=== PATIENT | female | born 1950 | race Caucasian/White ===

== ENCOUNTER → 2017-12-18 18:00 | Outpatient (CLI) | payer MEDICARE, OTHER, SELFPAY ==
[2017-12-18 18:02] LABS: Mucous, Urine 0 SEEN /hpf (<or=2+)
[2017-12-18 19:48] LABS: Color, Urine Yellow (Yellow); Glucose, Dipstick Normal (Normal); Ketone-Dipstick Negative (Negative); Leukocyte Esterase-Dipstick 500 /ul (Negative); Nitrite-Dipstick Positive (Negative); Occult Blood-Urine 250 /ul (Negative); Protein-Dipstick 30 mg/dl (Negative); Specific Gravity, Urine 1.015 (1.002-1.030); Urine Bilirubin Dipstick Negative (Negative); Urine Clarity Sl. Cloudy (Clear); Urine Urobilinogen 1 mg/dl (Normal); Urine pH 6.5 (5.0 - 8.0)
[2017-12-18 20:15] LABS: Red Blood Cells-Urine 50-100 SEEN /hpf (0-5); White Blood Cells >100 SEEN /hpf (0-5)
[2017-12-18 20:16] LABS: Bacteria 3+ /hpf (None Seen); Squamous Epithelial Cells - UA 10-25 SEEN /hpf (5-10)
[2017-12-18 22:05] LABS: Chlamydia Trachomatis by PCR Negative (Negative); Neisserai gonorrhoeae by PCR Negative (Negative); Probe Check PASS; Sample Adequacy Control PASS; Specimen Processing Control PASS
== END ==
PROVIDERS: Referring Provider Physician Assistant Surgical; Visit Provider Physician Assistant Surgical
DX: N39.0 Urinary tract infection, site not specified (principal); R30.0 Dysuria
CPT/HCPCS: 81001; 87086; 87088; 87186; 87491; 87591

== ENCOUNTER → 2017-12-18 18:34 | Outpatient (CLI) | payer MEDICARE, OTHER, SELFPAY | PROVIDERS: Visit Provider Physician Assistant Surgical | DX: R30.0 Dysuria (principal) ==

== ENCOUNTER 2021-09-29 12:27 | Day surgery (SDC) | payer MEDICARE, OTHER, SELFPAY ==
--- NOTE | 2021-09-26 14:11 | PCM.HP.BLA ---
History and Physical Date of Admission: 09/29/21 HPI: The patient is a 71 year old female presenting for pre-operative visit. She is scheduled for Hysteroscopy D&C, for PMB and thickened endoemtrium on 09/29/21. Procedure discussed along with risks, benefits and complications. Other alternatives discussed for management. Consent form signed? Yes. ? ? PAST MEDICAL HISTORY PAST MEDICAL HISTORY Diagnosis Date ? Abdominal pain ? ? Status post multiple episodes of diverticulitis ? Aneurysm of splenic artery (HCC) ? ? Crohn's disease of small and large intestines (HCC) ? ? Degenerative lumbar spinal stenosis ? ? Diverticulitis of colon ? ? Status post perforation treated with laparoscopic washout ? External hemorrhoids ? ? Gastroesophageal reflux disease ? ? suspect ? Hyperlipidemia ? ? Internal hemorrhoids ? ? Known medical problems ? ? History of pain of multiple joints ? Nausea and vomiting ? ? Pneumothorax ? ? Rectal hemorrhage ? ? Solitary pulmonary nodule present on computed tomography of lung ? ? Surgical follow-up care ? ? ? PAST SURGICAL HISTORY PAST SURGICAL HISTORY Procedure Laterality Date ? SECTION HX ? ? ? COLONOSCOPY ? ? ? EXPLORATION OF ABDOMEN;STAGING,WASHINGS ? ? ? perf bowel 03/04/2012 ? EXT HYSTERECTOMY,W/PARTIAL VAGINECTO ? ? ? LEFT OVARY REMOVAL 1996 ? LAMINECTOMY W/O FFD 02/20 VERT SEG LUMBAR ? ? ? 2007 ? ? ? CURRENT MEDICATIONS Current Outpatient Medications Medication Sig Dispense Refill ? progesterone micronized (PROMETRIUM) 100 mg capsule One po q HS 30 capsule 0 ? fluticasone (FLONASE) 50 mcg/actuation nasal spray Use 1-2 Sprays in each nostril once daily. 1 Bottle 1 ? estrogen - VERIFY PATCH every 8 hours. ? ? ? venlafaxine (EFFEXOR) 50 mg tablet Take 1 tablet by mouth once daily. 30 tablet 1 ? miSOPROStol (CYTOTEC) 200 mcg tablet Insert 2 tablets vaginally night prior to procedure and 2 tablets morning of procedure. Each dose should be in vagina for 6-8 hours. (Patient not taking: No sig reported) 4 tablet 0 ? ALPRAZolam (XANAX) 0.25 mg tablet 1 tablet(s) by mouth at bedtime (Patient not taking: No sig reported) ? ? ? IBUPROFEN (MOTRIN ORAL) 600 mg Every 8 hours Oral PRN (Patient not taking: Reported on 09/26/2021) ? ? ? omeprazole (PRILOSEC) 20 mg capsule 1 tab po daily (Patient not taking: Reported on 09/26/2021) ? ? ? OXYCODONE HCL (OXYCODONE ORAL) Take by mouth. 5 mg Once per day Oral (Patient not taking: Reported on 09/26/2021) ? ? ? No current facility-administered medications for this visit. ? ? ALLERGIES: Ciprofloxacin and Narcotics [Opioids - Morphine Analogues] ? PERSONAL HISTORY: SOCIAL HISTORY Social History ? Tobacco Use ? Smoking status: Never ? Smokeless tobacco: Never Substance Use Topics ? Alcohol use: Yes ? ? Comment: hard liquor ? Drug use: No ? FAMILY HISTORY: FAMILY HISTORY FAMILY HISTORY Problem Relation Age of Onset ? other (Diabetes mellitus) Other ? ? Hyperlipidemia Other ? ? Hypertension Father ? ? other (Respiratory disorder; Stroke) Father ? ? other (Lung cancer) Other ? ? uncle ? COPD Mother ? ? ? REVIEW OF SYMPTOMS: negative except as noted above PHYSICAL EXAMINATION: ? VITALS: There were no vitals taken for this visit. ? GENERAL: The patient is well nourished, well hydrated in no acute distress. , The patient is oriented to time, place, and person. NECK: Supple. No lynphadenopathy, normal thyroid, no thyromegaly. LUNGS: Clear to auscultation bilaterally. no wheezes, rhonchi or rales HEART: Regular rate and rhythm, Normal heart sounds, and No murmurs or gallops ? IMPRESSION: PMB, thickened endometrium, suspect polyp ? PLAN: The risks/benefits/alternatives and personal involved for the planned hysteroscopy D&C were reviewed with the patient. Her questions were answered to her satisfaction and she desires to proceed. Consent was signed. I reviewed with her postop instructions and expectations. ? ? I have reviewed and updated past medical and surgical history, medications and allergies Assessment & Plan Assessment/Plan (1) PMB (postmenopausal bleeding): (2) Endometrial thickening on ultrasound:
[2021-09-29] VITALS (8 sets, daily range): BP systolic 118–151; BP diastolic 56–73; PULSE 71–89; RESP 16; TEMP 36.2–36.6; O2SAT 97–100; BMI 23.8
--- NOTE | 2021-09-29 12:42 | EKG12_ITS ---
Test Reason : PRE OP Blood Pressure : / mmHG Vent. Rate : 084 BPM Atrial Rate : 084 BPM P-R Int : 140 ms QRS Dur : 082 ms QT Int : 360 ms P-R-T Axes : 059 022 037 degrees QTc Int : 425 ms Normal sinus rhythm with sinus arrhythmia Normal ECG Confirmed by BARI HUFF, LISA ([id number]), editor trade journal NATE IZQUIERDO ([id number]) on 10/03/2021 2:10:33 PM Referred By: Vinita Tony Confirmed By:LISA CANDELARIA MD
[2021-09-29] MEDS: Lactated Ringers 1,000 ML 15 ML IV ×2 (13:28→15:45)
[2021-09-29] MEDS: Ketorolac 15 MG/ML Vial IV (13:30)
[2021-09-29 13:32] LABS: Hematocrit 41.2 % (37-47); Hemoglobin 13.6 g/dL (12.0-15.0); Mean Corpuscular Hgb 31.3 pg (27.0-32.0); Mean Corpuscular Volume 94.9 fL (81-99); Mean Platelet Vol. 9.1 fl (6.2-12.0); Platelet Count 209 K/mm3 (150-450); RBC Distribution Width CV 14.1 % (11.6-14.6); RBC Distribution Width SD 49.4 fl (35.1-43.9); Red Blood Count 4.34 M/mm3 (4.2-5.4); White Blood Count 4.6 K/mm3 (4.4-11.0)
[2021-09-29 13:58] LABS: Anion Gap 3 (5-15); BUN 18 mg/dL (7-18); BUN/Creat Ratio 16.4 RATIO (10-20); Calcium,Total 9.5 mg/dL (8.5-10.1); Chloride 109 mmol/L (98-107); EST Glomerular Filtration Rate 52 mL/min (>60); Est Glom Filt Rate - Afr Amer 63 mL/min (>60); Estimated Creatinine Clearance 34.18 ml/min; Glucose 100 mg/dL (74-106); Potassium 4.1 mmol/L (3.5-5.1); Sodium Level 142 mmol/L (136-145)
[2021-09-29] MEDS: Vasopressin 20 UNITS/ML Vial (14:26)
--- NOTE | 2021-09-29 15:08 | OP.PCM_ITS ---
Problems Associated Problem List Diagnoses (1) Endometrial thickening on ultrasound: (2) PMB (postmenopausal bleeding): Report of Operation Date of Procedure: 09/29/21 Pre-Operative Diagnosis: PMB,. thickened endometrium Post-Operative Diagnosis: same Surgery/Procedure Performed:: hysteroscopy D&C with polyp resection Description of Surgical Findings:: normal cervix adn vagina, normal endometrial cavity shape w/ some smooth endometrium and small polypoid appearing lesion at the anterior fundus Surgeon: Vinita Tony licensed mental health counselor: Kandy JEROME Type of Anesthesia: MAC/Supplemental/Local Anesthesiologist: Noel Stark Special Medications: vasopressin solution 3.5 units vasopressin injected Specimen's removed: endometrial curettings and polyp Drains: none Estimated Blood Loss (mL): 10 Fluids Replaced: 1100 mL Description of Procedure: The patient was taken to the OR where she was prepped and draped in dorsal lith otomy position. The weighted speculum was placed in the vagina and the anterior lip of the cervix was grasped with a single-tooth tenaculum. A paracervical block was administered with 20 units of vasopressin and 40 cc of injectable saline solution-7 cc of the solution was used. The cervix was dilated serially with Hegar dilators. The Symhpion hysteroscope was placed into the uterine cavity and the above findings were noted. Bilateral tubal ostia [were] identified. The Symphion resection device was readied and inserted. The polyp was in removed with the simply on device and a visual D&C was done of the endometrial cavity. The instruments were removed from the vagina. The specimen was handed off and sent to pathology. All sponge and needle counts were correct. Vaginal sweep was performed by me. The patient was awakened and taken to the recovery room in stable condition. Calculated fluid deficit was 550 mL of normal saline Grafts/Implants Used: none Procedure Start Time: 14:52 Procedure Stop Time: 15:03 Complications none Admit VTE Documentation VTE Present on Admission: No VTE Mechan Device Prophylaxis: SCD's VTE Pharm Prophylaxis ordered?: No Reason prophylaxis not ordered:: Procedure Not Indicated
--- NOTE | 2021-09-29 15:12 | DCINST_ITS ---
Discharge Instructions Diet Discharge Diet: No restrictions Activity May resume sexual activity in: 1 week Lifting Restrictions: none Dressing / Incision Call your doctor if your incision/area has: Sudden Increased Bleeding and Foul Smelling Discharge Call your doctor if you observe: Fever of 101 or Higher and Using more than 1 pad per hour (for 2 hrs in a row) Follow Up Care Please Follow Up With: Vinita Tony MD When: 2-4 weeks or as needed. Call [phone] to make an appointment or with any concerns. Test Results: Test results from this visit will be discussed in further detail at your follow- up appointment, if applicable. Discharge Plan Admission Primary Reason for Your Visit: D&C Attending Provider: Vinita Tony Primary Care Provider: Care PhysicianDarby Primary Discharge Orders/Prescriptions Prescriptions: Continued estradiol 0.0375 mg/24 hr patch weekly 0.5 patch Transdermal QWEEK 28 Days Qty: 4 Label Comments: Place 1 patch onto the skin once a week. remove previous patch venlafaxine 50 mg tablet 50 mg PO QHS 30 Days Qty: 30 Label Comments: TAKE ONE TABLET BY MOUTH EVERY DAY progesterone micronized 100 mg capsule 100 mg PO QHS Label Comments: TAKE 1 CAPSULE BY MOUTH EVERYDAY AT BEDTIME Referrals / Follow Up: Care Physician,Darby Primary [Primary Care Provider] - Disposition Disposition (needs filled in before D/C Order can be placed): Home, Self Care
--- NOTE | 2021-09-29 15:30 | EMB_PTH ---
PATIENT: CHAMP BUCK LOC: [facility] – [place] U#:[id number] AGE/SX: 71/F ROOM: RE09/29/[address]: Dr. Vinita Tony MD : [id number] BED: DIS: 09/29/2021 SPEC #: [id number] RECD: 09/29/21 15:37 STATUS: EL REBairon #: [id number] LUPILLO: 09/29/21 15:[address]: Vinita Tony DEPT: SURGICAL PATHOLOGY RECD BY: Za Olea ENTERED: 09/30/21 08:17 SP TYPE: ENDOM BX/C MAO DR: No Primary Care Phys Tissues: Endometrium, NOS Procedures: Surgery Specimen Level IV HEADER OPERATION: Hysteroscopy, D & C Symphion, polyp resection PRE-OP DIAGNOSIS: Postmenopausal bleeding, endometrial thickening on ultrasound TISSUE SUBMITTED: Endometrial curetting and polyp MICROSCOPIC DIAGNOSIS Endometrial curetting and polyp: Fragments of inactive endometrium with focal cystic changes. Numerous fragments of myometrium. SJ 10/03/2021 COMMENT Correlation with clinical findings and appropriate follow up are necessary. MICROSCOPIC DESCRIPTION Slides are reviewed. GROSS DESCRIPTION Received in fixative is one container labeled with the patient's name and designated endometrial curetting and polyp. The specimen consists of multiple irregular fragments of cleaning soft tissue that in aggregate measure 2 x 1.5 x 0.2 cm. The specimen is totally submitted in one cassette. / SJ:rg 09/30/2021 TC:5 CPT: 20188
[2021-09-29] MEDS: Acetaminophen 500 MG Tablet 1000 MG PO (16:15)
== END 2021-09-29 16:32 | disposition home or self-care (01) ==
LOC: SDC 12:35 → AC 12:38
PROVIDERS: Referring Provider Obstetrics & Gynecology; Visit Provider Obstetrics & Gynecology
PROC: 0UB98ZZ Excision of Uterus, Via Natural or Artificial Opening Endoscopic (ICD-10-PCS; CPT 58558; principal; 2021-09-29 15:15)
DX: N95.0 Postmenopausal bleeding (principal); N84.0 Polyp of corpus uteri; R93.89 Abnormal findings on diagnostic imaging of other specified body structures; F41.9 Anxiety disorder, unspecified; Z79.899 Other long term (current) drug therapy
CPT/HCPCS: 58558; 00952; 80048; 85027; 88305; 93005; J7120; J2405

== ENCOUNTER → 2022-01-31 | Outpatient (CLI) | payer MEDICARE, OTHER, SELFPAY ==
--- NOTE | 2022-01-31 18:20 | US_ITS ---
INDICATION: ENLARGEMENT-RT EXAMINATION: Ultrasound US Thyroid (eg thyroid, parathyroid, parotid) TECHNIQUE: Garsia scale and color doppler imaging was performed of the thyroid gland. COMPARISON: None. FINDINGS: RIGHT THYROID LOBE: 4.7 x 1.3 x 1.5 cm. Homogeneous echotexture with normal vascularity. [ 1. . 3 x 2 x 3 mm hypoechoic solid nodule, wider than tall with smooth margins with possible central macrocalcification, TI-RAD 4. LEFT THYROID LOBE: 3.5 x 0.9 x 1.1 cm. Homogeneous echotexture with normal vascularity. [No thyroid nodules are present. ISTHMUS: 0.2cm isthmus. No thyroid nodules are present. Right neck lymph nodes, largest 1.3 x 0.3 x 0.6cm lymph node with preserved fatty hilum and symmetric thin cortex. US/Thyroid IMPRESSION: Right thyroid 3 mm thyroid TI-RAD 4 nodule which is likely benign given its small size. No specific imaging follow-up required by 2017 ACR TI-RAD criteria. Small right neck lymph nodes are nonspecific, without overt suspicious features. Clinical follow-up recommended with follow-up ultrasound as indicated Electronically Signed: Varghese Casarez MD at 8:15 EST ,
== END | disposition home or self-care (01) ==
PROVIDERS: PCP Nurse Practitioner Family; Referring Provider Nurse Practitioner Family; Visit Provider Nurse Practitioner Family
DX: E04.1 Nontoxic single thyroid nodule (principal)
CPT/HCPCS: 76536

== ENCOUNTER → 2023-11-16 | Outpatient (CLI) | payer MEDICARE, OTHER, SELFPAY ==
--- NOTE | 2023-11-16 12:08 | BI_ITS ---
MAMMOGRAPHY - BILATERAL SCREENING REASON FOR EXAM: Female, 73 years old. Routine annual screening examination. PERTINENT HISTORY: Non-contributory. TECHNIQUE: Digital bilateral breast tyrone (3D mammographic acquisition) in the CC and MLO projections. 2-D mediolateral oblique (MLO) and craniocaudad (CC) views of both breasts were obtained. CAD: Full Field Digital Mammography with Computer Added Detection was performed. COMPARISON: Comparison is made with prior outside examination dated November 30, 2021. FINDINGS: Breast Composition: There are scattered areas of fibroglandular density. There are no dominant masses or suspicious calcifications. No other significant abnormalities are identified. There has been no significant change since the prior study. BI/SCRN MAMM (CAD)W/TYRONE BILAT IMPRESSION: Stable bilateral screening mammogram. Yearly follow-up mammogram recommended. (A) ASSESSMENT CATEGORY: BIRADS Category 1: Negative. A letter regarding these results will be sent to the patient by the facility within 30 days. Approximately 10% of breast cancers are not detected by mammography. A normal mammogram should not delay biopsy of a clinically suspicious abnormality. [id number] Electronically Signed: Kaiden Baxter MD at 9:41 EDT ,
== END | disposition home or self-care (01) ==
LOC: OPBD 12:06
PROVIDERS: PCP Nurse Practitioner Family; Referring Provider Nurse Practitioner Family; Visit Provider Nurse Practitioner Family
DX: Z12.31 Encounter for screening mammogram for malignant neoplasm of breast (principal)
CPT/HCPCS: 77063; 77067

== ENCOUNTER → 2023-12-24 | Outpatient (CLI) | payer MEDICARE, OTHER, SELFPAY ==
--- NOTE | 2023-12-24 15:00 | RAD_ITS ---
STUDY: X-RAY CHEST REASON FOR EXAM: Female, 73 years old. 3 week history of cough and chest pain. TECHNIQUE: PA and lateral views of the chest. COMPARISON: Comparison is made with prior study February 07, 2023. FINDINGS: There is hyperinflation of the lungs consistent with chronic obstructive lung disease (COPD). There is no demonstrated pleural abnormality. Normal size heart. Normal mediastinum and ivan. Normal visualized pulmonary arteries. There is atherosclerotic calcification of the aortic arch with tortuosity. There are diffuse degenerative changes of the visualized thoracic spine. There are multiple healed right rib fractures. There is no demonstrated abnormality of the visualized soft tissue structures of the upper abdomen. RAD/Chest PA and Lateral IMPRESSION: Hyperinflation. Multiple healed right rib fractures. No acute abnormality is seen. Electronically Signed: Kaiden Baxter MD at 9:57 EST ,
== END | disposition home or self-care (01) ==
LOC: RAD 14:54
PROVIDERS: PCP Nurse Practitioner Family; Referring Provider Nurse Practitioner Family; Visit Provider Nurse Practitioner Family
DX: R05.9 Cough, unspecified (principal)
CPT/HCPCS: 71046

== ENCOUNTER → 2024-04-11 | Outpatient (CLI) | payer MEDICARE, OTHER, SELFPAY ==
--- NOTE | 2024-04-11 12:41 | RAD_ITS ---
PROCEDURE: CHEST PA AND LATERAL REASON FOR EXAM: Lower respiratory tract infection. TECHNIQUE: Frontal and lateral views of the chest. COMPARISON: Comparison is made with prior study dated December 24, 2023. FINDINGS: Hyperinflation. Findings suggestive of COPD. The heart size is normal. The mediastinal contour is unremarkable. Calcification of the aortic arch. Degenerative changes are identified within the thoracic spine. Multiple healed right-sided rib fractures. RAD/Chest PA and Lateral IMPRESSION: Hyperinflation. No acute abnormality is seen. Reading Location: [place] [id number]
[2024-04-11 15:43] LABS: Absolute Lymphocyte Count 0.81 X10^3/uL (0.83-4.51); Absolute Neutrophil Count 5.4 X10^3/uL (2.0-7.7); Basophil# 0.03 X10^3/uL; Basophil% 0.4 % (0-1); Eosinophil# 0.28 X10^3/uL; Eosinophils% 3.9 % (0-5); Hematocrit 44.4 % (37-47); Hemoglobin 14.1 g/dL (12.0-15.0); Lymphocyte # 0.81 X10^3/ul (0.83-4.51); Lymphocyte % 11.1 % (19-41); Mean Corp Hgb Conc 31.8 g/dL (32-36); Mean Corpuscular Hgb 30.1 pg (27.0-32.0); Mean Corpuscular Volume 94.9 fL (81-99); Mean Platelet Vol. 9.2 fl (6.2-12.0); Monocyte# 0.78 X10^3/uL; Monocyte% 10.7 % (0-10); NRBC Flagged by Analyzer 0 % (0-5); Neutrophil # 5.35 X10^3/uL (2.7-7.7); Neutrophil % 73.6 % (47-70); Platelet Count 240 K/mm3 (150-450); RBC Distribution Width SD 45.3 fl (35.1-43.9); Red Blood Count 4.68 M/mm3 (4.2-5.4); White Blood Count 7.3 K/mm3 (4.4-11.0)
[2024-04-11 15:57] LABS: ALB/GLOB Ratio 0.9 RATIO (0.9-2.4); AST(SGOT) 23 U/L (15-37); Alanine Aminotransfer ALT/SGPT 33 U/L (13-56); Albumin, Serum 3.8 g/dL (3.2-5.0); Alkaline Phosphatase 119 U/L (45-117); Anion Gap 7 (5-15); BUN 8 mg/dL (7-18); BUN/Creat Ratio 7.6 RATIO (10-20); Calcium,Total 9.5 mg/dL (8.5-10.1); Chloride 106 mmol/L (98-107); Creatinine, Serum 1.05 mg/dL (0.55-1.02); EST Glomerular Filtration Rate 55 mL/min (>60); Est Glom Filt Rate - Afr Amer 66 mL/min (>60); Globulin 4.2 g/dL (2.2-4.2); Glucose 88 mg/dL (74-106); Potassium 3.8 mmol/L (3.5-5.1); Sodium Level 139 mmol/L (136-145)
[2024-04-11 15:59] LABS: Erythrocyte Sedimentation Rate 6 mm/hr (0-30)
== END | disposition home or self-care (01) ==
PROVIDERS: PCP Nurse Practitioner Family; Referring Provider Nurse Practitioner Family; Visit Provider Nurse Practitioner Family
DX: J22 Unspecified acute lower respiratory infection (principal)
CPT/HCPCS: 71046; 80053; 85025; 85652; 86140

== ENCOUNTER → 2024-08-11 | Outpatient (CLI) | payer MEDICARE, SELFPAY ==
--- NOTE | 2024-08-11 13:02 | US_ITS ---
PROCEDURE: THYROID 08/11/2024 REASON FOR EXAM: THYROID ULTRASOUND ([id number]) : REASSESS NODULE/MICROCALCIFICATION U TECHNIQUE: THYROID COMPARISON: None FINDINGS: Right thyroid lobe size: 4.5 x 1.8 x 1.3 cm Left thyroid lobe size: 3.6 x 0.9 x 1.0 cm Isthmus: 0.2 cm Background parenchymal echotexture is homogeneous. Nodules: 1. Lobe: Right, Location: Mid, Size: 0.6 x 0.5 x 0.5 cm, Stability: N/A Composition: Solid or almost completely solid (+2) Echogenicity: Hyper to Isoechoic (+1) Margin: Ill-defined (+0) Shape: Wider than tall (+0) Echogenic Foci: Macrocalcification (+1) TI-RADS: 4 US/Thyroid IMPRESSION: Solitary nodule in the right thyroid lobe measuring up to 6 mm in size, which d oes not require follow-up or FNA per ACR TI-RADS guidelines. Reading Location: [facility]
--- OUTSIDE RECORDS SUMMARY | 2024-08-11 22:36 | XMS RPT_ITS | CCD ---
Author Organization [facility] Care Team Providers Care Millwork Estimator Name Role Phone Dustin HUFF, Rashaad Bajwa Unavailable Suarez, Yulia Attending Unavailable Suarez, Yulia Referring Unavailable Suarez, Yulia Primary Care Unavailable Suarez, Yulia Attending Unavailable Suarez, Yulia Referring Unavailable Suarez, Yulia Primary Care Unavailable Suarez, Yulia Attending Unavailable Suarez, Yulia Referring Unavailable Suarez, Yulia Primary Care Unavailable Petr Broussard Attending Unavailable Suarez, Yulia Referring Unavailable Suarez, Yulia Primary Care Unavailable Kelsi Novoa Attending Unavailable Suarez, Yulia Referring Unavailable Suarez, Yulia Primary Care Unavailable Waldo Waldron Attending Unavailable Suarez, Yulia Referring Unavailable Suarez, Yulia Primary Care Unavailable Tyree, Iris R Primary Care Provider Sadiq Clementsine R Primary Care Provider Kelsi Goldman Primary Care Provider Tyree KEY Iris R Primary Care Provider Gisell Espinoza MD Primary Care Provider Unavailable Primary Care Provider Unavailabl e Sadiq Clementsine Latia Primary Care Provider Almaz Turner DO Primary Care Provider Almaz Turner DO Primary Care Provider Sadiq Clementsine Latia Primary Care Provider Unavailable Primary Care Provider Unavailabl e Unavailable Primary Care Provider Unavailabl e MEHNAZ LLOYD, SHANIQUE Attending Unavailabl e NO FAMILY PHYSICIAN, 837 Primary Care Unavail able Winifred HUFF, Gustabo Sinclair Primary Care Provider Thomas PRESCRIPTION BENEFIT SPECIALIST, Daniel Unavailable Thomas PRESCRIPTION BENEFIT SPECIALIST, Daniel Unavailable Slarao TREASURY ANALYSTNancy Unavailable Unavailable Unavailable Unavailable Diana Lundberg MD Unavailable Sandy STOREHOUSE CLERK, Goldya Unavailable Unavailable Unavailable Unavailable Sukhwinder TREASURY ANALYSTNadia Unavailable Unavailable Unavailable Unavailable Diana Lundberg MD Unavailable Thomas PRESCRIPTION BENEFIT SPECIALIST, Daniel Attending Unavailable Thomas PRESCRIPTION BENEFIT SPECIALIST, Daniel Referring Unavailable Thomas PRESCRIPTION BENEFIT SPECIALIST, Daniel Consulting Unavailable Con Lynn Unavailable Fast DO, Shanique Mack Primary Care Provider FAST, SHANIQUE MACK Referring Unavailable FAST, SHANIQUE MACK Primary Care Unavailable CON LYNN Attending Unavailable Iris Clements Primary Care Provider Gustabo Deng MD Primary Care Provider Gustabo Deng MD Primary Care Provider PROVIDER, UNKNOWN Admitting Unavailable DIANA LUNDBERG Attending Unavailable PROVIDER, UNKNOWN Admitting Unavailable DIANA LUNDBERG Attending Unavailable THOMAS, DANIEL Primary Care Unavailable LUISANA RAMIREZ Attending Unavailable BRICE SALMERON Attending Unavailable THOMAS, DANIEL Primary Care Unavailable ThomasChloéyn Attending Unavailable Thomas, Daniel Primary Care Unavailable Thomas, Daniel Referring Unavailable ThomasChloéyn Attending Unavailable Thomas, Daniel Primary Care Unavailable Thomas, Daniel Referring Unavailable Thomas, Daniel Attending Unavailable Thomas, Daniel Primary Care Unavailable Thomas, Daniel Referring Unavailable Thomas FILM EDITOR-C, Daniel Primary Care Provider Thomas FILM EDITOR-C, Daniel Attending Provider Thomas FILM EDITOR-C, Daniel Referring Provider Thomas SAMI, Daniel Primary Care Provider GUSTABO DENG Primary Care Unavailable Thomas MOLD SETTER-Daniel GALLARDO E Primary Care Provider THOMAS, DANIEL E Referring Unavailable DANIEL GUZMAN Primary Care Unavailable Allergies Allergy Classification Reported Allergen(s) Allergy Type Date of Onset Reaction(s) Facility Quinolones (antibiotic) (1 source) Ciprofloxacin Drug Allergy 03-21-19 13 Rash [facility] (1 source) ciprofloxacin drug allergy 01-21-20 16 [facility] Work Phone: (20 sources) Ciprofloxacin; Translations: [Cipro *FLUOROQUINOLONES *] Drug Allergy 03-21-19 13 Rash, Other: See Comments, Other (See Comments), Swelling [place], [place] (5 sources) Morphine And Related Propensity to adverse reactions to drug 07-02-19 Other (See Comments) [place] (20 sources) Morphinan opioid; Translations: [OPIOIDS - MORPHINE ANALOGUES] Propensity to adverse reactions to drug 07-02-19 16 Other: See Comments, Other (See Comments) [facility] (2 sources) Morphine; Translations: [MORPHINE] Drug Allergy 07-02-19 16 Other (See Comments) [facility] (1 source) Ciprofloxacin Drug Allergy 09-30-19 [facility] Repository (1 source) ALLERGIES NOT ON FILE; Translations: [ALLERGIES NOT ON FILE] Propensity to adverse reactions (disorder) [facility] 2 Repository Medications Current Medications Medication Drug Class(es) Dates Sig (Normalized) Sig (Original) acyclovir 400 mg oral tablet (3 sources) Herpesvirus Nucleoside Analog DNA Polymerase Inhibitor, Herpes Simplex Virus Nucleoside Analog DNA Polymerase Inhibitor, Herpes Zoster Virus Nucleoside Analog DNA Polymerase Inhibitor Start: 07-25-2023 take 1 tablet by mouth three times daily as needed acyclovir (ZOVIRAX) 400 mg tablet TAKE 1 TABLET BY MOUTH 3 TIMES PER DAY NEEDED 07/25/2023 Active 120 actuat albuterol 0.1 mg/actuat / ipratropium bromide 0.02 mg/actuat inhalation spray (1 source) Anticholinergic, beta2-Adrenergic Agonist Start: 01-06-2024 take 20-100 ug by inhalation every six hours as needed ipratropium 20 mcg-albuterol 100 mcg (COMBIVENT RESPIMAT) 20-100 mcg/actuation inhaler Inhale 1 Puff as instructed every 6 hours as needed for wheezing/shortnes s of breath for up to 10 days. With spacer 4 g 01/06/2024 Active amoxicillin 875 mg / clavulanate 125 mg oral tablet (20 sources) Penicillin-class Antibacterial Start: 08-04-2023 End: 08-09-2023 take 1 tablet by mouth twice daily amoxicillin-clavu lanate potassium (AUGMENTIN) 875-125 mg per tablet Indications: Bacterial sinusitis Take 1 tablet by mouth two times a day for 5 days. 10 tablet 0 08/04/2023 08/09/2023 Active Start: 04-11-2022 End: 04-21-2022 take 1 tablet by mouth twice daily amoxicillin-pot clavulanate 875-125 mg oral tablet 1 (one) tablet two times daily for 10 days Quantity: 20 {Tablet} Refills: 0 Ordered: 11-Apr-2022 Nancy Quintanilla LPN Start : 11-Apr-2022 End : 21-Apr-2022 Inactive Start: 01-11-2022 End: 01-21-2022 take 1 tablet by mouth twice daily Amoxicillin-Pot Clavulanate 875-125 MG Oral Tablet 1 (one) Tablet two times daily for 10 days Quantity: 20 {Tablet} Refills: 0 Ordered: 11-Jan-2022 Nadia Pretty LPN Start : 11-Jan-2022 End : 21-Jan-2022 Inactive aspirin 325 mg oral tablet (2 sources) Nonsteroidal Anti-inflammatory Drug Start: 07-05-2017 aspirin 325 MG tablet Take 1 (one) tablet (325 mg total) by mouth . 0 07/05/2017 Active Start: 07-05-2017 ASPIRIN 325 MG TABS take 1 to 2 tablets every 6 hours as needed ASPIRIN [id number] [facility] bimatoprost 0.3 mg/ml topical solution (4 sources) Prostaglandin Analog Start: 06-07-2022 bimatoprost (LATISSE) 0.03 % ophthalmic solution Apply to both eyelids along upper eyelid lash line at nightime. Do not use on lower eyelid 3 mL 5 06/07/2022 Active Comment on above: Apply to both eyelid s along upper eyelid lash line at nightime. Do not use on lower eyelid 24 hr buPROPion hydrochloride 150 mg extended release oral tablet (1 source) Aminoketone Start: 07-10-2019 take 1 tablet by mouth once daily in the morning buPROPion (WELLBUTRIN XL) 150 MG extended release tablet Indications: Moderate recurrent major depression (HCC) Take 1 tablet by mouth every morning 30 tablet 3 07/10/2019 Active fluconazole 150 mg oral tablet (1 source) Azole Antifungal Start: 06-27-2019 take 1 tablet by mouth once daily as needed fluconazole (DIFLUCAN) 150 MG tablet Take 1 tablet by mouth daily as needed (yeast symptoms) 2 tablet 1 06/27/2019 Active Iopamidol (1 source) Radiographic Contrast Agent Start: 12-23-2018 iopamidol (ISOVUE-M 300) 61 % injection 100 mL ketoconazole 20 mg/ml medicated shampoo (4 sources) Azole Antifungal Start: 06-07-2022 ketoconazole (NIZORAL) 2 % shampoo SHAMPOO TWICE A WEEK DIRECTED allow product to remain in place for 5 minutes prior to rinsing 120 mL 5 06/07/2022 Active Comment on above: SHAMPOO TWICE A WEEK DIRECTED allow product to remain in place for 5 minutes prior to rinsing 24 hr loratadine 10 mg / pseudoephedrine sulfate 240 mg extended release oral tablet (2 sources) alpha-Adrenergic Agonist Start: 01-15-2018 take 10-240 mg by mouth once loratadine-pseudo ephedrine (CLARITIN-D 24 HOUR) 10-240 MG per extended release tablet Take 1 tablet by mouth daily 10 tablet 0 01/15/2018 Active LORazepam 0.5 mg oral tablet (20 sources) Benzodiazepine Start: 10-12-2021 End: 04-10-2022 take 1 tablet by mouth once daily as needed for anxiety LORazepam (ATIVAN) 0.5 mg Indications: Anxiety Take 1 tablet by mouth once daily as needed (anxiety) for up to 180 days. 30 tablet 10/12/2021 Active Start: 12-18-2019 End: 01-17-2020 take 1 tablet by mouth once daily as needed for anxiety LORazepam (ATIVAN) 0.5 MG tablet Indications: Generalized anxiety disorder Take 1 tablet by mouth daily as needed for Anxiety for up to 30 days. 30 tablet 0 12/18/2019 01/17/2020 Active Start: 07-10-2019 End: 08-09-2019 take 1 tablet by mouth once daily as needed for anxiety LORazepam (ATIVAN) 0.5 MG tablet Indications: Generalized anxiety disorder Take 1 tablet by mouth nightly as needed for Anxiety for up to 30 days. 30 tablet 0 07/10/2019 08/09/2019 Active Start: 01-31-2019 End: 03-02-2019 take 1 tablet by mouth once daily as needed for anxiety LORazepam (ATIVAN) 0.5 MG tablet Indications: Generalized anxiety disorder Take 1 tablet by mouth nightly as needed for Anxiety for up to 30 days. 30 tablet 0 01/31/2019 03/02/2019 Active Start: 08-30-2018 take 1 tablet by richard th once daily as needed for anxiety LORazepam (ATIVAN) 0.5 MG tablet Indications: Generalized anxiety disorder Take 1 tablet by mouth nightly as needed for Anxiety for up to 30 days. 30 tablet 0 08/30/2018 Active Comment on above: Take 1 tablet by richard th once daily as needed (anxiety) for up to 180 days. Medication taken as needed. omeprazole 40 mg delayed release oral capsule (7 sources) Proton Pump Inhibitor Start: 05-19-19 End: 05-18-19 24 take 1 capsule by mouth once daily omeprazole (PRILOSEC) 40 MG capsule Indications: Laryngopharyngeal reflux (LPR) Take 1 (one) capsule (40 mg total) by mouth daily . 30 capsule 3 05/18/2022 05/18/2023 Active End: 09-26-2021 take 1 tablet by mouth once daily omeprazole (PRILOSEC) 20 mg capsule 1 tab po daily 0 09/26/2021 Discontinued (Other) Comment on above: 1 tab po daily pantoprazole 40 mg delayed release oral tablet (5 sources) Proton Pump Inhibitor Start: 1 take 1 tablet by mouth once daily pantoprazole (PROTONIX) 40 MG tablet TAKE 1 TABLET BY MOUTH EVERY DAY 30 tablet 2 04/16/2020 Active Start: 12-18-2019 take 1 tablet by richard th once daily pantoprazole (PROTONIX) 40 MG tablet TAKE 1 TABLET BY MOUTH EVERY DAY 30 tablet 2 12/18/2019 Active Start: 03-24-2019 take 1 tablet by richard th once daily pantoprazole (PROTONIX) 40 MG tablet TAKE 1 TABLET BY MOUTH DAILY 30 tablet 2 03/24/2019 Active Start: 02-06-2018 take 1 tablet by richard th once daily pantoprazole (PROTONIX) 40 MG tablet Take 1 tablet by mouth daily 90 tablet 1 02/06/2018 Active progesterone 100 mg oral capsule (20 sources) Progesterone Start: 09-23-2021 take 1 capsule by mouth once at bedtime progesterone micronized (PROMETRIUM) 100 mg capsule Indications: PMB (postmenopausal bleeding) One po q HS 30 capsule 11 10/05/2021 Active Start: 12-18-2019 End: 09-14-2021 take 1 capsule by mouth once at bedtime progesterone micronized (PROMETRIUM) 100 mg capsule One po q HS 0 12/18/2019 09/14/2021 Discontinued Start: 03-20-2019 take 1 capsule by mo uth once at bedtime progesterone (PROMETRIUM) 100 MG capsule One po q HS 90 capsule 3 03/20/2019 Active Start: 01-06-2019 take 1 capsule by mo uth once at bedtime progesterone (PROMETRIUM) 100 MG capsule One po q HS 90 capsule 0 01/06/2019 Active Start: 11-20-2017 take 1 capsule by mo uth once at bedtime progesterone (PROMETRIUM) 100 MG capsule One po q HS 90 capsule 4 11/20/2017 Active Comment on above: One po q HS sodium chloride flush 0.9 % injection 3 mL (1 source) Start: 9 sodium chloride flush 0.9 % injection 3 mL tiZANidine 4 mg oral tablet (1 source) Central alpha-2 Adrenergic Agonist Start: 9 take 1 tablet by mouth every eight hours as needed for muscle spasms tiZANidine (ZANAFLEX) 4 MG tablet Indications: Acute left-sided thoracic back pain Take 1 tablet by mouth every 8 hours as needed (spasms) 30 tablet 0 01/31/2019 Active tretinoin 0.25 mg/ml topical cream (8 sources) Retinoid Start: 7 tretinoin (RETIN-A) 0.025 % cream Apply topically at bedtime. Apply 2-3 nights per week and advance as tolerated to nightly regimen. 45 g 5 12/11/2016 Active valACYclovir 500 mg oral tablet (19 sources) Herpesvirus Nucleoside Analog DNA Polymerase Inhibitor, Herpes Simplex Virus Nucleoside Analog DNA Polymerase Inhibitor, Herpes Zoster Virus Nucleoside Analog DNA Polymerase Inhibitor Start: 1 take 1 tablet by mouth once daily valACYclovir (VALTREX) 500 mg tablet Take 1 tablet by mouth once daily. 10/11/2021 Active Start: 03-20-2019 take 1 tablet by richard th once daily valACYclovir (VALTREX) 500 MG tablet Take 1 tablet by mouth daily 90 tablet 1 03/20/2019 Active Start: 03-26-2018 take 1 tablet by richard th once daily valACYclovir (VALTREX) 500 MG tablet Take 1 tablet by mouth daily 90 tablet 1 03/26/2018 Active Comment on above: Take 1 tablet by richard th once daily. Completed/Discontinued Medications Medication Drug Class(es) Dates Sig (Normalized) Sig (Original) ALPRAZolam 0.25 mg oral tablet (6 sources) Benzodiazepine End: 09-26-2021 take 1 tablet by mouth at bedtime ALPRAZolam (XANAX) 0.25 mg tablet 1 tablet(s) by mouth at bedtime 0 09/26/2021 Discontinued (Other) Comment on above: 1 tablet(s) by mouth at bedtime atorvastatin 10 mg oral tablet (1 source) HMG-CoA Reductase Inhibitor Start: 07-05-2017 ATORVASTATIN CALCIUM 10 MG TABS take 1/2 a tablet every other day ATORVASTATIN CALCIUM [id number] [facility] cariprazine 1.5 mg oral capsule (12 sources) Atypical Antipsychotic Start: 04-17-2022 End: 07-18-2022 take 1 capsule by mouth once daily Vraylar 1.5 mg oral capsule 1 Capsule daily for 0 days Quantity: 30 {Capsule} Refills: 3 Ordered: 18-Jul-2022 Nancy Quintanilla LPN Start : 17-Apr-2022 End : 18-Jul-2022 Discontinued doxycycline hyclate 100 mg oral capsule (11 sources) Tetracycline-class Drug Start: 04-24-2022 End: 05-01-2022 take 1 capsule by mouth twice daily doxycycline hyclate 100 mg oral capsule 1 Capsule 2 times per day for 7 days Quantity: 14 {Capsule} Refills: 0 Ordered: 24-Apr-2022 Nancy Quintanilla LPN Start : 24-Apr-2022 End : 01-May-2022 Inactive 168 hr estradiol 0.93726 mg/hr transdermal system (20 sources) Estrogen Start: 12-12-2022 apply 1 dose transdermal route every week estradioL 0.0375 mg/24 hr weekly transdermal patch 1 (one) patch, transdermal weekly weekly for 0 days Quantity: 30 {Each} Refills: 0 Ordered: 12-Dec-2022 Daniel Guzman CNP Start : 12-Dec-2022 Active Start: 03-31-2022 estradioL (CLI MARY) 0.0375 mg/24 hr 1 (one) patch once a week . 0 03/31/2022 Active Start: 10-07-2021 estradiol (CLI MARY) 0.0375 mg/24 hr Apply 1 Patch as directed one time a week. 10/07/2021 Active Start: 03-30-2020 End: 08-19-2020 estradiol (CLIMARA) 0.0375 M G/24HR Place 1 patch onto the skin once a week 4 patch 2 03/30/2020 08/19/2020 Discontinued (REORDER) Start: 03-20-2019 estradiol (EST RACE VAGINAL) 0.1 MG/GM vaginal cream One applicatorful which is 1 gram q HS x 2 weeks then twice weekly 30 g 6 03/20/2019 Active Start: 12-18-2017 apply 1 dose transde rmal route every week Estradiol Active 0.5 PATCH TD EVERY WEEK 4 December 17, 2017 11:00pm Start: 11-20-2017 estradiol (CLI MARY) 0.0375 MG/24HR Place 1 patch onto the skin once a week 4 patch 3 03/20/2019 Active Start: 07-10-2016 estradiol (EST RACE VAGINAL) 0.1 MG/GM vaginal cream Place 0.5 g vaginally twice a week 1 Tube 1 07/10/2016 Active Comment on above: Apply 1 Patch as dir ected one time a week. estrogen - VERIFY PATCH (16 sources) End: apply 1 dose transdermal route every eight hours estrogen - VERIFY PATCH every 8 hours. 0 10/12/2021 Discontinued apply 1 dose transde rmal route every eight hours estrogen - VERIFY PATCH every 8 hours. 0 Active Comment on above: every 8 hours. fluticasone propionate 0.05 mg/actuat metered dose nasal spray (20 sources) Corticosteroid Start: 01-27-2022 fluticasone propionate 50 mcg/actuation intranasal spray, suspension 1 (one) spray daily for 0 days Quantity: 1 {Each} Refills: 0 Ordered: 17-Apr-2022 Nancy Quintanilla LPN Start : 27-Jan-2022 Active Start: 01-27-2022 fluticasone pr opionate (FLONASE) 50 mcg/actuation nasal spray daily . 0 01/27/2022 Active Start: 01-30-2020 End: 10-12-2021 take 1-2 spray(s) nasal route once daily fluticasone (FLONASE) 50 mcg/actuation nasal spray Indications: Chronic cough , Chronic rhinitis Use 1-2 Sprays in each nostril once daily. 1 Bottle 1 01/30/2020 10/12/2021 Discontinued Comment on above: Use 1-2 Sprays in ea ch nostril once daily. ibuprofen 600 mg oral tablet (6 sources) Nonsteroidal Anti-inflammatory Drug End: take 600 mg by mouth every eight hours as needed IBUPROFEN (MOTRIN ORAL) 600 mg Every 8 hours Oral PRN 0 09/26/2021 Discontinued (Other) Comment on above: 600 mg Every 8 hours Oral PRN 1 ml ketorolac tromethamine 30 mg/ml cartridge (1 source) Nonsteroidal Anti-inflammatory Drug, Cyclooxygenase Inhibitor Start: End: ketorolac (TORADOL) injection 30 mg miSOPROStol 0.2 mg oral tablet (5 sources) Prostaglandin E1 Analog Start: End: miSOPROStol (CYTOTEC) 200 mcg tablet Indications: PMB (postmenopausal bleeding) Insert 2 tablets vaginally night prior to procedure and 2 tablets morning of procedure. Each dose should be in vagina for 6-8 hours. 4 tablet 0 09/14/2021 09/26/2021 Discontinued (Other) Comment on above: Insert 2 tablets vag inally night prior to procedure and 2 tablets morning of procedure. Each dose should be in vagina for 6-8 hours. nitrofurantoin, macrocrystals 25 mg / nitrofurantoin, monohydrate 75 mg oral capsule (3 sources) Nitrofuran Antibacterial Start: End: take 1 capsule by mouth every twelve hours at mealtime Nitrofurantoin Monohyd/M-Cryst 100 mg capsule Discontinued 1 NMA PO Q12H 14 7 December 17, 2017 11:00pm December 24, 2017 12:00am December 25, 2017 12:08am administer with a meal/food; swallow whole; do not open, crush, dissolve , or chew 2 ml ondansetron 2 mg/ml injection (3 sources) Serotonin-3 Receptor Antagonist Start: End: ondansetron (ZOFRAN) injection 4 mg Start: 12-23-2018 take 1 tablet by richard th every eight hours as needed for nausea ondansetron (ZOFRAN ODT) 4 MG disintegrating tablet Take 1 tablet by mouth every 8 hours as needed for Nausea 20 tablet 0 12/23/2018 Active oxyCODONE hydrochloride 5 mg oral tablet (6 sources) Opioid Agonist End: 09-26-2021 take 5 mg by mouth once daily OXYCODONE HCL (OXYCODONE ORAL) Take by mouth. 5 mg Once per day Oral 0 09/26/2021 Discontinued (Other) Comment on above: Take by mouth. 5 mg Once per day Oral phenazopyridine hydrochloride 100 mg oral tablet (3 sources) Start: 12-18-2017 End: 12-19-2017 take 1 tablet by mouth three times daily at mealtime for pain Phenazopyridine (Pyridium) 100 mg tablet Discontinued 100 mg PO THREE TIMES A DAY as needed for pain 7 0 December 17, 2017 11:00pm December 17, 2017 11:00pm December 18, 2017 11:09pm administer with a full glass of water after each meal predniSONE 10 mg oral tablet (20 sources) Start: 05-11-2022 End: 05-16-2022 take 4 tablets by mouth once daily predniSONE 10 mg oral tablet 4 tablet daily for 5 days Quantity: 20 {Tablet} Refills: 0 Ordered: 11-May-2022 Daniel Guzman CNP Start : 11-May-2022 End : 16-May-2022 Inactive Start: 12-28-2021 End: 01-02-2022 take 2 tablets by mouth once daily predniSONE 20 MG Oral Tablet 2 (two) Tablet daily for 5 days Quantity: 10 {Tablet} Refills: 0 Ordered: 28-Dec-2021 Daniel Guzman CNP Start : 28-Dec-2021 End : 02-Jan-2022 Inactive rosuvastatin calcium 5 mg oral tablet (18 sources) HMG-CoA Reductase Inhibitor Start: 02-21-2022 End: 04-17-2022 rosuvastatin 5 mg oral tablet 1 (one) tablet every other night for 0 days Quantity: 15 {Tablet} Refills: 3 Ordered: 17-Apr-2022 Nancy Quintanilla LPN Start : 21-Feb-2022 End : 17-Apr-2022 Discontinued Start: 01-27-2022 rosuvastatin 5 mg oral tablet 1 (one) tablet every other night for 0 days Quantity: 15 {Tablet} Refills: 3 Ordered: 27-Jan-2022 Daniel Guzman CNP Start : 27-Jan-2022 Active 50 ml sodium chloride 9 mg/ml injection (1 source) Start: 12-23-2018 End: 12-23-2018 0.9 % sodium chloride bolus venlafaxine 75 mg oral tablet (20 sources) Serotonin and Norepinephrine Reuptake Inhibitor Start: 08-08-2022 take 1 tablet by mouth once daily venlafaxine 75 mg oral tablet 1 (one) tablet daily for 30 days Quantity: 30 {Tablet} Refills: 6 Ordered: 08-Aug-2022 Daniel Guzman CNP Start : 08-Aug-2022 Active Start: 07-18-2022 End: 05-11-2022 take 1 tablet by mouth once daily venlafaxine 50 mg oral tablet 1 (one) tablet daily for 0 days Quantity: 30 {Tablet} Refills: 3 Ordered: 18-Jul-2022 Daniel Guzman CNP Start : 18-Jul-2022 End : 11-May-2022 Active Start: 02-24-2022 take 1 tablet by richard th once daily venlafaxine 75 mg oral tablet 1 (one) tablet daily for 0 days Quantity: 30 {Tablet} Refills: 3 Ordered: 24-Feb-2022 Daniel Guzman CNP Start : 24-Feb-2022 Active Start: 01-27-2022 take 1 tablet by richard th once daily venlafaxine 75 mg oral tablet 1 (one) tablet daily for 0 days Quantity: 30 {Tablet} Refills: 3 Ordered: 27-Jan-2022 Daniel Guzman CNP Start : 27-Jan-2022 Active Start: 01-21-2016 EFFEXOR XR XR2 4H-CAP take 1 capsule daily VENLAFAXINE HCL [id number] [facility] Start: 06-03-2015 End: 05-11-2022 take 1 tablet by mouth once daily venlafaxine (EFFEXOR) 50 mg tablet Take 1 tablet by mouth once daily. 30 tablet 1 06/03/2015 Active Venlafaxine HCl (EFFEXOR ORAL) Take by mouth daily. Active Venlafaxine HCl (EFFEXOR ORAL) Take by mouth daily. 0 Active Comment on above: Take 1 tablet by richard once daily. Problems Active Problems Problem Classification Problem Date Documented Da te Episodic/Chronic Abdominal pain (2 sources) Right upper quadrant pain; Translations: [Generalized abdominal pain] Onset: 4 Episodic Acquired foot deformities (7 sources) Hallux valgus; Translations: [Hallux rigidus, left foot] Onset: 2 07-05-2017 Chronic Anxiety disorders (20 sources) Panic disorder without agoraphobia; Translations: [Panic disorder [episodic paroxysmal anxiety]] Onset: 0 11-06-2013 Chronic Comment on above: on lower dose of tita lafaxine, we will increase to 75mg and have her come back in a few weeks to reassess.feels is worse lately go back up on effexo r to 75mg per day. her BP is up. monitor that. we will try adding vraylar 1.5mg daily, gave her samples and sent RX to pharmacy. Aortic; peripheral; and visceral artery aneurysms (5 sources) Aneurysm of splenic artery; Translations: [Aneurysm of other specified arteries] Onset: 6 11-06-2013 Chronic Cardiac dysrhythmias (1 source) Palpitations; Translations: [Palpitations] Episodic Chronic obstructive pulmonary disease and bronchiectasis (2 sources) Mucopurulent chronic bronchitis; Translations: [Mucopurulent chronic bronchitis] Onset: 9 03-26-2018 Chronic Chronic obstructive pulmonary disease and bronchiectasis (20 sources) Bronchitis; Translations: [Bronchitis] Resolved: 3 12-28-2021 Episodic Comment on above: gets croup easily, s teroids typically resolve that. She feels beginning stages so will tx gets croup easily, s teroids typically resolve that. we discussed meds Diseases of mouth; excluding dental (3 sources) Xerostomia; Translations: [Disturbances of salivary secretion] Onset: 3 05-18-2022 Episodic Disorders of lipid metabolism (20 sources) Hyperlipidemia; Translations: [Hyperlipidemia, unspecified] Onset: 7 11-06-2013 Chronic Comment on above: labs per [facility] 11/04/21 --- chol 235, trig 135, HDL 62, LDL 146, NonHDL-c 173 (borderline high) would treat with mod erate intensity statin based upon her 10 year risk for first ASCVD event score of 10.3% (optimal 6.3%), do atorvastatin 10mg or rosuvastatin 5-10mg daily or simvastatin 20-40mg dailylabs per [facility] 11/04/21 --- chol 235, trig 135, HDL 62, LDL 146, NonHDL-c 173 (borderline high) Diverticulosis and diverticulitis (20 sources) Diverticulosis of colon; Translations: [Diverticulosis of large intestine without perforation or abscess without bleeding] Onset: 7 11-06-2013 Chronic Comment on above: stable, no flares Diverticulosis and diverticulitis (3 sources) Diverticulosis of colon; Translations: [Diverticulosis of colon] Onset: 7 11-06-2013 Esophageal disorders (3 sources) Laryngopharyngeal reflux; Translations: [Gastro-esophageal reflux disease without esophagitis] Onset: 3 05-18-2022 Chronic Headache; including migraine (2 sources) Headache; Translations: [Headache] Onset: 8 Episodic Immunizations and screening for infectious disease (4 sources) At risk of sexually transmitted infection ; Translations: [Contact with and (suspected) exposure to infections with a predominantly sexual mode of transmission] Episodic Impulse control disorders NEC (5 sources) Compulsive gambling; Translations: [Pathological gambling] Onset: 0 11-06-2013 Chronic Lymphadenitis (20 sources) Localized enlarged lymph nodes; Translations: [Localized enlarged lymph nodes] Episodic Comment on above: checking for mono, w ill get some other labs too Malaise and fatigue (1 source) Fatigue; Translations: [Other fatigue] Episodic Menopausal disorders (20 sources) Menopausal flushing; Translations: [Menopausal and female climacteric states] Onset: 1 Resolved: 2 11-06-2013 Chronic Comment on above: saw Dr. Vinita echeverria resolvedsaw Dr. Tami Tony Mood disorders (5 sources) Recurrent major depressive episodes, moderate ; Translations: [Major depressive disorder, recurrent, moderate] Onset: 0 11-06-2013 Chronic Nausea and vomiting (1 source) Nausea with vomiting, unspecified; Translations: [Nausea vomiting and diarrhea] Onset: 4 Episodic Nonmalignant breast conditions (6 sources) Breast lump; Translations: [Unspecified lump in unspecified breast] Onset: 7 Resolved: 9 11-06-2013 Episodic Osteoarthritis (3 sources) Osteoarthrosis of the carpometacarpal joint of the thumb; Translations: [Bilateral primary osteoarthritis of first carpometacarpal joints] Chronic Other circulatory disease (14 sources) Tightness in throat; Translations: [Throat tightness] 05-11-2022 Episodic Other congenital anomalies (3 sources) Spondylolisthesis L5/S1 level; Translations: [Spondylolisthesis, lumbosacral region] Onset: 6 01-21-2016 Chronic Other connective tissue disease (1 source) Peroneal tendinitis, right leg; Translations: [Peroneal tendinitis, right leg] Onset: 8 07-05-2017 Episodic Other connective tissue disease (2 sources) Pain of bilateral hands; Translations: [Pain in right hand] Episodic Other connective tissue disease (1 source) Trigger finger; Translations: [Trigger finger, unspecified finger] Episodic Other connective tissue disease (2 sources) Triggering of digit; Translations: [Trigger finger, unspecified finger] 07-19-2022 Episodic Other diseases of kidney and ureters (2 sources) Other specified disorders of kidney and ureter; Translations: [Other specified disorders of kidney and ureter] Onset: 8 Chronic Other female genital disorders (1 source) Polyp of corpus uteri; Translations: [Polyp of corpus uteri] Episodic Other female genital disorders (1 source) Vaginal discharge; Translations: [Other specified noninflammatory disorders of vagina] Episodic Other female genital disorders (1 source) Burning sensation of vagina; Translations: [Unspecified condition associated with female genital organs and menstrual cycle] Episodic Other female genital disorders (1 source) Unspecified condition associated with female genital organs and menstrual cycle; Translations: [Adnexal cyst] Onset: 4 Episodic Other gastrointestinal disorders (13 sources) Irritable bowel syndrome; Translations: [Mixed irritable bowel syndrome] Onset: 2 Chronic Other gastrointestinal disorders (1 source) Diarrhea, unspecified; Translations: [Nausea vomiting and diarrhea] Onset: 4 Episodic Other infections; including parasitic (1 source) Personal history of other infectious and parasitic diseases; Translations: [History of COVID-19] Episodic Other lower respiratory disease (4 sources) Multiple nodules of lung; Translations: [Other nonspecific abnormal finding of lung field] Episodic Other lower respiratory disease (1 source) Dyspnea on exertion; Translations: [Other forms of dyspnea] Episodic Other lower respiratory disease (1 source) Unspecified acute lower respiratory infection; Translations: [Unspecified acute lower respiratory infection] Onset: 5 Episodic Other nervous system disorders (5 sources) Carpal tunnel syndrome; Translations: [Carpal tunnel syndrome, unspecified upper limb] Onset: 8 11-06-2013 Chronic Other non-epithelial cancer of skin (2 sources) Personal history of other malignant neoplasm of skin; Translations: [Personal history of other malignant neoplasm of skin] Onset: 8 Episodic Other nutritional; endocrine; and metabolic disorders (20 sources) Overweight in adulthood with body mass index of 25 or more but less than 30; Translations: [BMI 25.0-25.9,adult] 01-27-2022 Episodic Other screening for suspected conditions (not mental disorders or infectious disease) (20 sources) Endometrium thickened; Translations: [Abnormal findings on diagnostic imaging of other specified body structures] Onset: 2 Chronic Other skin disorders (1 source) Localized swelling, mass and lump, left upper limb; Translations: [Localized superficial swelling, mass, or lump] Episodic Other skin disorders (1 source) Mass of chest wall; Translations: [Localized swelling, mass and lump, trunk] Episodic Other skin disorders (20 sources) Mass of thoracic structure; Translations: [Lump in chest] 02-02-2022 Episodic Comment on above: I suspect this is sc ar tissue or healed fracture from an accident patient had years ago. Benign, reassurance given.[facility] had done ultrasound, negative. Other skin disorders (16 sources) Disorder of uvula of palate; Translations: [Swollen uvula] 05-11-2022 Episodic Other skin disorders (2 sources) Localized swelling, mass and lump, neck; Translations: [Localized swelling, mass and lump, neck] Onset: 3 Episodic Other upper respiratory infections (1 source) Bacterial sinusitis; Translations: [Chronic sinusitis, unspecified] 08-04-2023 Chronic Other upper respiratory infections (20 sources) Acute maxillary sinusitis, unspecified; Translations: [Streptococcal pharyngitis] Onset: 8 12-28-2021 Episodic Comment on above: we are out of strep rapid but pt is on amox clav already, so continue that course. Take nyquil for sleep check monospotno air way compromise. Ovarian cyst (6 sources) Cyst of ovary; Translations: [Unspecified ovarian cyst, unspecified side] Onset: 4 Resolved: 9 11-06-2013 Episodic Pneumonia (except that caused by tuberculosis or sexually transmitted disease) (1 source) Pneumonia, unspecified organism; Translations: [Community acquired pneumonia of right lower lobe of lung] Onset: 4 Episodic Regional enteritis and ulcerative colitis (7 sources) Crohn's disease, unspecified, without complications; Translations: [Crohn's disease] Onset: 4 11-06-2013 Chronic Rehabilitation care; fitting of prostheses; and adjustment of devices (8 sources) Patient encounter status; Translations: [Visit for PT (physical therapy)] Onset: 7 Resolved: 8 11-06-2013 Episodic Residual codes; unclassified (6 sources) Postmenopausal state; Translations: [Hormone replacement therapy] Onset: 1 Resolved: 2 11-06-2013 Episodic Residual codes; unclassified (1 source) Menopause present; Translations: [Asymptomatic menopausal state] Episodic Residual codes; unclassified (1 source) FH: Thyroid disorder; Translations: [Family history of other endocrine, nutritional and metabolic diseases] Episodic Residual codes; unclassified (20 sources) Body mass index 20-24 - normal; Translations: [BMI 24.0-24.9, adult] Resolved: 2 12-28-2021 Episodic Residual codes; unclassified (20 sources) Non-smoker; Translations: [Nonsmoker] 12-28-2021 Episodic Spondylosis; intervertebral disc disorders; other back problems (15 sources) Prolapsed lumbar intervertebral disc; Translations: [Other cervical disc degeneration, unspecified cervical region] Onset: 5 02-08-2016 Chronic Syncope (1 source) Near syncope; Translations: [Syncope and collapse] Episodic Thyroid disorders (20 sources) Goiter; Translations: [Thyroid enlarged] 01-27-2022 Chronic Unclassified (20 sources) Unclassified (1 source) Cough, unspecified; Translations: [Cough, unspecified] Onset: 4 Urinary tract infections (3 sources) Urinary tract infectious disease; Translations: [Urinary tract infection, site not specified] 12-18-2017 Episodic Viral infection (18 sources) Genital herpes simplex; Translations: [Herpesviral infection of urogenital system, unspecified] Onset: 9 11-06-2013 Chronic Viral infection (2 sources) Anogenital (venereal) warts; Translations: [Anogenital (venereal) warts] Onset: 8 Episodic Past or Other Problems Problem Classification Problem Date Documented Date Episodic/Chronic Acquired foot deformities (6 sources) Acquired claw toes; Translations: [Bunion] Onset: 2 Resolved: 2 07-05-2017 Episodic Benign neoplasm of uterus (5 sources) Uterine leiomyoma; Translations: [Leiomyoma of uterus, unspecified] Onset: 5 Resolved: 9 11-06-2013 Episodic Biliary tract disease (5 sources) Disorder of biliary tract; Translations: [Disease of biliary tract, unspecified] Onset: 8 Resolved: 9 11-06-2013 Chronic Biliary tract disease (2 sources) Calculus of gallbladder without cholecystitis without obstruction; Translations: [Calculus of gallbladder w/o cholecystitis w/o obstruction] Onset: 8 Episodic Calculus of urinary tract (2 sources) Calculus of kidney; Translations: [Calculus of kidney] Onset: 8 Episodic Cardiac dysrhythmias (5 sources) Nonsustained ventricular tachycardia ; Translations: [Supraventricular tachycardia] Onset: 7 Resolved: 9 11-06-2013 Chronic Disorders of teeth and jaw (5 sources) Temporomandibular joint disorder; Translations: [Unspecified temporomandibular joint disorder, unspecified side] Onset: 0 Resolved: 2 11-06-2013 Episodic Genitourinary symptoms and ill-defined conditions (1 source) Leukocytes in urine Episodic Headache; including migraine (19 sources) Headache; including migraine Menstrual disorders (5 sources) Irregular periods; Translations: [Irregular menstruation, unspecified] Onset: 5 Resolved: 7 11-06-2013 Chronic Nonspecific chest pain (5 sources) Chest discomfort; Translations: [Other chest pain] Onset: 7 Resolved: 9 11-06-2013 Episodic Other acquired deformities (1 source) Spondylolisthesis L5/S1 level; Translations: [Spondylolisthesis, lumbosacral region] Onset: 6 05-22-2019 Episodic Other and unspecified benign neoplasm (2 sources) Benign lipomatous neoplasm of skin and subcutaneous tissue of left leg; Translations: [Benign lipomatous neoplasm of skin, subcu of left leg] Onset: 8 Episodic Other and unspecified benign neoplasm (5 sources) Benign neoplasm of soft tissue; Translations: [Benign neoplasm of connective and other soft tissue, unspecified] Onset: 4 Resolved: 7 11-06-2013 Episodic Other connective tissue disease (2 sources) Pain in left finger(s); Translations: [Pain in left finger(s)] Onset: 8 Episodic Other female genital disorders (5 sources) History of dysplasia of cervix; Translations: [Personal history of cervical dysplasia] Onset: 1 Resolved: 2 11-06-2013 Episodic Other gastrointestinal disorders (5 sources) Personal history of other diseases of the digestive system; Translations: [History of diverticulitis] Onset: 3 11-06-2013 Episodic Other liver diseases (5 sources) Alkaline phosphatase raised; Translations: [Abnormal levels of other serum enzymes] Onset: 8 Resolved: 9 11-06-2013 Episodic Other non-traumatic joint disorders (2 sources) Metatarsophalangeal joint stiff; Translations: [Hallux limitus] Onset: 2 Resolved: 2 11-06-2013 Episodic Other screening for suspected conditions (not mental disorders or infectious disease) (1 source) Encounter for screening mammogram for malignant neoplasm of breast; Translations: [Encounter for screening mammogram for malignant neoplasm of breast] Onset: 4 Episodic Other skin disorders (2 sources) Localized swelling, mass and lump, left lower limb; Translations: [Localized swelling, mass and lump, left lower limb] Onset: 8 Episodic Residual codes; unclassified (5 sources) Flushing; Translations: [Flushing] Onset: 6 Resolved: 1 11-06-2013 Episodic Residual codes; unclassified (5 sources) Family history of malignant neoplasm of ovary; Translations: [Family history of malignant neoplasm of ovary] Onset: 4 Resolved: 9 11-06-2013 Episodic Spondylosis; intervertebral disc disorders; other back problems (9 sources) Spinal stenosis of lumbar region; Translations: [Backache] Onset: 7 Resolved: 9 02-08-2016 Episodic Unclassified (1 source) Problem Unclassified (7 sources) Patient encounter status; Translations: [Screening for STDs (sexually transmitted diseases)] Onset: 7 Resolved: 8 11-06-2013 Unclassified (19 sources) Abortions/Miscarriages; Translations: [Abortions/Miscarriages] 12-28-2021 Comment on above: 0. Unclassified (19 sources) Deliveries (Parity); Translations: [Deliveries (Parity)] 12-28-2021 Comment on above: 2. Term. Unclassified (19 sources) Pregnancies (); Translations: [Pregnancies ()] 12-28-2021 Comment on above: 2. Unclassified (20 sources) Unspecified Diagnosis 04-11-2022 Results Test Name Value Interpretation Reference Range Facility CT CARDIAC SCORING WO IV CON TRASTon 07-24-2024 CT CARDIAC SCORING WO IV CONTRAST Interpreted By: Sara Yates, STUDY: CT CARDIAC SCORING WO IV CONTRAST; 07/24/2024 8:49 am INDICATION: Signs/Symptoms:HLD AUTOIMMUNE (CROHN'S) GERD HYPERLIPIDEMIA. ,E78.5 Hyperlipidemia, unspecified COMPARISON: None. ACCESSION NUMBER(S): [id number] ORDERING CLINICIAN: DANIEL GUZMAN TECHNIQUE: Using prospective ECG gating, CT scan of the coronary arteries was performed without intravenous contrast. Coronary calcium scoring was performed according to the method of Agatston. FINDINGS: The score and distribution of calcium in the coronary arteries is as follows: LM 0 LAD 0 LCx 0 RCA 0 Total 0 The visualized mid/lower ascending thoracic aorta measures 3.2 cm in diameter. The heart is normal in size. No pericardial effusion is present. Small hiatal hernia with distal esophageal wall thickening is noted. No gross evidence of mediastinal or hilar lymphadenopathy or masses is identified. Scattered granulomas are seen. No significant abnormality of the visualized subdiaphragmatic structures. IMPRESSION: 1. Coronary artery calcium score of 0*. 2. Small hiatal hernia with distal esophageal wall thickening is noted, please correlate for gastroesophageal reflux. *Coronary artery calcium scoring may be helpful in predicting the risk for future coronary heart disease events. According to the [employer] Clinical Expert Consensus Task Force, such testing provides important prognostic information in patients with more than one coronary heart disease risk factor. The coronary artery calcium score correlates with the annual risk of a non-fatal myocardial infarction or coronary heart disease . Coronary artery score Annual Risk 0-99 0.4% 100-399 1.3% >400 2.4% These three breakpoints correspond to lower, intermediate and high risk states for future coronary events. Such information should be used, along with appropriate clinical judgment, to make decisions regarding the intensity of risk factor management strategies to treat blood lipids and to modify other non-lipid coronary risk factors. Reference: Arelis P et al. Circulation. 2007; 115:402-426 MACRO: None Signed by: Sara Yates 07/25/2024 7:42 AM Dictation workstation: [id number] [facility] Letter Text Normal [facility] Absolute neutrophil countOrd ered By: Daniel Guzman on 04-11-2024 Neutrophils (Bld) [#/Vol] 5.4 10*3/uL 2.0-7.7 [facility] Albumin to globulin ratioOrd ered By: Daniel Guzman on 04-11-2024 Albumin/Globulin [Mass ratio] 0.9 {ratio} 0.9-2.4 [facility] Basophil percentageOrdered B y: Daniel Guzman on 04-11-2024 Basophils/100 WBC (Bld) 0.4 % 0-1 [facility] Bilirubin, totalOrdered By: Daniel Guzman on 04-11-2024 Bilirubin [Mass/Vol] 0.60 mg/dL 0.20-1.00 [facility] Comment on above: For patients on eltr ombopag therapy, use of Dimension [place] TBIL is not recommended. Blood urea nitrogen (BUN)/cr eatinine ratioOrdered By: Daniel Jaimesam on 04-11-2024 Urea nitrogen/Creatinine [Mass ratio] 7.6 mg/mg Low 10-20 [facility] C-reactive protein measureme nt by high sensitivity methodOrdered By: Daniel Guzman on 04-11-2024 C-Reactive Protein Extended Range 24.20 mg/L High 0.0-3.0 [facility] Comment on above: C-Reactive Protein ( CRP) provides useful information for thediagnosis, therapy and monitoring of inflammatory processesand associated diseases. For the evaluation of Relative Riskfor Cardiovascular Disease, a High Sensitivity CRP (HSCRP)should be ordered. CBC W/Diff, Automatedon 03-23 Absolute Lymph 0.81 X10 3/uL Low 0.83-4.51 [facility] Comment on above: Performed By: #### L 100.0100, L101.9900, L500.4050, L501.6710 #### [facility] [address] [place], [address] Absolute Neut 5.4 X10 3/uL Normal 2.0-7.7 [facility] Comment on above: Performed By: #### L 100.0100, L101.9900, L500.4050, L501.6710 #### [facility] [address] [place], [address] Basophils/100 WBC (Bld) 0.4 % Normal 0-1 [facility] Comment on above: Performed By: #### L 100.0100, L101.9900, L500.4050, L501.6710 #### [facility] [address] [place], [address] Eosinophils/100 WBC (Bld) 3.9 % Normal 0-5 [facility] Comment on above: Performed By: #### L 100.0100, L101.9900, L500.4050, L501.6710 #### [facility] [address] [place], [address] Erythrocyte distribution width (RBC) [Ratio] 13.0 % Normal 11.6-14.6 [facility] Comment on above: Performed By: #### L 100.0100, L101.9900, L500.4050, L501.6710 #### [facility] [address] [place], [address] Hematocrit (Bld) [Volume fraction] 44.4 % Normal 37-47 [facility] Comment on above: Performed By: #### L 100.0100, L101.9900, L500.4050, L501.6710 #### [facility] [address] [place], [address] Hemoglobin (Bld) [Mass/Vol] 14.1 g/dL Normal 12.0-15.0 [facility] Comment on above: Performed By: #### L 100.0100, L101.9900, L500.4050, L501.6710 #### [facility] [address] [place], [address] IG% 0.300 Normal 0.0-0.9 [facility] Comment on above: Result Comment: IG% - Immature Granulocytes (promyelocytes, myelocytes and metamyelocytes) > 1% indicates that a LEFT SHIFT is Present. Performed By: #### L 100.0100, L101.9900, L500.4050, L501.6710 #### [facility] [address] [place], [address] Lymphocytes/100 WBC (Bld) 11.1 % Low 19-41 [facility] Comment on above: Performed By: #### L 100.0100, L101.9900, L500.4050, L501.6710 #### [facility] [address] [place], [address] MCH (RBC) [Entitic mass] 30.1 pg Normal 27.0-32.0 [facility] Comment on above: Performed By: #### L 100.0100, L101.9900, L500.4050, L501.6710 #### [facility] [address] [place], [address] MCHC (RBC) [Mass/Vol] 31.8 g/dL Low 32-36 [facility] Comment on above: Performed By: #### L 100.0100, L101.9900, L500.4050, L501.6710 #### [facility] [address] [place], [address] MCV (RBC) [Entitic vol] 94.9 fL Normal 81-99 [facility] Comment on above: Performed By: #### L 100.0100, L101.9900, L500.4050, L501.6710 #### [facility] [address] [place], [address] Monocytes/100 WBC (Bld) 10.7 % High 0-10 [facility] Comment on above: Performed By: #### L 100.0100, L101.9900, L500.4050, L501.6710 #### [facility] [address] [place], [address] Neutrophils/100 WBC (Bld) 73.6 % High 47-70 [facility] Comment on above: Performed By: #### L 100.0100, L101.9900, L500.4050, L501.6710 #### [facility] [address] [place], [address] Nucleated RBC (Bld) [#/Vol] 0 10*3/uL Normal 0-5 [facility] Comment on above: Performed By: #### L 100.0100, L101.9900, L500.4050, L501.6710 #### [facility] [address] [place], [address] Platelet mean volume (Bld) [Entitic vol] 9.2 fL Normal 6.2-12.0 [facility] Comment on above: Performed By: #### L 100.0100, L101.9900, L500.4050, L501.6710 #### [facility] [address] [place], [address] Platelets (Bld) [#/Vol] 240 10*3/uL Normal 150-450 [facility] Comment on above: Performed By: #### L 100.0100, L101.9900, L500.4050, L501.6710 #### [facility] [address] [place], [address] RBC (Bld) [#/Vol] 4.68 10*6/uL Normal 4.2-5.4 [facility] Comment on above: Performed By: #### L 100.0100, L101.9900, L500.4050, L501.6710 #### [facility] [address] [place], [address] RDW SD 45.3 fl High 35.1-43.9 [facility] Comment on above: Performed By: #### L 100.0100, L101.9900, L500.4050, L501.6710 #### [facility] [address] [place], [address] WBC (Bld) [#/Vol] 7.3 10*3/uL Normal 4.4-11.0 [facility] Comment on above: Performed By: #### L 100.0100, L101.9900, L500.4050, L501.6710 #### [facility] [address] [place], [address] CRPon 04-11-2024 C-REACTIVE PROT 24.20 mg/L High 0.0-3.0 [facility] Comment on above: Result Comment: C-Re active Protein (CRP) provides useful information for the diagnosis, therapy and monitoring of inflammatory processes and associated diseases. For the evaluation of Relative Risk for Cardiovascular Disease, a High Sensitivity CRP (HSCRP) should be ordered. Performed By: #### L 100.0100, L101.9900, L500.4050, L501.6710 #### [facility] [address] [facility] [place], [address] Carbon dioxide measurementOr dered By: Daniel Guzman on 04-11-2024 CO2 [Moles/Vol] 26.0 mmol/L 21.0-32.0 [facility] Chest PA and Lateralon 04-11 Chest PA and Lateral [facility] [address] [place] [address] Chest PA and Lateral MR#: [id number] Acct: [id number] Name: CELI BUCK Rep #: [id number] : 1950 F 74 From: Kaiden bonilla MD PCP: ZAK Miller Status: REG CLI Study: Chest PA and Lateral Date of Exam: 04/11/24 Exam# [id number] Ordering Dr: Daniel Guzman FILM EDITOR-C PROCEDURE: CHEST PA AND LATERAL REASON FOR EXAM: Lower respiratory tract infection. TECHNIQUE: Frontal and lateral views of the chest. COMPARISON: Comparison is made with prior study dated December 24, 2023. FINDINGS: Hyperinflation. Findings suggestive of COPD. The heart size is normal. The mediastinal contour is unremarkable. Calcification of the aortic arch. Degenerative changes are identified within the thoracic spine. Multiple healed right-sided rib fractures. RAD/Chest PA and Lateral IMPRESSION: Hyperinflation. No acute abnormality is seen. Reading Location: [facility] CC: ZAK Guzman Chef German: Signed Normal [facility] Chloride measurementOrdered By: Daniel Guzman on 04-11-2024 Chloride [Moles/Vol] 106 mmol/L 98-107 [facility] Comprehensive Metabolic Prof ilon 04-11-2024 Albumin [Mass/Vol] 3.8 g/dL Normal 3.2-5.0 [facility] Comment on above: Performed By: #### L 100.0100, L101.9900, L500.4050, L501.6710 #### [facility] [address] [place], [address] Albumin/Globulin [Mass ratio] 0.9 {ratio} Normal 0.9-2.4 [facility] Comment on above: Performed By: #### L 100.0100, L101.9900, L500.4050, L501.6710 #### [facility] [address] [place], [address] ALK P 119 U/L High 45-117 [facility] Comment on above: Performed By: #### L 100.0100, L101.9900, L500.4050, L501.6710 #### [facility] [address] [place], [address] ALT [Catalytic activity/Vol] 33 U/L Normal 13-56 [facility] Comment on above: Performed By: #### L 100.0100, L101.9900, L500.4050, L501.6710 #### [facility] [address] [place], [address] AST [Catalytic activity/Vol] 23 U/L Normal 15-37 [facility] Comment on above: Performed By: #### L 100.0100, L101.9900, L500.4050, L501.6710 #### [facility] [address] [place], [address] Bilirubin [Mass/Vol] 0.60 mg/dL Normal 0.20-1.00 [facility] Comment on above: Result Comment: For patients on eltrombopag therapy, use of Dimension [place] TBIL is not recommended. Performed By: #### L 100.0100, L101.9900, L500.4050, L501.6710 #### [facility] [address] [place], [address] BUN/CRE 7.6 RATIO Low 10-20 [facility] Comment on above: Performed By: #### L 100.0100, L101.9900, L500.4050, L501.6710 #### [facility] [address] [place], [address] CA,Total 9.5 mg/dL Normal 8.5-10.1 [facility] Comment on above: Performed By: #### L 100.0100, L101.9900, L500.4050, L501.6710 #### [facility] [address] [place], [address] Chloride [Moles/Vol] 106 mmol/L Normal 98-107 [facility] Comment on above: Performed By: #### L 100.0100, L101.9900, L500.4050, L501.6710 #### [facility] [address] [place], [address] CO2 [Moles/Vol] 26.0 mmol/L Normal 21.0-32.0 [facility] Comment on above: Performed By: #### L 100.0100, L101.9900, L500.4050, L501.6710 #### [facility] [address] [place], [address] Creatinine [Mass/Vol] 1.05 mg/dL High 0.55-1.02 [facility] Comment on above: Result Comment: The validity of the calculated GFR GFRAA in patients over 70 years has not been determined. Clinical correlation is essential. Performed By: #### L 100.0100, L101.9900, L500.4050, L501.6710 #### [facility] [address] [place], [address] EST GFR - AA 66 mL/min Normal >60 [facility] Comment on above: Result Comment: Afri can Mozambican GFR Calc Performed By: #### L 100.0100, L101.9900, L500.4050, L501.6710 #### [facility] [address] [place], [address] GAP 7 Normal 5-15 [facility] Comment on above: Performed By: #### L 100.0100, L101.9900, L500.4050, L501.6710 #### [facility] [address] [place], [address] GFR/1.73 sq M.predicted among non-blacks MDRD (S/P/Bld) [Vol rate/Area] 55 mL/min/{1.73_m2} Low >60 [facility] Comment on above: Result Comment: Non- GFR Calc Performed By: #### L 100.0100, L101.9900, L500.4050, L501.6710 #### [facility] [address] [place], [address] Globulin (S) [Mass/Vol] 4.2 g/dL Normal 2.2-4.2 [facility] Comment on above: Performed By: #### L 100.0100, L101.9900, L500.4050, L501.6710 #### [facility] [address] [place], [address] Glucose [Mass/Vol] 88 mg/dL Normal 74-106 [facility] Comment on above: Performed By: #### L 100.0100, L101.9900, L500.4050, L501.6710 #### [facility] [address] [place], [address] Potassium [Moles/Vol] 3.8 mmol/L Normal 3.5-5.1 [facility] Comment on above: Performed By: #### L 100.0100, L101.9900, L500.4050, L501.6710 #### [facility] [address] [place], [address] Sodium [Moles/Vol] 139 mmol/L Normal 136-145 [facility] Comment on above: Performed By: #### L 100.0100, L101.9900, L500.4050, L501.6710 #### [facility] [address] [place], [address] T PROT 8.0 g/dL Normal 6.4-8.2 [facility] Comment on above: Performed By: #### L 100.0100, L101.9900, L500.4050, L501.6710 #### [facility] [address] [place], [address] Urea nitrogen [Mass/Vol] 8 mg/dL Normal 7-18 [facility] Comment on above: Performed By: #### L 100.0100, L101.9900, L500.4050, L501.6710 #### [facility] [address] [place], [address] Eosinophil percentageOrdered By: Daniel Guzman on 04-11-2024 Eosinophils/100 WBC (Bld) 3.9 % 0-5 [facility] Erythrocyte Sed Rateon 04-11 SED RATE 6 mm/hr Normal 0-30 [facility] Comment on above: Performed By: #### L 100.0100, L101.9900, L500.4050, L501.6710 #### [facility] [address] [place], [address] Erythrocyte distribution wid th ratioOrdered By: Daniel Guzman on 04-11-2024 Erythrocyte distribution width (RBC) [Ratio] 13.0 % 11.6-14.6 [facility] Erythrocyte distribution wid th standard deviationOrdered By: Daniel Guzman on 04-11-2024 Erythrocyte distribution width (RBC) [Entitic vol] 45.3 fL High 35.1-43.9 [facility] Erythrocyte sedimentation ra teOrdered By: Daniel Guzman on 04-11-2024 ESR (Bld) [Velocity] 6 mm/h 0-30 [facility] Estimated glomerular filtrat ion rate (GFR) AmericanOrdered By: Daniel Guzman on 04-11-2024 Estimated GFR (MDRD) Amer 66 mL/min >60 [facility] Comment on above: GFR Calc Glomerular filtration rate ( GFR) estimationOrdered By: Daniel Guzman on 04-11-2024 Estimated GFR (MDRD) Non-Af Amer 55 mL/min Low >60 [facility] Comment on above: Non- GFR Calc Glucose measurementOrdered B y: Daniel Guzman on 04-11-2024 Glucose [Mass/Vol] 88 mg/dL 74-106 [facility] Hematocrit Auto (Bld) [Volum e fraction]Ordered By: Daniel Guzman on 04-11-2024 Hematocrit (Bld) [Volume fraction] 44.4 % 37-47 [facility] Hemoglobin measurementOrdere d By: Daniel Guzman on 04-11-2024 Hemoglobin (Bld) [Mass/Vol] 14.1 g/dL 12.0-15.0 [facility] Immature granulocytes/100 WB C Auto (Bld)Ordered By: Daniel Guzman on 04-11-2024 Immature granulocytes/100 WBC (Bld) 0.300 % 0.0-0.9 [facility] Comment on above: IG% - Immature Granu locytes (promyelocytes, myelocytes and metamyelocytes) > 1% indicates that a LEFT SHIFT is Present. Laboratory - Chemistry and C hemistry - challengeOrdered By: Daniel Guzman on 04-11-2024 AST [Catalytic activity/Vol] 23 U/L 15-37 [facility] Lymphocytes Auto (Unsp spec) [#/Vol]Ordered By: Daniel Guzman on 04-11-2024 Lymphocytes (Bld) [#/Vol] 0.81 10*3/uL Low 0.83-4.51 [facility] Lymphocytes/100 WBC Auto (Un sp spec)Ordered By: Daniel Guzman on 04-11-2024 Lymphocytes/100 WBC (Bld) 11.1 % Low 19-41 [facility] MCV (mean corpuscular volume ) determinationOrdered By: Daniel Guzman on 04-11-2024 MCV (RBC) [Entitic vol] 94.9 fL 81-99 [facility] Mean corpuscular hemoglobin (MCH) determinationOrdered By: Daniel Guzman on 04-11-2024 MCH (RBC) [Entitic mass] 30.1 pg 27.0-32.0 [facility] Mean corpuscular hemoglobin concentration (MCHC) determinationOrdered By: Daniel Guzman on 04-11-2024 MCHC (RBC) [Mass/Vol] 31.8 g/dL Low 32-36 [facility] Mean platelet volume determi nationOrdered By: Daniel Guzman on 04-11-2024 Platelet mean volume (Bld) [Entitic vol] 9.2 fL 6.2-12.0 [facility] Monocyte percentageOrdered B y: Daniel Guzman on 04-11-2024 Monocytes/100 WBC (Bld) 10.7 % High 0-10 [facility] Neutrophil percentageOrdered By: Daniel Guzman on 04-11-2024 Neutrophils/100 WBC (Bld) 73.6 % High 47-70 [facility] Nucleated red blood cell per centageOrdered By: Daniel Guzman on 04-11-2024 Nucleated RBC/100 WBC (Bld) [Ratio] 0 % 0-5 [facility] Platelet countOrdered By: Sallie Guzman on 04-11-2024 Platelets (Bld) [#/Vol] 240 10*3/uL 150-450 [facility] Potassium measurementOrdered By: Daniel Guzman on 04-11-2024 Potassium [Moles/Vol] 3.8 mmol/L 3.5-5.1 [facility] RBC Auto (Bld) [#/Vol]Ordere d By: Daniel Guzman on 04-11-2024 RBC (Bld) [#/Vol] 4.68 10*6/uL 4.2-5.4 [facility] Serum anion gap measurementO rdered By: Daniel Guzman on 04-11-2024 Anion gap [Moles/Vol] 7 mmol/L 5-15 [facility] Serum globulin measurementOr dered By: Daniel Guzman on 04-11-2024 Globulin (S) [Mass/Vol] 4.2 g/dL 2.2-4.2 [facility] Serum or plasma alanine deluna otransferase (ALT) measurementOrdered By: Daniel Guzman on 04-11-2024 ALT [Catalytic activity/Vol] 33 U/L 13-56 [facility] Serum or plasma albumin liana urement (mass/volume)Ordered By: Daniel Guzman on 04-11-2024 Albumin [Mass/Vol] 3.8 g/dL 3.2-5.0 [facility] Serum or plasma alkaline gerhard sphatase measurementOrdered By: Daniel Guzman on 04-11-2024 ALP [Catalytic activity/Vol] 119 U/L High 45-117 [facility] Serum or plasma calcium liana urement (mass/volume)Ordered By: Daniel Guzman on 04-11-2024 Calcium [Mass/Vol] 9.5 mg/dL 8.5-10.1 [facility] Serum or plasma creatinine m easurement (mass/volume)Ordered By: Daniel Guzman on 04-11-2024 Creatinine [Mass/Vol] 1.05 mg/dL High 0.55-1.02 [facility] Comment on above: The validity of the calculated GFR & GFRAA in patients over 70 years has not been determined. Clinical correlation is essential. Serum or plasma urea nitroge n measurement (mass/volume)Ordered By: Daniel Thomas on 04-11-2024 Urea nitrogen [Mass/Vol] 8 mg/dL 7-18 [facility] Sodium levelOrdered By: Jess duncan Thomas on 04-11-2024 Sodium [Moles/Vol] 139 mmol/L 136-145 [facility] Total proteinOrdered By: Luis Guzman on 04-11-2024 Protein [Mass/Vol] 8.0 g/dL 6.4-8.2 [facility] White blood cell (WBC) count Ordered By: Daniel Thomas on 04-11-2024 WBC (Bld) [#/Vol] 7.3 10*3/uL 4.4-11.0 [facility] ALLIED HEALTHon 01-30-2024 ALLIED HEALTH HNO ID: [id number] Author: LONA LOZADA RT(R) Service: Radiology Author Type: [employer] Sweeper Operator Type: Allied Health Filed: 01/30/2024 12:39 Note Text: Radiology Service Progress Note DATE OF SERVICE: January 30, 2024 TIME: 12:39 PM PATIENT IDENTITY VERIFICATION COMPLETED USING TWO (2) STANDARD IDENTIFIERS: Name and Date of confirmed by patient verbally. FALL SCREENING: Has the patient had 2 falls in the last year or 1 fall with injury or currently using an Ambulatory Assistive Device (Walker, Cane, Wheelchair, Crutches, etc.)? Emergency Room Patient: Screened in ED PATIENT GENDER DATA: Female. status: : No status: NO. PATIENT RELEVANT IMPLANT DATA REVIEWED: Yes PATIENT PRESENTS WITH AN IMPLANTABLE OR ATTACHED COST ACCOUNTING CLERK: No ALLERGIES: Reviewed and unchanged CONTRAST ALLERGY: NO. EXAM: CT -CONTRAST INDUCED NEPHROPATHY RISK FACTORS: Patient age > 60 years CREATININE: Creatinine Date Value Ref Range Status 01/30/2024 0.77 0.58 - 0.96 mg/dL Final 11/04/2021 0.99 (H) 0.58 - 0.96 mg/dL Final 08/17/2014 0.97 (H) 0.51 - 0.95 mg/dL Final Estimated Glomerular Filtration Rate Date Value Ref Range Status 01/30/2024 82 >=60 mL/min/1.73m? Final Comment: Estimated Glomerular Filtration Rate (eGFR) is calculated using the 2020 CKD-EPI creatinine equation. This equation utilizes serum creatinine, sex, and age as parameters. The creatinine assay has traceable calibration to isotope dilution-mass spectrometry. Refer to KDIGO guidelines for clinical interpretation. In patients with unstable renal function, e.g. those with acute kidney injury, the eGFR may not accurately reflect actual GFR. P.O.C.T. RESULTS: POC done: Yes, See Lab Tab January 30, 2024 TREATMENT: N/A PERIPHERAL IV DATA: Inpatient - refer to LDA documentation RADIOLOGY DEPARTMENT: CT; Exam(s) Completed: Abdomen/Pelvis SIGNATURE: Lona Lozada RT(R) PATIENT NAME: Celi Buck DATE: January 30, 2024 TIME: 12:39 PM Normal [facility] CBC W Auto Differential pane l (Bld)on 01-30-2024 Basophils (Bld) [#/Vol] 10*3/uL Normal <0.11 A [facility] Comment on above: Order Comment: Speci men Type: BLOOD SPECIMEN Ordering Facility: [facility] Address: [address] [place] [address] Performed By: #### 5 7021-8 #### [facility] CLIA [id number] [address] [place] [address] [place] Basophils/100 WBC (Bld) 0.2 % Normal A [facility] Comment on above: Order Comment: Crystal men Type: BLOOD SPECIMEN Ordering Facility: [facility] Address: [address] [place] [address] Performed By: #### 5 7021-8 #### [facility] CLIA [id number] [address] STATES OF [facility] Differential cell count method Nom (Bld) Auto Normal [facility] Comment on above: Order Comment: Crystal men Type: BLOOD SPECIMEN Ordering Facility: [facility] Address: [address] [place] [address] Performed By: #### 5 7021-8 #### [facility] CLIA [id number] [address] [place] [address] [place] Eosinophils (Bld) [#/Vol] 0.10 10*3/uL Normal <0.46 [facility] Comment on above: Order Comment: Speci men Type: BLOOD SPECIMEN Ordering Facility: [facility] Address: [address] [place] [address] Performed By: #### 5 7021-8 #### [facility] CLIA [id number] [address] [place] [address] [place] Eosinophils/100 WBC (Bld) 1.6 % Normal [facility] Comment on above: Order Comment: Speci men Type: BLOOD SPECIMEN Ordering Facility: [facility] Address: [address] [place] [address] Performed By: #### 5 7021-8 #### [facility] CLIA [id number] [address] [place] [address] [place] Erythrocyte distribution width (RBC) [Ratio] 13.8 % Normal 11.5-15.0 [facility] Comment on above: Order Comment: Speci men Type: BLOOD SPECIMEN Ordering Facility: [facility] Address: [address] [place] [address] Performed By: #### 5 7021-8 #### [facility] CLIA [id number] [address] [place] [address] [place] Hematocrit (Bld) [Volume fraction] 40.1 % Normal 36.0-46.0 [facility] Comment on above: Order Comment: Speci men Type: BLOOD SPECIMEN Ordering Facility: [facility] Address: [address] [place] [address] Performed By: #### 5 7021-8 #### [facility] CLIA [id number] [address] [place] [id number] [place] Hemoglobin (Bld) [Mass/Vol] 12.8 g/dL Normal 11.5-15.5 [facility] Comment on above: Order Comment: Speci men Type: BLOOD SPECIMEN Ordering Facility: [facility] Address: [address] [place] [address] Performed By: #### 5 7021-8 #### [facility] CLIA [id number] [address] [place] [address] [place] Immature granulocytes (Bld) [#/Vol] 10*3/uL Normal <0.10 [facility] Comment on above: Order Comment: Speci men Type: BLOOD SPECIMEN Ordering Facility: [facility] Address: [address] [place] [address] Performed By: #### 5 7021-8 #### [facility] CLIA [id number] [address] [place] [address] [facility] [place] Immature granulocytes/100 WBC (Bld) 0.2 % Normal [facility] Comment on above: Order Comment: Speci men Type: BLOOD SPECIMEN Ordering Facility: [facility] Address: [address] [place] [address] Performed By: #### 5 7021-8 #### [facility] CLIA [id number] [address] [place] [address] [place] Lymphocytes (Bld) [#/Vol] 0.23 10*3/uL Low 1.00-4.00 [facility] Comment on above: Order Comment: Speci men Type: BLOOD SPECIMEN Ordering Facility: [facility] Address: [address] [place] [address] Performed By: #### 5 7021-8 #### [facility] CLIA [id number] [address] [place] [address] [place] Lymphocytes/100 WBC (Bld) 3.6 % Normal [facility] Comment on above: Order Comment: Speci men Type: BLOOD SPECIMEN Ordering Facility: [facility] Address: [address] [place] [address] Performed By: #### 5 7021-8 #### [facility] CLIA [id number] [address] [place] [address] [place] MCH (RBC) [Entitic mass] 29.8 pg Normal 26.0-34.0 [facility] Comment on above: Order Comment: Speci men Type: BLOOD SPECIMEN Ordering Facility: [facility] Address: [address] [place] [address] Performed By: #### 5 7021-8 #### [facility] CLIA [id number] [address] [place] [address] [facility] [place] MCHC (RBC) [Mass/Vol] 31.9 g/dL Normal 30.5-36.0 [facility] Comment on above: Order Comment: Speci men Type: BLOOD SPECIMEN Ordering Facility: [facility] Address: [address] [place] [address] Performed By: #### 5 7021-8 #### [facility] CLIA [id number] [address] [place] [address] OF [facility] MCV (RBC) [Entitic vol] 93.3 fL Normal 80.0-100.0 [facility] Comment on above: Order Comment: Speci men Type: BLOOD SPECIMEN Ordering Facility: [facility] Address: [address] [place] [address] Performed By: #### 5 7021-8 #### [facility] CLIA [id number] [address] [place] [address] Monocytes (Bld) [#/Vol] 0.25 10*3/uL Normal <0.87 [facility] Comment on above: Order Comment: Speci men Type: BLOOD SPECIMEN Ordering Facility: [facility] Address: [address] [place] [address] Performed By: #### 5 7021-8 #### [facility] CLIA [id number] [address] Monocytes/100 WBC (Bld) 3.9 % Normal A [facility] Comment on above: Order Comment: Speci men Type: BLOOD SPECIMEN Ordering Facility: [facility] Address: [address] [place] [address] Performed By: #### 5 7021-8 #### [facility] CLIA [id number] [address] [place] [address] [place] Neutrophils (Bld) [#/Vol] 5.84 10*3/uL Normal 1.45-7.50 [facility] Comment on above: Order Comment: Speci men Type: BLOOD SPECIMEN Ordering Facility: [facility] Address: [address] [place] [address] Performed By: #### 5 7021-8 #### [facility] CLIA [id number] [address] [place] [address] [place] Neutrophils/100 WBC (Bld) 90.5 % Normal [facility] Comment on above: Order Comment: Speci men Type: BLOOD SPECIMEN Ordering Facility: [facility] Address: [address] [place] [address] Performed By: #### 5 7021-8 #### [facility] CLIA [id number] [address] [place] [address] [place] Nucleated RBC (Bld) [#/Vol] Normal [facility] Comment on above: Order Comment: Speci men Type: BLOOD SPECIMEN Ordering Facility: [facility] Address: [address] [place] [address] Performed By: #### 5 7021-8 #### [facility] CLIA [id number] [address] [place] [address] [place] Nucleated RBC/100 WBC (Bld) [Ratio] Normal [facility] Comment on above: Order Comment: Speci men Type: BLOOD SPECIMEN Ordering Facility: [facility] Address: [address] [place] [address] Performed By: #### 5 7021-8 #### [facility] CLIA [id number] [address] [place] [id number] [place] Platelet mean volume (Bld) [Entitic vol] 9.1 fL Normal 9.0-12.7 [facility] Comment on above: Order Comment: Speci men Type: BLOOD SPECIMEN Ordering Facility: [facility] Address: [address] [place] [address] Performed By: #### 5 7021-8 #### [facility] CLIA [id number] [address] [place] [address] [facility] [place] Platelets (Bld) [#/Vol] 148 10*3/uL Low 150-400 [facility] Comment on above: Order Comment: Speci men Type: BLOOD SPECIMEN Ordering Facility: [facility] Address: [address] [place] [address] Performed By: #### 5 7021-8 #### [facility] CLIA [id number] [address] [place] [address] [facility] RBC (Bld) [#/Vol] 4.30 10*6/uL Normal 3.90-5.20 [facility] Comment on above: Order Comment: Speci men Type: BLOOD SPECIMEN Ordering Facility: [facility] Address: [address] [place] [address] Performed By: #### 5 7021-8 #### [facility] CLIA [id number] [address] WBC (Bld) [#/Vol] 6.44 10*3/uL Normal 3.70-11.00 [facility] Comment on above: Order Comment: Speci men Type: BLOOD SPECIMEN Ordering Facility: [facility] Address: [address] [place] [address] Performed By: #### 5 7021-8 #### [facility] CLIA [id number] [address] [place] [address] [facility] CT ABD/PEL W IVCONon 024 CT ABD/PEL W IVCON * * *Final Report* * * DATE OF EXAM: Jan 30 2024 12:40PM [facility] 0530 - CT ABD/PEL W IVCON / PROCEDURE REASON: LLQ abdominal pain * * * * Physician Interpretation * * * * EXAMINATION: CT ABDOMEN AND PELVIS WITH IV CONTRAST CLINICAL HISTORY: 73-year-old female presenting with nausea and vomiting. TECHNIQUE: CT of the abdomen and pelvis is performed using standard technique, scanning from just above the dome of the diaphragm to the symphysis pubis. MQ: CTAP_3 Contrast: IV: 100 ml of Omnipaque 350 : ml of CT Radiation dose: Integrated Dose-length product (DLP) for this visit = 414.53 mGy*cm. CT Dose Reduction Employed: Automated exposure control(AEC) and iterative recon COMPARISON: Prior CT abdomen and pelvis studies, the most recent 08/18/2014, including 03/26/2012 and 03/05/[address] chest 10/14/2021. RESULT: Liver: Diffuse mild fatty infiltration. Biliary: No bile duct dilation. Borderline distended gallbladder. Spleen: No mass. No splenomegaly. Pancreas: Unchanged borderline prominent pancreatic duct. Adrenals: No mass. Kidneys: Bilateral calyceal hyperdensity, presumed related to excreted contrast material. Symmetric enhancement. No hydronephrosis. GI tract: Small hiatal hernia. Borderline fluid distended small bowel loop left lateral hemiabdomen. No associated bowel wall thickening or mesenteric inflammatory changes. Equivocal appendix stump. No pericecal inflammatory changes. Mobile cecum seen anterior lower abdomen. Liquid stool ascending and transverse colon. Diffuse colonic diverticulosis with extensive sigmoid diverticulosis. No associated pericolic inflammatory changes. Lymph nodes: No abdominal or pelvic lymphadenopathy. Mesentery/Peritoneum : No ascites or mass. Retroperitoneum: No mass. Vasculature: - Abdominal aorta and iliac arteries: Atherosclerotic calcifications without aneurysm. - Celiac, SMA: Atherosclerotic calcifications at the origins. Stable 1.2 cm peripheral calcified splenic artery aneurysm. - Portal venous system (SMV, splenic vein, portal vein and branches): Patent. - Hepatic veins: Patent. Pelvis: 4.4 x 3.7 cm fluid density structure right hemipelvis with imperceptible wall. No associated calcification or adjacent inflammatory changes. Bones/Soft Tissues: Degenerative changes of the thoracolumbar spine. Schmorl's nodes at the L2-3 level. Posttraumatic remodeling of the right pubic rami. Lower thorax: Right middle lobe 4 mm subpleural nodule, image 4 series 2, and 7 mm left posterior lower lobe subpleural nodule. Pulmonary nodules appear stable to comparison CT chest 09/2021. Bibasilar mild subpleural reticulation. Localizer images: No additional findings. IMPRESSION: Hepatic steatosis. Diffuse colonic diverticulosis without CT evidence of acute diverticulitis. Slowly enlarging 4.4 x 3.7 cm fluid density structure within the right hemipelvis considered likely benign. Follow-up nonemergent ultrasound pelvis is recommended as indicated. Right middle and lower lobe pulmonary nodules as described above. Greater than two-year stability favors benign nodules. Additional nonacute findings. ACTIONABLE RESULT: FOLLOW-UP Acuity: Actionable Findings: Female reproductive tract (pelvis, adnexa) Routing code: WH_1 Recommendation: US FEMALE PELVIS NON-OB NON TORSION ([id number]) Time Frame: At the discretion of the clinical team. COMMUNICATION: Results will be communicated with the ordering provider via [facility] staff message or phone message by [employer] [facility] within 2 business days of report finalization. --END OF FINDING-- Chef German: PSCB Transcribe Date/Time: Jan 30 2024 12:46P Dictated by : CARMEN TIERNEY MD This examination was interpreted and the report reviewed and electronically signed by: CARMEN TIERNEY MD on Jan 30 2024 1:12PM EST [id number] CN ACTIONABLE Invalid Interpretation Code [facility] Comprehensive metabolic 2000 panelon 01-30-2024 Albumin [Mass/Vol] 3.8 g/dL Low 3.9-4.9 [facility] Comment on above: Order Comment: Specmonique ellis Type: BLOOD SPECIMEN Ordering Facility: [facility] Address: [address] [place] [address] Performed By: #### 3 040-3, 32566-9 #### [facility] CLIA [id number] [address] [place] [address] [place] [facility] ALP [Catalytic activity/Vol] 94 U/L Normal 34-123 [facility] Comment on above: Order Comment: Crystal men Type: BLOOD SPECIMEN Ordering Facility: [facility] Address: [address] [place] [address] Performed By: #### 3 040-3, 84092-3 #### [facility] CLIA [id number] [address] [place] [address] [place] ALT With P-5'-P [Catalytic activity/Vol] 29 U/L Normal 7-38 [facility] Comment on above: Order Comment: Speci men Type: BLOOD SPECIMEN Ordering Facility: [facility] Address: [address] [place] [address] Performed By: #### 3 040-3, 08223-5 #### [facility] CLIA [id number] [address] [place] [address] [place] Anion gap [Moles/Vol] 12 mmol/L Normal 8-15 [facility] Comment on above: Order Comment: Speci men Type: BLOOD SPECIMEN Ordering Facility: [facility] Address: [address] [place] [address] Performed By: #### 3 -3, 27797-4 #### [facility] CLIA [id number] [address] [place] [address] [place] AST With P-5'-P [Catalytic activity/Vol] 24 U/L Normal 13-35 [facility] Comment on above: Order Comment: Speci men Type: BLOOD SPECIMEN Ordering Facility: [facility] Address: [address] [place] [address] Performed By: #### 3 -3, 46253-4 #### [facility] CLIA [id number] [address] [place] [address] [place] Bilirubin [Mass/Vol] 0.8 mg/dL Normal 0.2-1.3 [facility] Comment on above: Order Comment: Speci men Type: BLOOD SPECIMEN Ordering Facility: [facility] Address: [address] [place] [address] Performed By: #### 3 -3, 51424-4 #### [facility] CLIA [id number] [address] [place] [address] [place] Calcium [Mass/Vol] 8.7 mg/dL Normal 8.5-10.2 [facility] Comment on above: Order Comment: Speci men Type: BLOOD SPECIMEN Ordering Facility: [facility] Address: [address] [place] [address] Performed By: #### 3 040-3, 05684-6 #### [facility] CLIA [id number] [address] [place] [address] [place] Chloride [Moles/Vol] 106 mmol/L Normal 98-107 [facility] Comment on above: Order Comment: Speci men Type: BLOOD SPECIMEN Ordering Facility: [facility] Address: [address] [place] [address] Performed By: #### 3 040-3, 92567-4 #### [facility] CLIA [id number] [address] [place] [address] [place] CO2 [Moles/Vol] 22 mmol/L Normal 22-30 [facility] Comment on above: Order Comment: Speci men Type: BLOOD SPECIMEN Ordering Facility: [facility] Address: [address] [place] [address] Performed By: #### 3 040-3, 92774-7 #### [facility] CLIA [id number] [address] [place] [address] [place] Creatinine [Mass/Vol] 0.77 mg/dL Normal 0.58-0.96 [facility] Comment on above: Order Comment: Speci men Type: BLOOD SPECIMEN Ordering Facility: [facility] Address: [address] [place] [address] Performed By: #### 3 040-3, 59924-4 #### [facility] CLIA [id number] [address] [place] [address] [facility] Creatinine and Glomerular filtration rate.predicted panel (S/P/Bld) 82 mL/min/1.73m??? Normal >=60 [facility] Comment on above: Order Comment: Speci men Type: BLOOD SPECIMEN Ordering Facility: [facility] Address: [address] [place] [address] Result Comment: Crystal mated Glomerular Filtration Rate (eGFR) is calculated using the 2020 CKD-EPI creatinine equation. This equation utilizes serum creatinine, sex, and age as parameters. The creatinine assay has traceable calibration to isotope dilution-mass spectrometry. Refer to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 distress, well-hydrated, well nourished. Ears: Positive findings: cerumen bilaterally, amount Small Nose/Sinuses: Nares normal, septum midline, mucosa normal, no drainage or sinus tenderness Oropharynx: Positive findings: moderate oropharyngeal erythema Neck: Supple, no adenopathy; thyroid symmetric, normal size, no bruits Lungs: Lungs clear to auscultation. No wheezing, rhonchi, rales. Heart: RRR without murmur, gallop, or rubs. No ectopy Assessment and Plan ASSESSMENT/PLAN: 1. Sore throat - ICD9: 462, ICD10: J02.9 (primary diagnosis) - suspect viral - Rapid Strep negative in the office today - Discussed supportive care treatment with fluids, rest and analgesia. - The patient may also use nasal saline gtts and suction prn. - STREP A MOLECULAR (POC) 2. Bacterial sinusitis - ICD9: 473.9, 041.9, ICD10: J32.9, B96.89 - Will begin treatment with Augmentin 875 mg PO BID for 5 days - The patient should also be given OTC cough and cold meds as needed for the first 5-7 days of treatment. - Supportive care with plenty of fluids, rest, and analgesia prn. - Follow up in 3-5 days if symptoms persist or worsen. Danilo Santa APRN.PRESCRIPTION BENEFIT SPECIALIST Allergies As of Date: 08/04/2023 Noted Allergy Reaction CIPROFLOXACIN 07/02/2015 14 - Other: See Comments Comments: Rapid heart rate NARCOTICS (OPIOIDS - MORPHINE CALIN*07/02/2015 14 - Other: See Comments Comments: SENSITIVITY TO NARCOTICS Date Reviewed: 08/04/2023 Reviewed by: Brittany Keen MA - Fully Assessed Reason for Visit: Sore Throat [200] Cmt: X2 days Primary Visit Diagnosis:Sore throat [J02.9] Other Visit Diagnosis:Bacterial sinusitis [J32.9, B96.89] Order(s):STREP A MOLECULAR (POC) [[id number]] Order #: [id number]. #:[id number] amoxicillin-clavulan ate potassium (AUGMENTIN) 875-125 mg per tabletTake 1 tablet by mouth two times a day for 5 days.Disp: 10 tabletRfl: 0 Prescriptions as of 08/05/2023 - acyclovir (ZOVIRAX) 400 mg tablet TAKE 1 TABLET BY MOUTH 3 TIMES PER DAY NEEDED - amoxicillin-clavulan ate potassium (AUGMENTIN) 875-125 mg per tablet Take 1 tablet by mouth two times a day for 5 days. - bimatoprost (LATISSE) 0.03 % ophthalmic solution Apply to both eyelids along upper eyelid lash line at nightime. Do not use on lower eyelid - ketoconazole (NIZORAL) 2 % shampoo SHAMPOO TWICE A WEEK DIRECTED allow product to remain in place for 5 minutes prior to rinsing - estradiol (CLIMARA) 0.0375 mg/24 hr Apply 1 Patch as directed one time a week. - valACYclovir (VALTREX) 500 mg tablet Take 1 tablet by mouth once daily. - LORazepam (ATIVAN) 0.5 mg Take 1 tablet by mouth once daily as needed (anxiety) for up to 180 days. - progesterone micronized (PROMETRIUM) 100 mg capsule One po q HS - venlafaxine (EFFEXOR) 50 mg tablet Take 1 tablet by mouth once daily. 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 Disposition: Return if symptoms worsen or fail to improve. Follow-up and Disposition History for Encounter Date Provider Department Center 08/04/2023 [id number] SANTA [facility] DANDRE Encounter Status:Closed by DANILO SANTA on 08/04/23 Normal [facility] STREP A MOLECULAR (POC)on Procedural Control Valid [facility] Strep A (POCT) Negative Negative [facility] Progress Noteson 06-07-2023 [employer] Authentication Interface Message Text 73-year-old female here for follow-up she is little over 1 year status post bilateral thumb CMC injection as well as left thumb trigger finger injection. All this has slowly recurred over time. Not currently using any braces are splints. Physical exam Comfortable no acute distress. Gross examination hand demonstrates a small amount of edema and subluxation around the CMC joints with tenderness volarly and dorsally. No gross instability, FPL EPL intact. She also has clicking of the left thumb consistent with trigger finger. Remainder of hand and upper extremity examination otherwise unremarkable. Assessment plan 73-year-old female with recurrent symptoms as above. Again we discussed treatment options, this included expected outcomes after repeat corticosteroid injection. She understands that for the thumb after this if recurs we will require surgical release under local in the minor procedure room. We can continue to inject the thumbs indefinitely. Follow-up as needed, see below procedure note. Procedure note Bilateral thumbs prepped in sterile fashion. 0.5 cc of 1% lidocaine mixed one-to-one with Kenalog easily injected within both CMC joints using dorsal approach. 1 cc 1% lidocaine with epinephrine injected around A1 dianna left thumb. Patient tolerated all injections well and there were no complications. Sterile dressing applied. Normal [facility] Rapid Strep Test, Office ([id number] [phone])Ordered By: Nancy Quintanilla on 04-24-2022 S. pyogenes Ag EIA Ql (Throat) Negative [facility] Work Phone: COVID 19 (ONLY) RAPID ([id number] )Ordered By: Nancy Quintanilla on 04-17-2022 SARS-CoV-2 (COVID-19) RNA MAGO+probe Ql (Unsp spec) Negative Normal [facility]; [facility] Work Phone: Inhouse FLU A+B DIRECT AG, ( RAPID) ([id number])Ordered By: Nancy Quintanilla on 04-17-2022 FLUAV+FLUBV Ag Ql (Unsp spec) Negative Normal [facility]; [facility] Work Phone: THROAT CULTURE ([id number])Ordere d By: Quill Winder on 04-17-2022 Bacteria identified Respiratory culture Nom (Unsp spec) Final report Normal [facility]; [facility] Work Phone: Comment on above: PERFORMED BY: [facility] [id number] Information: SRC:TH Bacteria identified Respiratory culture Nom (Unsp spec) RRF Normal [facility]; [facility] Work Phone: Comment on above: Routine respiratory rafia PERFORMED BY: [facility] [id number] Information: SRC:TH Rapid Flu (43253 x 2)on FLUAV Ag IA Ql (Throat) Negative Normal [facility]; [facility] Work Phone: Rapid Strep Test, Office ([phone])on 12-28-2021 S. pyogenes Ag EIA Ql (Throat) Negative Normal [facility]; [facility] Work Phone: THROAT CULTURE ([phone])Ordere d By: Quill Winder on 12-28-2021 Bacteria identified Respiratory culture Nom (Unsp spec) Final report Normal [facility]; [facility] Work Phone: Comment on above: PATIENT NOT FASTINGP ERFORMED BY: MOON Venegas6370 [facility] [id number] Information: SRC:TH Bacteria identified Respiratory culture Nom (Unsp spec) RRF Normal [facility]; [facility] Work Phone: Comment on above: Routine respiratory rafia PATIENT NOT FASTINGP ERFORMED BY: MOON [employer] Njooeg8150 [facility] [id number] Information: SRC:TH XR Chest PA and Lateralon IMPRESSION: No acute radiographic abnormality. Chef German: ROBERT Transcribe Date/Time: Dec 26 2021 8:29A Dictated by : DMITRY CAIN MD This examination was interpreted and the report reviewed and electronically signed by: DMITRY CAIN MD on Dec 26 2021 8:30AM [facility] DIVISION OF RADIOLOGY * * *Final Report* * * DATE OF EXAM: Dec 23 2021 3:04PM WOX 5291 - XR CHEST 2V FRONTAL/LAT / PROCEDURE REASON: Dyspnea on exertion * * * * Physician Interpretation * * * * EXAMINATION: CHEST RADIOGRAPH (2 VIEW FRONTAL & LATERAL) CLINICAL HISTORY: Dyspnea on exertion MQ: XC2_6 EXAM DATE/TIME: 12/23/2021 3:04 PM COMPARISON: Chest x-ray dated March 26, 2012. Correlation also made to CT chest dated October 14, 2021. RESULT: Lines, tubes, and devices: None. Lungs and pleura: No consolidation. The small pulmonary nodules noted on prior CT chest is not well evaluated radiographically. No pleural effusion. No pneumothorax. Cardiomediastinal silhouette: Normal cardiomediastinal silhouette. Bones and soft tissues: Stable remote multiple posterior right upper to mid rib fractures. Degenerative changes in the spine. Rounded calcification again identified in the left upper quadrant. DIVISION OF RADIOLOGY Provider, [facility] [place] - 12/26/2021 * * *Final Report* * * DATE OF EXAM: Dec 23 2021 3:04PM WOX 5291 - XR CHEST 2V FRONTAL/LAT / PROCEDURE REASON: Dyspnea on exertion * * * * Physician Interpretation * * * * EXAMINATION: CHEST RADIOGRAPH (2 VIEW FRONTAL & LATERAL) CLINICAL HISTORY: Dyspnea on exertion MQ: XC2_6 EXAM DATE/TIME: 12/23/2021 3:04 PM COMPARISON: Chest x-ray dated March 26, 2012. Correlation also made to CT chest dated October 14, 2021. RESULT: Lines, tubes, and devices: None. Lungs and pleura: No consolidation. The small pulmonary nodules noted on prior CT chest is not well evaluated radiographically. No pleural effusion. No pneumothorax. Cardiomediastinal silhouette: Normal cardiomediastinal silhouette. Bones and soft tissues: Stable remote multiple posterior right upper to mid rib fractures. Degenerative changes in the spine. Rounded calcification again identified in the left upper quadrant. IMPRESSION IMPRESSION: No acute radiographic abnormality. Chef German: ROBERT Transcribe Date/Time: Dec 26 2021 8:29A Dictated by : DMITRY CAIN MD This examination was interpreted and the report reviewed and electronically signed by: DMITRY CAIN MD on Dec 26 2021 8:30AM EST [facility] XR Chest PA and LateralOrder ed By: [facility] Provider on 12-26-2021 [facility] XR Clavicle - right 2 Viewso n 12-26-2021 IMPRESSION: Right clavicle intact. Chef German: [facility] Transcribe Date/Time: Dec 26 2021 7:38A Dictated by : BAYLEE CAMARA MD This examination was interpreted and the report reviewed and electronically signed by: BAYLEE CAMARA MD on Dec 26 2021 7:40AM [facility] DIVISION OF RADIOLOGY * * *Final Report* * * DATE OF EXAM: Dec 23 2021 3:07PM WOX 5317 - XR CLAVICLE 2V RT / PROCEDURE REASON: Mass of chest wall, right * * * * Physician Interpretation * * * * HISTORY: mass just inferior to right clavicle. Mass of chest wall, right . TECHNIQUE: XR CLAVICLE 2V RT Laterality: RIGHT Number of different views (projections): 2 COMPARISON: None RESULT: Right clavicle is unremarkable. Is no fracture or focal lytic lesion. Normal alignment. Remote upper ribs fractures. DIVISION OF RADIOLOGY Provider, [facility] [place] - 12/26/2021 * * *Final Report* * * DATE OF EXAM: Dec 23 2021 3:07PM WOX 5317 - XR CLAVICLE 2V RT / PROCEDURE REASON: Mass of chest wall, right * * * * Physician Interpretation * * * * HISTORY: mass just inferior to right clavicle. Mass of chest wall, right . TECHNIQUE: XR CLAVICLE 2V RT Laterality: RIGHT Number of different views (projections): 2 COMPARISON: None RESULT: Right clavicle is unremarkable. Is no fracture or focal lytic lesion. Normal alignment. Remote upper ribs fractures. IMPRESSION IMPRESSION: Right clavicle intact. Chef German: P[facility] Transcribe Date/Time: Dec 26 2021 7:38A Dictated by : BAYLEE CAMARA MD This examination was interpreted and the report reviewed and electronically signed by: BAYLEE CAMARA MD on Dec 26 2021 7:40AM EST [facility] XR Clavicle - right 2 ViewsO rdered By: [facility] Provider on 12-26-2021 [facility] No Panel Informationon 12-23 Radiology Study observation (narrative) [facility] CT CHEST WO IVCONon 10-15-19 [facility] ECG COMPLETEon 10-13-2021 Atrial Rate 78 BPM [facility] Calculated P [place] 52 degrees [facility] Calculated R [place] 10 degrees [facility] Calculated T [place] 44 degrees [facility] P-R Interval 158 ms [facility] QRS Duration 84 ms [facility] QT Interval 386 ms [facility] QTC Calculation (Bazett) 440 ms [facility] Ventricular Rate 78 BPM [facility] Phone Msgon 10-06-2021 Phone Msg - From: Concha Griffith MA Sent: 10/06/2021 09:08:44 EDT Subject: problems after D&c Caller Name: CELI BUCK; Caller Number: H patient calling states since her D/C last week she is bloated/cramping and having diarrhea. Advised pt she need to contact her DUB ROOM ENGINEER since she is so recent after a procedure Patient calling back and states that she did speak with her DUB ROOM ENGINEER and they told her it was not related to her D/C and to contact her GI doctor. Tried to schedule and appt and pt insistent that she needs an appt sooner than November. She was last seen 2019. HI Amanda, can do labs and stool ordered and put on cancellation list. would try a probiotic, align or [facility] [employer]. silvano Sent to for review: SHANIQUE DARBY PA-C Called pt. Pt on CX list. Pt will do blood/stool test. Per pt request lab orders emailed to Normal [facility] Basophil percentageon 2021 Chloride [Moles/Vol] 109 mmol/L 98-107 [facility] Work Phone: Glucose [Mass/Vol] 100 mg/dL 74-106 [facility] Work Phone: Comment on above: Fasting Glucose resu lt from 100 to 125 mg/dL suggests IMPAIRED HOMEOSTASIS per A.D.A. criteria. Potassium [Moles/Vol] 4.1 mmol/L 3.5-5.1 [facility] Work Phone: Sodium [Moles/Vol] 142 mmol/L 136-145 [facility] Work Phone: WBC (Bld) [#/Vol] 4.6 10*3/uL 4.4-11.0 [facility] Work Phone: Blood erythrocytes count (nu mber/volume)on 09-29-2021 RBC (Bld) [#/Vol] 4.34 10*6/uL 4.2-5.4 [facility] Work Phone: Blood hemoglobin measurement (mass/volume)on 09-29-2021 Hemoglobin (Bld) [Mass/Vol] 13.6 g/dL 12.0-15.0 [facility] Work Phone: Blood platelet mean volumeon 09-29-2021 Platelet mean volume (Bld) [Entitic vol] 9.1 fL 6.2-12.0 [facility] Work Phone: Determination of erythrocyte mean corpuscular volume (MCV)on 09-29-2021 MCV (RBC) [Entitic vol] 94.9 fL 81-99 [facility] Work Phone: Hematocrit Auto (Bld) [Volum e fraction]on 09-29-2021 Hematocrit (Bld) [Volume fraction] 41.2 % 37-47 [facility] Work Phone: Laboratory - Chemistry and C hemistry - challengeon 09-29-2021 CO2 [Moles/Vol] 30.0 mmol/L 21.0-32.0 [facility] Work Phone: Urea nitrogen/Creatinine [Mass ratio] 16.4 mg/mg 10-20 [facility] Work Phone: Laboratory - Hematology and Cell countson 09-29-2021 Erythrocyte distribution width (RBC) [Entitic vol] 49.4 fL 35.1-43.9 [facility] Work Phone: Erythrocyte distribution width (RBC) [Ratio] 14.1 % 11.6-14.6 [facility] Work Phone: MCH (RBC) [Entitic mass] 31.3 pg 27.0-32.0 [facility] Work Phone: MCHC Auto (RBC) [Mass/Vol]on 09-29-2021 MCHC (RBC) [Mass/Vol] 33.0 g/dL 32-36 [facility] Work Phone: No Panel Informationon 09-29 Estimated Creatinine Clearance Calc 34.18 ml/min [facility] Work Phone: Estimated GFR (MDRD) Amer 63 mL/min >60 [facility] Work Phone: Comment on above: GFR Calc Estimated GFR (MDRD) Non-Af Amer 52 mL/min >60 [facility] Work Phone: Comment on above: Non- GFR Calc Platelets bldon 09-29-2021 Platelets (Bld) [#/Vol] 209 10*3/uL 150-450 [facility] Work Phone: Serum or plasma calcium liana urement (mass/volume)on 09-29-2021 Calcium [Mass/Vol] 9.5 mg/dL 8.5-10.1 [facility] Work Phone: Serum or plasma creatinine m easurement (mass/volume)on 09-29-2021 Creatinine [Mass/Vol] 1.10 mg/dL 0.55-1.02 [facility] Work Phone: Comment on above: The validity of the calculated GFR & GFRAA in patients over 70 years has not been determined. Clinical correlation is essential. Serum or plasma urea nitroge n measurement (mass/volume)on 09-29-2021 Urea nitrogen [Mass/Vol] 18 mg/dL 7-18 [facility] Work Phone: Thin prep Papanicolaou smear with manual screeningon 09-29-2021 Thin prep Papanicolaou smear with manual screening 3 5-15 [facility] Work Phone: CT CHEST WO IVCONon 09-24-[address] CHEST WO IVCON * * *Final Report* * * DATE OF EXAM: Sep 23 2020 1:18PM [facility] 0541 - CT CHEST WO IVCON / PROCEDURE REASON: R91.8-Lung nodules * * * * Physician Interpretation * * * * EXAMINATION: CHEST CT WITHOUT CONTRAST CLINICAL HISTORY: Lung nodules follow up bilateral nodules. Outside CT scan of chest of 12/29/19 scanned in follow up bilateral nodules. Outside CT scan of chest of 12/29/19 scanned in Technique: Spiral CT acquisition of the chest from the thoracic inlet to the upper abdomen without contrast. MQ: [id number] CT Radiation dose: Integrated Dose-length product (DLP) for this visit = 142 mGy*cm CT Dose Reduction Employed: mAs-kVp adjusted based on patient size-age Comparison: February 27, 2020 RESULT: Limitations: None. Lines, tubes, and devices: None. Lung parenchyma and airways: Stable appearing areas of nodularity scattered throughout the lungs. No infiltrate or pneumothorax. Central airways are patent. Pleural space: No pleural effusion. No pleural thickening. Lower neck, lymph nodes, and mediastinum: The imaged thyroid gland is normal. No lymphadenopathy in the supraclavicular, axillary, mediastinal, or hilar regions. Heart, pericardium, and thoracic vessels: Atherosclerotic calcifications involving the thoracic aorta. Great vessels are normal in position and size. Cardiac chambers are unremarkable in appearance. No pericardial effusion or pericardial thickening. Bones and soft tissues: Intervertebral disc space narrowing and endplate osteophyte formation at multiple levels in the thoracic spine. Remote bilateral rib fractures. 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 Small calcified gallstone in the dependent gallbladder. Diverticulosis of the imaged colon. Remainder of the imaged upper abdominal organs are unremarkable in appearance. [employer]ufacturing Technician (topogram) images: No additional findings. IMPRESSION: Stable pulmonary nodularity. Vascular disease. Additional findings noted above. Chef German[facility] Transcribe Date/Time: Sep 24 2020 8:43A Dictated by : DANIELA MERCHANT MD This examination was interpreted and the report reviewed and electronically signed by: DANIELA MERCHANT MD on Sep 24 2020 8:50AM EST [id number] CN [facility] DIGITAL DIAGNOSTIC BILATERALOrdered By: Iris Clements on 08-19-2020 Patient Name: CELI BUCK Mammography ACCESSION EXAM DATE/TIME PROCEDURE ORDERING PROVIDER [id number] 08/19/2020 13:20 EDT MG Breast Tomosynthesis DO CLEMENTS CHRISTINE BI CPT code 02000 82009 Reason For Exam (MG Breast Tomosynthesis BI) Lump in armpit, left R22.32 Report TIME SINCE LAST MAMMOGRAM: Last mammogram was performed 3 years and 5 months ago. REASON FOR EXAM: clinical finding. INDICATED PROBLEM: Indicated problem(s): right breast palpable abnormality Left breast lump or thickening for 6 months Left breast other indicated problem, itching for 6 months. Fullness/thickening in left axilla and itching of left breast for 6 months. PROCEDURE: MG BREAST TOMOSYNTHESIS BL: AUGUST 19, 2020 - 2D/3D Procedure 3D Bilateral CC and MLO view(s) were taken. 2D Bilateral CC and MLO view(s) were taken. Prior study comparison: March 21, 2017, bilateral MG breast tomosynthesis bl scr performed at [facility]. May 26, 2015, bilateral MG breast tomosynthesis bl scr performed at [facility]. TISSUE DENSITY: BIRADS B - There are scattered fibroglandular densities. . FINDINGS: Diagnostic imaging was performed to evaluate left axillary fullness and left breast imaging. Mammogram: No new suspicious masses, architectural distortions, or suspiciously clustered macro calcifications are seen in the right or left breast. There has been no significant interval change from prior studies. The patient proceeded to ultrasound for further imaging workup. Left axillary ultrasound: Targeted scanning in the region of palpable concern demonstrates normal fatty tissues. There is no lymphadenopathy or other abnormally. IMPRESSION: No mammographic or targeted sonographic evidence of malignancy. Markings on images: BB's = Nipples; skin lesions Open [place] = Palpable Mammography Report Line = Scar 2D digital mammography and tomosynthesis imaging were performed and reviewed with CAD. ASSESSMENT: Category 1 Negative RECOMMENDATION: Routine screening mammogram of both breasts in 1 year. . Report Dictated on --- Final --- Signed Date and Time: 08/19/2020 2:49 pm Signed by: MD BAKER KERISTEN L [facility] Work Phone: Julio César, Carmella Incoming Radiology Results From [facility] - 08/19/2020 3:54 PM EDT Patient Name: CELI BUCK Mammography ACCESSION EXAM DATE/TIME PROCEDURE ORDERING PROVIDER [id number] 08/19/2020 13:20 EDT MG Breast Tomosynthesis DO CLEMENTS CHRISTINE BI CPT code 60312 20165 Reason For Exam (MG Breast Tomosynthesis BI) Lump in armpit, left R22.32 Report TIME SINCE LAST MAMMOGRAM: Last mammogram was performed 3 years and 5 months ago. REASON FOR EXAM: clinical finding. INDICATED PROBLEM: Indicated problem(s): right breast palpable abnormality Left breast lump or thickening for 6 months Left breast other indicated problem, itching for 6 months. Fullness/thickening in left axilla and itching of left breast for 6 months. PROCEDURE: MG BREAST TOMOSYNTHESIS BL: AUGUST 19, 2020 - 2D/3D Procedure 3D Bilateral CC and MLO view(s) were taken. 2D Bilateral CC and MLO view(s) were taken. Prior study comparison: March 21, 2017, bilateral MG breast tomosynthesis bl scr performed at [facility]. May 26, 2015, bilateral MG breast tomosynthesis bl scr performed at [facility]. TISSUE DENSITY: BIRADS B - There are scattered fibroglandular densities. . FINDINGS: Diagnostic imaging was performed to evaluate left axillary fullness and left breast imaging. Mammogram: No new suspicious masses, architectural distortions, or suspiciously clustered macro calcifications are seen in the right or left breast. There has been no significant interval change from prior studies. The patient proceeded to ultrasound for further imaging workup. Left axillary ultrasound: Targeted scanning in the region of palpable concern demonstrates normal fatty tissues. There is no lymphadenopathy or other abnormally. IMPRESSION: No mammographic or targeted sonographic evidence of malignancy. Markings on images: BB's = Nipples; skin lesions Open [place] = Palpable Mammography Report Line = Scar 2D digital mammography and tomosynthesis imaging were performed and reviewed with CAD. ASSESSMENT: Category 1 Negative RECOMMENDATION: Routine screening mammogram of both breasts in 1 year. . Report Dictated on --- Final --- Signed Date and Time: 08/19/2020 2:49 pm Signed by: MD BAKER KERISTEN L [facility] Work Phone: [facility] Work Phone: MG Breast Tomosynthesis Diag terrell BIon 08-19-2020 MG Breast Tomosynthesis Diagnostic BI Patient Name: CELI BUCK Mammography ACCESSION EXAM DATE/TIME PROCEDURE ORDERING PROVIDER [id number] 08/19/2020 13:20 EDT MG Breast Tomosynthesis DO CLEMENTS CHRISTINE BI CPT code 39255 28648 Reason For Exam (MG Breast Tomosynthesis BI) Lump in armpit, left R22.32 Report TIME SINCE LAST MAMMOGRAM: Last mammogram was performed 3 years and 5 months ago. REASON FOR EXAM: clinical finding. INDICATED PROBLEM: Indicated problem(s): right breast palpable abnormality Left breast lump or thickening for 6 months Left breast other indicated problem, itching for 6 months. Fullness/thickening in left axilla and itching of left breast for 6 months. PROCEDURE: MG BREAST TOMOSYNTHESIS BL: AUGUST 19, 2020 - 2D/3D Procedure 3D Bilateral CC and MLO view(s) were taken. 2D Bilateral CC and MLO view(s) were taken. Prior study comparison: March 21, 2017, bilateral MG breast tomosynthesis bl scr performed at [facility]. May 26, 2015, bilateral MG breast tomosynthesis bl scr performed at [facility]. TISSUE DENSITY: BIRADS B - There are scattered fibroglandular densities. . FINDINGS: Diagnostic imaging was performed to evaluate left axillary fullness and left breast imaging. Mammogram: No new suspicious masses, architectural distortions, or suspiciously clustered macro calcifications are seen in the right or left breast. There has been no significant interval change from prior studies. The patient proceeded to ultrasound for further imaging workup. Left axillary ultrasound: Targeted scanning in the region of palpable concern demonstrates normal fatty tissues. There is no lymphadenopathy or other abnormally. IMPRESSION: No mammographic or targeted sonographic evidence of malignancy. Markings on images: BB's = Nipples; skin lesions Open [place] = Palpable Mammography Report Line = Scar 2D digital mammography and tomosynthesis imaging were performed and reviewed with CAD. ASSESSMENT: Category 1 Negative RECOMMENDATION: Routine screening mammogram of both breasts in 1 year. . Report Dictated on Final Signed Date and Time: 08/19/2020 2:49 pm Signed by: MD BAKER KERISTEN L [facility] Cancer Risk Surveyon 0 MG Cancer Risk Survey Patient Name: CELI BUCK Mammography ACCESSION EXAM DATE/TIME PROCEDURE ORDERING PROVIDER [id number] 08/19/2020 13:20 EDT MG Cancer Risk Survey DO CLEMENTS CHRISTINE Reason For Exam (MG Cancer Risk Survey) Lump in [facility] R22.32 Report Cancer Risk Assessment: This risk assessment is based on patient provided information collected in a risk survey taken by the patient. PATIENT CANCER HISTORY: Self Skin Cancer (Non-Melanoma) age 57 FAMILY CANCER HISTORY: Brother Kidney or Bladder Cancer age 61 Lifetime breast cancer risk: Low Risk - If greater than or equal to 20%, consider annual mammogram and annual screening Breast MRI or follow up in high risk clinic. A score of Low Risk indicates a score of less than 20%. Is the patient at elevated risk based on the HBOC criteria? No (Hereditary Breast and Ovarian Cancer) - If yes, consider genetic counseling and testing with high risk follow up. Is the patient at elevated risk based on the Piña Syndrome criteria? No - If yes, consider genetic counseling and testing with high risk follow up. Report Dictated on Final Dictated: 08/19/2020 2:54 pm Dictating Physician: DO LANDAVERDE RACHEL Signed Date and Time: 08/19/2020 2:54 pm Signed by: DO LANDAVERDE RACHEL [facility] MG Cancer Risk SurveyOrdered By: Iris Clements on 08-19-2020 Patient Name: CELI BUCK Mammography ACCESSION EXAM DATE/TIME PROCEDURE ORDERING PROVIDER [id number] 08/19/2020 13:20 EDT MG Cancer Risk Survey DO CLEMENTS CHRISTINE Reason For Exam (MG Cancer Risk Survey) Lump in armt R22.32 Report Cancer Risk Assessment: This risk assessment is based on patient provided information collected in a risk survey taken by the patient. PATIENT CANCER HISTORY: Self Skin Cancer (Non-Melanoma) age 57 FAMILY CANCER HISTORY: Brother Kidney or Bladder Cancer age 61 Lifetime breast cancer risk: Low Risk - If greater than or equal to 20%, consider annual mammogram and annual screening Breast MRI or follow up in high risk clinic. A score of Low Risk indicates a score of less than 20%. Is the patient at elevated risk based on the HBOC criteria? No (Hereditary Breast and Ovarian Cancer) - If yes, consider genetic counseling and testing with high risk follow up. Is the patient at elevated risk based on the Piña Syndrome criteria? No - If yes, consider genetic counseling and testing with high risk follow up. Report Dictated on --- Final --- Dictated: 08/19/2020 2:54 pm Dictating Physician: DO LANDAVERDE RACHEL Signed Date and Time: 08/19/2020 2:54 pm Signed by: DO LANDAVERDE RACHEL [facility] Work Phone: Carmella Angela Incoming Radiology Results From [facility] - 08/19/2020 2:55 PM EDT [facility]: [id number] ACCESSION EXAM DATE/TIME PROCEDURE ORDERING PROVIDER [id number] 08/19/2020 13:20 EDT MG Cancer Risk Survey DO CLEMENTS CHRISTINE Reason For Exam (MG Cancer Risk Survey) Lump in armpit R22.32 Report Cancer Risk Assessment: This risk assessment is based on patient provided information collected in a risk survey taken by the patient. PATIENT CANCER HISTORY: Self Skin Cancer (Non-Melanoma) age 57 FAMILY CANCER HISTORY: Brother Kidney or Bladder Cancer age 61 Lifetime breast cancer risk: Low Risk - If greater than or equal to 20%, consider annual mammogram and annual screening Breast MRI or follow up in high risk clinic. A score of Low Risk indicates a score of less than 20%. Is the patient at elevated risk based on the HBOC criteria? No (Hereditary Breast and Ovarian Cancer) - If yes, consider genetic counseling and testing with high risk follow up. Is the patient at elevated risk based on the Piña Syndrome criteria? No - If yes, consider genetic counseling and testing with high risk follow up. Report Dictated on --- Final --- Dictated: 08/19/2020 2:54 pm Dictating Physician: DO LANDAVERDE RACHEL Signed Date and Time: 08/19/2020 2:54 pm Signed by: DO LANDAVERDE RACHEL [facility] Work Phone: [facility] Work Phone: US Breast Limited Lefton US Breast Limited Left [facility]: [id number] Ultrasound ACCESSION EXAM DATE/TIME PROCEDURE ORDERING PROVIDER [id number] 08/19/2020 14:07 EDT US Breast Limited Left DO CLEMENTS CHRISTINE CPT code 41370 Reason For Exam (US Breast Limited Left) Palp Lt axillary lump Report This report was read in conjunction with Breast Nate Bl Final Signed Date and Time: 08/23/2020 1:52 pm Signed by: BUILD MASTER, SYSTEM Transcribed Date and Time: 08/23/2020 1:52 Transcribed By:[facility] CT CHEST WO IVCONon 02-26-19 21 Radiology Result ACTIONABLE Abnormal [facility] CT Low Dose Lung Diagnostico n 12-30-2019 CT Low Dose Lung Diagnostic Patient Name: CELI BUCK CT Exam Date/Time 12/29/2019 13:20:[address] Low Dose Thorax w/o Cont Ordering Physician DARRION ISLAS Accession Number [id number] CPT4 Codes 85419 (CT Low Dose Thorax w/o Cont) Reason For Exam nodules Report Clinical indication: History of pulmonary nodules. Comparison: 04/02/2007. Patient had a study at another institution December 2012. Images are not available. Report is available. Contrast: None Imaging was performed from thoracic apex through posterior sulci with axial, coronal and sagittal images reconstructed. There are no pathologically enlarged mediastinal or hilar lymph nodes. Aorta is normal in size. There is minimal atherosclerotic calcification. Heart is normal in size. There is no pericardial effusion. Multiple pulmonary nodules are noted. The largest solid nodule is pleural-based inferiorly in the right upper lobe along the anterior aspect of the minor fissure and has an average diameter on axial imaging of 0.8 cm. This nodule is not identified on the study from 2008 and there is no mention of this nodule on the outside CT report from 2013. There is a solid subpleural nodule medially in the right upper lobe which is 0.4 cm diameter and not definitely present in 2008. Solid subpleural nodules in the left lower lobe laterally measure 0.6 cm average and anterolaterally along the oblique fissure 0.4 cm diameter. There is a 0.2 cm solid subpleural nodule in the extreme inferior aspect of the lingula. 0.4 cm solid subpleural nodule laterally in the right middle lobe is unchanged compared to 2008. In the posterior aspect of the left lower lobe there is a groundglass nodule which measures 0.8 cm diameter and in the superior segment of the right lower lobe there is a patchy groundglass nodular infiltrate in the area about 2.5 cm diameter. No pleural effusions are noted. A small hiatal hernia is present. There is approximately 1.2 cm diameter calcified splenic artery aneurysm. Punctate dependent stones noted in the gallbladder. Adrenal glands are not enlarged. There are multiple old healed right rib fractures. Degenerative disc and endplate changes are present diffusely in the thoracic spine. IMPRESSION: Multiple pulmonary nodules with the largest solid nodule in the right upper lobe measuring 0.8 cm diameter. Largest groundglass nodule is also 0.8 cm diameter. As the right upper lobe solid nodule is apparently new based on report from 2013 exam is also not present on the 2008 exam, consider PET/CT evaluation. Small hiatal hernia Cholelithiasis Report Dictated on Final Dictated: 12/30/2019 3:40 pm Dictating Physician: MD FUENTES DIANE Signed Date and Time: 12/30/2019 4:04 pm Signed by: MD FUENTES DIANE Transcribed Date and Time: 12/30/2019 3:40 Normal [facility] XR CHEST 1V FRONTALon 2019 XR CHEST 1V FRONTAL Final Report DATE OF EXAM: Nov 28 2019 6:26PM LDX 5290 - XR CHEST 1V FRONTAL / PROCEDURE REASON: Acute respiratory illness Physician Interpretation EXAMINATION: XR CHEST 1V FRONTAL Clinical History: Acute respiratory illness Comparison: 12/20/2015. RESULT: Cardiac and mediastinal contours are borderline in size. Findings suggestive of underlying COPD. No evidence of focal consolidation, significant pneumothorax, or significant pleural effusion. No evidence of acute displaced fractures. IMPRESSION: No radiographic evidence of acute cardiopulmonary process. Findings suggestive of COPD. Chef German: ROBERT Transcribe Date/Time: Nov 28 2019 7:10P Dictated by : WILLIAM DANIELSON MD This examination was interpreted and the report reviewed and electronically signed by: WILLIAM DANIELSON MD on Nov 28 2019 7:12PM EST Normal [facility] CULTURE URINEon 07-17-2019 CULTURE URINE CULTURE URINE --> Status: F No growth (<1,000 CFU/ml). Normal [facility] Comment on above: Performed By: #### H EPC, HBSAG, RPR, C/UR #### [address] [place], [place] Hep B Surface Agon 0 Hep B Surface Ag NOT DETECTED Normal Not-Detecte d [facility] Comment on above: Performed By: #### H EPC, HBSAG, RPR, C/UR #### [address] Hep C Antibodyon 07-16-2019 Hep C Antibody NOT DETECTED Normal Not-Detecte d [facility] Comment on above: Result Comment: Arielle ents with DETECTED Hepatitis C Ab results should have a new specimen submitted for supplemental testing with a Hepatitis C Quantitative RNA assay (viral load), if clinically indicated. Performed By: #### H EPC, HBSAG, RPR, C/UR #### [address] [place], [place] RPR, Qualon 07-16-2019 RPR, Qual NONREACTIVE Normal Non-Reactiv e [facility] Comment on above: Performed By: #### H EPC, HBSAG, RPR, C/UR #### [address] [place], [place] US RETROPERITONEAL LIMITEDOr dered By: Gisell Espinoza on 01-31-2019 Patient Name: CELI BUCK ---Ultrasound--- Exam Date/Time 01/31/2019 14:11:41 EST Exam US Retroperitoneal Limited Ordering Physician ESPINOZAGISELL VENTURA Sameer Accession Number [id number] CPT4 Codes 40609 () Reason For Exam Renal Report RENAL ULTRASOUND CLINICAL: Leukocytes in urine. COMPARISON: May 22, 2017 renal ultrasound Ultrasound exam of the kidneys was performed, with static images provided. FINDINGS: The right kidney measures 9.3 x 3.4 x 3.5 cm. There is no hydronephrosis. No shadowing renal calculus. No discrete mass is identified. The left kidney measures 9.9 x 3.8 x 3.7 cm. There is no hydronephrosis. No discrete renal mass is seen. There is a nonobstructing midpole collecting system calculus measuring 0.4 cm. Screening assessment of the urinary bladder appears grossly unremarkable. IMPRESSION: No hydronephrosis. Left renal mid pole nonobstructing 0.4 cm calculus. Report Dictated on Workstation: [facility] --- Final --- Dictated: 01/31/2019 2:20 pm Dictating Physician: MD BA BRIAN Signed Date and Time: 01/31/2019 2:22 pm Signed by: MD BA BRIAN Transcribed Date and Time: 01/31/2019 2:20 [facility] Work Phone: Julio César, [place] Incoming Radiology Results From [facility] - 01/31/2019 2:32 PM EST Patient Name: CELI BUCK ---Ultrasound--- Exam Date/Time 01/31/2019 14:11:41 EST Exam US Retroperitoneal Limited Ordering Physician GISELL ESPINOZA Accession Number [id number] CPT4 Codes 87022 () Reason For Exam Renal Report RENAL ULTRASOUND CLINICAL: Leukocytes in urine. COMPARISON: May 22, 2017 renal ultrasound Ultrasound exam of the kidneys was performed, with static images provided. FINDINGS: The right kidney measures 9.3 x 3.4 x 3.5 cm. There is no hydronephrosis. No shadowing renal calculus. No discrete mass is identified. The left kidney measures 9.9 x 3.8 x 3.7 cm. There is no hydronephrosis. No discrete renal mass is seen. There is a nonobstructing midpole collecting system calculus measuring 0.4 cm. Screening assessment of the urinary bladder appears grossly unremarkable. IMPRESSION: No hydronephrosis. Left renal mid pole nonobstructing 0.4 cm calculus. Report Dictated on Workstation: [facility] --- Final --- Dictated: 01/31/2019 2:20 pm Dictating Physician: MD BA BRIAN Signed Date and Time: 01/31/2019 2:22 pm Signed by: MD BA BRIAN Transcribed Date and Time: 01/31/2019 2:20 [facility] Work Phone: CT Abdomen Pelvis W Contrast on 12-23-2018 Patient Name: CELI BUCK ---CT--- Exam Date/Time 12/23/2018 21:25:[address] Abdomen/Pelvis w/ IV Contrast (IV Onl Ordering Physician MD DALTON SCOTT E. Accession Number [id number] CPT4 Codes 89397 (CT Abdomen/Pelvis w/ IV Contrast (IV Onl) Reason For Exam RUQ Abd pain Report Clinical indications: Right upper quadrant abdominal pain TECHNIQUE: A multislice, volume acquisition was obtained, scanning from the hemidiaphragms through the pubic symphysis, with images reconstructed at 3 mm slice thickness. 75 mL of nonionic contrast was administered for the study. Oral contrast was not utilized. FINDINGS: Comparison is made with a prior study from 03/21/2017. To the limited extent seen, the heart and lung bases appear unremarkable. The liver, spleen, adrenals and pancreas are within normal limits. One or 2 small calculi are present in the gallbladder lumen. The kidneys are symmetrically perfused and show no indication of mass or hydronephrosis. There is a 3 mm nonobstructing calculus in the midpole left kidney on series 3, image 56. There is no evidence of right-sided calculus. The retroperitoneal and mesenteric fat are intact. There is no adenopathy. There is scattered aortoiliac atherosclerosis. No aneurysm or dissection is identified. Large and small bowel are unopacified by enteric contrast and therefore difficult to evaluate. Within this limitation, no definite acute finding is observed. The appendix and terminal ileum are difficult to visualize as discrete structures. There is diverticulosis of the descending and sigmoid colon. No evidence of diverticulitis is identified. In the pelvis, the uterus and bladder appear unremarkable. The rectum is intact. In the expected location of the right adnexa there is a 2.8 x 2.4 cm low-attenuation structure, likely to represent an ovarian cyst. IMPRESSION: Cholelithiasis. Nonobstructing left renal calculus as described above. Atherosclerosis. Colonic diverticulosis without evidence of diverticulitis. Probable right ovarian cyst as described above. Report Dictated on --- Final --- Dictated: 12/23/2018 9:35 pm Dictating Physician: MD PIERCE RUSSELL Signed Date and Time: 12/23/2018 9:48 pm Signed by: MD PIERCE RUSSELL Transcribed Date and Time: 12/23/2018 9:35 [place], [place] Julio César, Summ Incoming Radiology Results From [facility] - 12/23/2018 9:49 PM EST Patient Name: CELI BUCK ---CT--- Exam Date/Time 12/23/2018 21:25:[address] Abdomen/Pelvis w/ IV Contrast (IV Onl Ordering Physician MD KRYSTLE, JUSTIN Rashid Accession Number [id number] CPT4 Codes 54333 (CT Abdomen/Pelvis w/ IV Contrast (IV Onl) Reason For Exam RUQ Abd pain Report Clinical indications: Right upper quadrant abdominal pain TECHNIQUE: A multislice, volume acquisition was obtained, scanning from the hemidiaphragms through the pubic symphysis, with images reconstructed at 3 mm slice thickness. 75 mL of nonionic contrast was administered for the study. Oral contrast was not utilized. FINDINGS: Comparison is made with a prior study from 03/21/2017. To the limited extent seen, the heart and lung bases appear unremarkable. The liver, spleen, adrenals and pancreas are within normal limits. One or 2 small calculi are present in the gallbladder lumen. The kidneys are symmetrically perfused and show no indication of mass or hydronephrosis. There is a 3 mm nonobstructing calculus in the midpole left kidney on series 3, image 56. There is no evidence of right-sided calculus. The retroperitoneal and mesenteric fat are intact. There is no adenopathy. There is scattered aortoiliac atherosclerosis. No aneurysm or dissection is identified. Large and small bowel are unopacified by enteric contrast and therefore difficult to evaluate. Within this limitation, no definite acute finding is observed. The appendix and terminal ileum are difficult to visualize as discrete structures. There is diverticulosis of the descending and sigmoid colon. No evidence of diverticulitis is identified. In the pelvis, the uterus and bladder appear unremarkable. The rectum is intact. In the expected location of the right adnexa there is a 2.8 x 2.4 cm low-attenuation structure, likely to represent an ovarian cyst. IMPRESSION: Cholelithiasis. Nonobstructing left renal calculus as described above. Atherosclerosis. Colonic diverticulosis without evidence of diverticulitis. Probable right ovarian cyst as described above. Report Dictated on --- Final --- Dictated: 12/23/2018 9:35 pm Dictating Physician: MD PIERCE RUSSELL Signed Date and Time: 12/23/2018 9:48 pm Signed by: MD PIERCE RUSSELL Transcribed Date and Time: 12/23/2018 9:35 [place] Comprehensive Metabolic Pane bud 12-23-2018 Albumin [Mass/Vol] 4.9 g/dL 3.5 - 5 g/dL [place] ALP [Catalytic activity/Vol] 98 U/L 38 - 126 U/L [place] ALT [Catalytic activity/Vol] 28 U/L 13 - 69 U/L [place] Anion gap [Moles/Vol] 12 mmol/L [place] AST [Catalytic activity/Vol] 32 U/L 15 - 46 U/L [place] Bilirubin Ql (U) 0.6 mg/dL 0.2 - 1.3 mg/dL [place] Calcium [Mass/Vol] 9.6 mg/dL 8.4 - 10. 4 mg/dL [place] Chloride [Moles/Vol] 107 mmol/L 98 - 10 7 mmol/L [place] CO2 [Moles/Vol] 24 mmol/L 22 - 30 mmol/L [place] Creatinine [Mass/Vol] 1 mg/dL 0.52 - 1.25 mg/dL [place] EGFR IF NonAfrican [place] 55.2 mL/min >60 [place] Comment on above: Source- MDRD equatio n with creatinine calibration to IDMS(NKDEP) eGFR not recommended for drug dose adjustment GFR/1.73 sq M predicted among blacks MDRD (S/P/Bld) [Vol rate/Area] mL/min/{1.73_m2} >60 mL/min [place] Glucose [Mass/Vol] 95 mg/dL 70 - 100 mg/dL [place] Interpretation and review of laboratory results Abnormal [place] Potassium [Moles/Vol] 3.6 mmol/L 3.5 - 5.1 mmol/L [place] Protein [Mass/Vol] 8.3 g/dL High 6.3 - 8.2 g/dL [place] Sodium [Moles/Vol] 143 mmol/L 135 - 145 mmol/L [place] Urea nitrogen [Mass/Vol] 21 mg/dL High 7 - 20 mg/dL [place] Hemogram (CBC)on 12-23-2018 Erythrocyte distribution width (RBC) [Ratio] 12.8 % 11.5 - 14.5 % [place] Hematocrit (Bld) [Volume fraction] 41.8 % 35 - 47 % [place] Hemoglobin (Bld) [Mass/Vol] 14.4 g/dL 11.7 - 16 g/dL [place] Interpretation and review of laboratory results Abnormal [place] MCH (RBC) [Entitic mass] 31.3 pg 26 - 34 pg [place] MCHC (RBC) [Mass/Vol] 34.5 % 32 - 36 % [place] MCV (RBC) [Entitic vol] 90.9 fL 79 - 98 fL [place] Platelet mean volume (Bld) [Entitic vol] 7.2 fL Low 7.4 - 10.4 fL [place] Platelets (Bld) [#/Vol] 244 10*3/uL 140 - 440 10*3/uL [place] RBC (Bld) [#/Vol] 4.61 10*6/uL 3.8 - 5.2 10*6/uL [place] WBC (Bld) [#/Vol] 5.2 10*3/uL 3.6 - 10.7 10*3/uL [place] Test Performed by [facility], [address] [place] [address] Lipaseon 12-23-2018 Lipase [Catalytic activity/Vol] 111 U/L 23 - 300 U/L [place] Otheron 12-23-2018 Test Performed by [facility], [address] [place] [address] Troponin x1on 12-23-2018 Troponin I.cardiac [Mass/Vol] ng/mL 0 - 0.034 ng/mL [place] Comment on above: . Test Performed by [facility], [address] [place] [address] Urinalysison 12-23-2018 Appearance (U) Cloudy Clear NA [place], [place] Bacteria, UA Many (51-100) Negative /[HPF] [place] Bilirubin Urine Negative Negative mg/dL [place] Color (U) YELLOW Lt. Yellow NA [place] Glucose, Ur Normal Normal (<70) mg/dL [place] Ketones Ql (U) Negative Negative mg/dL [place] LEUKOCYTES, UA 250 Negative Es/uL [place] Nitrite, Urine Negative Negative NA [place] Non-Squamous Epithelial 0-2 Nega tive /[HPF] [place] Occult Blood,Urine Negative Negative mg/dL [place] pH (U) 5.0 [pH] [place] Protein (U) [Mass/Vol] Negative Negat everardo mg/dL [place] RBC (U) [#/Vol] 0-2 0 - 2 /[HPF] [place] Specific [place], Urine 1.025 [place] Squam Epithel, UA 26-50 3 - 5 /[HPF] [place] Urobilinogen, Urine Normal Normal (0-1) mg/dL [place] WBC, UA 11-25 0 - 5 /[HPF] [place] Test Performed by [facility], [address] [place] [address] CR Hip w/ Pelvis Bilateral 5 + Viewson 08-30-2018 CR Hip w/ Pelvis Bilateral 5+ Views Patient Name: CELI BUCK Diagnostic Radiology Exam Date/Time 08/30/2018 12:45:00 EDT Exam CR Hip w/ Pelvis Bilateral 5+ View Ordering Physician KELSI GOLDMAN D.O. Accession Number [id number] CPT4 Codes 86671 () Reason For Exam Bilateral hip pain Report Indication: Bilateral hip pain. AP view of the pelvis and AP and lateral views of the right and left hips. Right hip: Mild joint space narrowing. Small marginal osteophytes. No acute fracture or dislocation. Deformities of the right superior and inferior pubic rami appears chronic. Left hip: Mild joint space narrowing. Small marginal osteophytes. Suspect ligamentous calcifications lateral to the greater trochanter. Sacroiliac joints are unremarkable. IMPRESSION: Mild osteoarthritic degenerative changes. Report Dictated on Final Dictating Physician: MD MORTON LAURA Signed Date and Time: 08/30/2018 5:50 pm Signed by: MD MORTON LAURA Transcribed Date and Time: 08/30/2018 5:52 Normal [facility] CR Shoulder 2+ Views Righton 08-30-2018 CR Shoulder 2+ Views Right Patient Name: CELI BUCK Diagnostic Radiology Exam Date/Time 08/30/2018 12:45:00 EDT Exam CR Shoulder 2+ Views Right Ordering Physician KELSI GOLDMAN D.O. Accession Number [id number] CPT4 Codes 10774 () Reason For Exam Pain in right shoulder Report Indication: Right shoulder pain. Grashey, Y and axial views of the right shoulder. No acute fracture or dislocation. Glenohumeral joint space is maintained. Acromioclavicular alignment is maintained. Mild hypertrophic bone formation noted at the acromioclavicular joint. Remote fractures noted of the lateral aspects of the right third, fourth, fifth, sixth and seventh ribs IMPRESSION: Mild arthritic changes at the acromioclavicular joint. Multiple old right- sided rib fractures. Report Dictated on Final Dictating Physician: MD MORTON LAURA Signed Date and Time: 08/30/2018 5:53 pm Signed by: MD MORTON LAURA Transcribed Date and Time: 08/30/2018 5:54 Normal [facility] CR Wrist Complete 3 Views Le hipolitozoila 08-30-2018 CR Wrist Complete 3 Views Left Patient Name: CELI BUCK Diagnostic Radiology Exam Date/Time 08/30/2018 12:45:00 EDT Exam CR Wrist Complete 3 Views Left Ordering Physician KELSI GOLDMAN D.O. Accession Number [id number] CPT4 Codes 86879 () Reason For Exam BILATERAL WRIST PAIN Report Indication: Left wrist pain. PA, oblique and lateral views of the left wrist. Joint space narrowing and subchondral sclerosis is present at the first carpal metacarpal joint. There is subchondral cyst formation. No acute fracture or dislocation. Radiocarpal alignment is maintained. IMPRESSION: Osteoarthritic degenerative changes. Report Dictated on Final Dictating Physician: MD MORTON LAURA Signed Date and Time: 08/30/2018 5:51 pm Signed by: MD MORTON LAURA Transcribed Date and Time: 08/30/2018 5:52 Normal [facility] CR Wrist Complete 3 Views Abi griffith 08-30-2018 CR Wrist Complete 3 Views Right Patient Name: CELI BUCK Diagnostic Radiology Exam Date/Time 08/30/2018 12:45:00 EDT Exam CR Wrist Complete 3 Views Right Ordering Physician KELSI GOLDMAN D.O. Accession Number [id number] CPT4 Codes 54910 () Reason For Exam Pain in right wrist Report Indication: Right wrist pain. PA, oblique and lateral views of the right wrist. No acute fracture or dislocation. No bony destruction. Mild subchondral sclerosis involving the lateral carpal bones. No bony destruction or osseous erosions IMPRESSION: Mild arthritic degenerative changes of the lateral carpal bones. Report Dictated on Final Dictating Physician: MD MORTON LAURA Signed Date and Time: 08/30/2018 5:52 pm Signed by: MD MORTON LAURA Transcribed Date and Time: 08/30/2018 5:53 Normal [facility] Clinical Summary: HMSPatient IDon 07-05-2017 OOP Invalid Interpretation Code [facility] Work Phone: Office Visit: New/Est - 1st visit with physician, Rm: 10on 07-05-2017 NEGATED: Highlighted rowDocumentation of current medications (procedure) Done Invalid Interpretation Code [facility] Work Phone: Vital Signs Date Time Vital Sign Value Performing Clinician Facility 08-04-2023 13:30-0400 Body mass index (BMI) [Ratio] 24.48 kg/m2 Danilo Santa APRN.CNP Work Phone: [facility] 08-04-2023 13:30-0400 Body temperature 97.2 [degF] Danilo Santa APRN.PRESCRIPTION BENEFIT SPECIALIST Work Phone: [facility] 08-04-2023 13:30-0400 Body weight 56.1 kg Danilo Santa APRN.CNP Work Phone: [facility] 08-04-2023 13:30-0400 Diastolic blood pressure 72 mm[Hg] Danilo Santa APRN.CNP Work Phone: [facility] 08-04-2023 13:30-0400 Heart rate 81 /min Danilo Santa APRN.CNP Work Phone: [facility] 08-04-2023 13:30-0400 Respiratory rate 18 /min Danilo Santa MOLD SETTER.PRESCRIPTION BENEFIT SPECIALIST Work Phone: [facility] 08-04-2023 13:30-0400 SaO2% (BldA) [Mass fraction] 98 % Danilo Santa APRN.PRESCRIPTION BENEFIT SPECIALIST Work Phone: [facility] 08-04-2023 13:30-0400 Systolic blood pressure 153 mm[Hg] Danilo Santa MOLD SETTER.PRESCRIPTION BENEFIT SPECIALIST Work Phone: [facility] 05-18-2022 15:41-0400 Body temperature 98.71 [degF] Con Lynn MD Work Phone: [facility] 05-18-2022 15:41-0400 Body weight 57.2 kg Con Lynn MD Work Phone: [facility] 05-18-2022 15:41-0400 Diastolic blood pressure 73 mm[Hg] Con Lynn MD Work Phone: [facility] 05-18-2022 15:41-0400 Heart rate 78 /min Con Lynn MD Work Phone: [facility] 05-18-2022 15:41-0400 Respiratory rate 18 /min Con Lynn MD Work Phone: [facility] 05-18-2022 15:41-0400 SaO2% (BldA) [Mass fraction] 97 % Con Lynn MD Work Phone: [facility] 05-18-2022 15:41-0400 Systolic blood pressure 109 mm[Hg] Con Lynn MD Work Phone: [facility] 04-24-2022 11:46-0500 Body height 152.4 cm Nancy Quintanilla LPN [facility] Work Phone: 04-24-2022 11:46-0500 Body mass index (BMI) [Ratio] 25.19 kg/m2 Nancy Quintanilla LPN [facility] Work Phone: 04-24-2022 11:46-0500 Body surface area Derived from formula 1.55 m2 Nancy Slarb TREASURY ANALYST [facility]; [facility] Work Phone: 04-24-2022 11:46-0500 Body temperature 97.7 [degF] Nancy Slarb TREASURY ANALYST [facility]; [facility] Work Phone: Comment on above: Method: Temporal 04-24-2022 11:46-0500 Body weight 58.51 kg Nancy Slarb TREASURY ANALYST [facility]; [facility] Work Phone: 04-24-2022 11:46-0500 Diastolic blood pressure 80 mm[Hg] Nancy Slarb TREASURY ANALYST [facility]; [facility] Work Phone: Comment on above: Patient Position: Si tting; Cuff Location: Left Arm; Cuff Size: Standard 04-24-2022 11:46-0500 Heart rate 82 /min Nancy Slarb TREASURY ANALYST [facility]; [facility] Work Phone: Comment on above: Pattern: Regular 04-24-2022 11:46-0500 Respiratory rate 17 /min Nancy Slarb TREASURY ANALYST [facility]; [facility] Work Phone: Comment on above: Pattern: Unlabored 04-24-2022 11:46-0500 SaO2% (BldA) [Mass fraction] 97 % Nancy Slarb TREASURY ANALYST [facility]; [facility] Work Phone: Comment on above: Room air 04-24-2022 11:46-0500 Systolic blood pressure 124 mm[Hg] Nancy Slarb TREASURY ANALYST [facility]; [facility] Work Phone: Comment on above: Patient Position: Si tting; Cuff Location: Left Arm; Cuff Size: Standard 04-17-2022 14:50-0500 Body height 152.4 cm Nancy Slarb TREASURY ANALYST [facility]; [facility] Work Phone: 04-17-2022 14:50-0500 Body mass index (BMI) [Ratio] 25.19 kg/m2 Nancy Slarb TREASURY ANALYST [facility]; [facility] Work Phone: 04-17-2022 14:50-0500 Body surface area Derived from formula 1.55 m2 Nancy Slarb TREASURY ANALYST [facility]; [facility] Work Phone: 04-17-2022 14:50-0500 Body temperature 97.3 [degF] Nancy Slarb TREASURY ANALYST [facility]; [facility] Work Phone: Comment on above: Method: Temporal 04-17-2022 14:50-0500 Body weight 58.51 kg Nancy Martinezrb TREASURY ANALYST [facility]; [facility] Work Phone: 04-17-2022 14:50-0500 Diastolic blood pressure 82 mm[Hg] Nancy Slarb TREASURY ANALYST [facility]; [facility] Work Phone: Comment on above: Patient Position: Si tting; Cuff Location: Left Arm; Cuff Size: Standard 04-17-2022 14:50-0500 Heart rate 72 /min Nancy Martinezrb TREASURY ANALYST [facility]; [facility] Work Phone: Comment on above: Pattern: Regular 04-17-2022 14:50-0500 Respiratory rate 16 /min Nancy Slarb TREASURY ANALYST [facility]; [facility] Work Phone: Comment on above: Pattern: Unlabored 04-17-2022 14:50-0500 SaO2% (BldA) [Mass fraction] 98 % Nancy Slarb TREASURY ANALYST [facility]; [facility] Work Phone: Comment on above: Room air 04-17-2022 14:50-0500 Systolic blood pressure 140 mm[Hg] Nancy Slarb TREASURY ANALYST [facility]; [facility] Work Phone: Comment on above: Patient Position: Si tting; Cuff Location: Left Arm; Cuff Size: Standard 01-27-2022 11:20-0500 Body height 152.4 cm Miguel Delgado [facility] Work Phone: 01-27-2022 11:20-0500 Body mass index (BMI) [Ratio] 25.19 kg/m2 [facility] Work Phone: 01-27-2022 11:20-0500 Body surface area Derived from formula 1.55 m2 [facility]; [facility] Work Phone: 01-27-2022 11:20-0500 Body temperature 97.4 [degF] [facility]; [facility] Work Phone: 01-27-2022 11:20-0500 Body [facility] Work Phone: 01-27-2022 11:20-0500 Diastolic blood pressure 78 mm[Hg] [facility]; [facility] Work Phone: Comment on above: Patient Position: Si tting; Cuff Location: Left Arm; Cuff Size: Standard 01-27-2022 11:20-0500 Heart rate 71 /min [facility]; [facility] Work Phone: Comment on above: Pattern: Regular 01-27-2022 11:20-0500 Respiratory rate 16 /min [facility]; [facility] Work Phone: Comment on above: Pattern: Unlabored 01-27-2022 11:20-0500 SaO2% (BldA) [Mass fraction] 98 % [facility]; [facility] Work Phone: Comment on above: Room air 01-27-2022 11:20-0500 Systolic blood pressure 120 mm[Hg] [facility]; [facility] Work Phone: Comment on above: Patient Position: Si tting; Cuff Location: Left Arm; Cuff Size: Standard 12-28-2021 14:31-0500 Body height 152.4 cm Nancy Quintanilla LPN [facility]; [facility] Work Phone: 12-28-2021 14:31-0500 Body mass index (BMI) [Ratio] 24.41 kg/m2 Nancy Slarb TREASURY ANALYST [facility]; [facility] Work Phone: 12-28-2021 14:31-0500 Body surface area Derived from formula 1.53 m2 Nancy Slarb TREASURY ANALYST [facility]; [facility] Work Phone: 12-28-2021 14:31-0500 Body temperature 98.6 [degF] Nancy Slarb TREASURY ANALYST [facility]; [facility] Work Phone: 12-28-2021 14:31-0500 Body weight 56.7 kg Nancy Slarb TREASURY ANALYST [facility]; [facility] Work Phone: 12-28-2021 14:31-0500 Diastolic blood pressure 76 mm[Hg] Nancy Slarb TREASURY ANALYST [facility]; [facility] Work Phone: Comment on above: Patient Position: Si tting; Cuff Location: Left Arm; Cuff Size: Standard 12-28-2021 14:31-0500 Heart rate 86 /min Nancy Slarb TREASURY ANALYST [facility]; [facility] Work Phone: Comment on above: Pattern: Regular 12-28-2021 14:31-0500 Respiratory rate 17 /min Nancy Slarb TREASURY ANALYST [facility]; [facility] Work Phone: Comment on above: Pattern: Unlabored 12-28-2021 14:31-0500 SaO2% (BldA) [Mass fraction] 98 % Nancy Slarb TREASURY ANALYST [facility]; [facility] Work Phone: Comment on above: Room air 12-28-2021 14:31-0500 Systolic blood pressure 132 mm[Hg] Nancy Slarb TREASURY ANALYST [facility]; [facility] Work Phone: Comment on above: Patient Position: Si tting; Cuff Location: Left Arm; Cuff Size: Standard 12-22-2021 11:58-0400 Body weight 57.15 kg Afsaneh Mac [facility] Work Phone: [facility] 12-22-2021 11:58-0400 Diastolic blood pressure 62 mm[Hg] Afsaneh Mac MOLD SETTER.INSURANCE CLAIMS EXAMINER Work Phone: [facility] 12-22-2021 11:58-0400 Heart rate 88 /min Afsaneh Mac MOLD SETTER.INSURANCE CLAIMS EXAMINER Work Phone: [facility] 12-22-2021 11:58-0400 Respiratory rate 16 /min Afsaneh Mac MOLD SETTER.INSURANCE CLAIMS EXAMINER Work Phone: [facility] 12-22-2021 11:58-0400 SaO2% (BldA) [Mass fraction] 99 % Afsaneh Mac MOLD SETTER.INSURANCE CLAIMS EXAMINER Work Phone: [facility] 12-22-2021 11:58-0400 Systolic blood pressure 104 mm[Hg] Afsaneh Mac MOLD SETTER.INSURANCE CLAIMS EXAMINER Work Phone: [facility] 11-10-2021 11:32-0400 Body weight 56.25 kg Argelia Douglas MD Work Phone: [facility] 11-10-2021 11:32-0400 Diastolic blood pressure 68 mm[Hg] Argelia Douglas MD Work Phone: [facility] 11-10-2021 11:32-0400 Systolic blood pressure 110 mm[Hg] Argelia Douglas MD Work Phone: [facility] 11-04-2021 09:23-0400 Body weight 56.06 kg Brandi Pagan MOLD SETTER.CNM Work Phone: [facility] 11-04-2021 09:23-0400 Diastolic blood pressure 78 mm[Hg] Brandi Plotts MOLD SETTER.CNM Work Phone: [facility] 11-04-2021 09:23-0400 Systolic blood pressure 110 mm[Hg] Brandi Pagan MOLD SETTER.CNM Work Phone: [facility] 10-12-2021 16:10-0400 Body height 151.4 cm Samy Avila MD Work Phone: [facility] 10-12-2021 16:10-0400 Body temperature 97.9 [degF] Samy Avila MD Work Phone: [facility] 10-12-2021 16:10-0400 Body weight 55.34 kg Samy Avila MD Work Phone: [facility] 10-12-2021 16:10-0400 Diastolic blood pressure 76 mm[Hg] Samy Avila MD Work Phone: [facility] 10-12-2021 16:10-0400 Heart rate 88 /min Samy Avila MD Work Phone: [facility] 10-12-2021 16:10-0400 Respiratory rate 16 /min Samy Avila MD Work Phone: [facility] 10-12-2021 16:10-0400 Systolic blood pressure 130 mm[Hg] Samy Avila MD Work Phone: [facility] 09-29-2021 16:22-0400 Body temperature 97.5 [degF] [facility] Work Phone: 09-29-2021 16:22-0400 Diastolic blood pressure 64 mm[Hg] [facility] Work Phone: 09-29-2021 16:22-0400 Heart rate 71 /min [facility] Work Phone: 09-29-2021 16:22-0400 Respiratory rate 16 /min [facility] Work Phone: 09-29-2021 16:22-0400 SaO2% (BldA) [Mass fraction] 100 % [facility] Work Phone: 09-29-2021 16:22-0400 Systolic blood pressure 125 mm[Hg] [facility] Work Phone: 09-29-2021 13:24-0400 Body height 152.4 cm [facility] Work Phone: 09-29-2021 13:24-0400 Body mass index (BMI) [Ratio] 23.8 kg/m2 [facility] Work Phone: 09-29-2021 13:240400 Body weight 55.33 kg [facility] Work Phone: 09-26-2021 13:10-0400 Body height 152.4 cm Vinita Tony MD Work Phone: [facility] 09-26-2021 13:10-0400 Body weight 56.25 kg Vinita Tony MD Work Phone: [facility] 09-26-2021 13:10-0400 Diastolic blood pressure 76 mm[Hg] Vinita Tony MD Work Phone: [facility] 09-26-2021 13:10-0400 Heart rate 80 /min Vinita Tony MD Work Phone: [facility] 09-26-2021 13:10-0400 Respiratory rate 16 /min Vinita Tony MD Work Phone: [facility] 09-26-2021 13:10-0400 Systolic blood pressure 104 mm[Hg] Vinita Tony MD Work Phone: [facility] 09-16-2021 10:49-0400 Body weight 56.25 kg Ynes Cesar APRN.PRESCRIPTION BENEFIT SPECIALIST Work Phone: [facility] 09-16-2021 10:49-0400 Diastolic blood pressure 80 mm[Hg] Ynes Cesar APRN.PRESCRIPTION BENEFIT SPECIALIST Work Phone: [facility] 09-16-2021 10:49-0400 Systolic blood pressure 142 mm[Hg] Ynes Cesar APRN.PRESCRIPTION BENEFIT SPECIALIST Work Phone: [facility] 09-14-2021 11:38-0400 Body weight 56.25 kg Ynes Cesar APRN.PRESCRIPTION BENEFIT SPECIALIST Work Phone: [facility] 09-14-2021 11:38-0400 Diastolic blood pressure 82 mm[Hg] Ynes Cesar APRN.PRESCRIPTION BENEFIT SPECIALIST Work Phone: [facility] 09-14-2021 11:38-0400 Systolic blood pressure 124 mm[Hg] Ynes Cesar APRN.PRESCRIPTION BENEFIT SPECIALIST Work Phone: [facility] 12-23-2018 21:46-0500 BP Diastolic 72 mm[Hg] Justin [facility] , [place] 12-23-2018 21:46-0500 BP Systolic 142 mm[Hg] Justin [facility] , [place] 12-23-2018 21:46-0500 Pulse (Heart Rate) 72 /min Justin [facility], [place] 12-23-2018 21:46-0500 Pulse Oximetry 98 % [place], [place] 12-23-2018 21:46-0500 Respiratory Rate 20 /min [facility] [facility], [place] 12-23-2018 19:54-0500 BMI (Body Mass Index) 24.22 kg/m2 [place], [place] 12-23-2018 19:54-0500 Body Temperature 98.29 [degF] [facility] [place] 12-23-2018 19:54-0500 Body weight 56.25 kg [place], [place] 12-23-2018 19:54-0500 Height 152.4 cm [place], [place] NEGATED: Highlighted [id number] 14:25-0400 BMI (Body Mass Index) 23.91 kg/m2 [facility] Work Phone: NEGATED: Highlighted [id number] 14:25-0400 BP Diastolic 70 mm[Hg] [facility] Work Phone: NEGATED: Highlighted [id number] 14:25-0400 BP Systolic 113 mm[Hg] [facility] Work Phone: NEGATED: Highlighted [id number] 14:25-0400 Height [address] [facility] Work Phone: NEGATED: Highlighted [id number] 14:25-040 Height 152.4 cm Sun Mcdermott TREASURY ANALYST [facility] Work Phone: NEGATED: Highlighted [id number] 14:040 Pulse (Heart Rate) 69 /min Sun Mcdermott LPN [facility] Work Phone: NEGATED: Highlighted [id number] 14: Weight 55 kg Sun Mcdermott TREASURY ANALYST [facility] Work Phone: NEGATED: Highlighted [id number] 14: Weight 55.34 kg Sun Mcdermott TREASURY ANALYST [facility] Work Phone: Encounters Encounter Date Encounter Type Care Provider Facility Start: 07-24-2024 End: 07-24-2024 Subsequent hospital visit by physician Perry [address] Comment on above: Hyperlipidemia, unsp ecified Start: 07-24-2024 End: 07-24-2024 ambulatory DANIEL Lucas [facility] Start: 06-25-2024 End: 06-25-2024 Orders Only Meg Ospina APRN.PRESCRIPTION BENEFIT SPECIALIST Work Phone: [facility] Comment on above: Abnormal finding of diagnostic imaging (Primary Dx) Start: 04-11-2024 End: 04-11-2024 ambulatory Daniel Guzman FILM EDITOR-C Work Phone: [facility] Work Phone: Start: 04-11-2024 End: 04-11-2024 Patient encounter procedure Daniel Guzman FILM EDITOR-C -Radiology, [place] Work Phone: Start: 04-11-2024 End: 04-11-2024 ambulatory Daniel Guzman Facility:[facility] Start: 01-30-2024 End: 01-30-2024 Emergency department patient visit DANIEL GUZMAN Facility:[facility] Start: 01-06-2024 End: 01-06-2024 Emergency department patient visit BRICE SALMERON Facility:[facility] Start: 12-24-2023 End: 12-24-2023 ambulatory Danielrob Guzman Facility:[facility] Start: 12-19-2023 End: 12-20-2023 Office outpatient visit 15 minutes Diana Lundberg MD Work Phone: [facility] Comment on above: Osteoarthritis of ca rpometacarpal (CMC) joints of both thumbs, unspecified osteoarthritis type (Primary Dx) Start: 12-19-2023 End: 12-24-2023 ambulatory UNKNOWN PROVIDER Facility:[facility] Start: 11-16-2023 End: 11-16-2023 ambulatory Daniel Thomas Facility:[facility] Start: 08-04-2023 End: 08-04-2023 ambulatory GUSTABO DENG Facility:[facility] Start: 08-04-2023 End: 08-04-2023 Patient encounter procedure Danilo Santa APRN.PRESCRIPTION BENEFIT SPECIALIST Work Phone: [facility] Comment on above: Sore throat (Primary Dx); Bacterial sinusitis Start: 06-06-2023 End: 06-07-2023 Office outpatient visit 25 minutes Diana Lundberg MD Work Phone: [facility] Comment on above: Osteoarthritis of ca rpometacarpal (CMC) joints of both thumbs, unspecified osteoarthritis type (Primary Dx); Trigger finger, unspecified finger, unspecified laterality Start: 06-06-2023 End: 06-07-2023 ambulatory UNKNOWN PROVIDER Facility:[facility] Start: 01-03-2023 ambulatory Gustabo vick MD Work Phone: [facility] Start: 12-12-2022 End: 12-12-2022 Lab Order Daniel Guzman PRESCRIPTION BENEFIT SPECIALIST Work Phone: [facility] Start: 07-19-2022 End: 07-19-2022 Office outpatient visit 25 minutes Diana Lundberg MD Work Phone: [facility]astic Surgery Comment on above: Pain in both hands ( Primary Dx); Trigger finger, unspecified finger, unspecified laterality Start: 05-18-2022 End: 05-18-2022 ambulatory SHANIQUE CARMEN [facility] Start: 05-18-2022 End: 05-18-2022 Office outpatient new 45 minutes Con Lynn MD Work Phone: [facility] Comment on above: Laryngopharyngeal re flux (LPR) (Primary Dx); Xerostomia; Swollen uvula Start: 05-11-2022 Transcribe Orders Constance Velasquez MA [facility] [place] Comment on above: Swollen uvula (Prima ry Dx) Start: 05-11-2022 End: 05-11-2022 Annotation/Addendum Daniel Guzman CNP Work Phone: [facility] Start: 05-11-2022 End: 05-11-2022 Patient encounter procedure Daniel Guzman CNP Work Phone: [facility] Start: 05-11-2022 Review Daniel Guzman CNP Work Phone: [facility] Start: 04-25-2022 End: 04-25-2022 Lab Order Daniel Guzman CNP Work Phone: [facility] Start: 04-24-2022 ambulatory Daniel Guzman CNP [facility] Start: 04-24-2022 End: 04-24-2022 Office outpatient visit 15 minutes Daniel Guzman CNP Work Phone: [facility] Start: 04-24-2022 End: 04-24-2022 Patient encounter procedure Daniel Guzman CNP Work Phone: [facility] Start: 04-20-2022 Letter encounter Diana Sinclair Work Phone: [facility] Start: 04-17-2022 End: 04-17-2022 Office outpatient visit 15 minutes Daniel Guzman CNP Work Phone: [facility] Start: 04-11-2022 End: 04-11-2022 Prescription Refill Daniel Guzman CNP Work Phone: [facility] Start: 01-31-2022 End: 01-31-2022 ambulatory [facility] Work Phone: Start: 01-31-2022 End: 01-31-2022 Patient encounter procedure [facility] [place], [facility] Start: 01-27-2022 End: 02-02-2022 Office outpatient visit 25 minutes Daniel Thomas CNP Work Phone: [facility] Start: 01-27-2022 Review Daniel Jaimesracquel GALLARDO Work Phone: [facility] Start: 01-11-2022 End: 01-11-2022 Prescription Refill Daniel Guzman SAMI Work Phone: [facility] Start: 01-10-2022 Letter encounter Diana Sinclair Work Phone: [facility] Start: 12-28-2021 End: 12-28-2021 Office outpatient new 30 minutes Daniel Guzman SAMI Work Phone: [facility] Start: 12-23-2021 End: 12-23-2021 Subsequent hospital visit by physician Xr [facility] Work Phone: Radiology Comment on above: Mass of chest wall, right [R22.2] Dyspnea on exertion [R06.09] Start: 12-22-2021 End: 12-22-2021 Patient encounter procedure Afsaneh Mac INSURANCE CLAIMS EXAMINER Work Phone: Internal Medicine [place] Comment on above: Other fatigue (Prima ry Dx); Encounter for immunization; Need for shingles vaccine; Screening for colon cancer; Screening for osteoporosis; Asymptomatic menopause; History of COVID-19; Mass of chest wall, right; Family history of thyroid disease Start: 12-18-2021 End: 12-18-2021 ambulatory SHANIQUE DARBY PA-C [facility] Start: 11-11-2021 Telephone encounter Argelia Douglas MD Work Phone: OB/Gynecology Comment on above: Results Start: 11-10-2021 End: 11-10-2021 Patient encounter procedure Argelia Douglas MD Work Phone: OB/Gynecology Comment on above: Vaginal discharge (P rimary Dx); Vaginal burning; Screen for STD (sexually transmitted disease) Start: 11-04-2021 End: 11-04-2021 Patient encounter procedure Brandi Pagan APRN.CNM Work Phone: OB/Gynecology Comment on above: Mass of upper inner quadrant of right breast (Primary Dx) Start: 10-14-2021 End: 10-14-2021 Subsequent hospital visit by physician [facility] (I-Stat) Work Phone: Cat Scan Comment on above: Lung nodules [R91.8] Start: 10-12-2021 End: 10-12-2021 Patient encounter procedure Samy Avila MD Work Phone: [facility] [place] Comment on above: Near syncope (Primar y Dx); Herpes simplex infection of genitourinary system; Anxiety; Thickened endometrium; Irritable bowel syndrome with both constipation and diarrhea; Dyspnea on exertion; Palpitations; Encounter for screening mammogram for malignant neoplasm of breast; Hypercholesterolemia Start: 10-06-2021 Telephone encounter No Pcp [facility] [place] Comment on above: Patient Question Start: 09-29-2021 ambulatory Vinita echeverria MD Work Phone: OB/Gynecology Comment on above: PMB (postmenopausal bleeding) (Primary Dx); Thickened endometrium; Endometrial polyp Start: 09-29-2021 Patient encounter procedure Fely Tony MD Work Phone: [facility] Start: 09-29-2021 End: 09-29-2021 Admission to same day surgery center [facility] Start: 09-26-2021 End: 09-26-2021 Patient encounter procedure Vinita Tony MD Work Phone: OB/Gynecology Comment on above: PMB (postmenopausal bleeding) (Primary Dx); Symptomatic menopausal or female climacteric states Start: 09-21-2021 Orders Only Ynes Cesar APRN.PRESCRIPTION BENEFIT SPECIALIST Work Phone: OB/Gynecology Comment on above: Ovarian cyst, right (Primary Dx); Postmenopausal Start: 09-19-2021 Telephone encounter Vinita Tony MD Work Phone: OB/Gynecology Comment on above: Appointment Start: 09-16-2021 End: 09-16-2021 Patient encounter procedure Ynes Cesar APRN.PRESCRIPTION BENEFIT SPECIALIST Work Phone: OB/Gynecology Comment on above: Postmenopausal bleed ing (Primary Dx) PMB (postmenopausal bleeding) (Primary Dx) Start: 09-14-2021 End: 09-14-2021 Patient encounter procedure Ynes Cesar APRN.PRESCRIPTION BENEFIT SPECIALIST Work Phone: OB/Gynecology Comment on above: PMB (postmenopausal bleeding) (Primary Dx) Start: 08-24-2021 End: 08-24-2021 Office outpatient new 45 minutes Diana Lundberg MD Work Phone: [facility]astic Surgery Comment on above: Pain in both hands ( Primary Dx); Osteoarthritis of carpometacarpal (CMC) joints of both thumbs, unspecified osteoarthritis type; Trigger finger, unspecified finger, unspecified laterality Start: 08-24-2021 Letter encounter [facility] Start: 09-24-2020 Orders Only Michael Merrill MD Work Phone: Pulmonary Medicine Comment on above: Lung nodules Start: 08-30-2020 E-mail encounter juan manuel leonard caregiver [facility] Provider [facility] Start: 08-30-2020 Patient encounter procedure [facility] Prov ider MRI J Comment on above: Schedule Imaging Sharla ointment Start: 08-19-2020 End: 08-19-2020 Subsequent hospital visit by physician Iris Clements DO Work Phone: [facility] Comment on above: Lump in armpit, left ; Localized enlarged lymph nodes ; Localized enlarged lymph nodes Start: 08-05-2020 E-mail encounter juan manuel m caregiver [facility] Provider [facility] Start: 08-05-2020 Patient encounter procedure [facility] Prov ider Radiology Comment on above: Schedule imaging sharla ointment Start: 07-23-2020 E-mail encounter fro m caregiver [facility] Provider [facility] Start: 07-23-2020 Patient encounter procedure [facility] Prov ider Radiology Comment on above: Schedule Imaging Sharla ointment Start: 03-01-2020 ambulatory Michael Merrill MD Work Phone: Pulmonary Medicine Comment on above: CT scan RE: Test Result Isabela gonzalez Start: 03-01-2020 E-mail encounter fro m caregiver Michael Merrill MD Work Phone: [facility] Start: 02-27-2020 End: 02-27-2020 Subsequent hospital visit by physician [facility] [place] (I-Stat) Work Phone: CT Scan Comment on above: Multiple lung nodule s on CT [R91.8] Start: 12-29-2019 End: 12-29-2019 Subsequent hospital visit by physician Darrion Islas Work Phone: [employer] [facility] Comment on above: Lung nodules Start: 07-15-2019 End: 07-15-2019 Subsequent hospital visit by physician Margarita Kessler Work Phone: [facility] Comment on above: Screening for STDs ( sexually transmitted diseases); Encounter for screening for other viral diseases ; Periodic health assessment, general screening, adult Start: 01-31-2019 End: 01-31-2019 Subsequent hospital visit by physician Gisell Espinoza MD Work Phone: [facility] Comment on above: Leukocytes in urine Start: 12-23-2018 End: 12-23-2018 Emergency department patient visit Justin Dalton Work Phone: [facility] Comment on above: Right upper quadrant abdominal pain (Primary Dx) Start: 02-13-2018 Emergency department patient visit Waldo Waldron [facility] Start: 01-18-2018 Patient encounter procedure Sherri Novoa [facility] Start: 01-15-2018 Emergency department patient visit Petr Broussard [facility] Start: 08-07-2017 Patient encounter procedure Yulia Hor [facility] Start: 07-13-2017 Patient encounter procedure Yulia Hor [facility] Start: 07-05-2017 End: 07-05-2017 Patient encounter procedure Rashaad Chan MD Work Phone: [facility] Work Phone: Start: 05-22-2017 Patient encounter procedure Yulia Hor ne [facility] Procedures Date Procedure Procedure Detail Performing Clinician Start: 04-11-2024 X-ray of chest, PA a nd lateral views Daniel Guzman FILM EDITOR-C Work Phone: Start: 12-19-2023 Arthrocentesis aspir &/inj small jt/bursa w/o us Diana Lundberg MD Work Phone: Start: 08-04-2023 STREP A MOLECULAR (POC) Danilo Santa APRN.PRESCRIPTION BENEFIT SPECIALIST Work Phone: Start: 06-07-2023 Injection 1 tendon sheath/ligament aponeurosis Diana Lundberg MD Work Phone: Start: 06-07-2023 Arthrocentesis aspir &/inj small jt/bursa w/o us Diana Lundberg MD Work Phone: Start: 07-19-2022 Injection 1 tendon sheath/ligament aponeurosis Diana Lundberg MD Work Phone: Start: 07-19-2022 Arthrocentesis aspir &/inj small jt/bursa w/o us Diana Lundberg MD Work Phone: Start: 01-31-2022 End: 02-01-2022 Thyroid Procedure Note: See Note; NOTES: [facility] Imaging Services [address] [place] [id number] Thyroid MR#: [id number] Acct: [id number] Name: CELI BUCK Rep #: [id number] : [id number] F 71 From: Varghese Casarez MD PCP: MELISA MillerC Status: REG CLI Study: Thyroid Date of Exam: 01/31/22 Exam# [id number] Ordering Dr: Daniel Guzman FILM EDITORJose EnriqueC INDICATION: ENLARGEMENT-RT EXAMINATION: Ultrasound US Thyroid (eg thyroid, parathyroid, parotid) TECHNIQUE: Garsia scale and color doppler imaging was performed of the thyroid gland. COMPARISON: None. FINDINGS: RIGHT THYROID LOBE: 4.7 x 1.3 x 1.5 cm. Homogeneous echotexture with normal vascularity. [ 1. . 3 x 2 x 3 mm hypoechoic solid nodule, wider than tall with smooth margins with possible central macrocalcification, TI-RAD 4. LEFT THYROID LOBE: 3.5 x 0.9 x 1.1 cm. Homogeneous echotexture with normal vascularity. [No thyroid nodules are present. ISTHMUS: 0.2cm isthmus. No thyroid nodules are present. Right neck lymph nodes, largest 1.3 x 0.3 x 0.6cm lymph node with preserved fatty hilum and symmetric thin cortex. US/Thyroid IMPRESSION: Right thyroid 3 mm thyroid TI-RAD 4 nodule which is likely benign given its small size. No specific imaging follow-up required by 2017 ACR TI-RAD criteria. Small right neck lymph nodes are nonspecific, without overt suspicious features. Clinical follow-up recommended with follow-up ultrasound as indicated Electronically Signed: Varghese Casarez MD at 8:15 EST Reading Location ID and State: [facility] / [place] Tel , Service support , CC: ZAK Guzman Chef German: Signed Daniel Guzman [facility] Work Phone: Start: 01-31-2022 US scan of thyroid Start: 12-23-2021 Radex clavicle complete Afsaneh Mac MOLD SETTER.INSURANCE CLAIMS EXAMINER Work Phone: Start: 12-23-2021 Radiologic exam ches t 2 views Samy Avila MD Work Phone: Start: 11-30-2021 Mammography Afsaneh salazar MOLD SETTER.INSURANCE CLAIMS EXAMINER Work Phone: Start: 11-04-2021 Lipid 1996 panel - S brenda or Plasma Ct (I-Stat) Work Phone: Start: 10-14-2021 Ct thorax w/o contra st material Michael Merrill MD Work Phone: Start: 09-29-2021 Hysteroscopy,D&C Sym phion (Not Applicable) Start: 08-24-2021 Arthrocentesis aspir &/inj small jt/bursa w/o us Diana Lundberg MD Work Phone: Start: 08-24-2021 Injection 1 tendon sheath/ligament aponeurosis Diana Lundberg MD Work Phone: Start: 08-19-2020 MG CANCER RISK SURVEY C hristine Sameer Clements DO Work Phone: Start: 08-19-2020 Diagnostic mammograp hy computer-aided detcj bi Iris Sameer Clements DO Work Phone: Start: 02-27-2020 Ct thorax w/o contra st material Michael Merrill MD Work Phone: Start: 01-31-2019 Us retroperitoneal r eal time w/image limited Gisell Espinoza MD Work Phone: Start: 12-23-2018 CT ABDOMEN PELVIS W CONTRAST Justin Dalton Work Phone: Start: 12-23-2018 Assay of lipase Justin Dalton Work Phone: Start: 12-23-2018 Assay of troponin quantitative Justin Dalton Work Phone: Start: 12-23-2018 Blood count complete automated Justin Dalton Work Phone: Start: 12-23-2018 Comprehensive metabo lic panel Justin Dalton Work Phone: Start: 12-23-2018 Urnls dip stick/tabl et rgnt auto w/o microscopy Justin Dalton Work Phone: Start: 12-23-2018 Ecg routine ecg w/le ast 12 lds w/i&r Ujstin Lance Dalton Work Phone: Start: 07-05-2017 End: 07-05-2017 Blood pressure within normal parameters - no follow-up required Rashaad Chan MD Work Phone: Start: 07-05-2017 End: 07-05-2017 BMI documented within normal parameters - no follow-up plan is required Rashaad Chan MD Work Phone: Start: 07-05-2017 End: 07-05-2017 Current medications documented Rashaad Chan MD Work Phone: Start: 07-05-2017 End: 07-05-2017 Pain assessment documented as positive - follow-up documented Rashaad Chan MD Work Phone: Start: 07-05-2017 End: 07-05-2017 Tobacco non-user Rashaad Chan MD Work Phone: section Daniel lugo PRESCRIPTION BENEFIT SPECIALIST Work Phone: section Kayela Radf ord STOREHOUSE CLERK section Nancy Slar b TREASURY ANALYST Dilation and curetta ge of uterus Nancy Slarb TREASURY ANALYST Comment on above: 2021 Dilation and curetta ge of uterus Nancy Slarb TREASURY ANALYST Comment on above: 2021 Ligation of fallopia n tube Nancy Slarb TREASURY ANALYST Ligation of fallopia n tube Nancy Slarb TREASURY ANALYST Mammography Nancy Slarb LP N Comment on above: 11/2021 Mammography Nancy Slarb LP N Comment on above: 11/2021 Plan of Treatment Date Care Activity Detail Author Start: 01-29-2027 Diabetes Screening Diabetes Screening [facility] Start: 11-04-2026 Cholesterol [Mass/volume] in Serum or Plasma Cholesterol [facility] Start: 11-04-2026 Lipid 1996 panel - Serum or Plasma Lipid Screening [facility] Start: 11-04-2026 Lipid panel [facility] Start: 11-04-2026 LIPID SCREEN LIPID SCREEN [facility] Start: 2026 RSV High Risk: (Elderly (60+) or Population) (1 - 1-dose 75+ series) RSV High Risk: (Elderly (60+) or Population) (1 - 1-dose 75+ series) [facility] Start: 2026 RSV Vaccine (1 - 1-dose 75+ series) RSV Vaccine (1 - 1-dose 75+ series) [facility] Start: 2026 RSV vaccine (adult) (1 - 1-dose 75+ series) RSV vaccine (adult) (1 - 1-dose 75+ series) [facility] Start: 06-24-2025 Lipid panel Lipid screen [facility] Work Phone: Start: 11-04-2024 DIABETES SCREEN DIABETES SCREEN [facility] Start: 11-04-2024 Diabetes Screening Diabetes Screening [facility] Start: 10-20-2024 Influenza vaccination Influenza Vaccine (Season Ended) [facility] Start: 02-20-2024 Advance Directive Discussion Advance Directive Discussion [facility] Start: 10-21-2023 COVID-19 Vaccine () COVID-19 Vaccine () [facility] Start: 10-21-2023 Covid-19 Vaccine () Covid-19 Vaccine () [facility] Start: 10-21-2023 Influenza vaccination [facility] Start: 07-22-2023 Colon cancer screen colonoscopy Colon cancer screen colonoscopy [place], [place] Start: 07-22-2023 Screening for malignant neoplasm of colon Colon cancer screen colonoscopy [place], [place] Start: 06-25-2023 DIABETES SCREEN DIABETES SCREEN [facility] Start: 03-26-2023 Lipid panel Lipid screen [facility] [place] Start: 03-26-2023 Lipid screen Lipid screen [facility] [place] Start: 02-19-2023 Advance Directive Discussion Advance Directive Discussion [facility] Start: 02-19-2023 Behavioral Health Screening Behavioral Health Screening [facility] Start: 11-30-2022 Mammography [facility] Start: 11-30-2022 Screening for malignant neoplasm of breast [facility] Start: 10-20-2022 Covid-19 Vaccine ( season) Covid-19 Vaccine () [facility] Start: 10-20-2022 Influenza vaccination Influenza Vaccine (#1) [facility] Start: 08-19-2022 Screening for malignant neoplasm of breast Breast cancer screen [facility] Work Phone: Start: 08-08-2022 End: 08-08-2022 Patient encounter procedure 08/08/2022 2:30 PM EDT Office Visit [address] [id number] Con Lynn MD [address] [place] [address] [facility] Start: 05-18-2022 End: 05-18-2022 Patient encounter procedure 05/18/2022 Office Visit Otolaryngology Con Lynn MD [address] [place] [address] [facility] Start: 04-25-2022 Assay of thyroid stimulating hormone tsh TSH (THYROID STIMULATING HORMONE) ([id number]) [facility]; [facility] Work Phone: Start: 04-25-2022 Assay of triiodothyronine t3 free FREE TRIIDOTHYRONINE (T3) (88688) [facility] Work Phone: Start: 04-25-2022 Lipid panel LIPID PANEL (93528) [facility] Work Phone: Start: 04-24-2022 Assay of free thyroxine T4, FREE (THYROXINE) (43582) [facility] Work Phone: Start: 04-24-2022 Assay of thyroid stimulating hormone tsh TSH (THYROID STIMULATING HORMONE) (50288) [facility] Work Phone: Start: 04-24-2022 Blood count complete auto&auto difrntl wbc CBC, PLATELETS & AUT DIFF (82490) [facility]; [facility] Work Phone: Start: 04-24-2022 C-reactive protein C-REACTIVE PROTEIN (72081) [facility]; [facility] Work Phone: Start: 04-24-2022 Comprehensive metabolic panel METABOLIC PANEL, COMPREHENSIVE (58859) [facility] Work Phone: Start: 04-24-2022 Heterophile antibodies screen MONOSPOT TEST (71903) [facility]; [facility] Work Phone: Start: 04-24-2022 Procedure Education Eprescribed prescriptions (G8553) [facility]; [facility] Work Phone: Start: 04-24-2022 Sedimentation rate rbc automated Sedimentation Rate-ESR (69019) [facility]; [facility] Work Phone: Start: 04-17-2022 Procedure Education Eprescribed prescriptions (G8553) [facility]; [facility] Work Phone: Start: 04-17-2022 Provider Instructions for Treatment Follow up in 4 weeks [facility]; [facility] Work Phone: Start: 04-17-2022 Throat culture THROAT CULTURE (83974) [facility]; [facility] Work Phone: Start: 02-19-2022 Advance Directive Discussion Advance Directive Discussion [facility] Start: 02-19-2022 Depression Assessment Depression Assessment [facility] Start: 01-27-2022 Lipid panel LIPID PANEL (48036) [facility]; [facility] Work Phone: Comment on above: in 3 months Start: 01-27-2022 Procedure Education Eprescribed prescriptions (G8553) [facility]; [facility] Work Phone: Start: 01-27-2022 Provider Instructions for Treatment Follow up in 4 months [facility]; [facility] Work Phone: Start: 12-28-2021 Throat culture THROAT CULTURE (17652) [facility]; [facility] Work Phone: Start: 12-28-2021 Procedure Education Eprescribed prescriptions (G8553) [facility]; [facility] Work Phone: Start: 12-28-2021 Provider Instructions for Treatment Follow up [facility]; [facility] Work Phone: Start: 12-22-2021 End: 02-21-2022 Thyrotropin [Units/volume] in Serum or Plasma TSH BLD Lab Routine Family history of thyroid disease Expected: 12/22/2021, Expires: 02/21/2022 [facility] Work Phone: Comment on above: Expected: 12/22/2021, Expires: 3 Start: 11-04-2021 End: 12-04-2022 Us breast uni real time with image limited US BREAST LTD RT Radiology Routine Mass of upper inner quadrant of right breast Expected: 11/04/2021, Expires: 12/04/2022 [facility] Work Phone: Comment on above: Expected: 11/04/2021, Expires: 3 Start: 10-20-2021 Influenza vaccination INFLUENZA (#1) [facility] Start: 10-13-2021 End: 12-13-2021 CBC panel - Blood by Automated count CBC Lab Routine Near syncope Expected: 10/13/2021, Expires: 12/13/2021 [facility] Work Phone: Comment on above: Expected: 10/13/2021, Expires: 2 Start: 10-13-2021 End: 12-13-2021 Comprehensive metabolic 2000 panel - Serum or Plasma COMP METABOLIC PANEL Lab Routine Hypercholesterolemia Expected: 10/13/2021, Expires: 12/13/2021 [facility] Work Phone: Comment on above: Expected: 10/13/2021, Expires: 2 Start: 10-13-2021 End: 12-13-2021 Fibrin D-dimer FEU [Mass/volume] in Platelet poor plasma D-DIMER Lab Routine Dyspnea on exertion Expected: 10/13/2021, Expires: 12/13/2021 [facility] Work Phone: Comment on above: Expected: 10/13/2021, Expires: 2 Start: 10-13-2021 End: 12-13-2021 Lipid 1996 panel - Serum or Plasma LIPID PANEL BASIC Lab Routine Hypercholesterolemia Expected: 10/13/2021, Expires: 12/13/2021 [facility] Work Phone: Comment on above: Expected: 10/13/2021, Expires: 2 Start: 09-29-2021 Ambulation without limitation [facility] Work Phone: Start: 09-29-2021 Medical regimen orders management [facility] Work Phone: Start: 09-29-2021 Medication education [facility] Work Phone: Start: 09-29-2021 Patient discharge [facility] Work Phone: Start: 09-29-2021 Taking patient vital signs [facility] Work Phone: Start: 09-29-2021 Vital signs measurements [facility] Work Phone: Start: 09-29-2021 [facility] Work Phone: Start: 09-19-2021 Influenza vaccination Influenza Vaccine (#1) [facility] Start: 09-08-2021 End: 09-08-2021 Telemedicine consultation with patient 09/08/2021 Telemedicine Plastic Surgery Diana Lundberg MD [address] [place] [address] [facility] Plastic Surgery Start: 08-24-2021 End: 08-24-2022 XR Hand - left 3 Views [facility] Work Phone: Comment on above: Expected: 08/24/2021, Expires: 3 Start: 08-24-2021 End: 08-24-2022 XR Hand - right 3 Views [facility] Comment on above: Expected: 08/24/2021, Expires: 3 Start: 04-24-2021 COVID-19 Vaccine (3 - Booster for Pfizer series) COVID-19 Vaccine (3 - Booster for Pfizer series) [facility] Start: 02-19-2021 ADVANCE DIRECTIVE DISCUSSION ADVANCE DIRECTIVE DISCUSSION [facility] Start: 01-19-2021 COVID-19 Vaccine (2 - Pfizer series) COVID-19 Vaccine (2 - Pfizer series) [facility] Start: 01-19-2021 COVID-19 VACCINE (3 - Booster for Pfizer series) COVID-19 VACCINE (3 - Booster for Pfizer series) [facility] Start: 12-18-2020 Annual Wellness Visit (AWV) Annual Wellness Visit (AWV) [place] Start: 12-17-2020 History and physical examination, annual for health maintenance Wellness Visit [facility] Start: 11-19-2020 Annual Wellness Visit (G0439) Annual Wellness Visit (G0439) [facility] Start: 10-20-2020 Influenza vaccination Flu vaccine (#1) [facility] Work Phone: Start: 10-17-2020 Pneumococcal 65+ years Vaccine (2 of 2 - PPSV23) Pneumococcal 65+ years Vaccine (2 of 2 - PPSV23) [facility] Start: 04-20-2020 COVID-19 Vaccine (2 - Pfizer 2-dose series) COVID-19 Vaccine (2 - Pfizer 2-dose series) [facility] Work Phone: Start: 04-20-2020 COVID-19 Vaccine (2 - Pfizer series) COVID-19 Vaccine (2 - Pfizer series) [facility] Start: 01-05-2020 End: 01-05-2020 Appointment 01/05/2020 Appointment Radiology [facility] Start: 12-01-2019 End: 12-01-2019 Office Visit 12/01/2019 Office Visit Family Medicine Iris Clements, DO [address] [place] [address] [phone] [facility] Start: 11-25-2019 End: 11-25-2019 Office Visit 11/25/2019 Office Visit Obstetrics and Gynecology Jodi Epps, PAL[place] - [place]NEY [address] [place] [address] [phone] [facility] Start: 10-21-2019 Influenza vaccination [place] Start: 08-01-2019 End: 08-01-2019 Office Visit 08/01/2019 Office Visit Family Medicine Gisell Espinoza MD [address] [address] [phone] [facility] Start: 07-28-2019 End: 07-28-2019 Virtual Visit 07/28/2019 Virtual Visit Obstetrics and Gynecology Karmen Bolden MD [address] [place] [address] [phone] [facility] [employer] Start: 07-24-2019 End: 07-24-2019 Procedure visit 07/24/2019 Procedure visit Obstetrics and Gynecology [facility] [place] Start: 03-21-2019 Breast cancer screen Breast cancer screen [place], [place] Start: 03-21-2019 Screening for malignant neoplasm of breast Breast cancer screen [place] Start: 02-06-2019 End: 02-06-2019 Patient encounter procedure 02/06/2019 Office Visit Obstetrics and Gynecology Jodi Epps, MOLD SETTER - CN [address] [place] [address] [phone] [facility] Start: 11-18-2018 LIPID SCREEN LIPID SCREEN [facility] Start: 10-20-2018 Influenza vaccination Flu vaccine (#1) [place] Start: 08-08-2018 Annual Wellness Visit (AWV) Annual Wellness Visit (AWV) [place] Start: 07-05-2017 End: 07-05-2017 Appointment Appointment [facility] Work Phone: Start: 07-05-2017 End: 07-05-2017 X-ray exam of foot [facility] [place] [facility] Work Phone: Start: 2016 BONE DENSITY BONE DENSITY [facility] Start: 2016 Bone Density Screening Bone Density Screening [facility] Start: 2016 Fall risk assessment Falls Risk Assessment [facility] Start: 2016 Pneumococcal 65+ years Vaccine (1 of 1 - PPSV23) Pneumococcal 65+ years Vaccine (1 of 1 - PPSV23) [place] Start: 2016 Pneumococcal vaccination [facility] Start: 2016 PNEUMOCOCCAL: 65+ (1 - PCV) PNEUMOCOCCAL: 65+ (1 - PCV) [facility] Start: 2016 Screening for osteoporosis [facility] Start: 08-18-2015 COLORECTAL CANCER SCREENING COLORECTAL CANCER SCREENING [facility] Start: 08-18-2015 FECAL OCCULT BLOOD FECAL OCCULT BLOOD [facility] Start: 08-18-2015 Screening for malignant neoplasm of colon [facility] Start: 07-21-2015 Annual wellness visit Annual Wellness Visit (G0438) [facility] Start: 2011 Hepatitis B (HBV) Vaccine (optional start 60+ years) Hepatitis B (HBV) Vaccine (optional start 60+ years) [facility] Start: 2011 RSV Vaccine (1 - 1-dose 60+ series) RSV Vaccine (1 - 1-dose 60+ series) [facility] Start: 2011 RSV Vaccine (1 - Risk 60-74 years 1-dose series) RSV Vaccine (1 - Risk 60-74 years 1-dose series) [facility] Start: 2011 RSV vaccine (optional 60+ years) RSV vaccine (optional 60+ years) [facility] Start: 2001 Administration of herpes zoster vaccine Zoster Vaccines (1 of 2) [facility] Start: 2001 Measurement of occult blood in single stool specimen FIT [facility] Start: 2001 Screening for malignant neoplasm of breast Mammography [facility] Start: 2001 Screening for malignant neoplasm of colon [facility] Start: 2001 Shingles (RZV) Vaccine (1 of 2) Shingles (RZV) Vaccine (1 of 2) [facility] Start: 2001 Shingles Vaccine (1 of 2) Shingles Vaccine (1 of 2) [place] Start: 2001 SHINGRIX VACCINE (1 of 2) SHINGRIX VACCINE (1 of 2) [facility] Start: 2001 Zoster Vaccines (1 of 2) Zoster Vaccines (1 of 2) [facility] Start: 04-28-2000 Pneumococcal vaccination Pneumococcal Vaccine(s) (65+ yrs) (2 - PCV) [facility] Start: 04-30-1999 DTaP/Tdap/Td vaccine (1 - Tdap) DTaP/Tdap/Td vaccine (1 - Tdap) [place] Start: 04-30-1999 DTaP/Tdap/Td Vaccines (1 - Tdap) DTaP/Tdap/Td Vaccines (1 - Tdap) [facility] Start: 04-30-1999 Urine microalbumin profile [facility] Start: 1996 Cholesterol [Mass/volume] in Serum or Plasma Cholesterol [facility] Start: 1996 COLOGUARD (FIT-DNA) COLOGUARD (FIT-DNA) [facility] Start: 1996 Colonoscopy COLONOSCOPY [facility] Start: [address] COLONOGRAPHY [facility] Start: 1996 Screening for malignant neoplasm of colon [facility] Start: 1996 SIGMOIDOSCOPY SIGMOIDOSCOPY [facility] Start: 1991 Mammography MAMMOGRAM [facility] Start: 1991 Screening for malignant neoplasm of breast [facility] Start: 1970 DTaP/Tdap/Td vaccine (1 - Tdap) DTaP/Tdap/Td vaccine (1 - Tdap) [place] Start: 1970 Hepatitis A (HAV) Vaccine (optional start 19+ years) Hepatitis A (HAV) Vaccine (optional start 19+ years) [facility] Start: 1970 Urine microalbumin profile DTAP,TDAP,TD (1 - Tdap) [facility] Start: 1969 Depression Screening Depression Screening [facility] Start: 1969 Hepatitis C screening [facility] Start: 1969 HEPATITIS C SCREENING HEPATITIS C SCREENING [facility] Start: 1969 Tetanus + diphtheria + acellular pertussis vaccine (product) Tdap Booster [facility] Start: 1963 Adult depression screening assessment [facility] Start: 1962 DTaP/Tdap/Td vaccine (1 - Tdap) DTaP/Tdap/Td vaccine (1 - Tdap) [facility] Work Phone: Start: 1951 Annual wellness visit Welcome to Medicare Visit [facility] Start: 1951 Hepatitis C screen Hepatitis C screen [place], [place] Start: 1951 Hepatitis C screening Hepatitis C screen [place] Start: 1951 Lipid panel Lipid Panel [facility] Start: 1951 Screening for malignant neoplasm of colon [facility] Start: 1951 Screening for osteoporosis Dexa Scan [facility] Start: 1951 Tetanus vaccination Tetanus: Every 10yrs [facility] BACTERIAL VAGINOSIS AMPLIFICATION BACTERIAL VAGINOSIS AMPLIFICATION Lab Routine Vaginal discharge Vaginal burning Ordered: 11/10/2021 [facility] Work Phone: Comment on above: Ordered: 11/10/2021 VERONICA / TRICHOMONA S AMPLIFICATION VERONICA / TRICHOMONAS AMPLIFICATION Microbiology Routine Vaginal discharge Vaginal burning Ordered: 11/10/2021 [facility] Work Phone: Comment on above: Ordered: 11/10/2021 Chlamydia trachomatis+Neisseria gonorrhoeae DNA [Presence] in Unspecified specimen by MAGO with probe detection GC/CHLAMYDIA DNA DET Lab Routine Vaginal discharge Vaginal burning Screen for STD (sexually transmitted disease) Ordered: 11/10/2021 [facility] Work Phone: Comment on above: Ordered: 11/10/2021 COLOGUARD COLOGUARD Lab Ro utine Screening for colon cancer Ordered: 12/22/2021 [facility] Work Phone: Comment on above: Ordered: 12/22/2021 End: 12-29-[address] CHEST LOW DOSE Imaging Routine Once for 1 Occurrences starting 12/29/2019 until 12/29[facility]2019 [facility] above: Once for 1 Occurrences starting 12/29/19 20 until 12/29/[address]ST LOW DOSE CT CHEST LOW D OSE Imaging Routine 12/29/2019 1:08 PM EST [facility] End: 07-24-2024 CT for calcium scoring WO contrast and CTA W contrast IV Heart and coronary arteries [facility] Service Area Work Phone: Comment on above: Once for 1 Occurrences starting 07/25/19 until 07/24/2024 End: 07-15-2019 Culture, Urine Culture, Urine Microbiology Routine Once for 1 Occurrences starting 07/15/2019 until 07/15/2019 [facility] Comment on above: Once for 1 Occurrences starting 07/15/19 20 until 07/15/2019 Culture, Urine Culture, Urine M icrobiology Routine 07/15/2019 1:43 PM EDT [facility] End: 01-17-2025 DBT Breast - bilateral screening LOVE SCREENING W NATE Radiology Routine Encounter for screening mammogram for breast cancer 1 Occurrences starting 12/19/2023 until 01/17/2025 [facility] Work Phone: Comment on above: 1 Occurrences starting 12/19/2023 until 01/17/2025 End: 12-04-2022 Diagnostic mammography computer-aided detcj bi LOVE DIAGNOSTIC BILAT Radiology Routine Mass of upper inner quadrant of right breast 1 Occurrences starting 11/04/2021 until 12/04/2022 [facility] Work Phone: Comment on above: 1 Occurrences starting 11/04/2021 until 12/04/2022 EKG 12 Lead - Chest Pain EKG 12 Lead - Chest Pain ECG STAT 12/23/2018 8:10 PM EST [facility] [place] Endometrial bx w/wo endocervix bx w/o dilat spx ENDOMETRIAL BIOPSY Procedures Routine PMB (postmenopausal bleeding) Ordered: 09/14/2021 [facility] Work Phone: Comment on above: Ordered: 09/14/2021 Endometrial bx w/wo endocervix bx w/o dilat spx ENDOMETRIAL BIOPSY Procedures Routine Postmenopausal bleeding Ordered: 09/16/2021 [facility] Work Phone: Comment on above: Ordered: 09/16/2021 End: 07-15-2019 Hepatitis B Surface Antigen Hepatitis B Surface Antigen Lab Routine Encounter for screening for other viral diseases Screening for STDs (sexually transmitted diseases) 1 Occurrences starting 07/15/2019 until 07/15/2019 [facility] [place] Comment on above: 1 Occurrences starting 07/15/2019 until 07/15/2019 Hepatitis B Surface Antigen Hepatitis B Surface Antigen Lab Routine Encounter for screening for other viral diseases Screening for STDs (sexually transmitted diseases) 07/15/2019 2:30 PM T [facility] [place] End: 07-15-2019 Hepatitis C Antibody Hepatitis C Antibody Lab Routine Screening for STDs (sexually transmitted diseases) 1 Occurrences starting 07/15/2019 until 07/15/2019 [facility] [place] Comment on above: 1 Occurrences starting 07/15/2019 until 07/15/2019 Hepatitis C Antibody Hepatitis C Antibody Lab Routine Screening for STDs (sexually transmitted diseases) 07/15/2019 2:30 PM EDT [facility] End: 08-19-2020 LOVE DIGITAL DIAGNOSTIC W OR WO CAD BILATERAL LOVE DIGITAL DIAGNOSTIC W OR WO CAD BILATERAL Imaging Routine Lump in armpit, left Localized enlarged lymph nodes 1 Occurrences starting 08/19/2020 until 08/19/2020 [facility] Work Phone: Comment on above: 1 Occurrences starting 08/19/2020 until 08/19/2020 End: 02-02-2024 LOVE SCREENING W NATE LOVE SCREENING W NATE Radiology Routine Encounter for screening mammogram for breast cancer 1 Occurrences starting 01/03/2023 until 02/02/2024 [facility] Work Phone: Comment on above: 1 Occurrences starting 01/03/2023 until 02/02/2024 Patient referral [facility] Work Phone: PELVIC US WHI PELVIC US WHI An c Imaging Routine PMB (postmenopausal bleeding) Ordered: 09/14/2021 [facility] Work Phone: Comment on above: Ordered: 09/14/2021 PELVIC US WHI PELVIC US WHI An c Imaging Routine Ovarian cyst, right Postmenopausal Ordered: 09/21/2021 [facility] Work Phone: Comment on above: Ordered: 09/21/2021 [employer] COVID-19 BIVALENT BOOSTER VACCINE, AGE 12+ YR [employer] COVID-19 BIVALENT BOOSTER VACCINE, AGE 12+ YR Immunization/Injection Routine Encounter for immunization 1 Occurrences starting 12/22/2021 [facility] Work Phone: Comment on above: 1 Occurrences starting 12/22/2021 End: 11-11-2022 Radiologic exam chest 2 views XR CHEST 2V FRONTAL/LAT Radiology Routine Dyspnea on exertion 1 Occurrences starting 10/12/2021 until 11/11/2022 [facility] Work Phone: Comment on above: 1 Occurrences starting 10/12/2021 until 11/11/2022 End: 07-15-2019 RPR with FTA Relex RPR with FTA Relex Lab Routine Screening for STDs (sexually transmitted diseases) 1 Occurrences starting 07/15/2019 until 07/15/2019 [facility] Comment on above: 1 Occurrences starting 07/15/2019 until 07/15/2019 RPR with FTA Relex RPR with FTA Relex Lab Routine Screening for STDs (sexually transmitted diseases) 07/15/2019 2:30 PM EDT [facility] [place] End: 11-11-2022 Screening mammography bi 2-view breast inc cad LOVE SCREENING Radiology Routine Encounter for screening mammogram for malignant neoplasm of breast 1 Occurrences starting 10/12/2021 until 11/11/2022 [facility] Work Phone: Comment on above: 1 Occurrences starting 10/12/2021 until 11/11/2022 End: 08-19-2020 US Breast Bilateral US Breast Bilateral Imaging Routine Lump in armpit, left Localized enlarged lymph nodes 1 Occurrences starting 08/19/2020 until 08/19/2020 [employer] Work Phone: Comment on above: 1 Occurrences starting 08/19/2020 until 08/19/2020 End: 08-19-2020 US BREAST LIMITED LEFT US BREAST LIMITED LEFT Imaging Routine Once for 1 Occurrences starting 08/19/2020 until 08/19/2020 [employer] Work Phone: Comment on above: Once for 1 Occurrences starting 08/20/19 21 until 08/19/2020 US BREAST LIMITED LEFT US BREAST LIMITED LEFT Imaging Routine 08/19/2020 1:54 PM EDT [employer] Work Phone: End: 01-21-2023 Us soft tissue head & neck real time imge docm US THYROID/PARATHYROID Radiology Routine Family history of thyroid disease 1 Occurrences starting 12/22/2021 until 01/21/2023 [facility] Work Phone: Comment on above: 1 Occurrences starting 12/22/2021 until 01/21/2023 End: 01-21-2023 XR CLAVICLE 2V RIGHT XR CLAVICLE 2V RIGHT Radiology Routine Mass of chest wall, right 1 Occurrences starting 12/22/2021 until 01/21/2023 [facility] Work Phone: Comment on above: 1 Occurrences starting 12/22/2021 until 01/21/2023 [facility] Work Phone: [facility] Work Phone: Immunizations Immunization Date Immunization Notes Care Provider Travon hopkins 12-18-2021 influenza, seasonal, injectable Daniel Guzman PRESCRIPTION BENEFIT SPECIALIST Work Phone: [facility]; [facility] Work Phone: 12-18-2021 influenza virus vaccine, unspecified formulation Danilo Santa APRN.PRESCRIPTION BENEFIT SPECIALIST Work Phone: [facility] 12-14-2021 Influenza, injectabl e, Madin Akanksha Canine Kidney, preservative free, quadrivalent Diana Lundberg MD Work Phone: [facility] 12-14-2021 influenza virus vaccine, unspecified formulation Ct (I-Stat) Work Phone: [facility] 11-24-2020 Pfizer Monovalent (1 2+ yrs) SARS-COV-2 (COVID-19) vaccine, mRNA, spike protein, LNP, pres. free, 30 mcg/0.3mL dose ([id number]) Diana Lundberg MD Work Phone: [facility] 03-30-2020 COVID-19, Pfizer, PF , 30mcg/0.3mL Iris Clements DO Work Phone: [facility] Work Phone: 01-30-2020 influenza virus vaccine, unspecified formulation Iris Clements DO Work Phone: [facility] Work Phone: 01-30-2020 influenza, injectabl e, quadrivalent, contains preservative [facility] 10-18-2019 pneumococcal conjuga te vaccine, 13 valent Darrion Islas [facility] Work Phone: 10-16-2019 pneumococcal polysaccharide vaccine, 23 valent Iris Clements DO Work Phone: [facility] Work Phone: 12-13-2015 Influenza Vaccine, unspecified formulation [facility] [place] 12-13-2015 influenza, seasonal, injectable, preservative free [facility] 11-19-2013 influenza, injectabl e, quadrivalent, contains preservative Justin [facility] Work Phone: 11-19-2013 influenza, seasonal, injectable [facility] 12-06-2012 influenza virus vaccine, unspecified formulation [facility], [place] 12-06-2012 influenza, seasonal, injectable [facility] 04-29-1999 pneumococcal polysaccharide vaccine, 23 valent [facility], [place] 04-29-1999 TD(adult) unspecifie d formulation [facility] 04-29-1999 Td, unspecified formulation [facility] [facility] [place] No information available. Sun Mcdermott LPN [facility] Work Phone: Payers Date Payer Category Payer Medicare (Managed Care) [facility] MEDICARE [id number] 2024 Medicare [id number] 2023 Self-pay [id number] 2015 Unknown xxxxxxxxx [id number] .[id number] 2014 Medicare MEDICARE MEDICAR E PART A AND B xxxxxxxxxxx 2014-Present [phone] [place] [address] xxxxxxxxxxx [id number] 2014 Medicare MEDICARE MEDICAR E A AND B [id number] 2014-Present [phone] [place] [address] Medicare [id number] .[id number] 2014 Miscellaneous or Other HOSPITAL/ MEDICAL GENERIC [id number] .[id number] 2014 Unknown 2014 Unknown HOSPITAL/MEDICAL GENERIC MEDICAL GENERIC [id number] 2014-Present [phone] [address] [place] [address] Indemnity [id number] [id number] .[id number] 2014 Medicare [id number] 1.2.840.389747.1.13.239.2 .7.3.186957.315 2014 Unknown [id number] 1.2.840.704941.1.13.239.2 .7.3.085295.315 2008 Medicare 1950 Unknown [id number] 2.16.840.1.730170.3.579.2 .668 1950 Unknown [id number] 2.16.840.1.905778.3.579.2 .668 1950 Unknown [id number] 2.16.840.1.119377.3.579.2 .668 1950 Unknown [id number] 2.16.840.1.236288.3.579.2 .668 1950 Unknown [id number] 2.16.840.1.984786.3.579.2 .668 1950 Unknown [id number] 2.16.840.1.061414.3.579.2 .668 1950 Unknown [id number] 2.16.840.1.962259.3.579.2 .159 1950 Unknown [id number] 2.16.840.1.486779.3.579.2 .716 1950 Unknown [id number] 2.16.840.1.651532.3.579.2 .903 1950 Unknown [id number] 2.16.840.1.689480.3.579.2 .732 1950 Unknown [id number] 2.16.840.1.633563.3.579.2 .732 1950 Unknown [id number] 2.16.840.1.722176.3.579.2 .1243 Medicare SELF PAY INSURANCE [id number] Unknown [id number] Unknown [id number] 2.16840.1.092230.3.579.2 .462 Unknown [id number] 2.16840.1.804082.3.579.2 .462 Unknown [id number] 2.16840.1.654973.3.579.2 .462 Social History Date Type Detail Facility Start: 09-23-2021 End: 09-23-2021 Assertion Unknown if ever smoked [facility] Work Phone: Start: 07-15-2019 End: 10-12-2021 Tobacco smoking status NHIS Never smoker [facility] Work Phone: Start: 07-15-2019 End: 01-30-2024 Alcohol intake Current drinker of alcohol (finding) [facility] Work Phone: Start: 08-20-2015 Alcohol Comment 1-2 times a week [facility] [place] Start: 1950 [email or web address] Start: 12-18-2019 End: 10-12-2021 Tobacco use and exposure [email or web address] Start: 12-18-2019 History SDOH Alcohol Frequency 4 [facility] [place] Start: 12-18-2019 History SDOH Alcohol Std Drinks 1 [facility] [facility] [place] Start: 12-18-2019 History SDOH Physical Activity DPW 2 [facility] [place] Start: 12-18-2019 End: 10-12-2021 History SDOH Physical Activity MPS 6 [facility] [facility] [place] Start: 12-18-2019 History SDOH [facility] [address] [facility] [address] [facility] [place] Start: 12-23-2018 End: 01-26-2020 Alcohol intake Yes [facility] Work Phone: Start: 01-26-2020 End: 07-16-2020 Alcohol intake [facility] Work Phone: Comment on above: Nanny 2 cups coffee daily Start: 08-20-2015 Alcohol Comment 1-2 times a week [facility] Work Phone: Start: 01-28-2020 End: 07-24-2024 Exposure to SARS-CoV-2 (event) Not sure [facility] Start: 1950 Sex Assigned At Female [facility] Start: 10-12-2021 History SDOH Physical Activity DPW 3 [facility] Alcohol Use: Alcohol Use: [facility] Work Phone: Current Work/Study Status: Current Work/Study Status: [facility] Work Phone: Exercise History: Exercise History: [facility]; [facility] Work Phone: Comment on above: walking Living Situation: Living Situation: [facility]; [facility] Work Phone: Start: 05-18-2022 Alcohol intake Ex-drinker (finding) [facility] National Score (1-100), lower number is lower risk Not on file [facility] Work Phone: Start: 04-24-2024 Sex Female (finding) [facility] NEGATED: Highlighted rowStart: NINF History of tobacco use Passive smoker [facility] Goals Date Patient Goal Desired Activity /State Mental Status Date Assessment Result Facility 09-29-2021 Cognitive function Voice/Name [facility] Work Phone: Clinical Notes 02-27-2020 to 04-11-2024 Diana Lundberg MD - 12/19/2023 3:14 PM Danilo Briones APRN.[facility] - 08/04/2023 1:31 PM Diana Chavez MD - 06/07/2023 9:02 AM Diana Chavez MD - 07/19/2022 3:47 PM EDT Note Date & Type Note Facility 04-11-2024 Radiology Diagnostic study note [facility] Imaging Services [address] [place], [place] [address] Chest PA and Lateral MR#: [id number] Acct: [id number] Name: CELI BUCK Rep #: [id number] : 1950 F 74 From: Noble Baxter MD PCP: Daniel Guzman FILM EDITOR-C Status: REG Gabo WEEKS Study:Chest PA and Lateral Date of Exam: 04/11/24 Exam# [id number] Ordering Dr: Gabo Guzman FILM EDITOR-C PROCEDURE: CHEST PA AND LATERAL REASON FOR EXAM: Lower respiratory tract infection. TECHNIQUE: Frontal and lateral views of the chest. COMPARISON: Comparison is made with prior study dated December 24, 2023. FINDINGS: Hyperinflation. Findings suggestive of COPD. The heart size is normal. The mediastinal contour is unremarkable. Calcification of the aortic arch. Degenerative changes are identified within the thoracic spine. Multiple healed right-sided rib fractures. RAD/Chest PA and Lateral IMPRESSION: Hyperinflation. No acute abnormality is seen. Reading Location: [facility] CC: ZAK Guzman ~ Chef German: Signed [facility] 01-06-2024 Note SARS-COV-2 (AGENT OF COVID-19) RNA: Not detected INFLUENZA A RNA: Not detected INFLUENZA B RNA: Not detected RESPIRATORY SYNCYTIAL VIRUS (RSV) RNA: Not detected [facility] Comment on above: Performed By: #### 9 [id number] #### [facility] CLIA [id number] [address] [place] [address] OF [facility] 12-19-2023 History of Present illness Narrative 73-year-old female here for six-month follow-up visit. Has recurrent CMC joint pain. No interval change to medical history or new complaint. Physical exam Comfortable no acute distress. Gross examination bilateral hands unremarkable, with persistent pain dorsally and volarly over CMC joint without gross instability or subluxation. No overlying skin change. No recurrent trigger thumb. Assessment plan 73-year-old female with findings as above. Repeat corticosteroid injection offered accepted, see below procedure note. Follow-up as needed. Procedure note Bilateral thumbs prepped in sterile fashion 1 cc 1% lidocaine mixed one-to-one with Kenalog easily injected within both joint spaces. Patient tolerated injections well, no complications. Sterile dressing applied. documented in this encounter [facility] 12-19-2023 Note Patient Outreach (IN [facility]) -------- CELI BUCK ([id number]) 1950 F ELIECER Date Time Provider Department 12/19/23 GUSTABO DENG During your visit today, we recorded the following information about you: Allergies As of Date: 12/19/2023 Noted Allergy Reaction CIPROFLOXACIN 07/02/2015 14 - Other: See Comments Comments: Rapid heart rate NARCOTICS (OPIOIDS - MORPHINE CALIN*07/02/2015 14 - Other: See Comments Comments: SENSITIVITY TO NARCOTICS Date Reviewed: 08/04/2023 Reviewed by: Brittany Keen MA - Fully Assessed Visit Diagnosis:Encounter for screening mammogram for breast cancer [Z12.31] Order(s):LOVE SCREENING W NATE [[id number]] Order #: [id number] FUTURE Prescriptions as of 12/24/2023 - acyclovir (ZOVIRAX) 400 mg tablet TAKE 1 TABLET BY MOUTH 3 TIMES PER DAY NEEDED - bimatoprost (LATISSE) 0.03 % ophthalmic solution Apply to both eyelids along upper eyelid lash line at nightime. Do not use on lower eyelid - ketoconazole (NIZORAL) 2 % shampoo SHAMPOO TWICE A WEEK DIRECTED allow product to remain in place for 5 minutes prior to rinsing - estradiol (CLIMARA) 0.0375 mg/24 hr Apply 1 Patch as directed one time a week. - valACYclovir (VALTREX) 500 mg tablet Take 1 tablet by mouth once daily. - LORazepam (ATIVAN) 0.5 mg Take 1 tablet by mouth once daily as needed (anxiety) for up to 180 days. - progesterone micronized (PROMETRIUM) 100 mg capsule One po q HS - venlafaxine (EFFEXOR) 50 mg tablet Take 1 tablet by mouth once daily. Problem List As Of Date 12/19/2023 Noted Resolved Thickened endometrium [R93.89] 10/12/2021 Herpes simplex infection of genitourinary syste*10/12/2021 Anxiety [F41.9] 10/12/2021 Irritable bowel syndrome with both constipation*10/12/2021 Encounter Status:Closed by JUDY EMERYUSER on 12/24/23 [facility] 08-04-2023 Note HNO ID: [id number] Author: DANILO SANTA APRN.PRESCRIPTION BENEFIT SPECIALIST Service: ? Author Type: Nurse Practitioner Type: Progress Notes Filed: 08/04/2023 13:58 Note Text: This note was created using [employer]. Subjective Celi Buck is a 73 year old female. Reports sore throat x2 days. Had a cold symptoms x10 days which have not improved and her drainage and sinus pressure has gotten worse. Objective BP 153/72 Pulse 81 Temp 36.2 ?C (97.2 ?F) Resp 18 Wt 56.1 kg (123 lb 10.9 oz) SpO2 98% BMI 24.48 kg/m? Physical Exam PHYSICAL EXAMINATION: General appearance: Well appearing, alert, in no acute distress, well-hydrated, well nourished. Ears: Positive findings: cerumen bilaterally, amount Small Nose/Sinuses: Nares normal, septum midline, mucosa normal, no drainage or sinus tenderness Oropharynx: Positive findings: moderate oropharyngeal erythema Neck: Supple, no adenopathy; thyroid symmetric, normal size, no bruits Lungs: Lungs clear to auscultation. No wheezing, rhonchi, rales. Heart: RRR without murmur, gallop, or rubs. No ectopy Assessment and Plan ASSESSMENT/PLAN: 1. Sore throat - ICD9: 462, ICD10: J02.9 (primary diagnosis) - suspect viral - Rapid Strep negative in the office today - Discussed supportive care treatment with fluids, rest and analgesia. - The patient may also use nasal saline gtts and suction prn. - STREP A MOLECULAR (POC) 2. Bacterial sinusitis - ICD9: 473.9, 041.9, ICD10: J32.9, B96.89 - Will begin treatment with Augmentin 875 mg PO BID for 5 days - The patient should also be given OTC cough and cold meds as needed for the first 5-7 days of treatment. - Supportive care with plenty of fluids, rest, and analgesia prn. - Follow up in 3-5 days if symptoms persist or worsen. Danilo Santa APRN.PRESCRIPTION BENEFIT SPECIALIST [facility] 08-04-2023 History of Present illness Narrative This note was created using [employer]. Subjective Celi Buck is a 73 year old female. Reports sore throat x2 days. Had a cold symptoms x10 days which have not improved and her drainage and sinus pressure has gotten worse. Objective BP 153/72 Pulse 81 Temp 36.2 C (97.2 F) Resp 18 Wt 56.1 kg (123 lb 10.9 oz) SpO2 98% BMI 24.48 kg/m Physical Exam PHYSICAL EXAMINATION: General appearance: Well appearing, alert, in no acute distress, well-hydrated, well nourished. Ears: Positive findings: cerumen bilaterally, amount Small Nose/Sinuses: Nares normal, septum midline, mucosa normal, no drainage or sinus tenderness Oropharynx: Positive findings: moderate oropharyngeal erythema Neck: Supple, no adenopathy; thyroid symmetric, normal size, no bruits Lungs: Lungs clear to auscultation. No wheezing, rhonchi, rales. Heart: RRR without murmur, gallop, or rubs. No ectopy Assessment and Plan ASSESSMENT/PLAN: 1. Sore throat - ICD9: 462, ICD10: J02.9 (primary diagnosis) - suspect viral - Rapid Strep negative in the office today - Discussed supportive care treatment with fluids, rest and analgesia. - The patient may also use nasal saline gtts and suction prn. - STREP A MOLECULAR (POC) 2. Bacterial sinusitis - ICD9: 473.9, 041.9, ICD10: J32.9, B96.89 - Will begin treatment with Augmentin 875 mg PO BID for 5 days - The patient should also be given OTC cough and cold meds as needed for the first 5-7 days of treatment. - Supportive care with plenty of fluids, rest, and analgesia prn. - Follow up in 3-5 days if symptoms persist or worsen. Danilo Santa APRN.PRESCRIPTION BENEFIT SPECIALIST documented in this encounter [facility] 06-07-2023 History of Present illness Narrative 73-year-old female here for follow-up she is little over 1 year status post bilateral thumb CMC injection as well as left thumb trigger finger injection. All this has slowly recurred over time. Not currently using any braces are splints. Physical exam Comfortable no acute distress. Gross examination hand demonstrates a small amount of edema and subluxation around the CMC joints with tenderness volarly and dorsally. No gross instability, FPL EPL intact. She also has clicking of the left thumb consistent with trigger finger. Remainder of hand and upper extremity examination otherwise unremarkable. Assessment plan 73-year-old female with recurrent symptoms as above. Again we discussed treatment options, this included expected outcomes after repeat corticosteroid injection. She understands that for the thumb after this if recurs we will require surgical release under local in the minor procedure room. We can continue to inject the thumbs indefinitely. Follow-up as needed, see below procedure note. Procedure note Bilateral thumbs prepped in sterile fashion. 0.5 cc of 1% lidocaine mixed one-to-one with Kenalog easily injected within both CMC joints using dorsal approach. 1 cc 1% lidocaine with epinephrine injected around A1 dianna left thumb. Patient tolerated all injections well and there were no complications. Sterile dressing applied. 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 Previous injections provided proximally 10 months pain relief and relief from trigger symptoms. No other interval change to medical history or new injury to report. Physical exam Comfortable no acute distress. Gross examination bilateral hands unremarkable, no skin change from previous corticosteroid injections riffler tender to palpation over the CMC joint, palpable clicking and locking noted left thumb IP joint. EPL intact. Bilateral digital nerves intact. Assessment plan 72-year-old female with complaints as above. Diagnosis and treatment options again reviewed with patient, she understands that if trigger finger recurs this will require surgery to correct this, this would be done in the office under local in the minor procedure room. We will continue to inject the CMC joints until they are no longer responsive to injections. See below procedure note for, follow-up as needed. Procedure note Bilateral dorsal thumbs prepped in sterile fashion 1 cc 1% lidocaine mixed one-to-one with Kenalog easily injected within the CMC joints, volar left thumb then prepped in sterile fashion and 1.5 cc of Kenalog mixed one-to-one with lidocaine easily injected around the A1 dianna. Patient tolerated procedure well without complications. Sterile dressing applied. documented in this encounter [facility] 05-18-2022 Instructions Con Lynn MD - 05/18/2022 4:17 PM EDT NASAL SALINE (SALTWATER) RINSES Your doctor has recommended the use of saline (salt water) nasal rinses. Nasal rinses have been used for centuries for the treatment of nasal and sinus infection, bothersome secretions, allergy, and nasal dryness. It is safe and effective for use in both children and adults. Daily rinsing of the nasal passages with saline promotes nasal and sinus health by washing away dried mucus, infected secretions, dust, pollen, and mold spores, by moisturizing the nasal lining, promoting normal mucus flow, and naturally decongest inflamed tissues. Rinses also help with clearing dried blood, mucus, and infection after sinus surgery and promote rapid healing of tissue in this setting. In the beginning it is normal to have some difficulty with performing nasal rinses, but with practice, most people find that it becomes part of their normal routine just as much as brushing teeth or showering, and often, most wouldn t think of leaving home without it. RINSE INGREDIENTS: No special tools are required for nasal saline rinses, and everything that you need can be picked up at your local pharmacy and grocery. Commercial saline rinses and syringe systems such as NeilMed SINUS RINSE , Elkin Saline Nasal Rinse, or Neti Pot are available, but these may contain preservatives or other irritants, and it is often less expensive and more convenient to make it at home. You will need the followin. Distilled water (tap water contains irritating minerals and bacteria, but may be used if boiled) 2. Kosher, pickling, or non-iodized table salt (regular table salt contains iodine, an irritant) 3. Baking soda (not baking powder) 4. Coleraine syrup (optional, for additional moisturizing effect) 5. White vinegar (for antiseptic effect, if recommended by your doctor) 6. An airtight container for mixing saline rinse 7. Rubber bulb syringe (like those used to clear infant noses and ears) 8. Household bleach (for cleaning container and bulb syringe) PREPARATION: To prepare the rinses, measure out 1 quart (1 liter) of distilled or boiled tap water into the mixing container. Then add 2-3 heaping teaspoons of salt and 1 teaspoon of baking soda, mix to dissolve, and place in refrigerator for 1-2 days of storage. You may add 3-4 tablespoons of corn syrup if you experience nasal dryness. If your doctor recommends it, add 1 teaspoon of white vinegar to this mixture as well. STORAGE & CLEANING: It is advised that you make up fresh rinse every day or two, and that you keep the unused rinse in the refrigerator in an airtight container to prevent bacterial growth. Set out enough rinse for your next use well in advance to let it come to room temperature before use. Wash the container and bulb syringe at least once a week in a quart of water with 2 tablespoons of bleach, rinse and dry to prevent bacterial USING SALINE RINSES: To perform nasal saline rinses, plan on using at least 1 pint (2 cups) twice daily. Lean over a sink or other basin (some people prefer to do this in the shower as it can be messy, especially when you first start) to catch the rinse as it drains from your nose and mouth. Fill the bulb syringe with the rinse solution and place it into the nostril on one side. Gently squeeze the bulb to flush the nasal passage until the rinse drains clear. Repeat on the other side. You should plan on using the rinses twice a day, which should take about 10 minutes to perform. Alternatively, commercial devices for sinus rinsing such as the Nuvage device may be used effectively, although these may be costly. OTHER MEDICATIONS: If your doctor has prescribed other nasal spray medications, such as a nasal steroid, it is best to apply these after the nasal rinse so that you do not wash the medication away. It is also safe to continue with your other antihistamine or decongestant medications that your doctor may have prescribed in addition to the saline rinses. If you have an allergy or adverse reaction to any of the ingredients do not use it in the preparation of the saline rinses. WHEN TO CALL US: Stop the rinses and notify your doctor if you experience severe pain in the nose or ears, bleeding, or any other problems with the use of the nasal saline rinses. It is normal, especially in the beginning, to experience drainage of saline and nasal secretions into the throat. This is best avoided by holding your breath and leaning forward when using the rinses. Experienced users often will have the rinse exit the opposite nostril without drainage into the throat at all, and this can be achieved by most people with practice. Please call us if you have any additional questions or concerns. NOTICE: THIS DOCUMENT IS INTENDED SOLELY FOR PATIENT EDUCATIONAL PURPOSES AND IS PROVIDED A COURTESY TO PATIENTS OF DR. CON LYNN MD. IT IS NOT INTENDED A SUBSTITUTE FOR PROFESSIONAL MEDICAL CARE OR ADVICE. THE PATIENT SHOULD SEEK ADVICE FROM THE PHYSICIAN IF THERE ARE ANY QUESTIONS ABOUT THE CONTENTS OR DIRECTIONS PROVIDED IN THIS DOCUMENT documented in this encounter [facility] 05-18-2022 History of Present illness Narrative [facility] [address] [facility] (11) [facility] [address] [facility] [address] Dept: [phone] Loc: [phone] Con Lynn MD Celi Buck 72 y.o. female Patient presents with a chief complaint of sore throat (New pt /Swollen uvula) BP 109/73 Pulse 78 Temp 98.7 F (37.1 C) Resp 18 Wt 57.2 kg (126 lb 1.6 oz) SpO2 97% History of Presenting Illness: The patient/caregiver reports a history of complaint with the following features: Onset: first started 3 years ago with a Strep throat and very swollen uvula, then again with Strep throat last year with similar swelling Timing: sporadic Duration: lasts a few days, last episode recurred about 8 days into treatment Quality: swelling of uvula Location: throat Severity: pain none Risk factors: no smoking history Alleviating factors: antibiotics, most recently treated with Doxycycline, with 2 weeks respite, but still with mild sore throat with radiation to ears Aggravating factors: nothing makes it worse Associated factors: throat clearing Review of systems covering 10 systems is reviewed and pertinent positives and negatives are noted as above. Past Medical History: Diagnosis Date Agoraphobia Crohn's disease (HCC) Depression Disc degeneration, lumbosacral Diverticulosis Genital herpes Hallux valgus Hyperlipidemia Panic disorder Spinal stenosis of lumbar region Splenic artery aneurysm (HCC) Spondylolisthesis Current Outpatient Medications: aspirin 325 MG tablet, Take 1 (one) tablet (325 mg total) by mouth ., Disp: , Rfl: estradioL (CLIMARA) 0.0375 mg/24 hr, 1 (one) patch once a week ., Disp: , Rfl: fluticasone propionate (FLONASE) 50 mcg/actuation nasal spray, daily ., Disp: , Rfl: LORazepam (ATIVAN) 0.5 MG tablet, Take 1 (one) tablet (0.5 mg total) by mouth ., Disp: ,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 HYSTERECTOMY,W/PARTIAL VAGINECTO LEFT OVARY REMOVAL 1996 LAMINECTOMY W/O FFD 02/20 VERT SEG LUMBAR 2006 FAMILY HISTORY Problem Relation Age of Onset other (Diabetes mellitus) Other Hyperlipidemia Other Hypertension Father other (Respiratory disorder; Stroke) Father other (Lung cancer) Other uncle COPD Mother Social History Tobacco Use Smoking status: Never Smoker Smokeless tobacco: Never Used Substance Use Topics Alcohol use: Yes Comment: hard liquor Drug use: No Current Outpatient Medications Medication Sig progesterone micronized (PROMETRIUM) 100 mg capsule One po q HS fluticasone (FLONASE) 50 mcg/actuation nasal spray Use 1-2 Sprays in each nostril once daily. estrogen - VERIFY PATCH every 8 hours. venlafaxine (EFFEXOR) 50 mg tablet Take 1 tablet by mouth once daily. ALPRAZolam (XANAX) 0.25 mg tablet 1 tablet(s) by mouth at bedtime IBUPROFEN (MOTRIN ORAL) 600 mg Every 8 hours Oral PRN omeprazole (PRILOSEC) 20 mg capsule 1 tab po daily OXYCODONE HCL (OXYCODONE ORAL) Take by mouth. 5 mg Once per day Oral No current facility-administered medications for this visit. Allergies As of Date: 09/14/2021 Allergen Noted Reaction CIPROFLOXACIN 07/02/2015 Other: See Comments NARCOTICS [OPIOIDS - MORPHINE CALIN*07/02/2015 Other: See Comments Fully Assessed 09/14/2021 REVIEW OF SYSTEMS Abdomen: No bloating, early satiety, indigestion, or increased flatulence. No abdominal pain, nausea, vomiting, diarrhea, or constipation. Bladder: No dysuria, gross hematuria, urinary frequency, urinary urgency, or incontinence. Allergies and current medication updated:Yes EXAM: BP 124/82 Wt 124 lb (56.2kg) GENERAL: pleasant, female in no apparent distress CHEST: Normal inspiratory effort ABDOMEN: soft, non-tender and no masses PELVIC: external genitalia normal, normal Bartholin's glands, urethra, [place]'s glands, no vulvar lesions, no cervical lesions, normal appearing perineal body and perianal region, dark red liquid blood in vaginal vault BIMANUAL: uterus normal size, shape and consistency, no adnexal masses and non-tender NEURO: alert and oriented x3,exam grossly non-focal ASSESSMENT/PLAN: 1. PMB (postmenopausal bleeding) - ICD9: 627.1, ICD10: N95.0 - advised that she needs to stop estrogen patch and given instructions how to quickly wean. Reinforced to take progesterone daily and new prescription sent. Discussed past history of complex hyperplasia - pt does not remember this - and risks with unopposed estrogen. - PELVIC US WHI - ENDOMETRIAL BIOPSY - PROGESTERONE MICRONIZED 100 MG CAPSULE - MISOPROSTOL 200 MCG TABLET Follow-up for EMB. Will notify of results. Follow- up as needed. Ynes Cesar APRN.CNP Medical Decision Making: Problems: Moderate: New problem with uncertain prognosis Data: Unique source(s) for external note(s) reviewed: 3+ Unique test result(s) reviewed: 3+ Unique test(s) ordered: 2 Risk: Moderate: Drug management Medical Decision Making Level: 4 - Moderate documented in this encounter [facility] 08-24-2021 History of Present illness Narrative Name: Celi Buck Chief Complaint Bilateral thumb pain, left thumb trigger finger History of present illness 71-year-old [id number] female here to establish care. Chief complaint as above. Symptoms present for several years, increasing frequency and severity, now interfering with use of hands for hobbies and activities of daily living. Also recently noted triggering left thumb IP joint. No previous treatment including conservative treatment options including injection splints. No previous surgery. No other associated complaints. Denies night pain, numbness tingling. No past medical history on file. No past surgical history on file. Current Outpatient Medications: tretinoin (RETIN-A) 0.025 % cream, Apply topically at bedtime. Apply 2-3 nights per week and advance as tolerated to nightly regimen., Disp: 45 g, Rfl: 5 Venlafaxine HCl (EFFEXOR ORAL), Take by mouth daily., Disp: , Rfl: Allergies Allergen Reactions Ciprofloxacin Rash Social History Socioeconomic History Marital status: Review of symptoms Negative except as above Radiographs Three views bilateral hand demonstrate left greater than right CMC/STT arthritis. Otherwise unremarkable Physical exam Comfortable no acute distress. Gross examination left hand demonstrates tenderness about the CMC joint, no gross instability or subluxation. Tender to palpation over the A1 dianna, active clicking on examination today. Evaluation of the right is similar with tenderness over the CMC joint. Neither hand has associated 1st extensor compartment tendinitis. Bilateral wrist with positive Tinel's and median nerve compression test consistent with mild carpal tunnel. Hand and upper extremity examination otherwise unremarkable. Assessment / Plan 71-year-old female with symptomatic bilateral CMC and left thumb trigger finger. She also has an underlying diagnosis of mild pre clinical carpal tunnel. Diagnosis and treatment options for all the above were reviewed with patient including risks, benefits, alternatives expected outcomes, postoperative course and restrictions for each. She would like to proceed with corticosteroid injections. Please see below procedure note. Follow-up telemedicine visit 2 weeks. Procedure note Bilateral thumbs prepped in sterile fashion 1 cc of 1% lidocaine mixed one-to-one with Kenalog easily injected around the A1 dianna left thumb as well as within the CMC joint spaces using a dorsal approach. Patient tolerated injections well and there were no complications. Sterile dressing applied. This note was transcribed using voice-recognition software. This may result in typographical or malapropism errors. Patient was identified by name and date of . 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 FALL SCREENING: Has the patient had 2 falls in the last year or 1 fall with injury or currently using an Ambulatory Assistive Device (Walker, Cane, Wheelchair, Crutches, etc.)? No PATIENT GENDER DATA: Female. status: : No status: NO. PATIENT RELEVANT IMPLANT DATA REVIEWED: Not Applicable RADIOLOGY DEPARTMENT: CT; Exam(s) Completed: Chest PERIPHERAL IV DATA: Not applicable SIGNED BY: LUCY Brown September 23, 2020 1:18 PM [facility] 02-27-2020 History of Present illness Narrative Radiology Service Progress Note PATIENT NAME: Celi Buck DATE OF SERVICE: February 27, 2020 TIME: 3:53 PM PATIENT IDENTITY VERIFICATION COMPLETED USING TWO (2) IDENTIFIERS: Name and Date of confirmed by patient verbally. FALL SCREENING: Has the patient had 2 falls in the last year or 1 fall with injury or currently using an Ambulatory Assistive Device (Walker, Cane, Wheelchair, Crutches, etc.)? No PATIENT GENDER DATA: Female. status: : No status: NO. PATIENT RELEVANT IMPLANT DATA REVIEWED: Yes RADIOLOGY DEPARTMENT: CT; Exam(s) Completed: Chest PERIPHERAL IV DATA: Not applicable SIGNED BY: Anthony Chen February 27, 2020 3:53 PM documented in this encounter [facility] Evaluation note Diagnosis Lump in armpit, left Localized enlarged lymph nodes Enlargement of lymph nodes documented in this encounter [facility] Work Phone: Evaluation note* Diagnosis Leukocytes in urine Other nonspecific finding on examination of urine [facility]* Diagnosis Pain in both hands- Primary Osteoarthritis of carpometacarpal (CMC) joints of both thumbs, unspecified osteoarthritis type Trigger finger, unspecified finger, unspecified laterality [facility] Diagnosis PMB (post[facility] bleeding)- Primary [facility] Post[facility]- Primary [facility] Diagnosis PMB (postmenopausal bleeding)- Primary Postmenopausal bleeding [facility] Diagnosis PMB (postmenopausal bleeding)- Primary Postmenopausal bleeding Symptomatic menopausal or female climacteric states [facility] Diagnosis Onset Date Resolution Status Endometrial thickening on ultrasound acute PMB (postmenopausal bleeding) [facility] Work Phone: Evaluation note* Diagnosis Ovarian cyst, right- Primary Other and unspecified ovarian cyst Postmenopausal Asymptomatic postmenopausal status (age-related) (natural) [facility] Lung nodules Other nonspecific abnormal finding of lung field [facility] Diagnosis PMB (postmenopausal bleeding)- Primary Postmenopausal bleeding Thickened endometrium Nonspecific (abnormal) findings on radiological and other examination of genitourinary organs Endometrial polyp Polyp of corpus uteri [facility] Diagnosis Near syncope- Primary Syncope and collapse Herpes simplex infection of genitourinary system Anxiety Anxiety state, unspecified Thickened endometrium Nonspecific (abnormal) findings on radiological and other examination of genitourinary organs Irritable bowel syndrome with both constipation and diarrhea Dyspnea on exertion Other dyspnea and respiratory abnormality Palpitations Encounter for screening mammogram for malignant neoplasm of breast Other screening mammogram Hypercholesterolemia Pure hypercholesterolemia [facility] Diagnosis Lung nodules Other nonspecific abnormal finding of lung field [facility] Diagnosis Mass of upper inner quadrant of right breast- Primary [facility] Diagnosis Vaginal discharge- Primary Leukorrhea, not specified as infective Vaginal burning Other specified symptom associated with female genital organs Screen for STD (sexually transmitted disease) Screening examination for venereal disease [facility] Diagnosis Other fatigue- Primary Encounter for immunization Need for other specified prophylactic vaccination against single bacterial disease Need for shingles vaccine Need for prophylactic vaccination and inoculation against other viral diseases Screening for colon cancer Special screening for malignant neoplasms, colon Screening for osteoporosis Special screening for osteoporosis Asymptomatic menopause History of COVID-19 Mass of chest wall, right Family history of thyroid disease Family history of other endocrine and metabolic diseases [facility] noteNo assessment information [facility] Work Phone: Evaluation note* Diagnosis Swollen uvula- Primary [facility] Diagnosis Laryngopharyngeal reflux (LPR)- Primary Xerostomia Disturbance of salivary secretion Swollen uvula documented in this encounter [facility] note* Diagnosis Pain in both hands- Primary Trigger finger, unspecified finger, unspecified laterality [facility] Diagnosis Multiple lung nodules on CT [facility]* Diagnosis Encounter for screening mammogram for breast cancer [facility] Diagnosis Osteoarthritis of carpometacarpal (CMC) joints of both thumbs, unspecified osteoarthritis type- Primary Trigger finger, unspecified finger, unspecified laterality [facility] Diagnosis Sore throat- Primary Acute pharyngitis Bacterial sinusitis Unspecified sinusitis (chronic) [facility] Diagnosis Osteoarthritis of carpometacarpal (CMC) joints of both thumbs, unspecified osteoarthritis type- Primary [facility]* Diagnosis Encounter for screening mammogram for breast cancer [facility] Diagnosis Abnormal finding of diagnostic imaging- Primary Other nonspecific (abnormal) findings on radiological and other examinations of body structure [facility] Diagnosis Hyperlipidemia, unspecified documented in this encounter [facility] Work Phone: Hospital Discharge instructions Additional Instructions Implant Used?: [facility] Work Phone: Instructions* Name Dates Details Patient Instructions Indication:Nonsmoker Start:28-Dec-2021 Instruction Type:Provider Instructions for Treatment How to Access Health Informa tion Online using Patient Portal and [employer] Apps Indication:Nonsmoker Start:28-Dec-2021 Instruction Type:Patient Edu cation [facility]; [facility] Work Phone: instructions* Name Dates Details Patient Instructions Indication:BMI 25.0-25.9,adult Start:27-Jan-2022 Instruction Type:Provider Instructions for Treatment How to Access Health Informa tion Online using Patient Portal and [employer] Apps Indication:BMI 25.0-25.9,adult Start:27-Jan-2022 Instruction Type:Patient Edu cation Patient Instructions Indication:Nonsmoker Start:28-Dec-2021 Instruction Type:Provider Instructions for Treatment How to Access Health Informa tion Online using Patient Portal and [employer] Apps Indication:Nonsmoker Start:28-Dec-2021 Instruction Type:Patient Edu cation [facility]; [facility] Work Phone: instructions* Name Dates Details Patient Instructions Indication:BMI 25.0-25.9,adult Start:27-Jan-2022 Instruction Type:Provider Instructions for Treatment How to Access Health Informa tion Online using Patient Portal and [employer] Apps Indication:BMI 25.0-25.9,adult Start:27-Jan-2022 Instruction Type:Patient Edu cation Patient Instructions Indication:Nonsmoker Start:28-Dec-2021 Instruction Type:Provider Instructions for Treatment How to Access Health Informa tion Online using Patient Portal and [employer] Apps Indication:Nonsmoker Start:28-Dec-2021 Instruction Type:Patient Edu cation [facility]; [facility] Work Phone: instructions* Name Dates Details Patient Instructions Indication:BMI 25.0-25.9,adult Start:27-Jan-2022 Instruction Type:Provider Instructions for Treatment How to Access Health Informa tion Online using Patient Portal and [employer] Apps Indication:BMI 25.0-25.9,adult Start:27-Jan-2022 Instruction Type:Patient Edu cation Patient Instructions Indication:Nonsmoker Start:28-Dec-2021 Instruction Type:Provider Instructions for Treatment How to Access Health Informa tion Online using Patient Portal and [employer] Apps Indication:Nonsmoker Start:28-Dec-2021 Instruction Type:Patient Edu cation [facility]; [facility] Work Phone: instructions* Name Dates Details Patient Instructions Indication:BMI 25.0-25.9,adult Start:27-Jan-2022 Instruction Type:Provider Instructions for Treatment How to Access Health Informa tion Online using Patient Portal and [employer] Apps Indication:BMI 25.0-25.9,adult Start:27-Jan-2022 Instruction Type:Patient Edu cation Patient Instructions Indication:Nonsmoker Start:28-Dec-2021 Instruction Type:Provider Instructions for Treatment How to Access Health Informa tion Online using Patient Portal and [employer] Apps Indication:Nonsmoker Start:28-Dec-2021 Instruction Type:Patient Edu cation [facility]; [facility] Work Phone: instructions* Name Dates Details Patient Instructions Indication:BMI 25.0-25.9,adult Start:27-Jan-2022 Instruction Type:Provider Instructions for Treatment How to Access Health Informa tion Online using Patient Portal and [employer] Apps Indication:BMI 25.0-25.9,adult Start:27-Jan-2022 Instruction Type:Patient Edu cation Patient Instructions Indication:Nonsmoker Start:28-Dec-2021 Instruction Type:Provider Instructions for Treatment How to Access Health Informa tion Online using Patient Portal and [employer] Apps Indication:Nonsmoker Start:28-Dec-2021 Instruction Type:Patient Edu cation [facility]; [facility] Work Phone: instructions* Name Dates Details Patient Instructions Indication:Nonsmoker Start:17-Apr-2022 Instruction Type:Provider Instructions for Treatment How to Access Health Informa tion Online using Patient Portal and [employer] Apps Indication:Nonsmoker Start:17-Apr-2022 Instruction Type:Patient Education Patient Instructions Indication:BMI 25.0-25.9,adult Start:27-Jan-2022 Instruction Type:Provider Instructions for Treatment How to Access Health Informa tion Online using Patient Portal and [employer] Apps Indication:BMI 25.0-25.9,adult Start:27-Jan-2022 Instruction Type:Patient Education Patient Instructions Indication:Nonsmoker Start:28-Dec-2021 Instruction Type:Provider Instructions for Treatment How to Access Health Informa tion Online using Patient Portal and [employer] Apps Indication:Nonsmoker Start:28-Dec-2021 Instruction Type:Patient Education [facility]; [facility] Work Phone: instructions* Name Dates Details Patient Instructions Indication:Nonsmoker Start:24-Apr-2022 Instruction Type:Provider Instructions for Treatment How to Access Health Informa tion Online using Patient Portal and [employer] Apps Indication:Nonsmoker Start:24-Apr-2022 Instruction Type:Patient Education Patient Instructions Indication:Nonsmoker Start:17-Apr-2022 Instruction Type:Provider Instructions for Treatment How to Access Health Informa tion Online using Patient Portal and [employer] Apps Indication:Nonsmoker Start:17-Apr-2022 Instruction Type:Patient Education Patient Instructions Indication:BMI 25.0-25.9,adult Start:27-Jan-2022 Instruction Type:Provider Instructions for Treatment How to Access Health Informa tion Online using Patient Portal and [employer] Apps Indication:BMI 25.0-25.9,adult Start:27-Jan-2022 Instruction Type:Patient Education Patient Instructions Indication:Nonsmoker Start:28-Dec-2021 Instruction Type:Provider Instructions for Treatment How to Access Health Informa tion Online using Patient Portal and [employer] Apps Indication:Nonsmoker Start:28-Dec-2021 Instruction Type:Patient Education [facility]; [facility] Work Phone: instructions* Name Dates Details Patient Instructions Indication:Nonsmoker Start:24-Apr-2022 Instruction Type:Provider Instructions for Treatment How to Access Health Informa tion Online using Patient Portal and [employer] Apps Indication:Nonsmoker Start:24-Apr-2022 Instruction Type:Patient Education Patient Instructions Indication:Nonsmoker Start:17-Apr-2022 Instruction Type:Provider Instructions for Treatment How to Access Health Informa tion Online using Patient Portal and [employer] Apps Indication:Nonsmoker Start:17-Apr-2022 Instruction Type:Patient Education Patient Instructions Indication:BMI 25.0-25.9,adult Start:27-Jan-2022 Instruction Type:Provider Instructions for Treatment How to Access Health Informa tion Online using Patient Portal and [employer] Apps Indication:BMI 25.0-25.9,adult Start:27-Jan-2022 Instruction Type:Patient Education Patient Instructions Indication:Nonsmoker Start:28-Dec-2021 Instruction Type:Provider Instructions for Treatment How to Access Health Informa tion Online using Patient Portal and [employer] Apps Indication:Nonsmoker Start:28-Dec-2021 Instruction Type:Patient Education [facility]; [facility] Work Phone: [employer]* Name Dates Details Patient Instructions Indication:Nonsmoker Start:24-Apr-2022 Instruction Type:Provider Instructions for Treatment How to Access Health Informa tion Online using Patient Portal and [employer] Apps Indication:Nonsmoker Start:24-Apr-2022 Instruction Type:Patient Education Patient Instructions Indication:Nonsmoker Start:17-Apr-2022 Instruction Type:Provider Instructions for Treatment How to Access Health Informa tion Online using Patient Portal and [employer] Apps Indication:Nonsmoker Start:17-Apr-2022 Instruction Type:Patient Education Patient Instructions Indication:BMI 25.0-25.9,adult Start:27-Jan-2022 Instruction Type:Provider Instructions for Treatment How to Access Health Informa tion Online using Patient Portal and [employer] Apps Indication:BMI 25.0-25.9,adult Start:27-Jan-2022 Instruction Type:Patient Education Patient Instructions Indication:Nonsmoker Start:28-Dec-2021 Instruction Type:Provider Instructions for Treatment How to Access Health Informa tion Online using Patient Portal and [employer] Apps Indication:Nonsmoker Start:28-Dec-2021 Instruction Type:Patient Education [facility]; [facility] Work Phone: instructions* Name Dates Details Patient Instructions Indication:Nonsmoker Start:24-Apr-2022 Instruction Type:Provider Instructions for Treatment How to Access Health Informa tion Online using Patient Portal and [employer] Apps Indication:Nonsmoker Start:24-Apr-2022 Instruction Type:Patient Education Patient Instructions Indication:Nonsmoker Start:17-Apr-2022 Instruction Type:Provider Instructions for Treatment How to Access Health Informa tion Online using Patient Portal and [employer] Apps Indication:Nonsmoker Start:17-Apr-2022 Instruction Type:Patient Education Patient Instructions Indication:BMI 25.0-25.9,adult Start:27-Jan-2022 Instruction Type:Provider Instructions for Treatment How to Access Health Informa tion Online using Patient Portal and [employer] Apps Indication:BMI 25.0-25.9,adult Start:27-Jan-2022 Instruction Type:Patient Education Patient Instructions Indication:Nonsmoker Start:28-Dec-2021 Instruction Type:Provider Instructions for Treatment How to Access Health Informa tion Online using Patient Portal and [employer] Apps Indication:Nonsmoker Start:28-Dec-2021 Instruction Type:Patient Education [facility]; [facility] Work Phone: instructions* Name Dates Details Patient Instructions Indication:Nonsmoker Start:24-Apr-2022 Instruction Type:Provider Instructions for Treatment How to Access Health Informa tion Online using Patient Portal and [employer] [employer] Apps Indication:Nonsmoker Start:24-Apr-2022 Instruction Type:Patient Education Patient Instructions Indication:Nonsmoker Start:17-Apr-2022 Instruction Type:Provider Instructions for Treatment How to Access Health Informa tion Online using Patient Portal and [employer] [employer] Apps Indication:Nonsmoker Start:17-Apr-2022 Instruction Type:Patient Education Patient Instructions Indication:BMI 25.0-25.9,adult Start:27-Jan-2022 Instruction Type:Provider Instructions for Treatment How to Access Health Informa tion Online using Patient Portal and [employer] Apps Indication:BMI 25.0-25.9,adult Start:27-Jan-2022 Instruction Type:Patient Education Patient Instructions Indication:Nonsmoker Start:28-Dec-2021 Instruction Type:Provider Instructions for Treatment How to Access Health Informa tion Online using Patient Portal and [employer] Apps Indication:Nonsmoker Start:28-Dec-2021 Instruction Type:Patient Education [facility]; [facility] Work Phone: instructions* Name Dates Details Patient Instructions Indication:Nonsmoker Start:24-Apr-2022 Instruction Type:Provider Instructions for Treatment How to Access Health Informa tion Online using Patient Portal and [employer] [employer] Apps Indication:Nonsmoker Start:24-Apr-2022 Instruction Type:Patient Education Patient Instructions Indication:Nonsmoker Start:17-Apr-2022 Instruction Type:Provider Instructions for Treatment How to Access Health Informa tion Online using Patient Portal and [employer] [employer] Apps Indication:Nonsmoker Start:17-Apr-2022 Instruction Type:Patient Education Patient Instructions Indication:BMI 25.0-25.9,adult Start:27-Jan-2022 Instruction Type:Provider Instructions for Treatment How to Access Health Informa tion Online using Patient Portal and 3rd Republican Apps Indication:BMI 25.0-25.9,adult Start:27-Jan-2022 Instruction Type:Patient Education Patient Instructions Indication:Nonsmoker Start:28-Dec-2021 Instruction Type:Provider Instructions for Treatment How to Access Health Informa tion Online using Patient Portal and 3rd Republican Apps Indication:Nonsmoker Start:28-Dec-2021 Instruction Type:Patient Education [facility]; [facility] Work Phone: [email or web address]* Name Dates Details Patient Instructions Indication:Nonsmoker Start:24-Apr-2022 Instruction Type:Provider Instructions for Treatment How to Access Health Informa tion Online using Patient Portal and 3rd Republican Apps Indication:Nonsmoker Start:24-Apr-2022 Instruction Type:Patient Education Patient Instructions Indication:Nonsmoker Start:17-Apr-2022 Instruction Type:Provider Instructions for Treatment How to Access Health Informa tion Online using Patient Portal and 3rd Republican Apps Indication:Nonsmoker Start:17-Apr-2022 Instruction Type:Patient Education Patient Instructions Indication:BMI 25.0-25.9,adult Start:27-Jan-2022 Instruction Type:Provider Instructions for Treatment How to Access Health Informa tion Online using Patient Portal and 3rd Republican Apps Indication:BMI 25.0-25.9,adult Start:27-Jan-2022 Instruction Type:Patient Education Patient Instructions Indication:Nonsmoker Start:28-Dec-2021 Instruction Type:Provider Instructions for Treatment How to Access Health Informa tion Online using Patient Portal and 3rd Republican Apps Indication:Nonsmoker Start:28-Dec-2021 Instruction Type:Patient Education [facility]; [facility] Work Phone: instructions* Name Dates Details Patient Instructions Indication:Nonsmoker Start:24-Apr-2022 Instruction Type:Provider Instructions for Treatment How to Access Health Informa tion Online using Patient Portal and 3rd Republican Apps Indication:Nonsmoker Start:24-Apr-2022 Instruction Type:Patient Education Patient Instructions Indication:Nonsmoker Start:17-Apr-2022 Instruction Type:Provider Instructions for Treatment How to Access Health Informa tion Online using Patient Portal and 3rd Republican Apps Indication:Nonsmoker Start:17-Apr-2022 Instruction Type:Patient Education Patient Instructions Indication:BMI 25.0-25.9,adult Start:27-Jan-2022 Instruction Type:Provider Instructions for Treatment How to Access Health Informa tion Online using Patient Portal and 3rd Republican Apps Indication:BMI 25.0-25.9,adult Start:27-Jan-2022 Instruction Type:Patient Education Patient Instructions Indication:Nonsmoker Start:28-Dec-2021 Instruction Type:Provider Instructions for Treatment How to Access Health Informa tion Online using Patient Portal and 3rd Republican Apps Indication:Nonsmoker Start:28-Dec-2021 Instruction Type:Patient Education [facility]; [facility] Work Phone: Instructions* Name Dates Details Patient Instructions Indication:Nonsmoker Start:24-Apr-2022 Instruction Type:Provider Instructions for Treatment How to Access Health Informa tion Online using Patient Portal and 3rd Republican Apps Indication:Nonsmoker Start:24-Apr-2022 Instruction Type:Patient Education Patient Instructions Indication:Nonsmoker Start:17-Apr-2022 Instruction Type:Provider Instructions for Treatment How to Access Health Informa tion Online using Patient Portal and 3rd Republican Apps Indication:Nonsmoker Start:17-Apr-2022 Instruction Type:Patient Education Patient Instructions Indication:BMI 25.0-25.9,adult Start:27-Jan-2022 Instruction Type:Provider Instructions for Treatment How to Access Health Informa tion Online using Patient Portal and 3rd Republican Apps Indication:BMI 25.0-25.9,adult Start:27-Jan-2022 Instruction Type:Patient Education Patient Instructions Indication:Nonsmoker Start:28-Dec-2021 Instruction Type:Provider Instructions for Treatment How to Access Health Informa tion Online using Patient Portal and 3rd Republican Apps Indication:Nonsmoker Start:28-Dec-2021 Instruction Type:Patient Education [facility]; [facility] Work Phone: reason for referral (narrative)* Outpatient Procedure (Routine) - Pending Review Specialty Diagnoses / Procedures Referred By Contac t Referred To Contact [facility] Diagnoses PMB (postmenopausal bleeding) Procedures ENDOMETRIAL BIOPSY ENDOMETRIAL BX W/WO ENDOCERVIX BX W/O DILAT SPX Cesar, Ynes, MOLD SETTER.PRESCRIPTION BENEFIT SPECIALIST [address] [place] [address] [address] Referral ID Status Reason Start Date Expiration Date Visits Requested Visits Authorized [id number] Pending Review Auto-Generat ed Referral 09/14/2021 09/14/2022 1 1 * Diagnostic Procedure Only (Routine) - Authorized Specialty Diagnoses / Procedures Referred By Contac t Referred To Contact [facility] Diagnoses PMB (postmenopausal bleeding) Procedures PELVIC [facility] US PELVIC NONOBSTETRIC REAL-TIME IMAGE COMPLETE Ynes Cesar APRN.PRESCRIPTION BENEFIT SPECIALIST [address] [place] [address] [address] Referral ID Status Reason Start Date Expiration Date Visits Requested Visits Authorized [id number] Authorized Auto-Generat ed Referral 09/14/2021 09/14/2022 1 1 [facility] for referral (narrative)* Outpatient Procedure (Routine) - Pending Review Specialty Diagnoses / Procedures Referred By Contac t Referred To Contact [facility] Diagnoses Postmenopausal bleeding Procedures ENDOMETRIAL BIOPSY ENDOMETRIAL BX W/WO ENDOCERVIX BX W/O DILAT SPX Ynes Cesar APRN.PRESCRIPTION BENEFIT SPECIALIST [address] [place] [address] [address] Referral ID Status Reason Start Date Expiration Date Visits Requested Visits Authorized [id number] Pending Review Auto-Generat ed Referral 09/16/2021 09/16/2022 1 1 [facility] for referral (narrative)* Diagnostic Procedure Only (Routine) - Pending Review Specialty Diagnoses / Procedures Referred By Gerriac t Referred To Contact [facility] Diagnoses Ovarian cyst, right Postmenopausal Procedures PELVIC US [facility] US PELVIC NONOBSTETRIC REAL-TIME IMAGE COMPLETE Ynes Cesar APRN.CNP [address] [place] [address] [facility] [address] [place] [address] Referral ID Status Reason Start Date Expiration Date Visits Requested Visits Authorized [id number] Pending Review Auto-Generat ed Referral 09/21/2021 09/21/2022 1 1 [facility] for referral (narrative)* Outpatient Procedure (Routine) - Closed Specialty Diagnoses / Procedures Referred By Spencer t Referred To Contact [facility] Diagnoses Palpitations Procedures ECG COMPLETE ECG ROUTINE ECG W/LEAST 12 LDS W/I&R Samy Avila MD [address] [place] [address] [facility] [address] [place] [address] Referral ID Status Reason Start Date Expiration Date V isits Requested Visits Authorized [id number] Closed Auto-Generate d Referral 10/12/2021 10/12/2022 1 1 * Diagnostic Procedure Only (Routine) - Pending Review Specialty Diagnoses / Procedures Referred By Spencer t Referred To Contact [facility] Diagnoses Encounter for screening mammogram for malignant neoplasm of breast Procedures LOVE SCREENING SCREENING MAMMOGRAPHY BI 2-VIEW BREAST INC CAD Samy Avila MD [address] [place] [address] [facility] [address] [place] [id number] Referral ID Status Reason Start Date Expiration Date Visits Requested Visits Authorized [id number] Pending Review Auto-Generat ed Referral 10/12/2021 11/11/2022 1 1 [facility] for referral (narrative)* Diagnostic Procedure Only (Routine) - Pending Review Specialty Diagnoses / Procedures Referred By Contac t Referred To Contact [facility] Diagnoses Mass of upper inner quadrant of right breast Procedures US BREAST LTD RT US BREAST UNI REAL TIME WITH IMAGE LIMITED Brandi Pagan APRN.CNM [address] [place] [address] [facility] [address] [place] [address] Referral ID Status Reason Start Date Expiration Date Visits Requested Visits Authorized [id number] Pending Review Auto-Generat ed Referral 11/04/2021 12/04/2022 1 1 * Diagnostic Procedure Only (Routine) - Authorized Specialty Diagnoses / Procedures Referred By Spencer t Referred To Contact [facility] Diagnoses Mass of upper inner quadrant of right breast Procedures LOVE DIAGNOSTIC BILAT DIAGNOSTIC MAMMOGRAPHY COMPUTER-AIDED DETCJ BI Brandi Pagan APRN.CNM [address] [place] [address] [facility] [address] [place] [address] Referral ID Status Reason Start Date Expiration Date Visits Requested Visits Authorized [id number] Authorized Auto-Generat ed Referral 11/04/2021 12/04/2022 1 1 [facility] for referral (narrative)* Diagnostic Procedure Only (Routine) - Pending Review Specialty Diagnoses / Procedures Referred By Contac t Referred To Contact [facility] Diagnoses Family history of thyroid disease Procedures US THYROID/PARATHYROID US SOFT TISSUE HEAD & NECK REAL TIME IMGE Afsaneh Esparza APRN.INSURANCE CLAIMS EXAMINER [address] [place] [address] [facility] Referral ID Status Reason Start Date Expiration Date Visits Requested Visits Authorized [id number] Pending Review Auto-Generat ed Referral 12/22/2021 01/21/2023 1 1 * Diagnostic Procedure Only (Routine) - Pending Review Specialty Diagnoses / Procedures Referred By Contac t Referred To Contact [facility] Diagnoses Mass of chest wall, right Procedures XR CLAVICLE 2V RIGHT RADEX CLAVICLE COMPLETE Afsaneh Mac APRN.CNS [address] [place] [address] [facility] Referral ID Status Reason Start Date Expiration Date Visits Requested Visits Authorized [id number] Pending Review Auto-Generat ed Referral 12/22/2021 01/21/2023 1 1 [facility] for referral (narrative)* Diagnostic Procedure Only (Routine) - Pending Review Specialty Diagnoses / Procedures Referred By Spencer t Referred To Contact [facility] Diagnoses Encounter for screening mammogram for breast cancer Procedures LOVE SCREENING W NATE SCREENING DIGITAL BREAST TOMOSYNTHESIS BI SCREENING MAMMOGRAPHY BI 2-VIEW BREAST INC Gustabo Ross MD [address] [place] [address] [facility] [address] [place] [address] Referral ID Status Reason Start Date Expiration Date Visits Requested Visits Authorized [id number] Pending Review Auto-Generat ed Referral 02/02/2024 1 1 [facility] for referral (narrative)* Diagnostic Procedure Only (Routine) - New Request Specialty Diagnoses / Procedures Referred By Contac t Referred To Contact [facility] Diagnoses Encounter for screening mammogram for breast cancer Procedures LOVE SCREENING W NATE SCREENING DIGITAL BREAST TOMOSYNTHESIS BI SCREENING MAMMOGRAPHY BI 2-VIEW BREAST INC Gustabo Ross MD [address] [place] [address] [facility] [address] [place] [address] Referral ID Status Reason Start Date Expiration Date Visits Requested Visits Authorized [id number] New Request Auto-Generat ed Referral 4 01/17/2025 1 1 [facility] for referral (narrative)No [facility] for [facility] Phone: Reason for visit Narrative* Diagnostic Procedure Only (Routine) - Closed Specialty Diagnoses / Procedures Referred By Contac t Referred To Contact [facility] Diagnoses Mass of chest wall, right Procedures XR CLAVICLE 2V RIGHT RADEX CLAVICLE COMPLETE Afsaneh Mac, MOLD SETTER.INSURANCE CLAIMS EXAMINER [address] [place] [address] [place] [address] Referral ID Status Reason Start Date Expiration Date V isits Requested Visits Authorized [id number] Closed Auto-Generate d Referral 12/22/2021 01/21/2023 1 1 [facility] for visit Narrative* Imaging (Routine) - Pending Review Specialty Diagnoses / Procedures Referred By Contac t Referred To Contact Radiology Diagnoses Hyperlipidemia, unspecified Procedures CT cardiac scoring wo IV contrast Daniel Guzman, MOLD SETTER-PRESCRIPTION BENEFIT SPECIALIST [address] [facility] [address] [place] [address] Phone: tel: fax: Referral ID Status Reason Start Date Expiration Date Visits Requested Visits Authorized [id number] Pending Review Perform Procedure 06/25/2024 06/25/2025 1 1 [facility] Work Phone: Advance Directives No Advanced Directives Records FoundDocuments on File Type Date 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 Advance 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 Living Will Power of Vp [employer] Documents on File Type Date 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 ACP-Advance Directive ACP-Power of V[employer] Documents on File Type Date 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 ACP-Advance Directive ACP-Power of V[employer] And Skin Documents on File Type Date 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 Advance 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 Living Will Power of Vp [employer] Documents on File Type Date 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 Advance Directive(s) 11/28/2019 5:38 PM Documents on File Type Date 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 Advance Directive(s) 11/28/2019 5:38 PM Advance Directive Response Recorded Date/ Time Living Will No [place] 5th, 2022 2:19pm Power of Vp [employer] No September 23 2:19pm Advance Directive Response Recorded Date/ Time Living Will No September 23, 2021 1:19pm Power of Vp [employer] Services [employer] No September 23 1:19pm Assessments Diagnosis Screening for STDs (sexually transmitted diseases) Screening examination for venereal disease Encounter for screening for other viral diseases Periodic health assessment, general screening, adult Routine general medical examination at a health care facility Diagnosis Lung nodules Other nonspecific abnormal finding of lung field Diagnosis Right upper quadrant abdominal pain- Primary Abdominal pain, right upper quadrant Review of System There may be information available, but it has not been provided by the sender. Family History No Family History Records FoundUnknown Family Member Name Dates Details Brother 1 Comments:Diabetes, Bladder C ancer Status:Active Family Members In General Status:Active First Degree Relatives Status:Active Mother Status:Active Unknown Family Member Name Dates Details Brother 1 Comments:Diabetes, Bladder C ancer Status:Active Family Members In General Status:Active First Degree Relatives Status:Active Mother Status:Active Unknown Family Member Name Dates Details Brother 1 Comments:Diabetes, Bladder C ancer Status:Active Family Members In General Status:Active First Degree Relatives Status:Active Mother Status:Active Unknown Family Member Name Dates Details Brother 1 Comments:Diabetes, Bladder C ancer Status:Active Family Members In General Status:Active First Degree Relatives Status:Active Mother Status:Active Unknown Family Member Name Dates Details Brother 1 Comments:Diabetes, Bladder C ancer Status:Active Family Members In General Status:Active First Degree Relatives Status:Active Mother Status:Active Unknown Family Member Name Dates Details Brother 1 Comments:Diabetes, Bladder C ancer Status:Active Family Members In General Status:Active First Degree Relatives Status:Active Mother Status:Active Unknown Family Member Name Dates Details Brother 1 Comments:Diabetes, Bladder C ancer Status:Active Family Members In General Status:Active First Degree Relatives Status:Active Mother Status:Active Unknown Family Member Name Dates Details Brother 1 Comments:Diabetes, Bladder C ancer Status:Active Family Members In General Status:Active First Degree Relatives Status:Active Mother Status:Active Unknown Family Member Name Dates Details Brother 1 Comments:Diabetes, Bladder C ancer Status:Active Family Members In General Status:Active First Degree Relatives Status:Active Mother Status:Active Unknown Family Member Name Dates Details Brother 1 Comments:Diabetes, Bladder C ancer Status:Active Family Members In General Status:Active First Degree Relatives Status:Active Mother Status:Active Unknown Family Member Name Dates Details Brother 1 Comments:Diabetes, Bladder C ancer Status:Active Family Members In General Status:Active First Degree Relatives Status:Active Mother Status:Active Unknown Family Member Name Dates Details Brother 1 Comments:Diabetes, Bladder C ancer Status:Active Family Members In General Status:Active First Degree Relatives Status:Active Mother Status:Active Unknown Family Member Name Dates Details Brother 1 Comments:Diabetes, Bladder C ancer Status:Active Family Members In General Status:Active First Degree Relatives Status:Active Mother Status:Active Unknown Family Member Name Dates Details Brother 1 Comments:Diabetes, Bladder C ancer Status:Active Family Members In General Status:Active First Degree Relatives Status:Active Mother Status:Active Unknown Family Member Name Dates Details Brother 1 Comments:Diabetes, Bladder C ancer Status:Active Family Members In General Status:Active First Degree Relatives Status:Active Mother Status:Active Unknown Family Member Name Dates Details Brother 1 Comments:Diabetes, Bladder C ancer Status:Active Family Members In General Status:Active First Degree Relatives Status:Active Mother Status:Active Summary Purpose Discharge Instructions * Attachments The following attachments cannot be sent through Care Everywhere. * Abdominal Pain (Sami) documented in this encounter Reason for Referral Status Reason Specialty Diagnoses / Procedures Referre d By Contact Referred To Contact Closed Radiology Diagnoses Lump in armpit, left Localized enlarged lymph nodes Procedures US Breast Bilateral Iris Clements, DO [address] [place] [address] Status Reason Specialty Diagnoses / Procedures Referre d By Contact Referred To Contact Closed Radiology Diagnoses Lump in armpit, left Localized enlarged lymph nodes Procedures LOVE DIGITAL DIAGNOSTIC W OR WO CAD BILATERAL Iris Clements, DO [address] [place] [address] Status Reason Specialty Diagnoses / Procedures Re ferred By Contact Referred To Contact [facility] Diagnoses Leukocytes in urine Procedures US Retroperitoneal Limited Gisell Espinoza MD [address] [facility] [address] [place] [address] Specialty Diagnoses / Procedures Referred By Contac t Referred To Contact Radiology Diagnoses Pain in both hands Procedures XR HAND RIGHT 3 VIEWS Diana Lundberg MD [address] [place] [address] [facility] [address] [place] [address] [place] [address] Referral ID Status Reason Start Date Expiration Date Visits Re quested Visits Authorized [id number] Closed 08/24/2021 08/24/2022 1 1 Specialty Diagnoses / Procedures Referred By Contac t Referred To Contact Radiology Diagnoses Pain in both hands Procedures XR HAND LEFT 3 VIEWS Diana Lundberg MD [address] [place] [address] [facility] [address] [place] [address] [place] [id number] Referral ID Status Reason Start Date Expiration Date Visits Re quested Visits Authorized [id number] Closed 08/24/2021 08/24/2022 1 1 Specialty Diagnoses / Procedures Referred By Contac t Referred To Contact CT IMAGING Diagnoses Lung nodules Procedures CT CHEST WO IVCON CAT SCAN OF CHEST Michael Merrill MD [address] [place] [address] Ct Imaging Referral ID Status Reason Start Date Expiration Date V isits Requested Visits Authorized [id number] Closed Auto-Generate d Referral 09/24/2021 10/24/2021 1 1 Specialty Diagnoses / Procedures Referred By Contac t Referred To Contact Otolaryngology Diagnoses Swollen uvula Shanique Carmen, [address] [facility] [address] [place] [address] Con Lynn MD [facility] [address] [address] Referral ID Status Reason Start Date Expiration Date V isits Requested Visits Authorized [id number] Authorized 05/11/2022 05/11/2023 1 1 Chief Complaint and Reason for Visit Chief Complaint hyster d&C symphion Reason for Visit Endometrial thickeni ng on ultrasound PMB (postmenopausal bleeding) Chief Complaint R SIDE ENLARGEMENT Additional Source Comments INFORMATION SOURCE (unrecogn ized section and content) DATE CREATED AUTHOR 03/25/2018 [facility] DATE CREATED AUTHOR AUTHOR'S ORGANIZ ATION 07/25/2019 [facility] DATE CREATED AUTHOR AUTHOR'S ORGANIZ ATION [facility] DATE CREATED AUTHOR AUTHOR'S ORGANIZ ATION 08/23/2020 [facility] DATE CREATED AUTHOR AUTHOR'S ORGANIZ ATION 09/24/2020 [facility] DATE CREATED AUTHOR AUTHOR'S ORGANIZ ATION 12/18/2021 [facility] DATE CREATED AUTHOR AUTHOR'S ORGANIZ ATION 04/26/2022 [facility] DATE CREATED AUTHOR AUTHOR'S ORGANIZ ATION 05/23/2022 [facility] DATE CREATED AUTHOR AUTHOR'S ORGANIZ ATION 12/21/2023 [facility] DATE CREATED AUTHOR AUTHOR'S ORGANIZ ATION 02/02/2024 [facility] DATE CREATED AUTHOR AUTHOR'S ORGANIZ ATION 04/26/2024 [facility] DATE CREATED AUTHOR AUTHOR'S ORGANIZ ATION 07/16/2024 [facility] DATE CREATED AUTHOR AUTHOR'S ORGANIZ ATION 08/01/2024 [facility] Reason for Visit (unrecogniz ed section and content) Reason Comments Abdominal Pain Shoulder Pain R Status Reason Specialty Diagnoses / Procedures Referre d By Contact Referred To Contact Closed Radiology Diagnoses Lump in armpit, left Localized enlarged lymph nodes Procedures LOVE DIGITAL DIAGNOSTIC W OR WO CAD BILATERAL Iris Clements R, DO [address] [place] [address] Reason Comments New patient, to establish relationship F shaun Reason Comments Post Menopausal Bleeding Reason Comments Endometrial Biopsy Reason Comments DUB Reason Comments Appointment Reason Comments Symptomatic Menopause Reason Comments Patient Question Reason Comments Establish Care Reason Comments Radiology CT Specialty Diagnoses / Procedures Referred By Contac t Referred To Contact CT IMAGING Diagnoses Lung nodules Procedures CT CHEST WO IVCON CAT SCAN OF CHEST Michael Merrill MD [address] [place] [address] Ct Imaging Referral ID Status Reason Start Date Expiration Date V isits Requested Visits Authorized [id number] Closed Auto-Generate d Referral 09/24/2021 10/24/2021 1 1 Reason Comments Breast Mass Up by collar bone Reason Comments Results Reason Comments sore throat New pt Swollen uvula Specialty Diagnoses / Procedures Referred By Contac t Referred To Contact Otolaryngology Diagnoses Swollen uvula Shanique Carmen DO [address] [facility] [address] [place] [address] Con Lynn MD [address] [address] Referral ID Status Reason Start Date Expiration Date Visits Re quested Visits Authorized [id number] Closed 05/11/2022 05/11/2023 1 1 Reason Comments Hand/finger symptoms Reason Comments Radiology CT Reason Comments Sore Throat X2 days Reason Comments injections Source Comments (unrecognize d section and content) In the event this informatio n is protected by the Federal Confidentiality of Alcohol and Drug Abuse Patient Records regulations: The Federal rules restrict any use of the information to criminally investigate or prosecute any alcohol or drug abuse patient.[facility] Hospital[facility] the event this information is protected by the Federal Confidentiality of Alcohol and Drug Abuse Patient Records regulations: The Federal rules restrict any use of the information to criminally investigate or prosecute any alcohol or drug abuse patient.[facility] HospitalIn the event this information is protected by the Federal Confidentiality of Alcohol and Drug Abuse Patient Records regulations: The Federal rules restrict any use of the information to criminally investigate or prosecute any alcohol or drug abuse patient.[facility] HospitalIn the event this information is protected by the Federal Confidentiality of Alcohol and Drug Abuse Patient Records regulations: The Federal rules restrict any use of the information to criminally investigate or prosecute any alcohol or drug abuse patient.[facility] HospitalIn the event this information is protected by the Federal Confidentiality of Alcohol and Drug Abuse Patient Records regulations: The Federal rules restrict any use of the information to criminally investigate or prosecute any alcohol or drug abuse patient.[facility] HospitalIn the event this information is protected by the Federal Confidentiality of Alcohol and Drug Abuse Patient Records regulations: The Federal rules restrict any use of the information to criminally investigate or prosecute any alcohol or drug abuse patient.[facility] HospitalIn the event this information is protected by the Federal Confidentiality of Alcohol and Drug Abuse Patient Records regulations: The Federal rules restrict any use of the information to criminally investigate or prosecute any alcohol or drug abuse patient.[facility] HospitalIn the event this information is protected by the Federal Confidentiality of Alcohol and Drug Abuse Patient Records regulations: The Federal rules restrict any use of the information to criminally investigate or prosecute any alcohol or drug abuse patient.[facility] HospitalIn the event this information is protected by the Federal Confidentiality of Alcohol and Drug Abuse Patient Records regulations: The Federal rules restrict any use of the information to criminally investigate or prosecute any alcohol or drug abuse patient.[facility] HospitalIn the event this information is protected by the Federal Confidentiality of Alcohol and Drug Abuse Patient Records regulations: The Federal rules restrict any use of the information to criminally investigate or prosecute any alcohol or drug abuse patient.[facility] HospitalIn the event this information is protected by the Federal Confidentiality of Alcohol and Drug Abuse Patient Records regulations: The Federal rules restrict any use of the information to criminally investigate or prosecute any alcohol or drug abuse patient.[facility] HospitalIn the event this information is protected by the Federal Confidentiality of Alcohol and Drug Abuse Patient Records regulations: The Federal rules restrict any use of the information to criminally investigate or prosecute any alcohol or drug abuse patient.[facility] HospitalIn the event this information is protected by the Federal Confidentiality of Alcohol and Drug Abuse Patient Records regulations: The Federal rules restrict any use of the information to criminally investigate or prosecute any alcohol or drug abuse patient.[facility] HospitalIn the event this information is protected by the Federal Confidentiality of Alcohol and Drug Abuse Patient Records regulations: The Federal rules restrict any use of the information to criminally investigate or prosecute any alcohol or drug abuse patient.[facility] HospitalIn the event this information is protected by the Federal Confidentiality of Alcohol and Drug Abuse Patient Records regulations: The Federal rules restrict any use of the information to criminally investigate or prosecute any alcohol or drug abuse patient.[facility] HospitalIn the event this information is protected by the Federal Confidentiality of Alcohol and Drug Abuse Patient Records regulations: The Federal rules restrict any use of the information to criminally investigate or prosecute any alcohol or drug abuse patient.[facility] HospitalIn the event this information is protected by the Federal Confidentiality of Alcohol and Drug Abuse Patient Records regulations: The Federal rules restrict any use of the information to criminally investigate or prosecute any alcohol or drug abuse patient.[facility] HospitalIn the event this information is protected by the Federal Confidentiality of Alcohol and Drug Abuse Patient Records regulations: The Federal rules restrict any use of the information to criminally investigate or prosecute any alcohol or drug abuse patient.[facility] HospitalIn the event this information is protected by the Federal Confidentiality of Alcohol and Drug Abuse Patient Records regulations: The Federal rules restrict any use of the information to criminally investigate or prosecute any alcohol or drug abuse patient.[facility] HospitalIn the event this information is protected by the Federal Confidentiality of Alcohol and Drug Abuse Patient Records regulations: The Federal rules restrict any use of the information to criminally investigate or prosecute any alcohol or drug abuse patient.[facility] HospitalIn the event this information is protected by the Federal Confidentiality of Alcohol and Drug Abuse Patient Records regulations: The Federal rules restrict any use of the information to criminally investigate or prosecute any alcohol or drug abuse patient.[facility] HospitalIn the event this information is protected by the Federal Confidentiality of Alcohol and Drug Abuse Patient Records regulations: The Federal rules restrict any use of the information to criminally investigate or prosecute any alcohol or drug abuse patient.[facility] HospitalIn the event this information is protected by the Federal Confidentiality of Alcohol and Drug Abuse Patient Records regulations: The Federal rules restrict any use of the information to criminally investigate or prosecute any alcohol or drug abuse patient.[facility] HospitalIn the event this information is protected by the Federal Confidentiality of Alcohol and Drug Abuse Patient Records regulations: The Federal rules restrict any use of the information to criminally investigate or prosecute any alcohol or drug abuse patient.[facility] HospitalIn the event this information is protected by the Federal Confidentiality of Alcohol and Drug Abuse Patient Records regulations: The Federal rules restrict any use of the information to criminally investigate or prosecute any alcohol or drug abuse patient.[facility] HospitalIn the event this information is protected by the Federal Confidentiality of Alcohol and Drug Abuse Patient Records regulations: The Federal rules restrict any use of the information to criminally investigate or prosecute any alcohol or drug abuse patient.[facility] HospitalIn the event this information is protected by the Federal Confidentiality of Alcohol and Drug Abuse Patient Records regulations: The Federal rules restrict any use of the information to criminally investigate or prosecute any alcohol or drug abuse patient.[facility] Care Teams (unrecognized sec tion and content) [employer] Est[employer]ator Relationship Specialty Start Date End Date Iris Clements PCP - General Family Practice 11/28/19 [employer] Estimator Relationship Specialty Start Date End Date Almaz Turner DO [address] [place] [address] PCP - General Family Practice 09/16/21 [employer] Estimator Relationship Specialty Start Date End Date Almaz Turner DO [address] [place] [address] PCP - General Family Practice 09/16/21 [employer]work Estimator Relationship Specialty Start Date End Date Almaz Turner DO [address] [place] [address] PCP - General Family Practice 09/16/21 Millwork Estimator Relationship Specialty Start Date End Date Almaz Turner DO [address] [facility] [place] [address] PCP - General Family Practice 09/16/21 Millwork Estimator Relationship Specialty Start Date End Date Iris Clements PCP - General Family Practice 11/28/19 09/15/21 Almaz Turner, DO [address] [place] [address] PCP - General Family Practice 09/16/21 [employer]work Estimator Relationship Specialty Start Date End Date Almaz Turner DO [address] [place] [address] PCP - General Family Practice 09/16/21 [employer]work Estimator Relationship Specialty Start Date End Date Sadiq Clementsine Latia PCP - General Family Practice 11/28/19 09/15/21 Almaz Turner, DO [address] [place] [address] PCP - General Family Practice 09/16/21 [employer]work Estimator Relationship Specialty Start Date End Date Almaz Turner DO [address] [place] [address] PCP - General Family Practice 09/16/21 [employer]work Estimator Relationship Specialty Start Date End Date Almaz Turner DO [address] [place] [address] PCP - General Family Practice 09/16/21 [employer]work Estimator Relationship Specialty Start Date End Date Almaz Turner DO [address] [place] [address] PCP - General Family Practice 09/16/21 Millwork Estimator Relationship Specialty Start Date End Date Almaz Turner DO [address] [place] [address] PCP - General Family Practice 09/16/21 [employer]work Estimator Relationship Specialty Start Date End Date Gustabo Deng MD [address] [place], [place] [address] PCP - General Internal Medicine 12/22/21 [employer]work Estimator Relationship Specialty Start Date End Date Diana Lundberg MD [address] [place] [address] [id number] Physician Plastic Surgery 09/24/21 Millwork Estimator Relationship Specialty Start Date End Date Diana Lundberg MD [address] [place] [address] [id number] Physician Plastic Surgery 09/24/21 Millwork Estimator Relationship Specialty Start Date End Date Shanique Carmen DO [address] [facility] [address] [place], [place] [id number] PCP - General Internal Medicine 05/11/22 Millwork Estimator Relationship Specialty Start Date End Date Shanique Carmen DO [address] [facility] [address] [place], [place] [id number] PCP - General Internal Medicine 05/11/22 [employer]work Estimator Relationship Specialty Start Date End Date Diana Lundberg MD [address] [place] [id number] Physician Plastic Surgery 09/24/21 [employer]work Estimator Relationship Specialty Start Date End Date Iris Clements PCP - General Family Medicine 11/28/19 09/15/21 Millwork Estimator Relationship Specialty Start Date End Date Gustabo Deng MD [address] [place] [address] PCP - General Internal Medicine 12/22/21 Millwork Estimator Relationship Specialty Start Date End Date Diana Lundberg MD [address] [place], [place] [id number] Physician Plastic Surgery 09/24/21 Millwork Estimator Relationship Specialty Start Date End Date Gustabo Deng MD [address] [place] [address] PCP - General Internal Medicine 12/22/21 [employer]work Estimator Relationship Specialty Start Date End Date Gustabo Deng MD [address] [place], [place] [address] PCP - General Internal Medicine 12/22/21 [employer]work Estimator Relationship Specialty Start Date End Date Diana Lundberg MD [address] [place] [address] Physician Plastic Surgery 09/24/21 [employer]work Estimator Relationship Specialty Start Date End Date Gustabo Deng MD [address] [place], [place] [id number] PCP - General Internal Medicine 12/22/21 Team Status: Active Member Role Status Dates ZAK Miller Primary Care Provider Active Team Status: Inactive Member Role Status Dates ZAK Miller Primary Care Provider Active Start: April 11, 2024 End: April 11, 2024 ZAK Miller Attending Provider Active Start: April 11, 2024 End: April 11, 2024 ZAK Miller Referring Provider Active Start: April 11, 2024 End: April 11, 2024 [employer] Estimator Relationship Specialty Start Date End Date Dainel Guzman CNP [address] [id number] PCP - General Family Medicine 01/06/24 [employer]work Estimator Relationship Specialty Start Date End Date Daniel Guzman Lance, MOLD SETTER-PRESCRIPTION BENEFIT SPECIALIST [address] [place] [address] PCP - General Family Medicine 07/24/24 Goals (unrecognized section and content) Goals may be documented in a n alternate sectionGoals may be documented in an alternate section FOR RECORDS PERTAINING TO PATIENTS WHO ARE OR HAVE BEEN ENROLLED IN A CHEMICAL DEPENDENCY/SUBSTANCEABUSE PROGRAM, SOME INFORMATION MAY BE OMITTED. This clinical summary was aggregated from multiple sources. Caution should be exercised in using it in the provision of clinical care. This summary normalizes information from multiple sources, and as a consequence, information in this document may materially change the coding, format and clinical context of patient data. In addition, data may be omitted in some cases. CLINICAL DECISIONS SHOULD BE BASED ON THE PRIMARY CLINICAL RECORDS. [facility] [employer] [facility]. provides no warranty or guarantee of the accuracy or completeness of information in this document.
== END | disposition home or self-care (01) ==
LOC: US 13:01
PROVIDERS: PCP Nurse Practitioner Family; Referring Provider Nurse Practitioner Family; Visit Provider Nurse Practitioner Family
DX: E04.1 Nontoxic single thyroid nodule (principal)
CPT/HCPCS: 76536

== ENCOUNTER → 2024-09-29 | Outpatient (CLI) | payer MEDICARE, SELFPAY ==
--- NOTE | 2024-09-29 16:13 | US_ITS ---
PROCEDURE: PELVIC W/ TRANSVAGINAL REASON FOR EXAM: ABN CT. DENSITY RIGHT HEMIPELVIS TECHNIQUE: PELVIC W/ TRANSVAGINAL COMPARISON: None FINDINGS: Measurements: Uterus: 8.2 cm x 4.7 cm x 3.6 cm with a volume of 73.01 mL Endometrial Thickness: 3.8 mm. This is mildly thickened for the patient's postmenopausal state. Right Ovary: 5.7 cm x 4.8 cm x 2.9 cm with a volume of 41.15 mL. Left Ovary: Status post left oophorectomy. TRANSABDOMINAL: Uterus: Fibroid uterus. There is a 2 cm x 1.7 cm 1.7 cm fundal fibroid. Endometrium: Endometrium is thickened measuring 3.8 mm for postmenopausal phase. Right ovary: There is a 4.1 cm 3.8 cm 3.9 cm right ovarian cyst. Left ovary: Surgically absent. Other: No large pelvic mass identified. Transvaginal sonography was performed to better visualize the endometrium. TRANSVAGINAL: Uterus: Anteverted. Fibroid uterus. Endometrium: Endometrium is thickened. Right ovary: 4.1 cm 3.8 cm 3.9 cm right ovarian cyst. Left ovary: Surgically absent. Other adnexal findings: None. Cul-de-sac: No free intraperitoneal fluid identified. Tenderness: No tenderness US/Pelvic w/ Transvaginal IMPRESSION: Fibroid uterus. Endometrial thickening. Right ovarian cyst. Reading Location: [place] [address]
--- NOTE | 2024-09-29 16:13 | US_ITS ---
PROCEDURE: PELVIC W/ TRANSVAGINAL REASON FOR EXAM: ABN CT. DENSITY RIGHT HEMIPELVIS TECHNIQUE: PELVIC W/ TRANSVAGINAL COMPARISON: None FINDINGS: Measurements: Uterus: 8.2 cm x 4.7 cm x 3.6 cm with a volume of 73.01 mL Endometrial Thickness: 3.8 mm. This is mildly thickened for the patient's postmenopausal state. Right Ovary: 5.7 cm x 4.8 cm x 2.9 cm with a volume of 41.15 mL. Left Ovary: Status post left oophorectomy. TRANSABDOMINAL: Uterus: Fibroid uterus. There is a 2 cm x 1.7 cm 1.7 cm fundal fibroid. Endometrium: Endometrium is thickened measuring 3.8 mm for postmenopausal phase. Right ovary: There is a 4.1 cm 3.8 cm 3.9 cm right ovarian cyst. Left ovary: Surgically absent. Other: No large pelvic mass identified. Transvaginal sonography was performed to better visualize the endometrium. TRANSVAGINAL: Uterus: Anteverted. Fibroid uterus. Endometrium: Endometrium is thickened. Right ovary: 4.1 cm 3.8 cm 3.9 cm right ovarian cyst. Left ovary: Surgically absent. Other adnexal findings: None. Cul-de-sac: No free intraperitoneal fluid identified. Tenderness: No tenderness US/Pelvic w/ Transvaginal IMPRESSION: Fibroid uterus. Endometrial thickening. Right ovarian cyst. Reading Location: [place] [address]
--- OUTSIDE RECORDS SUMMARY | 2024-09-29 21:25 | XMS RPT_ITS | CCD ---
Author Organization [facility] Care Team Providers Care [place] Guide Name Role Phone Rashaad Chan MD Unavailable Suarez, Yulia Attending Unavailable Suarez, Yulia [...] Referring Unavailable Suarez, Yulia Primary Care Unavailable Iris Clements R Primary Care Provider [phone] Iris Clements R Primary Care Provider Kelsi Goldman Primary Care Provider Tyree KEY Iris R Primary Care Provider [phone] Gisell Espinoza MD Primary Care Provider Unavailable Primary Care Provider Unavailabl e Iris Clements Primary Care Provider Almaz Turner DO Primary Care Provider Almaz Turner DO Primary Care Provider Iris Clements Primary Care Provider Unavailable Primary Care Provider Unavailabl e Unavailable Primary Care Provider Unavailabl e SHANIQUE DARBY PA-C Attending Unavailabl e NO FAMILY PHYSICIAN, 837 Primary Care Unavail able Winifred HUFF, Gustabo Sinclair Primary Care Provider Thomas HAT BAND ATTACHER, Daniel Unavailable Thomas HAT BAND ATTACHER, Daniel Unavailable Slarb FRAME POLISHER, Nancy Unavailable Unavailable Unavailable Unavailable Diana Lundberg MD Unavailable Sandy JAIMES, Miguel Unavailable Unavailable Unavailable Unavailable Sukhwinder FRAME POLISHERNadia Unavailable Unavailable Unavailable Unavailable Diana Lundberg MD Unavailable Thomas HAT BAND ATTACHER, Daniel Attending Unavailable Thomas HAT BAND ATTACHER, Daniel Referring Unavailable Thomas HAT BAND ATTACHER, Daniel Consulting Unavailable Con Lynn Unavailable Fast DO, Shanique Mack Primary Care Provider FAST, SHANIQUE MACK Referring Unavailable FAST, SHANIQUE MACK Primary Care Unavailable CON LYNN Attending Unavailable Iris Clements Primary Care Provider Gustabo Deng MD Primary Care Provider Gustabo Deng MD Primary Care Provider PROVIDER, UNKNOWN Admitting Unavailable DIANA LUNDBERG Attending Unavailable PROVIDER, UNKNOWN Admitting Unavailable DIANA LUNDBERG Attending Unavailable DANIEL GUZMAN Primary Care Unavailable LUISANA RAMIREZ Attending Unavailable BRICE SALMERON Attending Unavailable CHLOÉ GUZMANYN Primary Care Unavailable Thomas SHAFT REPAIRER-C, Daniel Primary Care Provider Thomas SHAFT REPAIRER-CDaniel Attending Provider Thomas SHAFT REPAIRER-C, Daniel Referring Provider Thomas Chloé GALLARDOyn Primary Care Provider GUSTABO DENG Primary Care Unavailable Thomas MARKETING AUTOMATION MANAGER-Daniel GALLARDO E Primary Care Provider DANIEL GUZMAN E Referring Unavailable CHLOÉ GUZMANYN E Primary Care Unavailable Thomas SHAFT REPAIRER-C, Daniel Primary Care Provider Thomas SHAFT REPAIRER-C, Daniel Attending Provider Thomas SHAFT REPAIRER-C, Daniel Referring Provider Thomas, Daniel Referring Unavailable Daniel Guzman Primary Care Unavailable Thomas, Daniel Attending Unavailable Thomas, Daniel Referring Unavailable Thomas, Daniel Primary Care Unavailable Thomas, Daniel Attending Unavailable Thomas, Daniel Referring Unavailable Thomas, Daniel Primary Care Unavailable Thomas, Daniel Attending Unavailable Thomas, Daniel Primary Care Unavailable Thomas, Daniel Attending Unavailable Thomas, Daniel Referring Unavailable Allergies Allergy Classification Reported Allergen(s) Allergy Type Date of Onset Reaction(s) Facility Quinolones (antibiotic) (1 source) Ciprofloxacin Drug Allergy 03-21-19 13 Rash [facility] (1 source) ciprofloxacin drug allergy 01-21-20 16 [facility] Work Phone: (20 sources) Ciprofloxacin; Translations: [Cipro *FLUOROQUINOLONES *] Drug Allergy 03-21-19 13 Rash, Other: See Comments, Other (See Comments), [place] (5 sources) Morphine And Related Propensity to adverse reactions to drug 07-02-19 16 Other (See Comments) [place] (20 sources) Morphinan opioid; Translations: [OPIOIDS - MORPHINE ANALOGUES] Propensity to adverse reactions to drug 07-02-19 16 Other: See Comments, Other (See Comments) [facility] (2 sources) Morphine; Translations: [MORPHINE] Drug Allergy 07-02-19 16 Other (See Comments) [facility] (1 source) ALLERGIES NOT ON FILE; Translations: [ALLERGIES NOT ON FILE] Propensity to adverse reactions (disorder) [facility] 2 Repository (1 source) Ciprofloxacin Drug Allergy 09-30-19 22 [facility] Repository Medications Current Medications Medication Drug Class(es) [...] tablets every 6 hours as needed ASPIRIN [id number] [place] bimatoprost 0.3 mg/ml topical solution [...] Start: 09-23-2021 take 1 capsule by mouth at bedtime Progesterone Micronized 100 mg capsule Active 100 mg PO AT BEDTIME September 23, 2021 12:00am Start: 12-18-2019 End: 09-14-2021 take 1 capsule [...] 01/31/2019 Active tretinoin 0.25 mg/ml topical cream (9 sources) Retinoid Start: 7 tretinoin (RETIN-A) 0.025 % cream Apply topically at bedtime. Apply 2-3 nights per week and advance as tolerated to nightly regimen. 45 g 5 12/11/2016 Active valACYclovir 500 mg oral tablet (19 sources) Herpesvirus Nucleoside Analog DNA Polymerase Inhibitor, Herpes Simplex Virus Nucleoside Analog DNA Polymerase Inhibitor, Herpes Zoster Virus Nucleoside Analog DNA Polymerase Inhibitor Start: take 1 tablet by mouth once daily [...] a tablet every other day ATORVASTATIN CALCIUM [id number] [place] cariprazine 1.5 mg oral capsule [...] End : 01-May-2022 Inactive 168 hr estradiol 0.98822 mg/hr transdermal system (20 sources) Estrogen Start: 12-12-2022 apply 1 dose transdermal route every week estradioL 0.0375 mg/24 hr weekly transdermal patch 1 (one) patch, transdermal weekly weekly for 0 days Quantity: 30 {Each} Refills: 0 Ordered: 12-Dec-2022 Thomas SAMIDaniel Start : 12-Dec-2022 Active Start: 03-31-2022 estradioL (CLI MARY) 0.0375 mg/24 hr 1 (one) patch once a week . 0 03/31/2022 Active Start: 10-07-2021 estradiol (CLI MARY) 0.0375 mg/24 hr Apply 1 Patch as directed one time a week. 10/07/2021 Active Start: 03-20-2019 estradiol (EST RACE VAGINAL) 0.1 MG/GM vaginal cream One applicatorful which is 1 gram q HS x 2 weeks then twice weekly 30 g 6 03/20/2019 Active Start: 12-18-2017 apply 1 dose transde rmal route every week Estradiol Active 0.5 PATCH TD EVERY WEEK 4 December 17, 2017 11:00pm Start: 11-20-2017 End: 08-19-2020 estradiol (CLIMARA) 0.0375 M G/24HR Place 1 patch onto the skin once a week 4 patch 2 03/30/2020 08/19/2020 Discontinued (REORDER) Start: 07-10-2016 estradiol (EST RACE VAGINAL) 0.1 [...] / nitrofurantoin, monohydrate 75 mg oral capsule (4 sources) Nitrofuran Antibacterial Start: End: take 1 capsule by mouth every twelve hours at mealtime Nitrofurantoin Monohyd/M-Cryst 100 mg capsule Discontinued 1 NMA PO Q12H 14 7 0 December 18, 2017 12:00am December 24, 2017 1:00am December 25, 2017 1:08am administer with a meal/food; swallow whole; do [...] Oral phenazopyridine hydrochloride 100 mg oral tablet (4 sources) Start: 12-18-2017 End: 12-19-2017 take 1 tablet by mouth three times daily at mealtime for pain Phenazopyridine (Pyridium) 100 mg tablet Discontinued 100 mg PO THREE TIMES A DAY as needed for pain 7 0 0 December 18, 2017 12:00am December 18, 2017 12:00am December 19, 2017 12:09am administer with a full glass of water [...] 4H-CAP take 1 capsule daily VENLAFAXINE HCL [id number] [place] Start: 06-03-2015 End: 05-11-2022 take 1 tablet by mouth at bedtime Venlafaxine 50 mg tablet Active 50 mg PO AT BEDTIME 30 30 0 December 18, 2017 12:00am anxiety Venlafaxine HCl (EFFEXOR ORAL) Take by mouth daily. Active Venlafaxine HCl (EFFEXOR ORAL) Take by mouth daily. 0 Active Comment on above: Take 1 tablet by richard th once daily. Problems Active Problems Problem Classification [...] Episodic Immunizations and screening for infectious disease (5 sources) At risk of sexually transmitted infection [...] Translations: [Other forms of dyspnea] Episodic Other nervous system disorders (5 sources) [...] disorders (20 sources) Goiter; Translations: [Thyroid enlarged] Onset: 5 01-27-2022 Chronic Unclassified (20 sources) Unclassified (1 source) Cough, unspecified; Translations: [Cough, unspecified] Onset: 4 Urinary tract infections (4 sources) Urinary tract infectious disease; Translations: [Urinary [...] Onset: 8 Resolved: 9 11-06-2013 Episodic Other lower respiratory disease (1 source) Unspecified acute lower respiratory infection; Translations: [Unspecified acute lower respiratory infection] Onset: 5 Episodic Other non-traumatic joint disorders (2 sources) [...] Test Name Value Interpretation Reference Range Facility Thyroidon 08-11-2024 Thyroid [facility] Imaging Services [address] [place], [place] [address] Thyroid MR#: [id number] Acct: [id number] Name: CELI BUCK Rep #: [id number] : 1950 F 74 From: César Shafer MD PCP: ZAK Miller Status: REG CLI Study: Thyroid Date of Exam: 08/11/24 Exam# [id number] Ordering Dr: Daniel Guzman PROCEDURE: THYROID 08/11/2024 REASON FOR EXAM: THYROID ULTRASOUND ([id number]) : REASSESS NODULE/MICROCALCIFIC ATION U TECHNIQUE: THYROID COMPARISON: None FINDINGS: Right thyroid lobe size: 4.5 x 1.8 x 1.3 cm Left thyroid lobe size: 3.6 x 0.9 x 1.0 cm Isthmus: 0.2 cm Background parenchymal echotexture is homogeneous. Nodules: 1. Lobe: Right, Location: Mid, Size: 0.6 x 0.5 x 0.5 cm, Stability: N/A Composition: Solid or almost completely solid (+2) Echogenicity: Hyper to Isoechoic (+1) Margin: Ill-defined (+0) Shape: Wider than tall (+0) Echogenic Foci: Macrocalcification (+1) TI-RADS: 4 US/Thyroid IMPRESSION: Solitary nodule in the right thyroid lobe measuring up to 6 mm in size, which does not require follow-up or FNA per ACR TI-RADS guidelines. Reading Location: [place] CC: ZAK Guzman Return To Vendor: Signed Normal [facility] CT CARDIAC SCORING WO IV CON TRASTon 07-24-2024 CT CARDIAC SCORING WO IV CONTRAST Interpreted By: Sara Yates, STUDY: CT CARDIAC SCORING WO IV CONTRAST; 07/24/2024 8:49 am INDICATION: Signs/Symptoms:HLD AUTOIMMUNE (CROHN'S) GERD HYPERLIPIDEMIA. ,E78.5 Hyperlipidemia, unspecified COMPARISON: None. ACCESSION NUMBER(S): [id number] ORDERING CLINICIAN: DANIEL GUZMAN TECHNIQUE: Using prospective [...] coronary heart disease events. According to the [place] [employer] Clinical Expert Consensus [...] modify other non-lipid coronary risk factors. Reference: [place] P et al. Circulation. 2007; 115:402-426 MACRO: None Signed by: Sara Yates 07/25/2024 7:42 AM Dictation workstation: [id number] [facility] CNCOon 07-10-2024 CNCO Letter Text Normal [facility] Absolute neutrophil countOrd ered By: Daniel Guzman on 04-11-2024 Neutrophils (Bld) [#/Vol] 5.4 10*3/uL 2.0-7.7 [facility] Albumin to globulin ratioOrd ered By: Daniel Guzman on 04-11-2024 Albumin/Globulin [Mass ratio] 0.9 {ratio} 0.9-2.4 [facility] Basophil percentageOrdered B y: Daniel Guzman on 04-11-2024 Basophils/100 WBC (Bld) 0.4 % 0-1 [facility] Bilirubin, totalOrdered By: Daniel Guzman on 04-11-2024 Bilirubin [Mass/Vol] 0.60 mg/dL 0.20-1.00 [facility] Comment on above: For patients on eltr ombopag therapy, use of Dimension Hope TBIL is not recommended. Blood urea nitrogen (BUN)/cr eatinine ratioOrdered By: Daniel Guzman on 04-11-2024 Urea nitrogen/Creatinine [Mass ratio] 7.6 mg/mg Low 10-20 [facility] C-reactive protein measureme nt by high sensitivity methodOrdered By: Daniel Guzman on 04-11-2024 C-Reactive Protein Extended Range 24.20 mg/L High 0.0-3.0 [facility] Comment on above: C-Reactive Protein ( CRP) provides useful information for thediagnosis, therapy and monitoring of inflammatory processesand associated diseases. For the evaluation of Relative Riskfor Cardiovascular Disease, a High Sensitivity CRP (HSCRP)should be ordered. CBC W/Diff, Automatedon 03-23 Absolute Lymph 0.81 X10 3/uL Low 0.83-4.51 [facility] Comment on above: Performed By: #### L 100.0100, L101.9900, L500.4050, L501.6710 #### [facility] [address] [place], [address] Absolute Neut 5.4 X10 3/uL Normal 2.0-7.7 [facility] Comment on above: Performed By: #### L 100.0100, L101.9900, L500.4050, L501.6710 #### [facility] [address] [place], [address] Basophils/100 WBC (Bld) 0.4 % Normal 0-1 [facility] Comment on above: Performed By: #### L 100.0100, L101.9900, L500.4050, L501.6710 #### [facility] [address] [place], [address] Eosinophils/100 WBC (Bld) 3.9 % Normal 0-5 [facility] Comment on above: Performed By: #### L 100.0100, L101.9900, L500.4050, L501.6710 #### [facility] [address] [place], [address] Erythrocyte distribution width (RBC) [Ratio] 13.0 % Normal 11.6-14.6 [facility] Comment on above: Performed By: #### L 100.0100, L101.9900, L500.4050, L501.6710 #### [facility] [address] [place], [address] Hematocrit (Bld) [Volume fraction] 44.4 % Normal 37-47 [facility] Comment on above: Performed By: #### L 100.0100, L101.9900, L500.4050, L501.6710 #### [facility] [address] [place], [address] Hemoglobin (Bld) [Mass/Vol] 14.1 g/dL Normal 12.0-15.0 [facility] Comment on above: Performed By: #### L 100.0100, L101.9900, L500.4050, L501.6710 #### [facility] [address] [place], [address] IG% 0.300 Normal 0.0-0.9 [facility] Comment on above: Result Comment: IG% - Immature Granulocytes (promyelocytes, myelocytes and metamyelocytes) > 1% indicates that a LEFT SHIFT is Present. Performed By: #### L 100.0100, L101.9900, L500.4050, L501.6710 #### [facility] [address] [place], [address] Lymphocytes/100 WBC (Bld) 11.1 % Low 19-41 [facility] Comment on above: Performed By: #### L 100.0100, L101.9900, L500.4050, L501.6710 #### [facility] [address] [place], [address] MCH (RBC) [Entitic mass] 30.1 pg Normal 27.0-32.0 [facility] Comment on above: Performed By: #### L 100.0100, L101.9900, L500.4050, L501.6710 #### [facility] [address] [place], [address] MCHC (RBC) [Mass/Vol] 31.8 g/dL Low 32-36 [facility] Comment on above: Performed By: #### L 100.0100, L101.9900, L500.4050, L501.6710 #### [facility] [address] [place], [address] MCV (RBC) [Entitic vol] 94.9 fL Normal 81-99 [facility] Comment on above: Performed By: #### L 100.0100, L101.9900, L500.4050, L501.6710 #### [facility] [address] [place], [address] Monocytes/100 WBC (Bld) 10.7 % High 0-10 [facility] Comment on above: Performed By: #### L 100.0100, L101.9900, L500.4050, L501.6710 #### [facility] [address] [place], [address] Neutrophils/100 WBC (Bld) 73.6 % High 47-70 [facility] Comment on above: Performed By: #### L 100.0100, L101.9900, L500.4050, L501.6710 #### [facility] [address] [place], [address] Nucleated RBC (Bld) [#/Vol] 0 10*3/uL Normal 0-5 [facility] Comment on above: Performed By: #### L 100.0100, L101.9900, L500.4050, L501.6710 #### [facility] [address] [place], [address] Platelet mean volume (Bld) [Entitic vol] 9.2 fL Normal 6.2-12.0 [facility] Comment on above: Performed By: #### L 100.0100, L101.9900, L500.4050, L501.6710 #### [facility] [address] [place], [address] Platelets (Bld) [#/Vol] 240 10*3/uL Normal 150-450 [facility] Comment on above: Performed By: #### L 100.0100, L101.9900, L500.4050, L501.6710 #### [facility] [address] [place], [address] RBC (Bld) [#/Vol] 4.68 10*6/uL Normal 4.2-5.4 [facility] Comment on above: Performed By: #### L 100.0100, L101.9900, L500.4050, L501.6710 #### [facility] [address] [place], [address] RDW SD 45.3 fl High 35.1-43.9 [facility] Comment on above: Performed By: #### L 100.0100, L101.9900, L500.4050, L501.6710 #### [facility] [address] [place], [address] WBC (Bld) [#/Vol] 7.3 10*3/uL Normal 4.4-11.0 [facility] Comment on above: Performed By: #### L 100.0100, L101.9900, L500.4050, L501.6710 #### [facility] [address] [place], [address] CRPon 04-11-2024 C-REACTIVE PROT 24.20 mg/L High 0.0-3.0 [facility] Comment on above: Result Comment: C-Re active Protein (CRP) provides useful information for the diagnosis, therapy and monitoring of inflammatory processes and associated diseases. For the evaluation of Relative Risk for Cardiovascular Disease, a High Sensitivity CRP (HSCRP) should be ordered. Performed By: #### L 100.0100, L101.9900, L500.4050, L501.6710 #### [facility] [address] [place], [address] Carbon dioxide measurementOr dered By: Daniel Guzman on 04-11-2024 CO2 [Moles/Vol] 26.0 mmol/L 21.0-32.0 [facility] Chest PA and Lateralon 04-11 Chest PA and Lateral [facility] Imaging Services [address] [place] [address] Chest PA and Lateral MR#: [id number] Acct: [id number] Name: CELI BUCK Rep #: [id number] : 1950 F 74 From: Kaiden bonilla MD PCP: ZAK Miller Status: REG CLI Study: Chest PA and Lateral Date of Exam: 04/11/24 Exam# [id number] Ordering Dr: Daniel Guzman PROCEDURE: CHEST PA AND LATERAL REASON FOR [...] No acute abnormality is seen. Reading Location: [place] [address] CC: ZAK Guzman Return To Vendor: Signed Normal [facility] Chloride measurementOrdered By: Daniel Guzman on 04-11-2024 Chloride [Moles/Vol] 106 mmol/L 98-107 [facility] Comprehensive Metabolic Prof ilon 04-11-2024 Albumin [Mass/Vol] 3.8 g/dL Normal 3.2-5.0 [facility] Comment on above: Performed By: #### L 100.0100, L101.9900, L500.4050, L501.6710 #### [facility] [address] [place], [address] Albumin/Globulin [Mass ratio] 0.9 {ratio} Normal 0.9-2.4 [facility] Comment on above: Performed By: #### L 100.0100, L101.9900, L500.4050, L501.6710 #### [facility] [address] [place], [address] ALK P 119 U/L High 45-117 [facility] Comment on above: Performed By: #### L 100.0100, L101.9900, L500.4050, L501.6710 #### [facility] [address] [place], [address] ALT [Catalytic activity/Vol] 33 U/L Normal 13-56 [facility] Comment on above: Performed By: #### L 100.0100, L101.9900, L500.4050, L501.6710 #### [facility] [address] [place], [address] AST [Catalytic activity/Vol] 23 U/L Normal 15-37 [facility] Comment on above: Performed By: #### L 100.0100, L101.9900, L500.4050, L501.6710 #### [facility] [address] [place], [address] Bilirubin [Mass/Vol] 0.60 mg/dL Normal 0.20-1.00 [facility] Comment on above: Result Comment: For patients on eltrombopag therapy, use of Dimension Hope TBIL is not recommended. Performed By: #### L 100.0100, L101.9900, L500.4050, L501.6710 #### [facility] [address] [place], [address] BUN/CRE 7.6 RATIO Low 10-20 [facility] Comment on above: Performed By: #### L 100.0100, L101.9900, L500.4050, L501.6710 #### [facility] [address] [place], [address] CA,Total 9.5 mg/dL Normal 8.5-10.1 [facility] Comment on above: Performed By: #### L 100.0100, L101.9900, L500.4050, L501.6710 #### [facility] [address] [place], [address] Chloride [Moles/Vol] 106 mmol/L Normal 98-107 [facility] Comment on above: Performed By: #### L 100.0100, L101.9900, L500.4050, L501.6710 #### [facility] [address] [place], [address] CO2 [Moles/Vol] 26.0 mmol/L Normal 21.0-32.0 [facility] Comment on above: Performed By: #### L 100.0100, L101.9900, L500.4050, L501.6710 #### [facility] [address] [place], [address] Creatinine [Mass/Vol] 1.05 mg/dL High 0.55-1.02 [facility] Comment on above: Result Comment: The validity of the calculated GFR GFRAA in patients over 70 years has not been determined. Clinical correlation is essential. Performed By: #### L 100.0100, L101.9900, L500.4050, L501.6710 #### [facility] [address] [place], [address] EST GFR - AA 66 mL/min Normal >60 [facility] Comment on above: Result Comment: Afri can [place] GFR Calc Performed By: #### L 100.0100, L101.9900, L500.4050, L501.6710 #### [facility] [address] [place], [address] GAP 7 Normal 5-15 [facility] Comment on above: Performed By: #### L 100.0100, L101.9900, L500.4050, L501.6710 #### [facility] [address] [place], [address] GFR/1.73 sq M.predicted among non-blacks MDRD (S/P/Bld) [Vol rate/Area] 55 mL/min/{1.73_m2} Low >60 [facility] Comment on above: Result Comment: Non- GFR Calc Performed By: #### L 100.0100, L101.9900, L500.4050, L501.6710 #### [facility] [address] [place], [address] Globulin (S) [Mass/Vol] 4.2 g/dL Normal 2.2-4.2 [facility] Comment on above: Performed By: #### L 100.0100, L101.9900, L500.4050, L501.6710 #### [facility] [address] [place], [address] Glucose [Mass/Vol] 88 mg/dL Normal 74-106 [facility] Comment on above: Performed By: #### L 100.0100, L101.9900, L500.4050, L501.6710 #### [facility] [address] [place], [address] Potassium [Moles/Vol] 3.8 mmol/L Normal 3.5-5.1 [facility] Comment on above: Performed By: #### L 100.0100, L101.9900, L500.4050, L501.6710 #### [facility] [address] [place], [address] Sodium [Moles/Vol] 139 mmol/L Normal 136-145 [facility] Comment on above: Performed By: #### L 100.0100, L101.9900, L500.4050, L501.6710 #### [facility] [address] [place], [address] T PROT 8.0 g/dL Normal 6.4-8.2 [facility] Comment on above: Performed By: #### L 100.0100, L101.9900, L500.4050, L501.6710 #### [facility] [address] [place], [address] Urea nitrogen [Mass/Vol] 8 mg/dL Normal 7-18 [facility] Comment on above: Performed By: #### L 100.0100, L101.9900, L500.4050, L501.6710 #### [facility] [address] [place], [address] Eosinophil percentageOrdered By: Daniel Guzman on 04-11-2024 Eosinophils/100 WBC (Bld) 3.9 % 0-5 [facility] Erythrocyte Sed Rateon 04-11 SED RATE 6 mm/hr Normal 0-30 [facility] Comment on above: Performed By: #### L 100.0100, L101.9900, L500.4050, L501.6710 #### [facility] [place], [address] Erythrocyte distribution wid th ratioOrdered By: Daniel Guzman on 04-11-2024 Erythrocyte distribution width (RBC) [Ratio] 13.0 % 11.6-14.6 [facility] Erythrocyte distribution wid th standard deviationOrdered By: Daniel Guzman on 04-11-2024 Erythrocyte distribution width (RBC) [Entitic vol] 45.3 fL High 35.1-43.9 [facility] Erythrocyte sedimentation ra teOrdered By: Daniel Guzman on 04-11-2024 ESR (Bld) [Velocity] 6 mm/h 0-30 [facility] Estimated glomerular filtrat ion rate (GFR) AmericanOrdered By: Daniel Guzman on 04-11-2024 Estimated GFR (MDRD) Amer 66 mL/min >60 [facility] Comment on above: GFR Calc Glomerular filtration rate ( GFR) estimationOrdered By: Daniel Guzman on 04-11-2024 Estimated GFR (MDRD) Non-Af Amer 55 mL/min Low >60 [facility] Comment on above: Non- GFR Calc Glucose measurementOrdered B y: Daniel Guzman on 04-11-2024 Glucose [Mass/Vol] 88 mg/dL 74-106 [facility] Hematocrit Auto (Bld) [Volum e fraction]Ordered By: Daniel Guzman on 04-11-2024 Hematocrit (Bld) [Volume fraction] 44.4 % 37-47 [facility] Hemoglobin measurementOrdere d By: Daniel Guzman on 04-11-2024 Hemoglobin (Bld) [Mass/Vol] 14.1 g/dL 12.0-15.0 [facility] Immature granulocytes/100 WB C Auto (Bld)Ordered By: Daniel Guzman on 04-11-2024 Immature granulocytes/100 WBC (Bld) 0.300 % 0.0-0.9 [facility] Comment on above: IG% - Immature Granu locytes (promyelocytes, myelocytes and metamyelocytes) > 1% indicates that a LEFT SHIFT is Present. Laboratory - Chemistry and C hemistry - challengeOrdered By: Daniel Guzman on 04-11-2024 AST [Catalytic activity/Vol] 23 U/L 15-37 [facility] Lymphocytes Auto (Unsp spec) [#/Vol]Ordered By: Daniel Guzman on 04-11-2024 Lymphocytes (Bld) [#/Vol] 0.81 10*3/uL Low 0.83-4.51 [facility] Lymphocytes/100 WBC Auto (Un sp spec)Ordered By: Daniel Guzman on 04-11-2024 Lymphocytes/100 WBC (Bld) 11.1 % Low 19-41 [facility] MCV (mean corpuscular volume ) determinationOrdered By: Daniel Guzman on 04-11-2024 MCV (RBC) [Entitic vol] 94.9 fL 81-99 [facility] Mean corpuscular hemoglobin (MCH) determinationOrdered By: Daniel Guzman on 04-11-2024 MCH (RBC) [Entitic mass] 30.1 pg 27.0-32.0 [facility] Mean corpuscular hemoglobin concentration (MCHC) determinationOrdered By: Daniel Guzman on 04-11-2024 MCHC (RBC) [Mass/Vol] 31.8 g/dL Low 32-36 [facility] Mean platelet volume determi nationOrdered By: Daniel Guzman on 04-11-2024 Platelet mean volume (Bld) [Entitic vol] 9.2 fL 6.2-12.0 [facility] Monocyte percentageOrdered B y: Daniel Guzman on 04-11-2024 Monocytes/100 WBC (Bld) 10.7 % High 0-10 [facility] Neutrophil percentageOrdered By: Daniel Guzman on 04-11-2024 Neutrophils/100 WBC (Bld) 73.6 % High 47-70 [facility] Nucleated red blood cell per centageOrdered By: Daniel Guzman on 04-11-2024 Nucleated RBC/100 WBC (Bld) [Ratio] 0 % 0-5 [facility] Platelet countOrdered By: Sallie Guzman on 04-11-2024 Platelets (Bld) [#/Vol] 240 10*3/uL 150-450 [facility] Potassium measurementOrdered By: Daniel Guzman on 04-11-2024 Potassium [Moles/Vol] 3.8 mmol/L 3.5-5.1 [facility] RBC Auto (Bld) [#/Vol]Ordere d By: Daniel Guzman on 04-11-2024 RBC (Bld) [#/Vol] 4.68 10*6/uL 4.2-5.4 [facility] Serum anion gap measurementO rdered By: Daniel Guzman on 04-11-2024 Anion gap [Moles/Vol] 7 mmol/L 5-15 [facility] Serum globulin measurementOr dered By: Daniel Guzman on 04-11-2024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 BILAT MR#: [id number] Acct: [id number] Name: CELI BUCK Rep #: [id number] : 1950 F 73 From: Kaiden bonilla MD PCP: ZAK Miller Status: REG [facility] Study: SCRN MAMM (CAD)W/NATE BILAT Date of Exam: 10/21 09/11 Exam# [id number] Ordering Dr: Daniel Guzman [id number] MAMMOGRAPHY - BILATERAL SCREENING REASON FOR EXAM: [...] delay biopsy of a clinically suspicious abnormality. [id number] Electronically Signed: Kaiden Baxter MD at 9:41 EDT , CC: ZAK Guzman Return To Vendor: Signed Normal [facility] CNOVon 08-04-2023 [facility] Office Visit (UCWSTR) CELI BUCK ([id number]) 1950 F ELIECER Date Time Provider Department 08/04/23 1:30 PM [facility]IL[facility] During your visit today, we recorded the following information about you: Temperature Pulse Respiration Blood pressure 97.2 degrees 81/minute 18/minute 153/72 Weight 56.1 kg Danilo Santa APRN.HAT BAND ATTACHER 08/04/2023 1:58 PM Signed This note was created using Claritureriter. Subjective Celi Buck is a 73 year [...] if symptoms persist or worsen. Danilo Santa APRN.HAT BAND ATTACHER Allergies As of Date: 08/04/2023 Noted Allergy [...] sinusitis [J32.9, B96.89] Order(s):STREP A MOLECULAR (POC) [7247951] Order #: [id number]. #:[id number] amoxicillin-clavulan ate potassium (AUGMENTIN) 875-125 mg per [...] for Encounter Date Provider Department Center 08/04/2023 [id number] DANILO UCWSTR [facility] DANDRE Encounter Status:Closed by DANILO SANTA on 08/04/23 Normal [facility] STREP A MOLECULAR (POC)on Procedural Control Valid [facility] Strep A (POCT) Negative Negative [facility] Progress Noteson 06-07-2023 Second Steward Authentication Interface Message Text 73-year-old female here [...] no complications. Sterile dressing applied. Normal [employer] [facility] Rapid Strep Test, Office ([phone])Ordered By: Nancy Quintanilla on 04-24-2022 S. pyogenes Ag EIA Ql (Throat) Negative Normal [facility] Work Phone: COVID 19 (ONLY) RAPID ([id number] )Ordered By: Nancy Quintanilla on 04-17-2022 SARS-CoV-2 (COVID-19) RNA MAGO+probe Ql (Unsp spec) Negative Normal [facility]; [facility] Work Phone: Inhouse FLU A+B DIRECT AG, ( RAPID) ([id number])Ordered By: Nancy Quintanilla on 04-17-2022 FLUAV+FLUBV Ag Ql (Unsp spec) Negative Normal [facility]; [facility] Work Phone: THROAT CULTURE ([id number])Ordere d By: Benefit Specialist on 04-17-2022 Bacteria identified Respiratory culture Nom (Unsp spec) Final report Normal [facility]; [facility] Work Phone: Comment on above: PERFORMED BY: [employer] [place] [id number] Information: SRC:TH Bacteria identified Respiratory culture Nom (Unsp spec) RRF Normal [facility]; [facility] Work Phone: Comment on above: Routine respiratory rafia PERFORMED BY: [employer] [place] [id number] Information: SRC:TH Rapid Flu (60779 x 2)on FLUAV Ag IA Ql (Throat) Negative Normal [facility]; [facility] Work Phone: Rapid Strep Test, Office ([phone])on 12-28-2021 S. pyogenes Ag EIA Ql (Throat) Negative Normal [facility]; [facility] Work Phone: THROAT CULTURE ([id number])Ordere d By: Benefit Specialist on 12-28-2021 Bacteria identified Respiratory culture Nom (Unsp spec) Final report Normal [facility]; [facility] Work Phone: Comment on above: PATIENT NOT FASTINGP ERFORMED BY: [employer] [facility] [id number] Information: SRC: Bacteria identified Respiratory culture Nom (Unsp spec) RRF Normal [facility]; [facility] Work Phone: Comment on above: Routine respiratory rafia PATIENT NOT FASTINGP ERFORMED BY: MOON [facility] [id number] [place] [id number] Information: SRC: XR Chest PA and Lateralon IMPRESSION: No acute radiographic abnormality. Return To Vendor: [employer] Transcribe Date/Time: Dec 26 2021 8:29A Dictated by : DMITRY CAIN MD This examination was interpreted and the report reviewed and electronically signed by: DMITRY CAIN MD on Dec 26 2021 8:30AM [facility] DIVISION OF RADIOLOGY * * *Final Report* [...] left upper quadrant. DIVISION OF RADIOLOGY Provider, [facility] [place] - 12/26/2021 * * *Final Report* * [...] quadrant. IMPRESSION IMPRESSION: No acute radiographic abnormality. Return To Vendor: [facility] Transcribe Date/Time: Dec 26 2021 8:29A Dictated by : DMITRY CAIN MD This examination was interpreted and the report reviewed and electronically signed by: DMITRY CAIN MD on Dec 26 2021 8:30AM EST [facility] XR Chest PA and LateralOrder ed By: Cc Provider on 12-26-2021 [facility] XR Clavicle - right 2 Viewso n 12-26-2021 IMPRESSION: Right clavicle intact. Return To Vendor: [facility] Transcribe Date/Time: Dec 26 2021 7:38A Dictated by : BAYLEE CAMARA MD This examination was interpreted and the report reviewed and electronically signed by: BAYLEE CAMARA MD on Dec 26 2021 7:40AM [facility] DIVISION OF RADIOLOGY * * *Final Report* [...] upper ribs fractures. DIVISION OF RADIOLOGY Provider, [facility] [place] - 12/26/2021 * * *Final Report* * [...] ribs fractures. IMPRESSION IMPRESSION: Right clavicle intact. Return To Vendor: [employer] Transcribe Date/Time: Dec 26 2021 7:38A Dictated by : BAYLEE CAMARA MD This examination was interpreted and the report reviewed and electronically signed by: BAYLEE CAMARA MD on Dec 26 2021 7:40AM EST [facility] XR Clavicle - right 2 ViewsO rdered By: Ccf Provider on 12-26-2021 [facility] No Panel Informationon 12-23 Radiology Study observation (narrative) [facility] CT CHEST WO IVCONon 10-15-19 [facility] ECG COMPLETEon 10-13-2021 Atrial Rate 78 BPM [facility] Calculated P Rillito 52 degrees [facility] Calculated R Rillito 10 degrees [facility] Calculated T Rillito 44 degrees [facility] P-R Interval 158 ms [facility] QRS Duration 84 ms [facility] QT Interval 386 ms [facility] QTC Calculation (Bazett) 440 ms [facility] Ventricular Rate 78 BPM [facility] Phone Msgon 10-06-2021 Phone Msg - From: Concha Griffith MA Sent: 10/06/2021 09:08:44 EDT Subject: problems after D&c Caller Name: CELI BUCK; Caller Number: H patient calling states since her D/C last week she is bloated/cramping and having diarrhea. Advised pt she need to contact her DIRECTOR OF INSTRUMENTAL MUSIC since she is so recent after a procedure Patient calling back and states that she did speak with her DIRECTOR OF INSTRUMENTAL MUSIC and they told her it was not related to her D/C and to contact her GI doctor. Tried to schedule and appt and pt insistent that she needs an appt sooner than November. She was last seen 2019. HI Amanda, can do labs and stool ordered and put on cancellation list. would try a probiotic, align or [employer] [facility]. silvano Sent to for review: SHANIQUE DARBY PA-C Called pt. Pt on CX list. Pt will do blood/stool test. Per pt request lab orders emailed to [email or web address] Normal [facility] Basophil percentageon 2021 Chloride [Moles/Vol] 109 mmol/L 98-107 [facility] Work Phone: Glucose [Mass/Vol] 100 mg/dL 74-106 [facility] Work Phone: Comment on above: Fasting Glucose resu lt from 100 to 125 mg/dL suggests IMPAIRED HOMEOSTASIS per A.D.A. criteria. Potassium [Moles/Vol] 4.1 mmol/L 3.5-5.1 [facility] Work Phone: Sodium [Moles/Vol] 142 mmol/L 136-145 [facility] Work Phone: WBC (Bld) [#/Vol] 4.6 10*3/uL 4.4-11.0 [facility] Work Phone: Blood erythrocytes count (nu mber/volume)on 09-29-2021 RBC (Bld) [#/Vol] 4.34 10*6/uL 4.2-5.4 [facility] Work Phone: Blood hemoglobin measurement (mass/volume)on 09-29-2021 Hemoglobin (Bld) [Mass/Vol] 13.6 g/dL 12.0-15.0 [facility] Work Phone: Blood platelet mean volumeon 09-29-2021 Platelet mean volume (Bld) [Entitic vol] 9.1 fL 6.2-12.0 [facility] Work Phone: Determination of erythrocyte mean corpuscular volume (MCV)on 09-29-2021 MCV (RBC) [Entitic vol] 94.9 fL 81-99 [facility] Work Phone: Hematocrit Auto (Bld) [Volum e fraction]on 09-29-2021 Hematocrit (Bld) [Volume fraction] 41.2 % 37-47 [facility] Work Phone: Laboratory - Chemistry and C hemistry - challengeon 09-29-2021 CO2 [Moles/Vol] 30.0 mmol/L 21.0-32.0 [facility] Work Phone: Urea nitrogen/Creatinine [Mass ratio] 16.4 mg/mg 10-20 [facility] Work Phone: Laboratory - Hematology and Cell countson 09-29-2021 Erythrocyte distribution width (RBC) [Entitic vol] 49.4 fL 35.1-43.9 [facility] Work Phone: Erythrocyte distribution width (RBC) [Ratio] 14.1 % 11.6-14.6 [facility] Work Phone: MCH (RBC) [Entitic mass] 31.3 pg 27.0-32.0 [facility] Work Phone: MCHC Auto (RBC) [Mass/Vol]on 09-29-2021 MCHC (RBC) [Mass/Vol] 33.0 g/dL 32-36 [facility] Work Phone: No Panel Informationon 09-29 Estimated Creatinine Clearance Calc 34.18 ml/min [facility] Work Phone: Estimated GFR (MDRD) Amer 63 mL/min >60 [facility] Work Phone: Comment on above: GFR Calc Estimated GFR (MDRD) Non-Af Amer 52 mL/min >60 [facility] Work Phone: Comment on above: Non- GFR Calc Platelets bldon 09-29-2021 Platelets (Bld) [#/Vol] 209 10*3/uL 150-450 [facility] Work Phone: Serum or plasma calcium liana urement (mass/volume)on 09-29-2021 Calcium [Mass/Vol] 9.5 mg/dL 8.5-10.1 [facility] Work Phone: Serum or plasma creatinine m easurement (mass/volume)on 09-29-2021 Creatinine [Mass/Vol] 1.10 mg/dL 0.55-1.02 [facility] Work Phone: Comment on above: The validity of the calculated GFR & GFRAA in patients over 70 years has not been determined. Clinical correlation is essential. Serum or plasma urea nitroge n measurement (mass/volume)on 09-29-2021 Urea nitrogen [Mass/Vol] 18 mg/dL 7-18 [facility] Work Phone: Thin prep Papanicolaou smear with manual screeningon 09-29-2021 Thin prep Papanicolaou smear with manual screening 3 5-15 [facility] Work Phone: CT CHEST WO IVCONon 09-24-[address] CHEST WO IVCON * * *Final Report* * * DATE OF EXAM: Sep 23 2020 1:18PM [facility] [place]ST WO IVCON / [...] upper abdominal organs are unremarkable in appearance. Serging Machine Operator (topogram) images: No additional findings. IMPRESSION: Stable pulmonary nodularity. Vascular disease. Additional findings noted above. Return To Vendor: [facility] Transcribe Date/Time: Sep 24 2020 8:43A Dictated by : DANIELA MERCHANT MD This examination was interpreted and the report reviewed and electronically signed by: DANIELA MERCHANT MD on Sep 24 2020 8:50AM EST [id number] CN [facility] DIGITAL DIAGNOSTIC BILATERALOrdered By: Iris Clements on 08-19-2020 Patient Name: CELI BUCK Mammography ACCESSION EXAM DATE/TIME PROCEDURE ORDERING PROVIDER [id number] 08/19/2020 13:20 EDT MG Breast Tomosynthesis DO CLEMENTS CHRISTINE BI CPT code 11085 54222 Reason For Exam (MG Breast Tomosynthesis BI) [...] MG breast tomosynthesis bl scr performed at [facility]. May 26, 2015, bilateral MG breast tomosynthesis bl scr performed at [facility]. TISSUE DENSITY: BIRADS B - There are [...] images: BB's = Nipples; skin lesions Open ekwok = Palpable Mammography Report Line = Scar 2D digital mammography and tomosynthesis imaging were performed and reviewed with CAD. ASSESSMENT: Category 1 Negative RECOMMENDATION: Routine screening mammogram of both breasts in 1 year. . Report Dictated on --- Final --- Signed Date and Time: 08/19/2020 2:49 pm Signed by: MD SAMUEL, GAY Bajwa [facility] Work Phone: [facility] [place] Incoming Radiology Results From [employer] - 08/19/2020 3:54 PM EDT [facility]: [id number] Mammography ACCESSION EXAM DATE/TIME PROCEDURE ORDERING PROVIDER [id number] 08/19/2020 13:20 EDT MG Breast Tomosynthesis DO CLEMENTS CHRISTINE BI CPT code 46511 67504 Reason For Exam (MG Breast Tomosynthesis BI) [...] MG breast tomosynthesis bl scr performed at [facility]. May 26, 2015, bilateral MG breast tomosynthesis bl scr performed at [facility]. TISSUE DENSITY: BIRADS B - There are [...] images: BB's = Nipples; skin lesions Open ekwok = Palpable Mammography Report Line = Scar 2D digital mammography and tomosynthesis imaging were performed and reviewed with CAD. ASSESSMENT: Category 1 Negative RECOMMENDATION: Routine screening mammogram of both breasts in 1 year. . Report Dictated on --- Final --- Signed Date and Time: 08/19/2020 2:49 pm Signed by: MD BAKER KERISTEN L [facility] Work Phone: [facility] Work Phone: MG Breast Tomosynthesis Diag nostic BIon 08-19-2020 MG Breast Tomosynthesis Diagnostic BI Patient Name: CELI BUCK Mammography ACCESSION EXAM DATE/TIME PROCEDURE ORDERING PROVIDER [id number] 08/19/2020 13:20 EDT MG Breast Tomosynthesis DO CLEMENTS CHRISTINE BI CPT code 75638 70309 Reason For Exam (MG Breast Tomosynthesis BI) [...] MG breast tomosynthesis bl scr performed at [facility]. May 26, 2015, bilateral MG breast tomosynthesis bl scr performed at [facility]. TISSUE DENSITY: BIRADS B - There are [...] images: BB's = Nipples; skin lesions Open ekwok = Palpable Mammography Report Line = Scar 2D digital mammography and tomosynthesis imaging were performed and reviewed with CAD. ASSESSMENT: Category 1 Negative RECOMMENDATION: Routine screening mammogram of both breasts in 1 year. . Report Dictated on Final Signed Date and Time: 08/19/2020 2:49 pm Signed by: MD BAKER KERISTEN L [facility] Cancer Risk Surveyon 07-0 MG Cancer Risk Survey Patient Name: CELI BUCK Mammography ACCESSION EXAM DATE/TIME PROCEDURE ORDERING PROVIDER [id number] 08/19/2020 13:20 EDT MG Cancer Risk Survey DO CLEMENTS CHRISTINE Reason For Exam (MG Cancer Risk Survey) Lump in [facility] R22.32 Report Cancer Risk Assessment: This [...] 2:54 pm Signed by: DO LANDAVERDE RACHEL [facility] MG Cancer Risk SurveyOrdered By: Iris Clements on 08-19-2020 Patient Name: CELI BUCK Mammography ACCESSION EXAM DATE/TIME PROCEDURE ORDERING PROVIDER [id number] 08/19/2020 13:20 EDT MG Cancer Risk Survey DO CLEMENTS CHRISTINE Reason For Exam (MG Cancer Risk Survey) Lump in [facility] R22.32 Report Cancer Risk Assessment: This [...] by: DO LANDAVERDE RACHEL [facility] Work Phone: [facility] 08/19/2020 2:55 PM EDT Patient Name: CELI BUCK Mammography ACCESSION EXAM DATE/TIME PROCEDURE ORDERING PROVIDER [id number] 08/19/2020 13:20 EDT MG Cancer Risk Survey [...] by: DO LANDAVERDE RACHEL [facility] Work Phone: [facility] Work Phone: US Breast Limited Lefton US Breast Limited Left Patient Name: CELI BUCK Ultrasound ACCESSION EXAM DATE/TIME PROCEDURE ORDERING PROVIDER [id number] 08/19/2020 14:07 EDT US Breast Limited Left DO CLEMENTS CHRISTINE CPT code 14026 Reason For Exam (US Breast Limited Left) Palp Lt axillary lump Report This report was read in conjunction with Breast Nate Bl Final Signed Date and Time: 08/23/2020 1:52 pm Signed by: UNIT ASSEMBLER, SYSTEM Transcribed Date and Time: 08/23/2020 1:52 Transcribed By:LUCRECIA [facility] CT CHEST WO IVCONon 02-26-19 21 Radiology Result ACTIONABLE [facility] CT Low Dose Lung Diagnostico n 12-30-2019 CT Low Dose Lung Diagnostic Patient Name: CELI BUCK CT Exam Date/Time 12/29/2019 13:20:[address] Low Dose Thorax w/o Cont Ordering Physician DARRION ISLAS Accession Number [id number] CPT4 Codes 11063 (CT Low Dose Thorax w/o Cont) Reason [...] is not identified on the study from 2007 and there is no mention of this nodule on the outside CT report from 2012. There is a solid subpleural nodule medially [...] Transcribed Date and Time: 12/30/2019 3:40 Normal [facility] XR CHEST 1V FRONTALon 2019 XR CHEST [...] acute cardiopulmonary process. Findings suggestive of COPD. Return To Vendor: ROBERT Transcribe Date/Time: Nov 28 2019 7:10P Dictated by : WILLIAM DANIELSON MD This examination was interpreted and the report reviewed and electronically signed by: WILLIAM DANIELSON MD on Nov 28 2019 7:12PM EST Normal [facility] CULTURE URINEon 07-17-2019 CULTURE URINE CULTURE URINE --> Status: F No growth (<1,000 CFU/ml). Normal [facility] Comment on above: Performed By: #### H EPC, HBSAG, RPR, C/UR #### [facility] [address], [place] Hep B Surface Agon 0 Hep B Surface Ag NOT DETECTED Normal Not-Detecte d [facility] Comment on above: Performed By: #### H EPC, HBSAG, RPR, C/UR #### [place] [address], [place] Hep C Antibodyon 07-16-2019 Hep C Antibody NOT DETECTED Normal Not-Detecte d [facility] Comment on above: Result Comment: Arielle ents with DETECTED Hepatitis C Ab results should have a new specimen submitted for supplemental testing with a Hepatitis C Quantitative RNA assay (viral load), if clinically indicated. Performed By: #### H EPC, HBSAG, RPR, C/UR #### [place] [address], [place] RPR, Qualon 07-16-2019 RPR, Qual NONREACTIVE Normal Non-Reactiv e [facility] Comment on above: Performed By: #### H EPC, HBSAG, RPR, C/UR #### [place] [address], [place] US RETROPERITONEAL LIMITEDOr dered By: Gisell Espinoza on 01-31-2019 Patient Name: CELI BUCK ---Ultrasound--- Exam Date/Time 01/31/2019 14:11:41 EST Exam US Retroperitoneal Limited Ordering Physician GISELL ESPINOZA Accession Number [id number] CPT4 Codes 10456 () Reason For Exam Renal Report RENAL [...] 0.4 cm calculus. Report Dictated on Workstation: [email or web address] ([employer]) --- Final --- Dictated: 01/31/2019 2:20 pm Dictating Physician: MD BA BRIAN Signed Date and Time: 01/31/2019 2:22 pm Signed by: MD BA BRIAN Transcribed Date and Time: 01/31/2019 2:20 [facility] Work Phone: Julio C[facility]ar, [facility] - 01/31/2019 2:32 PM EST Patient Name: CELI BUCK ---Ultrasound--- Exam Date/Time 01/31/2019 14:11:41 EST Exam US Retroperitoneal Limited Ordering Physician GISELL ESPINOZA Accession Number [id number] CPT4 Codes 07238 () Reason For Exam Renal Report RENAL [...] 0.4 cm calculus. Report Dictated on Workstation: [email or web address] ([employer]) --- Final --- Dictated: 01/31/2019 2:20 pm [...] Physician MD DALTON SCOTT E. Accession Number [id number] CPT4 Codes 12009 (CT Abdomen/Pelvis w/ IV Contrast (IV Onl) [...] RUSSELL Transcribed Date and Time: 12/23/2018 9:35 [facility], [place] Julio César, [facility] - 12/23/2018 9:49 PM EST Patient Name: CELI BUCK ---CT--- Exam Date/Time 12/23/2018 21:25:[address] Abdomen/Pelvis w/ IV Contrast (IV Onl Ordering Physician MD DALTON SCOTT E. Accession Number [id number] CPT4 Codes 28618 (CT Abdomen/Pelvis w/ IV Contrast (IV Onl) [...] RUSSELL Transcribed Date and Time: 12/23/2018 9:35 [place], [place] Comprehensive Metabolic Pane bud 12-23-2018 Albumin [Mass/Vol] 4.9 g/dL 3.5 - 5 g/dL [place] ALP [Catalytic activity/Vol] 98 U/L 38 - 126 U/L [place] ALT [Catalytic activity/Vol] 28 U/L 13 - 69 U/L [place] Anion gap [Moles/Vol] 12 mmol/L [place] AST [Catalytic activity/Vol] 32 U/L 15 - 46 U/L [place] Bilirubin Ql (U) 0.6 mg/dL 0.2 - 1.3 mg/dL [place] Calcium [Mass/Vol] 9.6 mg/dL 8.4 - 10. 4 mg/dL [place] Chloride [Moles/Vol] 107 mmol/L 98 - 10 7 mmol/L [place] CO2 [Moles/Vol] 24 mmol/L 22 - 30 mmol/L [place] Creatinine [Mass/Vol] 1 mg/dL 0.52 - 1.25 mg/dL [place] EGFR IF NonAfrican [place] 55.2 mL/min >60 [place] Comment on above: Source- MDRD equatio n with creatinine calibration to IDMS(NKDEP) eGFR not recommended for drug dose adjustment GFR/1.73 sq M predicted among blacks MDRD (S/P/Bld) [Vol rate/Area] mL/min/{1.73_m2} >60 mL/min [place] Glucose [Mass/Vol] 95 mg/dL 70 - 100 mg/dL [place] Interpretation and review of laboratory results Abnormal [place] Potassium [Moles/Vol] 3.6 mmol/L 3.5 - 5.1 mmol/L [place] Protein [Mass/Vol] 8.3 g/dL High 6.3 - 8.2 g/dL [place] Sodium [Moles/Vol] 143 mmol/L 135 - 145 mmol/L [place] Urea nitrogen [Mass/Vol] 21 mg/dL High 7 - 20 mg/dL [place] Hemogram (CBC)on 12-23-2018 Erythrocyte distribution width (RBC) [Ratio] 12.8 % 11.5 - 14.5 % [place] Hematocrit (Bld) [Volume fraction] 41.8 % 35 - 47 % [place] Hemoglobin (Bld) [Mass/Vol] 14.4 g/dL 11.7 - 16 g/dL [place] Interpretation and review of laboratory results Abnormal [place] MCH (RBC) [Entitic mass] 31.3 pg 26 - 34 pg [place] MCHC (RBC) [Mass/Vol] 34.5 % 32 - 36 % [place] MCV (RBC) [Entitic vol] 90.9 fL 79 - 98 fL [place] Platelet mean volume (Bld) [Entitic vol] 7.2 fL Low 7.4 - 10.4 fL [place] Platelets (Bld) [#/Vol] 244 10*3/uL 140 - 440 10*3/uL [place] RBC (Bld) [#/Vol] 4.61 10*6/uL 3.8 - 5.2 10*6/uL [place] WBC (Bld) [#/Vol] 5.2 10*3/uL 3.6 - 10.7 10*3/uL [place] Test Performed by [facility], [address] [place] [id number] [place] [address] Lipaseon 12-23-2018 Lipase [Catalytic activity/Vol] 111 U/L 23 - 300 U/L [place] Otheron 12-23-2018 Test Performed by [facility], [address] [place] [address] Troponin x1on 12-23-2018 Troponin I.cardiac [Mass/Vol] ng/mL 0 - 0.034 ng/mL [place] Comment on above: . Test Performed by [facility], [address] [place] [address] Urinalysison 12-23-2018 Appearance (U) Cloudy Clear NA [place], [place] Bacteria, UA Many (51-100) Negative /[HPF] [place] Bilirubin Urine Negative Negative mg/dL [place] Color (U) YELLOW Lt. Yellow NA [place] Glucose, Ur Normal Normal (<70) mg/dL [place] Ketones Ql (U) Negative Negative mg/dL [place] LEUKOCYTES, UA 250 Negative Es/uL [place] Nitrite, Urine Negative Negative NA [place] Non-Squamous Epithelial 0-2 Nega tive /[HPF] [place] Occult Blood,Urine Negative Negative mg/dL [place] pH (U) 5.0 [pH] [place] Protein (U) [Mass/Vol] Negative Negat everardo mg/dL [place] RBC (U) [#/Vol] 0-2 0 - 2 /[HPF] [place] Specific [place], Urine 1.025 M [place] Squam Epithel, UA 26-50 3 - 5 /[HPF] [place] Urobilinogen, Urine Normal Normal (0-1) mg/dL [place] WBC, UA 11-25 0 - 5 /[HPF] [place] Test Performed by [facility], [address] [place] [id number] [place] [address], [place] CR Hip w/ Pelvis Bilateral 5 + Viewson 08-30-2018 CR Hip w/ Pelvis Bilateral 5+ Views Patient Name: CELI BUCK Diagnostic Radiology Exam Date/Time 08/30/2018 12:45:00 EDT Exam CR Hip w/ Pelvis Bilateral 5+ View Ordering Physician KELSI GOLDMAN D.O. Accession Number [id number] CPT4 Codes 16601 () Reason For Exam Bilateral hip pain [...] Transcribed Date and Time: 08/30/2018 5:52 Normal [facility] CR Shoulder 2+ Views Righton 08-30-2018 CR Shoulder 2+ Views Right Patient Name: CELI BUKC Diagnostic Radiology Exam Date/Time 08/30/2018 12:45:00 EDT Exam CR Shoulder 2+ Views Right Ordering Physician KELSI GOLDMAN D.O. Accession Number [id number] CPT4 Codes 37390 () Reason For Exam Pain in right [...] Transcribed Date and Time: 08/30/2018 5:54 Normal [facility] CR Wrist Complete 3 Views Le ophelia 08-30-2018 CR Wrist Complete 3 Views Left Patient Name: CELI BUCK Diagnostic Radiology Exam Date/Time 08/30/2018 12:45:00 EDT Exam CR Wrist Complete 3 Views Left Ordering Physician KELSI GOLDMAN D.O. Accession Number [id number] CPT4 Codes 27886 () Reason For Exam BILATERAL WRIST PAIN [...] Transcribed Date and Time: 08/30/2018 5:52 Normal [facility] CR Wrist Complete 3 Views Dhiraj griffith 08-30-2018 CR Wrist Complete 3 Views Right Patient Name: CELI BUCK Diagnostic Radiology Exam Date/Time 08/30/2018 12:45:00 EDT Exam CR Wrist Complete 3 Views Right Ordering Physician KELSI GOLDMAN D.O. Accession Number [id number] CPT4 Codes 47607 () Reason For Exam Pain in right [...] Transcribed Date and Time: 08/30/2018 5:53 Normal [facility] Clinical Summary: HMSPatient IDon 07-05-2017 OOP Invalid Interpretation Code [facility] Work Phone: Office Visit: New/Est - 1st visit with physician, Rm: 1007-05-2017 NEGATED: Highlighted rowDocumentation of current medications (procedure) Done Invalid Interpretation Code [facility] Work Phone: Vital Signs Date Time Vital Sign Value Performing Clinician Facility 08-04-2023 13:30-0400 Body mass index (BMI) [Ratio] 24.48 kg/m2 Danilo Santa APRN.SAMI Work Phone: [facility] 08-04-2023 13:30-0400 Body temperature 97.2 [degF] Danilo Santa APRN.HAT BAND ATTACHER Work Phone: [facility] 08-04-2023 13:30-0400 Body weight 56.1 kg Danilo Santa APRN.HAT BAND ATTACHER Work Phone: [facility] 08-04-2023 13:30-0400 Diastolic blood pressure 72 mm[Hg] Danilo Santa APRN.HAT BAND ATTACHER Work Phone: [facility] 08-04-2023 13:30-0400 Heart rate 81 /min Danilo Santa APRN.HAT BAND ATTACHER Work Phone: [facility] 08-04-2023 13:30-0400 Respiratory rate 18 /min Danilo Santa APRN.HAT BAND ATTACHER Work Phone: [facility] 08-04-2023 13:30-0400 SaO2% (BldA) [Mass fraction] 98 % Danilo Santa APRN.HAT BAND ATTACHER Work Phone: [facility] 08-04-2023 13:30-0400 Systolic blood pressure 153 mm[Hg] Danilo Santa APRN.HAT BAND ATTACHER Work Phone: [facility] 05-18-2022 15:41-0400 Body temperature 98.71 [degF] Con Lynn MD Work Phone: [facility] 05-18-2022 15:41-0400 Body weight 57.2 kg Con Lynn MD Work Phone: [facility] 05-18-2022 15:41-0400 Diastolic blood pressure 73 mm[Hg] Con Lynn MD Work Phone: [facility] 05-18-2022 15:41-0400 Heart rate 78 /min Con Lynn MD Work Phone: [facility] 05-18-2022 15:41-0400 Respiratory rate 18 /min Con Lynn MD Work Phone: [facility] 05-18-2022 15:41-0400 SaO2% (BldA) [Mass fraction] 97 % Con Lynn MD Work Phone: [facility] 05-18-2022 15:41-0400 Systolic blood pressure 109 mm[Hg] Con Lynn MD Work Phone: [facility] 04-24-2022 11:46-0500 Body height 152.4 cm Nancy Quintanilla LPN [facility] Work Phone: 04-24-2022 11:46-0500 Body mass index (BMI) [Ratio] 25.19 kg/m2 Nancy Quintanilla LPN [facility] Work Phone: 04-24-2022 11:46-0500 Body surface area Derived from formula 1.55 m2 Nancy Quintanilla LPN [facility] Work Phone: 04-24-2022 11:46-0500 Body temperature 97.7 [degF] Nancy Slarb FRAME POLISHER [facility] Work Phone: Comment on above: Method: Temporal 04-24-2022 11:46-0500 Body weight 58.51 kg Nancy Slarb FRAME POLISHER [facility] Work Phone: 04-24-2022 11:46-0500 Diastolic blood pressure 80 mm[Hg] Nancy Slarb FRAME POLISHER [facility] Work Phone: Comment on above: Patient Position: Si tting; Cuff Location: Left Arm; Cuff Size: Standard 04-24-2022 11:46-0500 Heart rate 82 /min Nancy Slarb FRAME POLISHER [facility] Work Phone: Comment on above: Pattern: Regular 04-24-2022 11:46-0500 Respiratory rate 17 /min Nancy Slarb FRAME POLISHER [facility] Work Phone: Comment on above: Pattern: Unlabored 04-24-2022 11:46-0500 SaO2% (BldA) [Mass fraction] 97 % Nancy Slarb FRAME POLISHER [facility] Work Phone: Comment on above: Room air 04-24-2022 11:46-0500 Systolic blood pressure 124 mm[Hg] Nancy Slarb FRAME POLISHER [facility] Work Phone: Comment on above: Patient Position: Si tting; Cuff Location: Left Arm; Cuff Size: Standard 04-17-2022 14:50-0500 Body height 152.4 cm Nancy Slarb FRAME POLISHER [facility] Work Phone: 04-17-2022 14:50-0500 Body mass index (BMI) [Ratio] 25.19 kg/m2 Nancy Slarb FRAME POLISHER [facility] Work Phone: 04-17-2022 14:50-0500 Body surface area Derived from formula 1.55 m2 Nancy Slarb FRAME POLISHER [facility] Work Phone: 04-17-2022 14:50-0500 Body temperature 97.3 [degF] Nancy Martinezrb FRAME POLISHER [facility] Work Phone: Comment on above: Method: Temporal 04-17-2022 14:50-0500 Body weight 58.51 kg Nancy Martinezrb FRAME POLISHER [facility] Work Phone: 04-17-2022 14:50-0500 Diastolic blood pressure 82 mm[Hg] Nancy Juanrb FRAME POLISHER [facility] Work Phone: Comment on above: Patient Position: Si tting; Cuff Location: Left Arm; Cuff Size: Standard 04-17-2022 14:50-0500 Heart rate 72 /min Nancy Juanrb FRAME POLISHER [facility] Work Phone: Comment on above: Pattern: Regular 04-17-2022 14:50-0500 Respiratory rate 16 /min Nancy Juanrb FRAME POLISHER [facility] Work Phone: Comment on above: Pattern: Unlabored 04-17-2022 14:50-0500 SaO2% (BldA) [Mass fraction] 98 % Nancy Slarb FRAME POLISHER [facility] Work Phone: Comment on above: Room air 04-17-2022 14:50-0500 Systolic blood pressure 140 mm[Hg] Nancy Martinezrb FRAME POLISHER [facility] Work Phone: Comment on above: Patient Position: Si tting; Cuff Location: Left Arm; Cuff Size: Standard 01-27-2022 11:20-0500 Body height 152.4 cm [facility] Work Phone: 01-27-2022 11:20-0500 Body mass index (BMI) [Ratio] 25.19 kg/m2 [facility] Work Phone: 01-27-2022 11:20-0500 Body surface area Derived from formula 1.55 m2 [facility] Work Phone: 01-27-2022 11:20-0500 Body temperature 97.4 [degF] Miguel Delgado [facility] Work Phone: 01-27-2022 11:20-0500 Body weight 58.51 kg Miguel Delgado [facility] Work Phone: 01-27-2022 11:20-0500 Diastolic blood pressure 78 mm[Hg] Miguel Delgado [facility] Work Phone: Comment on above: Patient Position: Si tting; Cuff Location: Left Arm; Cuff Size: Standard 01-27-2022 11:20-0500 Heart rate 71 /min [facility] Work Phone: Comment on above: Pattern: Regular 01-27-2022 11:20-0500 Respiratory rate 16 /min [facility] Work Phone: Comment on above: Pattern: Unlabored 01-27-2022 11:20-0500 SaO2% (BldA) [Mass fraction] 98 % [facility] Work Phone: Comment on above: Room air 01-27-2022 11:20-0500 Systolic blood pressure 120 mm[Hg] [facility] Work Phone: Comment on above: Patient Position: Si tting; Cuff Location: Left Arm; Cuff Size: Standard 12-28-2021 14:31-0500 Body height 152.4 cm Nancy Slarb [facility] Work Phone: 12-28-2021 14:31-0500 Body mass index (BMI) [Ratio] 24.41 kg/m2 Nancy Slarb FRAME POLISHER [facility] Work Phone: 12-28-2021 14:31-0500 Body surface area Derived from formula 1.53 m2 Nancy Slarb FRAME POLISHER [facility] Work Phone: 12-28-2021 14:31-0500 Body temperature 98.6 [degF] Nancy Quintanilla FRAME POLISHER [facility] Work Phone: 12-28-2021 14:31-0500 Body weight 56.7 kg Nancy Quintanilla FRAME POLISHER [facility] Work Phone: 12-28-2021 14:31-0500 Diastolic blood pressure 76 mm[Hg] Nancy Quintanilla FRAME POLISHER [facility] Work Phone: Comment on above: Patient Position: Si tting; Cuff Location: Left Arm; Cuff Size: Standard 12-28-2021 14:31-0500 Heart rate 86 /min Nancy Quintanilla FRAME POLISHER [facility] Work Phone: Comment on above: Pattern: Regular 12-28-2021 14:31-0500 Respiratory rate 17 /min Nancy Quintanilla FRAME POLISHER [facility] Work Phone: Comment on above: Pattern: Unlabored 12-28-2021 14:31-0500 SaO2% (BldA) [Mass fraction] 98 % Nancy Quintanilla FRAME POLISHER [facility] Work Phone: Comment on above: Room air 12-28-2021 14:31-0500 Systolic blood pressure 132 mm[Hg] Nancy Quintanilla FRAME POLISHER [facility]; [facility] Work Phone: Comment on above: Patient Position: Si tting; Cuff Location: Left Arm; Cuff Size: Standard 12-22-2021 11:58-0400 Body weight 57.15 kg Afsaneh Combss MARKETING AUTOMATION MANAGER.PRESS OPERATOR [employer] Work Phone: [facility] 12-22-2021 11:58-0400 Diastolic blood pressure 62 mm[Hg] Afsaneh Mac MARKETING AUTOMATION MANAGER.PRESS OPERATOR [employer] Work Phone: [facility] 12-22-2021 11:58-0400 Heart rate 88 /min Afsaneh Mac MARKETING AUTOMATION MANAGER.PRESS OPERATOR [employer] Work Phone: [facility] 12-22-2021 11:58-0400 Respiratory rate 16 /min Afsaneh Combss MARKETING AUTOMATION MANAGER.PRESS OPERATOR [employer] Work Phone: [facility] 12-22-2021 11:58-0400 SaO2% (BldA) [Mass fraction] 99 % Afsaneh Mac MARKETING AUTOMATION MANAGER.PRESS OPERATOR [employer] Work Phone: [facility] 12-22-2021 11:58-0400 Systolic blood pressure 104 mm[Hg] Afsanehmonique Mac MARKETING AUTOMATION MANAGER.PRESS OPERATOR [employer] Work Phone: [facility] 11-10-2021 11:32-0400 Body weight 56.25 kg Argelia Douglas MD Work Phone: [facility] 11-10-2021 11:32-0400 Diastolic blood pressure 68 mm[Hg] Argelia Douglas MD Work Phone: [facility] 11-10-2021 11:32-0400 Systolic blood pressure 110 mm[Hg] Argelia Douglas MD Work Phone: [facility] 11-04-2021 09:23-0400 Body weight 56.06 kg Brandi Pagan MARKETING AUTOMATION MANAGER.CNM Work Phone: [facility] 11-04-2021 09:23-0400 Diastolic blood pressure 78 mm[Hg] Brandi Pagan MARKETING AUTOMATION MANAGER.CNM Work Phone: [facility] 11-04-2021 09:23-0400 Systolic blood pressure 110 mm[Hg] Brandi Pagan MARKETING AUTOMATION MANAGER.CNM Work Phone: [facility] 10-12-2021 16:10-0400 Body height 151.4 cm Samy Avila MD Work Phone: [facility] 10-12-2021 16:10-0400 Body temperature 97.9 [degF] Samy Avila MD Work Phone: [facility] 10-12-2021 16:10-0400 Body weight 55.34 kg Samy Avila MD Work Phone: [facility] 10-12-2021 16:10-0400 Diastolic blood pressure 76 mm[Hg] Samy Avila MD Work Phone: [facility] 10-12-2021 16:10-0400 Heart rate 88 /min Samy Avila MD Work Phone: [facility] 10-12-2021 16:10-0400 Respiratory rate 16 /min Samy Avila MD Work Phone: [facility] 10-12-2021 16:10-0400 Systolic blood pressure 130 mm[Hg] Samy Avila MD Work Phone: [facility] 09-29-2021 16:22-0400 Body temperature 97.5 [degF] [facility] Work Phone: 09-29-2021 16:22-0400 Diastolic blood pressure 64 mm[Hg] [facility] Work Phone: 09-29-2021 16:22-0400 Heart rate 71 /min [facility] Work Phone: 09-29-2021 16:22-0400 Respiratory rate 16 /min [facility] Work Phone: 09-29-2021 16:22-0400 SaO2% (BldA) [Mass fraction] 100 % [facility] Work Phone: 09-29-2021 16:22-0400 Systolic blood pressure 125 mm[Hg] [facility] Work Phone: 09-29-2021 13:24-0400 Body height 152.4 cm [facility] Work Phone: 09-29-2021 13:24-0400 Body mass index (BMI) [Ratio] 23.8 kg/m2 [facility] Work Phone: 09-29-2021 13:24-0400 Body weight 55.33 kg [facility] Work Phone: 09-26-2021 13:10-0400 Body height 152.4 cm Vinita Tony MD Work Phone: [facility] 09-26-2021 13:10-0400 Body weight 56.25 kg Vinita Tony MD Work Phone: [facility] 09-26-2021 13:10-0400 Diastolic blood pressure 76 mm[Hg] Vinita Tony MD Work Phone: [facility] 09-26-2021 13:10-0400 Heart rate 80 /min Vinita Tony MD Work Phone: [facility] 09-26-2021 13:10-0400 Respiratory rate 16 /min Vinita Tony MD Work Phone: [facility] 09-26-2021 13:10-0400 Systolic blood pressure 104 mm[Hg] Vinita Tony MD Work Phone: [facility] 09-16-2021 10:49-0400 Body weight 56.25 kg Ynes Cesar APRN.HAT BAND ATTACHER Work Phone: [facility] 09-16-2021 10:49-0400 Diastolic blood pressure 80 mm[Hg] Ynes Cesar APRN.HAT BAND ATTACHER Work Phone: [facility] 09-16-2021 10:49-0400 Systolic blood pressure 142 mm[Hg] Ynes Cesar APRN.HAT BAND ATTACHER Work Phone: [facility] 09-14-2021 11:38-0400 Body weight 56.25 kg Ynes Cesar APRN.HAT BAND ATTACHER Work Phone: [facility] 09-14-2021 11:38-0400 Diastolic blood pressure 82 mm[Hg] Ynes Cesar APRN.HAT BAND ATTACHER Work Phone: [facility] 09-14-2021 11:38-0400 Systolic blood pressure 124 mm[Hg] Ynes Cesar APRN.HAT BAND ATTACHER Work Phone: [facility] 12-23-2018 21:46-0500 BP Diastolic 72 mm[Hg] [place], [place] 12-23-2018 21:46-0500 BP Systolic 142 mm[Hg] Justin Huber [facility] [place] 12-23-2018 21:46-0500 Pulse (Heart Rate) 72 /min Justin Huber [facility] [place] 12-23-2018 21:46-0500 Pulse Oximetry 98 % Justin Huber [facility] [place] 12-23-2018 21:46-0500 Respiratory Rate 20 /min Justin Huber [facility], [place] 12-23-2018 19:54-0500 BMI (Body Mass Index) 24.22 kg/m2 Justin Huber [facility], [place] 12-23-2018 19:54-0500 Body Temperature 98.29 [degF] Justin Huber [facility], [place] 12-23-2018 19:54-0500 Body weight 56.25 kg Justin Huber [facility] , [place] 12-23-2018 19:54-0500 Height 152.4 cm Justin Huber [place], [place] NEGATED: Highlighted [id number] 14:25-0400 BMI (Body Mass Index) 23.91 kg/m2 Sun Mcdermott [facility] Work Phone: NEGATED: Highlighted [id number] 14:25-0400 BP Diastolic 70 mm[Hg] Sunjackson Mcdermott [facility] Work Phone: NEGATED: Highlighted [id number] 14:25-0400 BP Systolic 113 mm[Hg] Sun Mcdermott [facility] Work Phone: NEGATED: Highlighted [id number] 14:25-0400 Height 152 cm Sun Sharron [facility] Work Phone: NEGATED: Highlighted [id number] 14:25-0400 Height 152.4 cm Sunjackson Mcdermott [facility] Work Phone: NEGATED: Highlighted [id number] 14:25-0400 Pulse (Heart Rate) 69 /min Sunjackson Mcdermott [facility] Work Phone: NEGATED: Highlighted [id number] 14:25-0400 Weight 55 kg Sun Mcdermott LPN [facility] Work Phone: NEGATED: Highlighted [id number] 14:25-0400 Weight 55.34 kg Sun Mcdermott LPN [facility] Work Phone: Encounters Encounter Date Encounter Type Care Provider Facility Start: 08-11-2024 End: 08-11-2024 ambulatory Daniel Guzman SHAFT REPAIRER-C Work Phone: -Ultrasound [facility] Start: 08-11-2024 End: 08-11-2024 Patient encounter procedure Daniel VINCENTC -Ultrasound [facility] Work Phone: Start: 08-11-2024 End: 08-11-2024 ambulatory Daniel Guzman Facility:[facility] Start: 07-24-2024 End: 07-24-2024 Subsequent hospital visit by physician Perry Greenwood [address] [place] [address] Comment on above: Hyperlipidemia, unsp ecified Start: 07-24-2024 End: 07-24-2024 ambulatory DANIEL Lucas [facility] Start: 06-25-2024 End: 06-25-2024 Orders Only Meg Ospina APRN.HAT BAND ATTACHER Work Phone: [facility] Comment on above: Abnormal finding of diagnostic imaging (Primary Dx) Start: 04-12-2024 End: 04-12-2024 Letter encounter Diana Lundberg MD Work Phone: [facility] Start: 04-11-2024 End: 04-11-2024 ambulatory Daniel Guzman NP-C Work Phone: [facility] Work Phone: Start: 04-11-2024 End: 04-11-2024 Patient encounter procedure Daniel VINCENTC -Radiology, [place] Work Phone: Start: 04-11-2024 End: 04-11-2024 ambulatory Daniel Guzman Facility:[facility] Start: 01-30-2024 End: 01-30-2024 Emergency department patient visit DANIEL GUZMAN Facility:[facility] Start: 01-06-2024 End: 01-06-2024 Emergency department patient visit BRICE SALMERON Facility:[facility] Start: 12-24-2023 End: 12-24-2023 ambulatory Daniel Thomas Facility:[facility] Start: 12-19-2023 End: 12-20-2023 Office outpatient visit 15 minutes Diana Lundberg MD Work Phone: [facility] Comment on above: Osteoarthritis of ca rpometacarpal (CMC) joints of both thumbs, unspecified osteoarthritis type (Primary Dx) Start: 12-19-2023 End: 12-24-2023 ambulatory UNKNOWN PROVIDER Facility:[facility] Start: 11-16-2023 End: 11-16-2023 ambulatory Daniel Guzman Facility:[facility] Start: 08-04-2023 End: 08-04-2023 ambulatory GUSTABO DENG Facility:[facility] Start: 08-04-2023 End: 08-04-2023 Patient encounter procedure Danilo Santa APRN.HAT BAND ATTACHER Work Phone: [facility] Comment on above: Sore throat (Primary Dx); Bacterial sinusitis Start: 06-06-2023 End: 06-07-2023 Office outpatient visit 25 minutes Diana Lundberg MD Work Phone: [facility] Comment on above: Osteoarthritis of ca rpometacarpal (CMC) joints of both thumbs, unspecified osteoarthritis type (Primary Dx); Trigger finger, unspecified finger, unspecified laterality Start: 06-06-2023 End: 06-07-2023 ambulatory UNKNOWN PROVIDER Facility:[facility] Start: 01-03-2023 ambulatory Gustabo vick MD Work Phone: [facility] [place] Start: 12-12-2022 End: 12-12-2022 Lab Order Daniel Guzman HAT BAND ATTACHER Work Phone: [facility] Start: 07-19-2022 End: 07-19-2022 Office outpatient visit 25 minutes Diana Lundberg MD Work Phone: [facility] Comment on above: Pain in both hands ( Primary Dx); Trigger finger, unspecified finger, unspecified laterality Start: 05-18-2022 End: 05-18-2022 ambulatory SHANIQUE CARMEN [facility] Start: 05-18-2022 End: 05-18-2022 Office outpatient new 45 minutes Con Lynn MD Work Phone: [facility] Comment on above: Laryngopharyngeal re flux (LPR) (Primary Dx); Xerostomia; Swollen uvula Start: 05-11-2022 Transcribe Orders Constance Velasquez MA [facility] [place] Comment on above: Swollen uvula (Prima ry [...] 04-20-2022 Letter encounter Diana Sinclair Work Phone: [facility] Start: 04-17-2022 End: 04-17-2022 Office outpatient visit 15 minutes Daniel Guzman CNP Work Phone: [facility] Start: 04-11-2022 End: 04-11-2022 Prescription Refill Daniel Guzman SAMI Work Phone: [facility] Start: 01-31-2022 End: 01-31-2022 ambulatory [facility] Work Phone: Start: 01-31-2022 End: 01-31-2022 Patient encounter procedure [facility] Start: 01-27-2022 End: 02-02-2022 Office outpatient visit 25 minutes Daniel Guzman SAMI Work Phone: [facility] Start: 01-27-2022 Review Daniel Thomas CNP Work Phone: [facility] Start: 01-11-2022 End: 01-11-2022 Prescription Refill Daniel Guzman SAMI Work Phone: [facility] Start: 01-10-2022 Letter encounter Diana Sinclair Work Phone: [facility] Start: 12-28-2021 End: 12-28-2021 Office outpatient new 30 minutes Daniel Jaimesracquel GALLARDO Work Phone: [facility] Start: 12-23-2021 End: 12-23-2021 Subsequent hospital visit by physician Xr [facility] Dandre Work Phone: Radiology Comment on above: Mass of chest wall, right [R22.2] Dyspnea on exertion [R06.09] Start: 12-22-2021 End: 12-22-2021 Patient encounter procedure Afsaneh Mac PRESS OPERATOR [employer] Work Phone: Internal Medicine [place] Comment on above: Other fatigue (Prima ry Dx); Encounter for immunization; Need for shingles vaccine; Screening for colon cancer; Screening for osteoporosis; Asymptomatic menopause; History of COVID-19; Mass of chest wall, right; Family history of thyroid disease Start: 12-18-2021 End: 12-18-2021 ambulatory SHANIQUE DARBY PA-C Facility:[facility] Start: 11-11-2021 Telephone encounter Argelia Douglas MD Work Phone: OB/Gynecology Comment on above: Results Start: 11-10-2021 End: 11-10-2021 Patient encounter procedure Argelia Douglas MD Work Phone: OB/Gynecology Comment on above: Vaginal discharge (P rimary Dx); Vaginal burning; Screen for STD (sexually transmitted disease) Start: 11-04-2021 End: 11-04-2021 Patient encounter procedure Brandi Pagan LAMBERTM Work Phone: OB/Gynecology Comment on above: Mass of upper inner quadrant of right breast (Primary Dx) Start: 10-14-2021 End: 10-14-2021 Subsequent hospital visit by physician [facility] ([facility]) Work Phone: Cat Scan Comment on above: Lung nodules [R91.8] Start: 10-12-2021 End: 10-12-2021 Patient encounter procedure Samy Avila MD Work Phone: Internal Medicine [place] Comment on above: Near syncope (Primar y Dx); Herpes simplex infection of genitourinary system; Anxiety; Thickened endometrium; Irritable bowel syndrome with both constipation and diarrhea; Dyspnea on exertion; Palpitations; Encounter for screening mammogram for malignant neoplasm of breast; Hypercholesterolemia Start: 10-06-2021 Telephone encounter No Pcp [facility] Comment on above: Patient Question Start: 09-29-2021 ambulatory Vinita echeverria MD Work Phone: OB/Gynecology Comment on above: PMB (postmenopausal bleeding) (Primary Dx); Thickened endometrium; Endometrial polyp Start: 09-29-2021 Patient encounter procedure Fely Tony MD Work Phone: [facility] Start: 09-29-2021 End: 09-29-2021 Admission to same day surgery center [facility] Start: 09-26-2021 End: 09-26-2021 Patient encounter procedure Vinita Tony MD Work Phone: OB/Gynecology Comment on above: PMB (postmenopausal bleeding) (Primary Dx); Symptomatic menopausal or female climacteric states Start: 09-21-2021 Orders Only Ynes Cesar APRN.HAT BAND ATTACHER Work Phone: OB/Gynecology Comment on above: Ovarian cyst, right (Primary Dx); Postmenopausal Start: 09-19-2021 Telephone encounter Vinita Tony MD Work Phone: OB/Gynecology Comment on above: Appointment Start: 09-16-2021 End: 09-16-2021 Patient encounter procedure Ynes Cesar APRN.HAT BAND ATTACHER Work Phone: OB/Gynecology Comment on above: Postmenopausal bleed ing (Primary Dx) PMB (postmenopausal bleeding) (Primary Dx) Start: 09-14-2021 End: 09-14-2021 Patient encounter procedure Ynes Cesar APRN.HAT BAND ATTACHER Work Phone: OB/Gynecology Comment on above: PMB (postmenopausal bleeding) (Primary Dx) Start: 08-24-2021 End: 08-24-2021 Office outpatient new 45 minutes Diana Lundberg MD Work Phone: [facility] Comment on above: Pain in both hands ( Primary Dx); Osteoarthritis of carpometacarpal (CMC) joints of both thumbs, unspecified osteoarthritis type; Trigger finger, unspecified finger, unspecified laterality Start: 08-24-2021 Letter encounter [facility] Start: 09-24-2020 Orders Only Michael Merrill MD Work Phone: Pulmonary Medicine Comment on above: Lung nodules Start: 08-30-2020 E-mail encounter juan manuel leonard caregiver [facility] Provider [facility] Start: 08-30-2020 Patient encounter procedure [facility]cf Prov ider MRI J Comment on above: Schedule Imaging Sharla ointment Start: 08-19-2020 End: 08-19-2020 Subsequent hospital visit by physician Iris Clements DO Work Phone: [facility] Comment on above: Lump in armpit, left ; Localized enlarged lymph nodes ; Localized enlarged lymph nodes Start: 08-05-2020 E-mail encounter juan manuel leonard caregiver [facility] Provider ELSA EASTMAN Start: 08-05-2020 Patient encounter procedure [facility] Prov ider Radiology Comment on above: Schedule imaging sharla ointment Start: 07-23-2020 E-mail encounter fro m caregiver [facility] Provider ELSA EASTMAN Start: 07-23-2020 Patient encounter procedure [facility] Prov ider Radiology Comment on above: Schedule Imaging Sharla ointment Start: 03-01-2020 ambulatory Michael Merrill MD Work Phone: Pulmonary Medicine Comment on above: CT scan RE: Test Result Ques tion Start: 03-01-2020 E-mail encounter fro m caregiver Michael Merrill MD Work Phone: [facility] Start: 02-27-2020 End: 02-27-2020 Subsequent hospital visit by physician [facility] ([facility]) Work Phone: CT Scan Comment on above: Multiple lung nodule s on CT [R91.8] Start: 12-29-2019 End: 12-29-2019 Subsequent hospital visit by physician Darrion Islas Work Phone: [facility] Comment on above: Lung nodules Start: 07-15-2019 End: 07-15-2019 Subsequent hospital visit by physician Margarita Kessler Work Phone: [facility] Comment on above: Screening for STDs ( sexually transmitted diseases); Encounter for screening for other viral diseases ; Periodic health assessment, general screening, adult Start: 01-31-2019 End: 01-31-2019 Subsequent hospital visit by physician Gisell Espinoza MD Work Phone: [facility] Comment on above: Leukocytes in urine Start: 12-23-2018 End: 12-23-2018 Emergency department patient visit Justin Dalton Work Phone: [facility] Comment on above: Right upper quadrant abdominal pain (Primary Dx) Start: 02-13-2018 Emergency department patient visit Waldo Waldron [facility] Start: 01-18-2018 Patient encounter procedure Sherri Novoa [facility] Start: 01-15-2018 Emergency department patient visit Petr Broussard [facility] Start: 08-07-2017 Patient encounter procedure Yuliarip fuentes [facility] Start: 07-13-2017 Patient encounter procedure Yulia Hor ne [facility] Start: 07-05-2017 End: 07-05-2017 Patient encounter procedure Rashaad Chan MD Work Phone: [facility] Work Phone: Start: 05-22-2017 Patient encounter procedure Yulia Baires [facility] Procedures Date Procedure Procedure Detail Performing Clinician Start: 08-11-2024 US scan of thyroid Jess Guzman SHAFT REPAIRER-C Work Phone: Start: 04-11-2024 X-ray of chest, PA a nd lateral views Daniel Guzman SHAFT REPAIRER-C Work Phone: Start: 12-19-2023 Arthrocentesis aspir &/inj small jt/bursa w/o us Diana Lundberg MD Work Phone: Start: 08-04-2023 STREP A MOLECULAR (POC) Danilo Santa APRN.HAT BAND ATTACHER Work Phone: Start: 06-07-2023 Injection 1 tendon [...] 02-01-2022 Thyroid Procedure Note: See Note; NOTES: [facility] Imaging Services [address] [place] [address] Thyroid MR#: [id number] Acct: [id number] Name: CELI BUCK Rep #: [id number] : [id number] F 71 From: Varghese Casarez MD PCP: ZAK Miller Status: REG CLI Study: Thyroid Date of Exam: 01/31/22 Exam# [id number] Ordering Dr: Daniel Guzman INDICATION: ENLARGEMENT-RT EXAMINATION: Ultrasound US Thyroid (eg [...] Signed: Varghese Casarez MD at 8:15 EST , CC: ZAK Gzuman Return To Vendor: Signed Daniel Guzman [facility] Work Phone: Start: 01-31-2022 US scan of thyroid Start: 12-23-2021 Radex clavicle complete Afsaneh Mac MARKETING AUTOMATION MANAGER.PRESS OPERATOR [employer] Work Phone: Start: 12-23-2021 Radiologic exam ches t 2 views Samy Avila MD Work Phone: Start: 11-30-2021 Mammography Afsaneh Alexyo ks MARKETING AUTOMATION MANAGER.PRESS OPERATOR [employer] Work Phone: Start: 11-04-2021 Lipid 1996 panel [...] 08-19-2020 MG CANCER RISK SURVEY C hristine R Tyree DO Work Phone: Start: 08-19-2020 Diagnostic mammograp [...] routine ecg w/le ast 12 lds w/i&r Justin Dalton Work Phone: Start: 07-05-2017 End: 07-05-2017 [...] Chan MD Work Phone: section Daniel lugo [facility] Work Phone: section Kayela Radf ord WELDER 2ND SHIFT section Anncy Slar b FRAME POLISHER Dilation and curetta ge of uterus Nancy Slarb FRAME POLISHER Comment on above: 2021 Dilation and curetta ge of uterus Nancy Slarb FRAME POLISHER Comment on above: 2021 Ligation of fallopia n tube Nancy Slarb FRAME POLISHER Ligation of fallopia n tube Nancy Slarb FRAME POLISHER Mammography Nancy Slarb LP N Comment on above: 11/2021 Mammography Nancy Slarb LP N Comment on above: 11/2021 Plan of Treatment Date Care Activity Detail Author Start: 01-29-2027 Diabetes Screening Diabetes Screening [facility] Start: 11-04-2026 Cholesterol [Mass/volume] in Serum or Plasma Cholesterol [facility] Start: 11-04-2026 Lipid 1996 panel - Serum or Plasma Lipid Screening [facility] Start: 11-04-2026 Lipid panel [facility] Start: 11-04-2026 LIPID SCREEN LIPID SCREEN [facility] Start: 2026 RSV High Risk: (Elderly (60+) or Population) (1 - 1-dose 75+ series) RSV High Risk: (Elderly (60+) or Population) (1 - 1-dose 75+ series) [facility] Start: 2026 RSV Vaccine (1 - 1-dose 75+ series) RSV Vaccine (1 - 1-dose 75+ series) [facility] Start: 2026 RSV vaccine (adult) (1 - 1-dose 75+ series) RSV vaccine (adult) (1 - 1-dose 75+ series) [facility] Start: 06-24-2025 Lipid panel Lipid screen [facility] Work Phone: Start: 11-19-2024 Influenza vaccination Influenza Vaccine (#1) [facility] Start: 11-04-2024 DIABETES SCREEN DIABETES SCREEN [facility] Start: 11-04-2024 Diabetes Screening Diabetes Screening [facility] Start: 10-20-2024 Influenza vaccination Influenza Vaccine (Season Ended) [facility] Start: 10-01-2024 End: 10-01-2024 Patient encounter procedure 10/01/2024 2:45 PM EDT Office Visit [facility] [address] [place] [address] Diana Lundberg MD [address] [place], [place] [id number] [facility] Start: 02-20-2024 Advance Directive Discussion Advance Directive Discussion [facility] Start: 10-21-2023 COVID-19 Vaccine ( season) COVID-19 Vaccine ( season) [facility] Start: 10-21-2023 Covid-19 Vaccine ( season) Covid-19 Vaccine ( season) [facility] Start: 10-21-2023 COVID-19 Vaccine ( season) COVID-19 Vaccine ( season) [facility] Start: 10-21-2023 Influenza vaccination [facility] Start: 07-22-2023 Colon cancer screen colonoscopy Colon cancer screen colonoscopy [place], [place] Start: 07-22-2023 Screening for malignant neoplasm of colon Colon cancer screen colonoscopy [place], [place] Start: 06-25-2023 DIABETES SCREEN DIABETES SCREEN [facility] Start: 03-26-2023 Lipid panel Lipid screen [place], [place] Start: 03-26-2023 Lipid screen Lipid screen [place] Start: 02-19-2023 Advance Directive Discussion Advance Directive Discussion [facility] Start: 02-19-2023 Behavioral Health Screening Behavioral Health Screening [facility] Start: 11-30-2022 Mammography [facility] Start: 11-30-2022 Screening for malignant neoplasm of breast [facility] Start: 10-20-2022 Covid-19 Vaccine () Covid-19 Vaccine () [facility] Start: 10-20-2022 Influenza vaccination Influenza Vaccine (#1) [facility] Start: 08-19-2022 Screening for malignant neoplasm of breast Breast cancer screen [facility] Work Phone: Start: 08-08-2022 End: 08-08-2022 Patient encounter procedure 08/08/2022 2:30 PM EDT Office Visit [facility] [address] [place] [address] Con Lynn MD [address] [facility] [address] [place] [address] [facility] Start: 05-18-2022 End: 05-18-2022 Patient encounter procedure 05/18/2022 Office Visit Otolaryngology Con Lynn MD [address] [facility] [address] [place] [address] [facility] Start: 04-25-2022 Assay of thyroid stimulating hormone tsh TSH (THYROID STIMULATING HORMONE) (94051) [facility]; [facility] Work Phone: Start: 04-25-2022 Assay of triiodothyronine t3 free FREE TRIIDOTHYRONINE (T3) (43290) [facility]; [facility] Work Phone: Start: 04-25-2022 Lipid panel LIPID PANEL (95449) [facility]; [facility] Work Phone: Start: 04-24-2022 Assay of free thyroxine T4, FREE (THYROXINE) (93869) [facility]; [facility] Work Phone: Start: 04-24-2022 Assay of thyroid stimulating hormone tsh TSH (THYROID STIMULATING HORMONE) (44492) [facility]; [facility] Work Phone: Start: 04-24-2022 Blood count complete auto&auto difrntl wbc CBC, PLATELETS & AUT DIFF (04263) [facility]; [facility] Work Phone: Start: 04-24-2022 C-reactive protein C-REACTIVE PROTEIN (23804) [facility]; [facility] Work Phone: Start: 04-24-2022 Comprehensive metabolic panel METABOLIC PANEL, COMPREHENSIVE (12848) [facility]; [facility] Work Phone: Start: 04-24-2022 Heterophile antibodies screen MONOSPOT TEST (52489) [facility]; [facility] Work Phone: Start: 04-24-2022 Procedure Education Eprescribed prescriptions (G8553) [facility]; [facility] Work Phone: Start: 04-24-2022 Sedimentation rate rbc automated Sedimentation Rate-ESR (52734) [facility]; [facility] Work Phone: Start: 04-17-2022 Procedure Education Eprescribed prescriptions (G8553) [facility]; [facility] Work Phone: Start: 04-17-2022 Provider Instructions for Treatment Follow up in 4 weeks [facility]; [facility] Work Phone: Start: 04-17-2022 Throat culture THROAT CULTURE (71029) [facility]; [facility] Work Phone: Start: 02-19-2022 Advance Directive Discussion Advance Directive Discussion [facility] Start: 02-19-2022 Depression Assessment Depression Assessment [facility] Start: 01-27-2022 Lipid panel LIPID PANEL (46875) [facility]; [facility] Work Phone: Comment on above: in 3 months Start: 01-27-2022 Procedure Education Eprescribed prescriptions (G8553) [facility]; [facility] Work Phone: Start: 01-27-2022 Provider Instructions for Treatment Follow up in 4 months [facility]; [facility] Work Phone: Start: 12-28-2021 Throat culture THROAT CULTURE (67264) [facility]; [facility] Work Phone: Start: 12-28-2021 Procedure Education Eprescribed prescriptions (G8553) [facility]; [facility] Work Phone: Start: 12-28-2021 Provider Instructions for Treatment Follow up [facility]; [facility] Work Phone: Start: 12-22-2021 End: 02-21-2022 Thyrotropin [Units/volume] in Serum or Plasma TSH BLD Lab Routine Family history of thyroid disease Expected: 12/22/2021, Expires: 02/21/2022 [facility] Work Phone: Comment on above: Expected: 12/22/2021, Expires: 3 Start: 11-04-2021 End: 12-04-2022 Us breast uni real time with image limited US BREAST LTD RT Radiology Routine Mass of upper inner quadrant of right breast Expected: 11/04/2021, Expires: 12/04/2022 [facility] Work Phone: Comment on above: Expected: 11/04/2021, Expires: 3 Start: 10-20-2021 Influenza vaccination INFLUENZA (#1) [facility] Start: 10-13-2021 End: 12-13-2021 CBC panel - Blood by Automated count CBC Lab Routine Near syncope Expected: 10/13/2021, Expires: 12/13/2021 [facility] Work Phone: Comment on above: Expected: 10/13/2021, Expires: 2 Start: 10-13-2021 End: 12-13-2021 Comprehensive metabolic 2000 panel - Serum or Plasma COMP METABOLIC PANEL Lab Routine Hypercholesterolemia Expected: 10/13/2021, Expires: 12/13/2021 [facility] Work Phone: Comment on above: Expected: 10/13/2021, Expires: 2 Start: 10-13-2021 End: 12-13-2021 Fibrin D-dimer FEU [Mass/volume] in Platelet poor plasma D-DIMER Lab Routine Dyspnea on exertion Expected: 10/13/2021, Expires: 12/13/2021 [facility] Work Phone: Comment on above: Expected: 10/13/2021, Expires: 2 Start: 10-13-2021 End: 12-13-2021 Lipid 1996 panel - Serum or Plasma LIPID PANEL BASIC Lab Routine Hypercholesterolemia Expected: 10/13/2021, Expires: 12/13/2021 [facility] Work Phone: Comment on above: Expected: 10/13/2021, Expires: 2 Start: 09-29-2021 Ambulation without limitation [facility] Work Phone: Start: 09-29-2021 Medical regimen orders management [facility] Work Phone: Start: 09-29-2021 Medication education [facility] Work Phone: Start: 09-29-2021 Patient discharge [facility] Work Phone: Start: 09-29-2021 Taking patient vital signs [facility] Work Phone: Start: 09-29-2021 Vital signs measurements [facility] Work Phone: Start: 09-29-2021 [facility] Work Phone: Start: 09-19-2021 Influenza vaccination Influenza Vaccine (#1) [facility] Start: 09-08-2021 End: 09-08-2021 Telemedicine consultation with patient 09/08/2021 Telemedicine Plastic Surgery Diana Lundberg MD [address] [place] [id number] [facility] Plastic Surgery Start: 08-24-2021 End: 08-24-2022 XR Hand - left 3 Views [facility] Work Phone: Comment on above: Expected: 08/24/2021, Expires: 3 Start: 08-24-2021 End: 08-24-2022 XR Hand - right 3 Views [facility] Comment on above: Expected: 08/24/2021, Expires: 3 Start: 04-24-2021 COVID-19 Vaccine (3 - Booster for Pfizer series) COVID-19 Vaccine (3 - Booster for Pfizer series) [facility] Start: 02-19-2021 ADVANCE DIRECTIVE DISCUSSION ADVANCE DIRECTIVE DISCUSSION [facility] Start: 01-19-2021 COVID-19 Vaccine (2 - Pfizer series) COVID-19 Vaccine (2 - Pfizer series) [facility] Start: 01-19-2021 COVID-19 VACCINE (3 - Booster for Pfizer series) COVID-19 VACCINE (3 - Booster for Pfizer series) [facility] Start: 12-18-2020 Annual Wellness Visit (AWV) Annual Wellness Visit (AWV) [place] Start: 12-17-2020 History and physical examination, annual for health maintenance Wellness Visit [facility] Start: 11-19-2020 Annual Wellness Visit (G0439) Annual Wellness Visit (G0439) [facility] Start: 10-20-2020 Influenza vaccination Flu vaccine (#1) [facility] Work Phone: Start: 10-17-2020 Pneumococcal 65+ years Vaccine (2 of 2 - PPSV23) Pneumococcal 65+ years Vaccine (2 of 2 - PPSV23) [place] Start: 04-20-2020 COVID-19 Vaccine (2 - Pfizer 2-dose series) COVID-19 Vaccine (2 - Pfizer 2-dose series) [facility] Work Phone: Start: 04-20-2020 COVID-19 Vaccine (2 - Pfizer series) COVID-19 Vaccine (2 - Pfizer series) [facility] Start: 01-05-2020 End: 01-05-2020 Appointment 01/05/2020 Appointment Radiology [facility] Start: 12-01-2019 End: 12-01-2019 Office Visit 12/01/2019 Office Visit Family Medicine Iris Clements, DO [address] [place] [address] [phone] [facility] Start: 11-25-2019 End: 11-25-2019 Office Visit 11/25/2019 Office Visit Obstetrics and Gynecology Jodi Epps APRN - CNM [address] [place] [address] [phone] [facility] 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 Start: 10-21-2019 Influenza vaccination [place] Start: 08-01-2019 End: 08-01-2019 Office Visit 08/01/2019 Office Visit Family Medicine Gisell Espinoza MD [address] [address] [phone] [facility] Start: 07-28-2019 End: 07-28-2019 Virtual Visit 07/28/2019 Virtual Visit Obstetrics and Gynecology Karmen Bolden MD [address] [address] [phone] [facility] 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 Start: 07-24-2019 End: 07-24-2019 Procedure visit 07/24/2019 Procedure visit Obstetrics and Gynecology [facility] 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 Start: 03-21-2019 Breast cancer screen Breast cancer screen [place] Start: 03-21-2019 Screening for malignant neoplasm of breast Breast cancer screen [place] Start: 02-06-2019 End: 02-06-2019 Patient encounter procedure 02/06/2019 Office Visit Obstetrics and Gynecology Jodi Epps APRN - CNM [address] [place] [address] [phone] [facility] 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 Start: 11-18-2018 LIPID SCREEN LIPID SCREEN [facility] Start: 10-20-2018 Influenza vaccination Flu vaccine (#1) [place] Start: 08-08-2018 Annual Wellness Visit (AWV) Annual Wellness Visit (AWV) [place] Start: 07-05-2017 End: 07-05-2017 Appointment Appointment [facility] Work Phone: Start: 07-05-2017 End: 07-05-2017 X-ray exam of foot [facility] Work Phone: Start: 2016 BONE DENSITY BONE DENSITY [facility] Start: 2016 Bone Density Screening Bone Density Screening [facility] Start: 2016 Fall risk assessment Falls Risk Assessment [facility] Start: 2016 Pneumococcal 65+ years Vaccine (1 of 1 - PPSV23) Pneumococcal 65+ years Vaccine (1 of 1 - PPSV23) [place] Start: 2016 Pneumococcal vaccination [facility] Start: 2016 PNEUMOCOCCAL: 65+ (1 - PCV) PNEUMOCOCCAL: 65+ (1 - PCV) [facility] Start: 2016 Screening for osteoporosis [facility] Start: 08-18-2015 COLORECTAL CANCER SCREENING COLORECTAL CANCER SCREENING [facility] Start: 08-18-2015 FECAL OCCULT BLOOD FECAL OCCULT BLOOD [facility] Start: 08-18-2015 Screening for malignant neoplasm of colon [facility] Start: 07-21-2015 Annual wellness visit Annual Wellness Visit (G0438) [facility] Start: 2011 Hepatitis B (HBV) Vaccine (optional start 60+ years) Hepatitis B (HBV) Vaccine (optional start 60+ years) [facility] Start: 2011 RSV Vaccine (1 - 1-dose 60+ series) RSV Vaccine (1 - 1-dose 60+ series) [facility] Start: 2011 RSV Vaccine (1 - Risk 60-74 years 1-dose series) RSV Vaccine (1 - Risk 60-74 years 1-dose series) [facility] Start: 2011 RSV vaccine (optional 60+ years) RSV vaccine (optional 60+ years) [facility] Start: 2001 Administration of herpes zoster vaccine Zoster Vaccines (1 of 2) [facility] Start: 2001 Measurement of occult blood in single stool specimen FIT [facility] Start: 2001 Pneumococcal vaccination Pneumococcal Vaccine(s) (50+ yrs) (2 of 2 - PCV) [facility] Start: 2001 Screening for malignant neoplasm of breast Mammography [facility] Start: 2001 Screening for malignant neoplasm of colon [facility] Start: 2001 Shingles (RZV) Vaccine (1 of 2) Shingles (RZV) Vaccine (1 of 2) [facility] Start: 2001 Shingles Vaccine (1 of 2) Shingles Vaccine (1 of 2) [place] Start: 2001 SHINGRIX VACCINE (1 of 2) SHINGRIX VACCINE (1 of 2) [facility] Start: 2001 Zoster Vaccines (1 of 2) Zoster Vaccines (1 of 2) [facility] Start: 04-28-2000 Pneumococcal vaccination Pneumococcal Vaccine(s) (65+ yrs) (2 - PCV) [facility] Start: 04-30-1999 DTaP/Tdap/Td vaccine (1 - Tdap) DTaP/Tdap/Td vaccine (1 - Tdap) [place] Start: 04-30-1999 DTaP/Tdap/Td Vaccines (1 - Tdap) DTaP/Tdap/Td Vaccines (1 - Tdap) [facility] Start: 04-30-1999 Urine microalbumin profile [facility] Start: 1996 Cholesterol [Mass/volume] in Serum or Plasma Cholesterol [facility] Start: 1996 COLOGUARD (FIT-DNA) COLOGUARD (FIT-DNA) [facility] Start: 1996 Colonoscopy COLONOSCOPY [facility] Start: [address] COLONOGRAPHY [facility] Start: 1996 Screening for malignant neoplasm of colon [facility] Start: 1996 SIGMOIDOSCOPY SIGMOIDOSCOPY [facility] Start: 1991 Mammography MAMMOGRAM [facility] Start: 1991 Screening for malignant neoplasm of breast [facility] Start: 1970 DTaP/Tdap/Td vaccine (1 - Tdap) DTaP/Tdap/Td vaccine (1 - Tdap) [place] Start: 1970 Hepatitis A (HAV) Vaccine (optional start 19+ years) Hepatitis A (HAV) Vaccine (optional start 19+ years) [facility] Start: 1970 Urine microalbumin profile DTAP,TDAP,TD (1 - Tdap) [facility] Start: 1969 Depression Screening Depression Screening [facility] Start: 1969 Hepatitis C screening [facility] Start: 1969 HEPATITIS C SCREENING HEPATITIS C SCREENING [facility] Start: 1969 Tetanus + diphtheria + acellular pertussis vaccine (product) Tdap Booster [facility] Start: 1963 Adult depression screening assessment [facility] Start: 1962 DTaP/Tdap/Td vaccine (1 - Tdap) DTaP/Tdap/Td vaccine (1 - Tdap) [facility] Work Phone: Start: 1950 Annual wellness visit Welcome to Medicare Visit [facility] Start: 1950 Hepatitis C screen Hepatitis C screen [place] Start: 1951 Hepatitis C screening Hepatitis C screen [place] Start: 1951 Lipid panel Lipid Panel [facility] Start: 1950 Screening for malignant neoplasm of colon [facility] Start: 1951 Screening for osteoporosis Dexa Scan [facility] Start: 1950 Tetanus vaccination Tetanus: Every 10yrs [facility] BACTERIAL VAGINOSIS AMPLIFICATION BACTERIAL VAGINOSIS AMPLIFICATION Lab Routine Vaginal discharge Vaginal burning Ordered: 11/10/2021 [facility] Work Phone: Comment on above: Ordered: 11/10/2021 VERONICA / TRICHOMONA S AMPLIFICATION VERONICA / TRICHOMONAS AMPLIFICATION Microbiology Routine Vaginal discharge Vaginal burning Ordered: 11/10/2021 [facility] Work Phone: Comment on above: Ordered: 11/10/2021 Chlamydia trachomatis+Neisseria gonorrhoeae DNA [Presence] in Unspecified specimen by MAGO with probe detection GC/CHLAMYDIA DNA DET Lab Routine Vaginal discharge Vaginal burning Screen for STD (sexually transmitted disease) Ordered: 11/10/2021 [facility] Work Phone: Comment on above: Ordered: 11/10/2021 COLOGUARD COLOGUARD Lab Ro utine Screening for colon cancer Ordered: 12/22/2021 [facility] Work Phone: Comment on above: Ordered: 12/22/2021 End: 12-29-[address] CHEST LOW DOSE Imaging Routine Once for 1 Occurrences starting 12/29/2019 until 12/29/2019 [facility] Comment on above: Once for 1 Occurrences starting 12/29/19 20 until 12/29/[address]ST LOW DOSE CT CHEST LOW D OSE Imaging Routine 12/29/2019 1:08 PM EST [facility] End: 07-24-2024 CT for calcium scoring WO contrast and CTA W contrast IV Heart and coronary arteries [facility] Service Area Work Phone: Comment on above: Once for 1 Occurrences starting 07/25/19 25 until 07/24/2024 End: 07-15-2019 Culture, Urine Culture, Urine Microbiology Routine Once for 1 Occurrences starting 07/15/2019 until 07/15/2019 [facility] Comment on above: Once for 1 Occurrences starting 07/15/19 20 until 07/15/2019 Culture, Urine Culture, Urine M icrobiology Routine 07/15/2019 1:43 PM EDT [facility] End: 01-17-2025 DBT Breast - bilateral screening LOVE SCREENING W NATE Radiology Routine Encounter for screening mammogram for breast cancer 1 Occurrences starting 12/19/2023 until 01/17/2025 [facility] Work Phone: Comment on above: 1 Occurrences starting 12/19/2023 until 01/17/2025 End: 12-04-2022 Diagnostic mammography computer-aided detcj bi LOVE DIAGNOSTIC BILAT Radiology Routine Mass of upper inner quadrant of right breast 1 Occurrences starting 11/04/2021 until 12/04/2022 [facility] Work Phone: Comment on above: 1 Occurrences starting 11/04/2021 until 12/04/2022 EKG 12 Lead - Chest Pain EKG 12 Lead - Chest Pain ECG STAT 12/23/2018 8:10 PM EST [place] Endometrial bx w/wo endocervix bx w/o dilat spx ENDOMETRIAL BIOPSY Procedures Routine PMB (postmenopausal bleeding) Ordered: 09/14/2021 [facility] Work Phone: Comment on above: Ordered: 09/14/2021 Endometrial bx w/wo endocervix bx w/o dilat spx ENDOMETRIAL BIOPSY Procedures Routine Postmenopausal bleeding Ordered: 09/16/2021 [facility] Work Phone: Comment on above: Ordered: 09/16/2021 End: 07-15-2019 Hepatitis B Surface Antigen Hepatitis B Surface Antigen Lab Routine Encounter for screening for other viral diseases Screening for STDs (sexually transmitted diseases) 1 Occurrences starting 07/15/2019 until 07/15/2019 [place] Comment on above: 1 Occurrences starting 07/15/2019 until 07/15/2019 Hepatitis B Surface Antigen Hepatitis B Surface Antigen Lab Routine Encounter for screening for other viral diseases Screening for STDs (sexually transmitted diseases) 07/15/2019 2:30 PM EDT [place] End: 07-15-2019 Hepatitis C Antibody Hepatitis C Antibody Lab Routine Screening for STDs (sexually transmitted diseases) 1 Occurrences starting 07/15/2019 until 07/15/2019 [place] Comment on above: 1 Occurrences starting 07/15/2019 until 07/15/2019 Hepatitis C Antibody Hepatitis C Antibody Lab Routine Screening for STDs (sexually transmitted diseases) 07/15/2019 2:30 PM EDT [place] End: 08-19-2020 LOVE DIGITAL DIAGNOSTIC W OR [...] cancer 1 Occurrences starting 01/03/2023 until 02/02/2024 [facility] Work Phone: Comment on above: 1 Occurrences starting 01/03/2023 until 02/02/2024 Patient referral [facility] Work Phone: PELVIC US WHI PELVIC US WHI An c Imaging Routine PMB (postmenopausal bleeding) Ordered: 09/14/2021 [facility] Work Phone: Comment on above: Ordered: 09/14/2021 PELVIC US WHI PELVIC US WHI An c Imaging Routine Ovarian cyst, right Postmenopausal Ordered: 09/21/2021 [facility] Work Phone: Comment on above: Ordered: 09/21/2021 [employer] COVID-19 BIVALENT BOOSTER VACCINE, AGE 12+ YR [employer] COVID-19 BIVALENT BOOSTER VACCINE, AGE 12+ YR Immunization/Injection Routine Encounter for immunization 1 Occurrences starting 12/22/2021 [facility] Work Phone: Comment on above: 1 Occurrences starting 12/22/2021 End: 11-11-2022 Radiologic exam chest 2 views XR CHEST 2V FRONTAL/LAT Radiology Routine Dyspnea on exertion 1 Occurrences starting 10/12/2021 until 11/11/2022 [facility] Work Phone: Comment on above: 1 Occurrences starting 10/12/2021 until 11/11/2022 End: 07-15-2019 RPR with FTA Relex RPR with FTA Relex Lab Routine Screening for STDs (sexually transmitted diseases) 1 Occurrences starting 07/15/2019 until 07/15/2019 [facility] [employer] Comment on above: 1 Occurrences starting 07/15/2019 until 07/15/2019 RPR with FTA Relex RPR with FTA Relex Lab Routine Screening for STDs (sexually transmitted diseases) 07/15/2019 2:30 PM EDT [facility] [employer] End: 11-11-2022 Screening mammography bi 2-view breast inc cad LOVE SCREENING Radiology Routine Encounter for screening mammogram for malignant neoplasm of breast 1 Occurrences starting 10/12/2021 until 11/11/2022 [facility] Work Phone: Comment on above: 1 Occurrences starting 10/12/2021 until 11/11/2022 End: 08-19-2020 US Breast Bilateral US Breast Bilateral Imaging Routine Lump in armpit, left Localized enlarged lymph nodes 1 Occurrences starting 08/19/2020 until 08/19/2020 [employer] Work Phone: Comment on above: 1 Occurrences starting 08/19/2020 until 08/19/2020 End: 08-19-2020 US BREAST LIMITED LEFT US BREAST LIMITED LEFT Imaging Routine Once for 1 Occurrences starting 08/19/2020 until 08/19/2020 [facility] Work Phone: Comment on above: Once for 1 Occurrences starting 08/20/19 21 until 08/19/2020 US BREAST LIMITED LEFT US BREAST LIMITED LEFT Imaging Routine 08/19/2020 1:54 PM EDT [employer] Work Phone: End: 01-21-2023 Us soft tissue head & neck real time imge docm US THYROID/PARATHYROID Radiology Routine Family history of thyroid disease 1 Occurrences starting 12/22/2021 until 01/21/2023 [facility] Work Phone: Comment on above: 1 Occurrences starting 12/22/2021 until 01/21/2023 End: 01-21-2023 XR CLAVICLE 2V RIGHT XR CLAVICLE 2V RIGHT Radiology Routine Mass of chest wall, right 1 Occurrences starting 12/22/2021 until 01/21/2023 [facility] Work Phone: Comment on above: 1 Occurrences starting 12/22/2021 until 01/21/2023 [facility] Work Phone: [facility] Work Phone: Immunizations Immunization Date Immunization Notes Care Provider [facility] 12-18-2021 influenza, seasonal, injectable Daniel Guzman [employer] Work Phone: [facility] Work Phone: 12-18-2021 influenza virus vaccine, unspecified formulation Danilo Santa APRN.[employer] Work Phone: [facility] 12-14-2021 Influenza, injectabl e, Madin Akanksha Canine Kidney, preservative free, quadrivalent Diana Lundberg MD Work Phone: [facility] 12-14-2021 influenza virus vaccine, unspecified formulation Ct (I-Stat) Work Phone: [facility] 11-24-2020 Pfizer Monovalent (1 2+ yrs) SARS-COV-2 (COVID-19) vaccine, mRNA, spike protein, LNP, pres. free, 30 mcg/0.3mL dose (IUE=508) Diana Lundberg MD Work Phone: [facility] 03-30-2020 COVID-19, Pfizer, PF , 30mcg/0.3mL Iris Regan DO [facility] Work Phone: 01-30-2020 influenza virus vaccine, unspecified formulation Iris [place] DO Work Phone[facility] Work Phone: 01-30-2020 influenza, injectabl e, quadrivalent, contains preservative [facility] 10-18-2019 pneumococcal conjuga te vaccine, 13 valent Darrion Islas [facility] Work Phone: 10-16-2019 pneumococcal polysaccharide vaccine, 23 valent Iris Clements DO Work Phone: [facility] Work Phone: 12-13-2015 Influenza Vaccine, unspecified formulation [facility] , [place] 12-13-2015 influenza, seasonal, injectable, preservative free [facility] 11-19-2013 influenza, injectabl e, quadrivalent, contains preservative [facility] Work Phone: 11-19-2013 influenza, seasonal, injectable [facility] 12-06-2012 influenza virus vaccine, unspecified formulation [facility], [place] 12-06-2012 influenza, seasonal, injectable [facility] 04-29-1999 pneumococcal polysaccharide vaccine, 23 valent [facility], [place] 04-29-1999 TD(adult) unspecifie d formulation [facility] 04-29-1999 Td, unspecified formulation [facility] [place], [place] No information available. Sun Mcdermott LPN [facility] Work Phone: Payers Date Payer Category Payer Medicare (Managed Care) [facility] MEDICARE [id number] 2024 Medicare [id number] 2023 Self-pay [id number] 2015 Unknown xxxxxxxxx [id number] 2014 Commercial Indemnity COMMERCIAL INSURANCE - OTHER [id number] 2014 Medicare MEDICARE MEDICAR E PART A AND B xxxxxxxxxxx 2014-Present [phone] [address] [address] [place] [address] xxxxxxxxxxx [id number] 2014 Medicare MEDICARE MEDICAR E A AND B [id number] 2014-Present [phone] [place] [address] Medicare [id number] 2014 Medicare FFS MEDICARE [id number] 2014 Miscellaneous or Other HOSPITAL/ MEDICAL GENERIC [id number] 2014 Unknown 2014 Unknown HOSPITAL/MEDICAL GENERIC MEDICAL GENERIC [id number] 2014-Present [phone] [address] [place] [address] Indemnity [id number] 2014 Medicare [id number] 2014 Unknown [id number] .[id number] 2008 Medicare 1950 Unknown [id number] [id number] .668 1950 Unknown [id number] 2.16.840.1.659805.3.579.2 .668 1951 Unknown [id number] [id number] .668 1951 Unknown [id number] 2.16.840.1.726161.3.579.2 .668 1951 Unknown [id number] 2.16840.1.009235.3.579.2 .668 1951 Unknown [id number]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 [employer] Apps Indication:Nonsmoker Start:28-Dec-2021 Instruction Type:Patient Edu cation [facility]; [facility] Work Phone: instructLevels Beyond* Name Dates Details Patient Instructions Indication:BMI 25.0-25.9,adult Start:27-Jan-2022 Instruction Type:Provider Instructions for Treatment How to Access Health Informa tion Online using Patient Portal and 3rd [employer] Apps Indication:BMI 25.0-25.9,adult Start:27-Jan-2022 Instruction Type:Patient Edu cation Patient Instructions Indication:Nonsmoker Start:28-Dec-2021 Instruction Type:Provider Instructions for Treatment How to Access Health Informa tion Online using Patient Portal and 3rd [employer] Apps Indication:Nonsmoker Start:28-Dec-2021 Instruction Type:Patient Edu cation [facility]; [facility] Work Phone: instructions* Name Dates Details Patient Instructions Indication:BMI 25.0-25.9,adult Start:27-Jan-2022 Instruction Type:Provider Instructions for Treatment How to Access Health Informa tion Online using Patient Portal and 3rd [employer] Apps Indication:BMI 25.0-25.9,adult Start:27-Jan-2022 Instruction Type:Patient Edu cation Patient Instructions Indication:Nonsmoker Start:28-Dec-2021 Instruction Type:Provider Instructions for Treatment How to Access Health Informa tion Online using Patient Portal and 3rd [employer] Apps Indication:Nonsmoker Start:28-Dec-2021 Instruction Type:Patient Edu cation [facility]; [facility] Work Phone: instructions* Name Dates Details Patient Instructions Indication:Nonsmoker Start:17-Apr-2022 Instruction Type:Provider Instructions for Treatment How to Access Health Informa tion Online using Patient Portal and 3rd [employer] Apps Indication:Nonsmoker Start:17-Apr-2022 Instruction Type:Patient Education Patient Instructions Indication:BMI 25.0-25.9,adult Start:27-Jan-2022 Instruction Type:Provider Instructions for Treatment How to Access Health Informa tion Online using Patient Portal and 3rd [employer] Apps Indication:BMI 25.0-25.9,adult Start:27-Jan-2022 Instruction Type:Patient Education Patient Instructions Indication:Nonsmoker Start:28-Dec-2021 Instruction Type:Provider Instructions for Treatment How to Access Health Informa tion Online using Patient Portal and 3rd [employer] Apps Indication:Nonsmoker Start:28-Dec-2021 Instruction Type:Patient Education [facility]; [facility] Work Phone: instructions* Name Dates Details Patient Instructions Indication:Nonsmoker Start:24-Apr-2022 Instruction Type:Provider Instructions for Treatment How to Access Health Informa tion Online using Patient Portal and 3rd [employer] Apps Indication:Nonsmoker Start:24-Apr-2022 Instruction Type:Patient Education Patient Instructions Indication:Nonsmoker Start:17-Apr-2022 Instruction Type:Provider Instructions for Treatment How to Access Health Informa tion Online using Patient Portal and 3rd [employer] Apps Indication:Nonsmoker Start:17-Apr-2022 Instruction Type:Patient Education Patient Instructions Indication:BMI 25.0-25.9,adult Start:27-Jan-2022 Instruction Type:Provider Instructions for Treatment How to Access Health Informa tion Online using Patient Portal and 3rd [employer] Apps Indication:BMI 25.0-25.9,adult Start:27-Jan-2022 Instruction Type:Patient Education Patient Instructions Indication:Nonsmoker Start:28-Dec-2021 Instruction Type:Provider Instructions for Treatment How to Access Health Informa tion Online using Patient Portal and 3rd [employer] Apps Indication:Nonsmoker Start:28-Dec-2021 Instruction Type:Patient Education [facility]; [facility] Work Phone: instructions* Name Dates Details Patient Instructions Indication:Nonsmoker Start:24-Apr-2022 Instruction Type:Provider Instructions for Treatment How to Access Health Informa tion Online using Patient Portal and 3rd [employer] Apps Indication:Nonsmoker Start:24-Apr-2022 Instruction Type:Patient Education Patient Instructions Indication:Nonsmoker Start:17-Apr-2022 Instruction Type:Provider Instructions for Treatment How to Access Health Informa tion Online using Patient Portal and 3rd [employer] Apps Indication:Nonsmoker Start:17-Apr-2022 Instruction Type:Patient Education Patient Instructions Indication:BMI 25.0-25.9,adult Start:27-Jan-2022 Instruction Type:Provider Instructions for Treatment How to Access Health Informa tion Online using Patient Portal and 3rd [employer] Apps Indication:BMI 25.0-25.9,adult Start:27-Jan-2022 Instruction Type:Patient Education Patient Instructions Indication:Nonsmoker Start:28-Dec-2021 Instruction Type:Provider Instructions for Treatment How to Access Health Informa tion Online using Patient Portal and 3rd [employer] Apps Indication:Nonsmoker Start:28-Dec-2021 Instruction Type:Patient Education [facility]; [facility] Work Phone: instructions* Name Dates Details Patient Instructions Indication:Nonsmoker Start:24-Apr-2022 Instruction Type:Provider Instructions for Treatment How to Access Health Informa tion Online using Patient Portal and 3rd [employer] Apps Indication:Nonsmoker Start:24-Apr-2022 Instruction Type:Patient Education Patient Instructions Indication:Nonsmoker Start:17-Apr-2022 Instruction Type:Provider Instructions for Treatment How to Access Health Informa tion Online using Patient Portal and 3rd [employer] Apps Indication:Nonsmoker Start:17-Apr-2022 Instruction Type:Patient Education Patient Instructions Indication:BMI 25.0-25.9,adult Start:27-Jan-2022 Instruction Type:Provider Instructions for Treatment How to Access Health Informa tion Online using Patient Portal and 3rd [employer] Apps Indication:BMI 25.0-25.9,adult Start:27-Jan-2022 Instruction Type:Patient Education Patient Instructions Indication:Nonsmoker Start:28-Dec-2021 Instruction Type:Provider Instructions for Treatment How to Access Health Informa tion Online using Patient Portal and 3rd [employer] Apps Indication:Nonsmoker Start:28-Dec-2021 Instruction Type:Patient Education [facility]; [facility] Work Phone: instructions* Name Dates Details Patient Instructions Indication:Nonsmoker Start:24-Apr-2022 Instruction Type:Provider Instructions for Treatment How to Access Health Informa tion Online using Patient Portal and 3rd [employer] Apps Indication:Nonsmoker Start:24-Apr-2022 Instruction Type:Patient Education Patient Instructions Indication:Nonsmoker Start:17-Apr-2022 Instruction Type:Provider Instructions for Treatment How to Access Health Informa tion Online using Patient Portal and 3rd [employer] Apps Indication:Nonsmoker Start:17-Apr-2022 Instruction Type:Patient Education Patient Instructions Indication:BMI 25.0-25.9,adult Start:27-Jan-2022 Instruction Type:Provider Instructions for Treatment How to Access Health Informa tion Online using Patient Portal and 3rd [employer] Apps Indication:BMI 25.0-25.9,adult Start:27-Jan-2022 Instruction Type:Patient Education Patient Instructions Indication:Nonsmoker Start:28-Dec-2021 Instruction Type:Provider Instructions for Treatment How to Access Health Informa tion Online using Patient Portal and 3rd [employer] Apps Indication:Nonsmoker Start:28-Dec-2021 Instruction Type:Patient Education [facility]; [facility] Work Phone: instructions* Name Dates Details Patient Instructions Indication:Nonsmoker Start:24-Apr-2022 Instruction Type:Provider Instructions for Treatment How to Access Health Informa tion Online using Patient Portal and 3rd [employer] Apps Indication:Nonsmoker Start:24-Apr-2022 Instruction Type:Patient Education Patient Instructions Indication:Nonsmoker Start:17-Apr-2022 Instruction Type:Provider Instructions for Treatment How to Access Health Informa tion Online using Patient Portal and 3rd [employer] Apps Indication:Nonsmoker Start:17-Apr-2022 Instruction Type:Patient Education Patient Instructions Indication:BMI 25.0-25.9,adult Start:27-Jan-2022 Instruction Type:Provider Instructions for Treatment How to Access Health Informa tion Online using Patient Portal and 3rd [employer] Apps Indication:BMI 25.0-25.9,adult Start:27-Jan-2022 Instruction Type:Patient Education Patient Instructions Indication:Nonsmoker Start:28-Dec-2021 Instruction Type:Provider Instructions for Treatment How to Access Health Informa tion Online using Patient Portal and 3rd [employer] Apps Indication:Nonsmoker Start:28-Dec-2021 Instruction Type:Patient Education [facility]; [facility] Work Phone: instructions* Name Dates Details Patient Instructions Indication:Nonsmoker Start:24-Apr-2022 Instruction Type:Provider Instructions for Treatment How to Access Health Informa tion Online using Patient Portal and 3rd [employer] Apps Indication:Nonsmoker Start:24-Apr-2022 Instruction Type:Patient Education Patient Instructions Indication:Nonsmoker Start:17-Apr-2022 Instruction Type:Provider Instructions for Treatment How to Access Health Informa tion Online using Patient Portal and 3rd [employer] Apps Indication:Nonsmoker Start:17-Apr-2022 Instruction Type:Patient Education Patient Instructions Indication:BMI 25.0-25.9,adult Start:27-Jan-2022 Instruction Type:Provider Instructions for Treatment How to Access Health Informa tion Online using Patient Portal and 3rd [employer] Apps Indication:BMI 25.0-25.9,adult Start:27-Jan-2022 Instruction Type:Patient Education Patient Instructions Indication:Nonsmoker Start:28-Dec-2021 Instruction Type:Provider Instructions for Treatment How to Access Health Informa tion Online using Patient Portal and 3rd [employer] Apps Indication:Nonsmoker Start:28-Dec-2021 Instruction Type:Patient Education [facility]; [facility] Work Phone: Instructions* Name Dates Details Patient Instructions Indication:Nonsmoker Start:24-Apr-2022 Instruction Type:Provider Instructions for Treatment How to Access Health Informa tion Online using Patient Portal and 3rd [employer] Apps Indication:Nonsmoker Start:24-Apr-2022 Instruction Type:Patient Education Patient Instructions Indication:Nonsmoker Start:17-Apr-2022 Instruction Type:Provider Instructions for Treatment How to Access Health Informa tion Online using Patient Portal and 3rd [employer] Apps Indication:Nonsmoker Start:17-Apr-2022 Instruction Type:Patient Education Patient Instructions Indication:BMI 25.0-25.9,adult Start:27-Jan-2022 Instruction Type:Provider Instructions for Treatment How to Access Health Informa tion Online using Patient Portal and 3rd [employer] Apps Indication:BMI 25.0-25.9,adult Start:27-Jan-2022 Instruction Type:Patient Education Patient Instructions Indication:Nonsmoker Start:28-Dec-2021 Instruction Type:Provider Instructions for Treatment How to Access Health Informa tion Online using Patient Portal and 3rd [employer] Apps Indication:Nonsmoker Start:28-Dec-2021 Instruction Type:Patient Education [facility]; [facility] Work Phone: instructions* Name Dates Details Patient Instructions Indication:Nonsmoker Start:24-Apr-2022 Instruction Type:Provider Instructions for Treatment How to Access Health Informa tion Online using Patient Portal and 3rd [employer] Apps Indication:Nonsmoker Start:24-Apr-2022 Instruction Type:Patient Education Patient Instructions Indication:Nonsmoker Start:17-Apr-2022 Instruction Type:Provider Instructions for Treatment How to Access Health Informa tion Online using Patient Portal and 3rd [employer] Apps Indication:Nonsmoker Start:17-Apr-2022 Instruction Type:Patient Education Patient Instructions Indication:BMI 25.0-25.9,adult Start:27-Jan-2022 Instruction Type:Provider Instructions for Treatment How to Access Health Informa tion Online using Patient Portal and 3rd [employer] Apps Indication:BMI 25.0-25.9,adult Start:27-Jan-2022 Instruction Type:Patient Education Patient Instructions Indication:Nonsmoker Start:28-Dec-2021 Instruction Type:Provider Instructions for Treatment How to Access Health Informa tion Online using Patient Portal and 3rd [employer] Apps Indication:Nonsmoker Start:28-Dec-2021 Instruction Type:Patient Education [facility]; [facility] Work Phone: Instructions* Name Dates Details Patient Instructions Indication:Nonsmoker Start:24-Apr-2022 Instruction Type:Provider Instructions for Treatment How to Access Health Informa tion Online using Patient Portal and 3rd [employer] Apps Indication:Nonsmoker Start:24-Apr-2022 Instruction Type:Patient Education Patient Instructions Indication:Nonsmoker Start:17-Apr-2022 Instruction Type:Provider Instructions for Treatment How to Access Health Informa tion Online using Patient Portal and 3rd [employer] Apps Indication:Nonsmoker Start:17-Apr-2022 Instruction Type:Patient Education Patient Instructions Indication:BMI 25.0-25.9,adult Start:27-Jan-2022 Instruction Type:Provider Instructions for Treatment How to Access Health Informa tion Online using Patient Portal and 3rd [employer] Apps Indication:BMI 25.0-25.9,adult Start:27-Jan-2022 Instruction Type:Patient Education Patient Instructions Indication:Nonsmoker Start:28-Dec-2021 Instruction Type:Provider Instructions for Treatment How to Access Health Informa tion Online using Patient Portal and 3rd [employer] Apps Indication:Nonsmoker Start:28-Dec-2021 Instruction Type:Patient Education [facility]; [facility] Work Phone: reason for referral (narrative)* Outpatient Procedure (Routine) - Pending Review Specialty Diagnoses / Procedures Referred By Spencer galeas Referred To Contact [facility] Diagnoses PMB (postmenopausal bleeding) Procedures ENDOMETRIAL BIOPSY ENDOMETRIAL BX W/WO ENDOCERVIX BX W/O DILAT SPX Ynes Cesar APRN.HAT BAND ATTACHER [address] [place] [address] [address] Referral ID Status Reason Start Date Expiration Date Visits Requested Visits Authorized [id number] Pending Review Auto-Generat ed Referral 09/14/2021 09/14/2022 1 1 * Diagnostic Procedure Only (Routine) - Authorized Specialty Diagnoses / Procedures Referred By Contac t Referred To Contact [facility] Diagnoses PMB (postmenopausal bleeding) Procedures PELVIC US [facility] US PELVIC NONOBSTETRIC REAL-TIME IMAGE COMPLETE Ynes Cesar APRN.HAT BAND ATTACHER [address] [place] [address] [address] Referral ID Status Reason Start Date Expiration Date Visits Requested Visits Authorized [id number] Authorized Auto-Generat ed Referral 09/14/2021 09/14/2022 1 1 [facility] for referral (narrative)* Outpatient Procedure (Routine) - Pending Review Specialty Diagnoses / Procedures Referred By Contac t Referred To Contact [facility] Diagnoses Postmenopausal bleeding Procedures ENDOMETRIAL BIOPSY ENDOMETRIAL BX W/WO ENDOCERVIX BX W/O DILAT SPX Ynes Cesar APRN.CNP [address] [place] [address] [address] Referral ID Status Reason Start Date Expiration Date Visits Requested Visits Authorized [id number] Pending Review Auto-Generat ed Referral 09/16/2021 09/16/2022 1 1 [facility] for referral (narrative)* Diagnostic Procedure Only (Routine) - Pending Review Specialty Diagnoses / Procedures [facility] To [facility] Diagnoses Ovarian cyst, right Postmenopausal Procedures PELVIC US [facility] US PELVIC NONOBSTETRIC REAL-TIME IMAGE COMPLETE Ynes Cesar APRN.CNP [address] [place] [address] [facility] [address] [place] [address] Referral ID Status Reason Start Date Expiration Date Visits Requested Visits Authorized [id number] Pending Review Auto-Generat ed Referral 09/21/2021 09/21/2022 1 1 [facility] for referral (narrative)* Outpatient Procedure (Routine) - Closed Specialty Diagnoses / Procedures [facility] Referred To Contact [facility] [place] Diagnoses Palpitations Procedures ECG COMPLETE ECG ROUTINE ECG W/LEAST 12 LDS W/I&R Samy Avila MD [address] [place] [address] [facility] [address] [place] [address] Referral ID Status Reason Start Date Expiration Date V isits Requested Visits Authorized [id number] Closed Auto-Generate d Referral 10/12/2021 10/12/2022 1 1 * Diagnostic Procedure Only (Routine) - Pending Review Specialty Diagnoses / Procedures [facility] Referred To Contact [facility] Diagnoses Encounter for screening mammogram for malignant neoplasm of breast Procedures LOVE SCREENING SCREENING MAMMOGRAPHY BI 2-VIEW BREAST INC CAD Samy Avila MD [address] [place] [address] [facility] [address] [place] [address] Referral ID Status Reason Start Date Expiration Date Visits Requested Visits Authorized [id number] Pending Review Auto-Generat ed Referral 10/12/2021 11/11/2022 1 1 [facility] for referral (narrative)* Diagnostic Procedure Only (Routine) - Pending Review Specialty Diagnoses / Procedures Referred By Spencer t Referred To Contact [facility] Diagnoses Mass of upper inner quadrant of right breast Procedures US BREAST LTD RT US BREAST UNI REAL TIME WITH IMAGE LIMITED Brandi Pagan APRN.CNM [address] [place] [place] [address] [facility] [address] [place] [address] Referral ID Status Reason Start Date Expiration Date Visits Requested Visits Authorized [id number] Pending Review Auto-Generat ed Referral 11/04/2021 12/04/2022 1 1 * Diagnostic Procedure Only (Routine) - Authorized Specialty Diagnoses / Procedures Referred By Spencer galeas Referred To Contact [facility] Diagnoses Mass of upper inner quadrant of right breast Procedures LOVE DIAGNOSTIC BILAT DIAGNOSTIC MAMMOGRAPHY COMPUTER-AIDED DETCJ BI Brandi Pagan APRN.CNM [address] [place] [address] [facility] [address] [place] [id number] Referral ID Status Reason Start Date Expiration Date Visits Requested Visits Authorized [id number] Authorized Auto-Generat ed Referral 11/04/2021 12/04/2022 1 1 [facility] for referral (narrative)* Diagnostic Procedure Only (Routine) - Pending Review Specialty Diagnoses / Procedures Referred By Spencer t Referred To Contact [facility] Diagnoses Family history of thyroid disease Procedures US THYROID/PARATHYROID US SOFT TISSUE HEAD & NECK REAL TIME IMGE Afsaneh Esparza, PRESS OPERATOR [employer] [address] [place] [address] [facility] Referral ID Status Reason Start Date Expiration Date Visits Requested Visits Authorized [id number] Pending Review Auto-Generat ed Referral 12/22/2021 01/21/2023 1 1 * Diagnostic Procedure Only (Routine) - Pending Review Specialty Diagnoses / Procedures Referred By Contac t Referred To Contact [facility] Diagnoses Mass of chest wall, right Procedures XR CLAVICLE 2V RIGHT RADEX CLAVICLE COMPLETE Afsaneh Mac APRN.CNS [address] [place] [address] [facility] Referral ID Status Reason Start Date Expiration Date Visits Requested Visits Authorized [id number] Pending Review Auto-Generat ed Referral 12/22/2021 01/21/2023 1 1 [facility] for referral (narrative)* Diagnostic Procedure Only (Routine) - Pending Review Specialty Diagnoses / Procedures Referred By Contac t Referred To Contact [facility] Diagnoses Encounter for screening mammogram for breast cancer Procedures LOVE SCREENING W NATE SCREENING DIGITAL BREAST TOMOSYNTHESIS BI SCREENING MAMMOGRAPHY BI 2-VIEW BREAST INC Gustabo Ross MD [address] [place] [address] [facility] [address] [place] [address] Referral ID Status Reason Start Date Expiration Date Visits Requested Visits Authorized [id number] Pending Review Auto-Generat ed Referral 02/02/2024 1 1 [facility] for referral (narrative)* Diagnostic Procedure Only (Routine) - New Request Specialty Diagnoses / Procedures Referred By Contac t Referred To Contact [facility] Diagnoses Encounter for screening mammogram for breast cancer Procedures LOVE SCREENING W NATE SCREENING DIGITAL BREAST TOMOSYNTHESIS BI SCREENING MAMMOGRAPHY BI 2-VIEW BREAST INC Gustabo Ross MD [address] [place] [address] [facility] [address] [place] [address] Referral ID Status Reason Start Date Expiration Date Visits Requested Visits Authorized [id number] New Request Auto-Generat ed Referral 4 01/17/2025 1 1 [facility] for referral (narrative)No [facility] for [facility]: Reason for visit Narrative* Diagnostic Procedure Only (Routine) - Closed Specialty Diagnoses / Procedures Referred By Contac t Referred To Contact [facility] Diagnoses Mass of chest wall, right Procedures XR CLAVICLE 2V RIGHT RADEX CLAVICLE COMPLETE Afsaneh Mac, MARKETING AUTOMATION MANAGER.PRESS OPERATOR [employer] [address] [place] [address] [place] [address] Referral ID Status Reason Start Date Expiration Date V isits Requested Visits Authorized [id number] Closed Auto-Generate d Referral 12/22/2021 01/21/2023 1 1 [facility] for visit Narrative* Imaging (Routine) - Pending Review Specialty Diagnoses / Procedures Referred By Contzunilda t Referred To Contact Radiology Diagnoses Hyperlipidemia, unspecified Procedures CT cardiac scoring wo IV contrast Daniel Guzman, MARKETING AUTOMATION MANAGER-HAT BAND ATTACHER [address] [facility] [address] [place] [address] Phone: tel: fax: Referral ID Status Reason Start Date Expiration Date Visits Requested Visits Authorized [id number] Pending Review Perform Procedure 06/25/2024 06/25/2025 1 1 [facility] Work Phone: Advance Directives Documents on File Type Date Recorded Patient Tape Librarian Expl anation Advance 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 Living Will Power of Type Cutter Documents on File Type Date Recorded Patient Tape Librarian Expl anation ACP-Advance Directive ACP-Power of Type Cutter Documents on File Type Date Recorded Patient Tape Librarian Expl anation ACP-Advance Directive ACP-Power of Type Cutter Documents on File Type Date Recorded Patient Tape Librarian Expl anation Advance 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 Living Will Power of Type Cutter Documents on File Type Date Recorded Patient Tape Librarian Expl anation Advance Directive(s) 11/28/2019 5:38 PM Documents on File Type Date Recorded Patient Tape Librarian Expl anation Advance Directive(s) 11/28/2019 5:38 PM Advance Directive Response Recorded Date/ Time Living Will No September 23, 2021 2:19pm Power of Type Cutter No September 23 2:19pm Advance Directive Response Recorded Date/ Time Living Will No September 23, 2021 1:19pm Power of Type Cutter No September 23 1:19pm Assessments Diagnosis Screening [...] been provided by the sender. Family History Unknown Family Member Name Dates Details Brother [...] sent through Care Everywhere. * Abdominal Pain (Samoan) documented in this encounter Reason for Referral Status Reason Specialty Diagnoses / Procedures Referre d By Contact Referred To Contact Closed Radiology Diagnoses Lump in armpit, left Localized enlarged lymph nodes Procedures US Breast Bilateral Iris Clements, DO [address] [place] [address] [place] [address] Status Reason Specialty Diagnoses / Procedures Referre d By Contact Referred To Contact Closed Radiology Diagnoses Lump in armpit, left Localized enlarged lymph nodes Procedures LOVE DIGITAL DIAGNOSTIC W OR WO CAD BILATERAL Iris Clements, DO [address] [place] [address] Status Reason Specialty Diagnoses / Procedures Re ferred By Contact Referred To Contact Open Radiology Diagnoses Leukocytes in urine Procedures US Retroperitoneal Limited Gisell Espinoza MD [address] [facility] [address] [place] [address] Specialty Diagnoses / Procedures Referred By Contac t Referred To Contact Radiology Diagnoses Pain in both hands Procedures XR HAND RIGHT 3 VIEWS Diana Lundberg MD [address] [place] [address] [facility] DI[facility]NOSTIC RADIOLOGY [address] [place] [address] [place] [address] Referral ID Status Reason Start Date Expiration Date Visits Re quested Visits Authorized [id number] Closed 08/24/2021 08/24/2022 1 1 Specialty Diagnoses / Procedures Referred By Contac t Referred To Contact Radiology Diagnoses Pain in both hands Procedures XR HAND LEFT 3 VIEWS Diana Lundberg MD [address] [place] [address] [facility] DIAGNOSTIC RADIOLOGY [address] [place] [address] [place] [address] Referral ID Status Reason Start Date Expiration Date Visits Re quested Visits Authorized [id number] Closed 08/24/2021 08/24/2022 1 1 Specialty Diagnoses / Procedures Referred By Contac t Referred To Contact CT IMAGING Diagnoses Lung nodules Procedures CT CHEST WO IVCON CAT SCAN OF CHEST Michael Merrill MD [address] [place] [address] Ct Imaging Referral ID Status Reason Start Date Expiration Date V isits Requested Visits Authorized [id number] Closed Auto-Generate d Referral 09/24/2021 10/24/2021 1 1 Specialty Diagnoses / Procedures Referred By Contac t Referred To Contact Otolaryngology Diagnoses Swollen uvula Osei, Shanique Andrew, DO [address] [facility] [address] [place] [address] Con Lynn MD [facility] [address] [address] Referral ID Status Reason Start Date Expiration Date V isits Requested Visits Authorized [id number] Authorized 05/11/2022 05/11/2023 1 1 Chief Complaint and Reason for Visit Chief Complaint hyster d&C symphion Reason for Visit Endometrial thickeni ng on ultrasound PMB (postmenopausal bleeding) Chief Complaint R SIDE ENLARGEMENT Chief Complaint Admit Date THYROID NODULE August 11, 2024 1:00 pm Additional Source Comments INFORMATION SOURCE (unrecogn ized section and content) DATE CREATED AUTHOR 03/25/2018 [facility] DATE CREATED AUTHOR AUTHOR'S ORGANIZ ATION 07/25/2019 [facility] DATE CREATED AUTHOR AUTHOR'S ORGANIZ ATION [facility] DATE CREATED AUTHOR AUTHOR'S ORGANIZ ATION 08/23/2020 [facility] DATE CREATED AUTHOR AUTHOR'S ORGANIZ ATION 09/24/2020 [facility] DATE CREATED AUTHOR AUTHOR'S ORGANIZ ATION 12/18/2021 [facility] DATE CREATED AUTHOR AUTHOR'S ORGANIZ ATION 04/26/2022 [facility] DATE CREATED AUTHOR AUTHOR'S ORGANIZ ATION 05/23/2022 [facility] DATE CREATED AUTHOR AUTHOR'S ORGANIZ ATION 12/21/2023 [facility] DATE CREATED AUTHOR AUTHOR'S ORGANIZ ATION 02/02/2024 [facility] DATE CREATED AUTHOR AUTHOR'S ORGANIZ ATION 07/16/2024 [facility] DATE CREATED AUTHOR AUTHOR'S ORGANIZ ATION 08/01/2024 [facility] DATE CREATED AUTHOR AUTHOR'S ORGANIZ ATION 08/16/2024 [facility] Reason for Visit (unrecogniz ed section and content) Reason Comments Abdominal Pain Shoulder Pain R Status Reason Specialty Diagnoses / Procedures Referre d By Contact Referred To Contact Closed Radiology Diagnoses Lump in armpit, left Localized enlarged lymph nodes Procedures LOVE DIGITAL DIAGNOSTIC W OR WO CAD BILATERAL Iris Clements R, DO [address] [place] [address] Reason Comments New patient, to establish relationship [...] CAT SCAN OF CHEST Michael Merrill MD [address] [place] [address] Ct Imaging Referral ID Status Reason Start Date Expiration Date V isits Requested Visits Authorized [id number] Closed Auto-Generate d Referral 09/24/2021 10/24/2021 1 1 Reason Comments Breast Mass Up by collar bone Reason Comments Results Reason Comments sore throat New pt Swollen uvula Specialty Diagnoses / Procedures Referred By Contac t Referred To Contact Otolaryngology Diagnoses Swollen uvula Shanique Carmen DO [address] [facility] [address] [place] [address] Con Lynn MD [address] [address] Referral ID Status Reason Start Date Expiration Date Visits Re quested Visits Authorized [id number] Closed 05/11/2022 05/11/2023 1 1 Reason Comments [...] or prosecute any alcohol or drug abuse patient.[facility] Center[facility] the event this information is protected by the Federal Confidentiality of Alcohol and Drug Abuse Patient Records regulations: The Federal rules restrict any use of the information to criminally investigate or prosecute any alcohol or drug abuse patient.[facility] CenterIn the event this information is protected by the Federal Confidentiality of Alcohol and Drug Abuse Patient Records regulations: The Federal rules restrict any use of the information to criminally investigate or prosecute any alcohol or drug abuse patient.[facility] CenterIn the event this information is protected by the Federal Confidentiality of Alcohol and Drug Abuse Patient Records regulations: The Federal rules restrict any use of the information to criminally investigate or prosecute any alcohol or drug abuse patient.[facility] CenterIn the event this information is protected by the Federal Confidentiality of Alcohol and Drug Abuse Patient Records regulations: The Federal rules restrict any use of the information to criminally investigate or prosecute any alcohol or drug abuse patient.[facility] CenterIn the event this information is protected by the Federal Confidentiality of Alcohol and Drug Abuse Patient Records regulations: The Federal rules restrict any use of the information to criminally investigate or prosecute any alcohol or drug abuse patient.[facility] CenterIn the event this information is protected by the Federal Confidentiality of Alcohol and Drug Abuse Patient Records regulations: The Federal rules restrict any use of the information to criminally investigate or prosecute any alcohol or drug abuse patient.[facility] CenterIn the event this information is protected by the Federal Confidentiality of Alcohol and Drug Abuse Patient Records regulations: The Federal rules restrict any use of the information to criminally investigate or prosecute any alcohol or drug abuse patient.[facility] CenterIn the event this information is protected by the Federal Confidentiality of Alcohol and Drug Abuse Patient Records regulations: The Federal rules restrict any use of the information to criminally investigate or prosecute any alcohol or drug abuse patient.[facility] CenterIn the event this information is protected by the Federal Confidentiality of Alcohol and Drug Abuse Patient Records regulations: The Federal rules restrict any use of the information to criminally investigate or prosecute any alcohol or drug abuse patient.[facility] CenterIn the event this information is protected by the Federal Confidentiality of Alcohol and Drug Abuse Patient Records regulations: The Federal rules restrict any use of the information to criminally investigate or prosecute any alcohol or drug abuse patient.[facility] CenterIn the event this information is protected by the Federal Confidentiality of Alcohol and Drug Abuse Patient Records regulations: The Federal rules restrict any use of the information to criminally investigate or prosecute any alcohol or drug abuse patient.[facility] CenterIn the event this information is protected by the Federal Confidentiality of Alcohol and Drug Abuse Patient Records regulations: The Federal rules restrict any use of the information to criminally investigate or prosecute any alcohol or drug abuse patient.[facility] CenterIn the event this information is protected by the Federal Confidentiality of Alcohol and Drug Abuse Patient Records regulations: The Federal rules restrict any use of the information to criminally investigate or prosecute any alcohol or drug abuse patient.[facility] CenterIn the event this information is protected by the Federal Confidentiality of Alcohol and Drug Abuse Patient Records regulations: The Federal rules restrict any use of the information to criminally investigate or prosecute any alcohol or drug abuse patient.[facility] CenterIn the event this information is protected by the Federal Confidentiality of Alcohol and Drug Abuse Patient Records regulations: The Federal rules restrict any use of the information to criminally investigate or prosecute any alcohol or drug abuse patient.[facility] CenterIn the event this information is protected by the Federal Confidentiality of Alcohol and Drug Abuse Patient Records regulations: The Federal rules restrict any use of the information to criminally investigate or prosecute any alcohol or drug abuse patient.[facility] CenterIn the event this information is protected by the Federal Confidentiality of Alcohol and Drug Abuse Patient Records regulations: The Federal rules restrict any use of the information to criminally investigate or prosecute any alcohol or drug abuse patient.[facility] CenterIn the event this information is protected by the Federal Confidentiality of Alcohol and Drug Abuse Patient Records regulations: The Federal rules restrict any use of the information to criminally investigate or prosecute any alcohol or drug abuse patient.[facility] CenterIn the event this information is protected by the Federal Confidentiality of Alcohol and Drug Abuse Patient Records regulations: The Federal rules restrict any use of the information to criminally investigate or prosecute any alcohol or drug abuse patient.[facility] CenterIn the event this information is protected by the Federal Confidentiality of Alcohol and Drug Abuse Patient Records regulations: The Federal rules restrict any use of the information to criminally investigate or prosecute any alcohol or drug abuse patient.[facility] CenterIn the event this information is protected by the Federal Confidentiality of Alcohol and Drug Abuse Patient Records regulations: The Federal rules restrict any use of the information to criminally investigate or prosecute any alcohol or drug abuse patient.[facility] the event this information is protected by the Federal Confidentiality of Alcohol and Drug Abuse Patient Records regulations: The Federal rules restrict any use of the information to criminally investigate or prosecute any alcohol or drug abuse patient.[facility] CenterIn the event this information is protected by the Federal Confidentiality of Alcohol and Drug Abuse Patient Records regulations: The Federal rules restrict any use of the information to criminally investigate or prosecute any alcohol or drug abuse patient.[facility] CenterIn the event this information is protected by the Federal Confidentiality of Alcohol and Drug Abuse Patient Records regulations: The Federal rules restrict any use of the information to criminally investigate or prosecute any alcohol or drug abuse patient.[facility] the event this information is protected by the Federal Confidentiality of Alcohol and Drug Abuse Patient Records regulations: The Federal rules restrict any use of the information to criminally investigate or prosecute any alcohol or drug abuse patient.[facility] CenterIn the event this information is protected by the Federal Confidentiality of Alcohol and Drug Abuse Patient Records regulations: The Federal rules restrict any use of the information to criminally investigate or prosecute any alcohol or drug abuse patient.[facility] Care Teams (unrecognized sec tion and content) Mountain Guide Relationship Specialty Start Date End Date Iris Clements PCP - General Family Practice 11/28/19 Mountain Guide Relationship Specialty Start Date End Date Almaz Turner DO [address] [place] [address] PCP - General Family Practice 09/16/21 Mountain Guide Relationship Specialty Start Date End Date Almaz Turner DO [address] [place] [address] PCP - General Family Practice 09/16/21 Mountain Guide Relationship Specialty Start Date End Date Almaz Turner DO [address] [place] [address] PCP - General Family Practice 09/16/21 Mountain Guide Relationship Specialty Start Date End Date Almaz Turner, DO [address] [place] [address] PCP - General Family Practice 09/16/21 Mountain Guide Relationship Specialty Start Date End Date Iris Clements PCP - General Family Practice 11/28/19 09/15/21 Almaz Turner, DO [address] [place] [address] PCP - General Family Practice 09/16/21 Mountain Guide Relationship Specialty Start Date End Date Almaz Turner DO [address] [place] [address] PCP - General Family Practice 09/16/21 Mountain Guide Relationship Specialty Start Date End Date Iris Clements Latia PCP - General Family Practice 11/28/19 09/15/21 Almaz Turner, DO [address] [place] [address] PCP - General Family Practice 09/16/21 Mountain Guide Relationship Specialty Start Date End Date Almaz Turner DO [address] [place] [address] PCP - General Family Practice 09/16/21 Mountain Guide Relationship Specialty Start Date End Date Almaz Turner DO [address] [place] [address] PCP - General Family Practice 09/16/21 Mountain Guide Relationship Specialty Start Date End Date Almaz Turner DO [address] [place] [address] PCP - General Family Practice 09/16/21 Mountain Guide Relationship Specialty Start Date End Date Almaz Turner DO [address] [place] [address] PCP - General Family Practice 09/16/21 Mountain Guide Relationship Specialty Start Date End Date Gustabo Deng MD [address] [place] [address] PCP - General Internal Medicine 12/22/21 Mountain Guide Relationship Specialty Start Date End Date Diana Lundberg MD [address] [place] [address] Physician Plastic Surgery 09/24/21 Mountain Guide Relationship Specialty Start Date End Date Diana Lundberg MD [address] [place] [address] Physician Plastic Surgery 09/24/21 Mountain Guide Relationship Specialty Start Date End Date Shanique Carmen DO [facility] [address] PCP - General Internal Medicine 05/11/22 Mountain Guide Relationship Specialty Start Date End Date Shanique Carmen DO [facility] [address] PCP - General Internal Medicine 05/11/22 Mountain Guide Relationship Specialty Start Date End Date Diana Lundberg MD [address] [place] [address] Physician Plastic Surgery 09/24/21 Mountain Guide Relationship Specialty Start Date End Date Iris Clements PCP - General Family Medicine 11/28/19 09/15/21 Mountain Guide Relationship Specialty Start Date End Date Gustabo Deng MD [address] [place] [address] PCP - General Internal Medicine 12/22/21 Mountain Guide Relationship Specialty Start Date End Date Diana Lundberg MD [address] [place] [address] Physician Plastic Surgery 09/24/21 Mountain Guide Relationship Specialty Start Date End Date Gustabo Deng MD [address] [place] [address] PCP - General Internal Medicine 12/22/21 Mountain Guide Relationship Specialty [place] [address] [place] [address] PCP - General Internal Medicine 12/22/21 Mountain Guide Relationship Specialty Start Date End Date Diana Lundberg MD [address] [place] [address] Physician Plastic Surgery 09/24/21 Mountain Guide Relationship Specialty Start [place] [address] [place] [address] PCP - General Internal Medicine 12/22/21 Team Status: Active Member Role Status Dates ZAK Miller Primary Care Provider Active Team Status: Inactive Member Role Status Dates ZAK Miller Primary Care Provider Active Start: April 11, 2024 End: April 11, 2024 ZAK Millre Attending Provider Active Start: April 11, 2024 End: April 11, 2024 ZAK Miller Referring Provider Active Start: April 11, 2024 End: April 11, 2024 Mountain Guide Relationship Specialty Start Date End Date Daniel Guzman CNP [address] [address] PCP - General Family Medicine 01/06/24 Mountain Guide Relationship Specialty Start Date End Date Daniel Guzman APRN-CNP [address] [address] PCP - General Family Medicine 07/24/24 Team Status: Active Member Role/Relationship Status Dates ZAK Miller Primary Care Provider Active Team Status: Inactive Member Role/Relationship Status Dates ZAK Miller Primary Care Provider Active Start: August 11, 2024 End: August 11, 2024 ZAK Miller Attending Provider Active Start: August 11, 2024 End: August 11, 2024 ZAK Miller Referring Provider Active Start: August 11, 2024 End: August 11, 2024 Mountain Guide Relationship Specialty Start Date End Date Diana Lundberg MD [address] [place] [address] Physician Plastic Surgery 09/24/21 Goals (unrecognized section and content) Goals may be documented in a n alternate sectionGoals may be documented in an alternate sectionGoals may be documented in an [...] BE BASED ON THE PRIMARY CLINICAL RECORDS. [employer] provides no warranty or guarantee of the accuracy or completeness of information in this document.
--- OUTSIDE RECORDS SUMMARY | 2024-09-29 21:25 | XMS RPT_ITS | CCD ---
Author Organization [facility] Care Team Providers Care Harness Preparer Name Role Phone Rashaad Chan MD Unavailable [...] Unavailable Iris Clements R Primary Care Provider Iris Clements R Primary Care Provider Kelsi [...] HUFF, Gustabo Sinclair Primary Care Provider Thomas FIELD HORTICULTURAL SPECIALTY GROWER, Daniel Unavailable Thomas FIELD HORTICULTURAL SPECIALTY GROWER, Daniel Unavailable Slarb REGIONAL FACILITIES MANAGER, Nancy Unavailable Unavailable Unavailable Unavailable Diana Lundberg MD Unavailable Sandy JAIMES, Miguel Unavailable Unavailable Unavailable Unavailable Sukhwinder REGIONAL FACILITIES MANAGERNadia Unavailable Unavailable Unavailable Unavailable Diana Lundberg MD Unavailable Thomas FIELD HORTICULTURAL SPECIALTY GROWER, Daniel Attending Unavailable Thomas FIELD HORTICULTURAL SPECIALTY GROWER, Daniel Referring Unavailable Thomas FIELD HORTICULTURAL SPECIALTY GROWER, Daniel Consulting Unavailable Con Lynn Unavailable Fast [...] Attending Unavailable CHLOÉ GUZMANYN Primary Care Unavailable Htomas APRON CLEANER-C, Daniel Primary Care Provider Thomas APRON CLEANER-CDaniel Attending Provider Thomas APRON CLEANER-C, Daniel Referring Provider Thomas Chloé GALLARDOyn Primary Care Provider GUSTABO DENG Primary Care Unavailable Thomas EARLY CHILDHOOD ASSOCIATE-Daniel GALLARDO E Primary Care Provider DANIEL GUZMAN E Referring Unavailable CHLOÉ GUZMANYN E Primary Care Unavailable Thomas APRON CLEANER-C, Daniel Primary Care Provider Thomas APRON CLEANER-C, Daniel Attending Provider Thomas APRON CLEANER-C, Daniel Referring Provider Thomas, Daniel Referring Unavailable Daniel Guzman Primary Care Unavailable Thomas, Daniel Attending Unavailable Thomas, Daniel Referring Unavailable Thomas, Daniel Primary Care Unavailable Thomas, Daniel Attending Unavailable Thomsa, Daniel Referring Unavailable Thomas, Daniel Primary Care Unavailable Thomas, Daniel Attending Unavailable Thomas, Daniel Primary Care Unavailable Thomas, Daniel Attending Unavailable Thomas, Daniel Referring Unavailable Allergies Allergy Classification Reported Allergen(s) Allergy Type Date of Onset Reaction(s) Facility Quinolones (antibiotic) (1 source) Ciprofloxacin Drug Allergy 03-21-19 13 Rash [facility] (1 source) ciprofloxacin drug allergy 01-21-20 16 [facility] Work Phone: (20 sources) Ciprofloxacin; Translations: [Cipro *FLUOROQUINOLONES *] Drug Allergy 03-21-19 13 Rash, Other: See Comments, Other (See Comments), [place]elling [place] (5 sources) Morphine And Related Propensity to adverse reactions to drug 07-02-19 16 Other (See Comments) [place] (20 sources) Morphinan opioid; Translations: [OPIOIDS - MORPHINE ANALOGUES] Propensity to adverse reactions to drug 07-02-19 16 Other: See Comments, Other (See Comments) [facility] (2 sources) Morphine; Translations: [MORPHINE] Drug Allergy 07-02-19 16 Other (See Comments) [facility] (1 source) ALLERGIES NOT ON FILE; Translations: [ALLERGIES NOT ON FILE] Propensity to adverse reactions (disorder) [facility] 2 Repository (1 source) Ciprofloxacin Drug Allergy 09-30-19 22 [facility] Repository Medications Current Medications Medication Drug Class(es) [...] tablets every 6 hours as needed ASPIRIN [id number] [place] bimatoprost 0.3 mg/ml topical solution [...] a tablet every other day ATORVASTATIN CALCIUM [id number] [place] cariprazine 1.5 mg oral capsule [...] End : 01-May-2022 Inactive 168 hr estradiol 0.80083 mg/hr transdermal system (20 sources) Estrogen Start: [...] 4H-CAP take 1 capsule daily VENLAFAXINE HCL [id number] [place] Start: 06-03-2015 End: 05-11-2022 take [...] Interpretation Reference Range Facility Thyroidon 08-11-[address] [facility] Imaging Services [address] [place], [place] [address] Thyroid MR#: [id number] Acct: [id number] Name: CELI BUCK Rep #: [id number] : 1950 F 74 From: César Shafer MD PCP: ZAK Miller Status: REG CLI Study: Thyroid Date of Exam: 08/11/24 Exam# [id number] Ordering Dr: Daniel Guzman PROCEDURE: THYROID 08/11/2024 REASON FOR EXAM: THYROID ULTRASOUND ([id number]) : REASSESS NODULE/MICROCALCIFIC ATION U TECHNIQUE: THYROID [...] guidelines. Reading Location: [place] CC: ZAK Guzman Inside Sales Coordinator: Signed Normal [facility] CT CARDIAC SCORING WO IV CON TRASTon 07-24-2024 CT CARDIAC SCORING WO IV CONTRAST Interpreted By: Sara Yates, STUDY: CT CARDIAC SCORING WO IV CONTRAST; 07/24/2024 8:49 am INDICATION: Signs/Symptoms:HLD AUTOIMMUNE (CROHN'S) GERD HYPERLIPIDEMIA. ,E78.5 Hyperlipidemia, unspecified COMPARISON: None. ACCESSION NUMBER(S): [id number] ORDERING CLINICIAN: DANIEL GUZMAN TECHNIQUE: Using prospective [...] coronary heart disease events. According to the [employer] Clinical Expert Consensus [...] modify other non-lipid coronary risk factors. Reference: [place] P et al. Circulation. 2007; 115:402-426 MACRO: None Signed by: Sara Yates 07/25/2024 7:42 AM Dictation workstation: [id number] [facility] CNCOon 07-10-2024 CNCO Letter Text Normal [facility] Absolute neutrophil countOrd ered By: Daniel Guzman on 04-11-2024 Neutrophils (Bld) [#/Vol] 5.4 10*3/uL 2.0-7.7 [facility] Albumin to globulin ratioOrd ered By: Daniel Guzman on 04-11-2024 Albumin/Globulin [Mass ratio] 0.9 {ratio} 0.9-2.4 [facility] Basophil percentageOrdered B y: Daniel Guzman on 04-11-2024 Basophils/100 WBC (Bld) 0.4 % 0-1 [facility] Bilirubin, totalOrdered By: Daniel Guzman on 04-11-2024 Bilirubin [Mass/Vol] 0.60 mg/dL 0.20-1.00 [facility] Comment on above: For patients on eltr ombopag therapy, use of Dimension [place] TBIL is not recommended. Blood urea nitrogen (BUN)/cr eatinine ratioOrdered By: Daniel Guzman on 04-11-2024 Urea nitrogen/Creatinine [Mass ratio] 7.6 mg/mg Low 10-20 [facility] C-reactive protein measureme nt by high sensitivity methodOrdered By: Daniel Guzman on 04-11-2024 C-Reactive Protein Extended Range 24.20 mg/L High 0.0-3.0 [facility] Comment on above: C-Reactive Protein ( CRP) provides useful information for thediagnosis, therapy and monitoring of inflammatory processesand associated diseases. For the evaluation of Relative Riskfor Cardiovascular Disease, a High Sensitivity CRP (HSCRP)should be ordered. CBC W/Diff, Automatedon 03-23 Absolute Lymph 0.81 X10 3/uL Low 0.83-4.51 [facility] Comment on above: Performed By: #### L 100.0100, L101.9900, L500.4050, L501.6710 #### [facility] [address] [place], [address] Absolute Neut 5.4 X10 3/uL Normal 2.0-7.7 [facility] Comment on above: Performed By: #### L 100.0100, L101.9900, L500.4050, L501.6710 #### [facility] [address] [place], [address] Basophils/100 WBC (Bld) 0.4 % Normal 0-1 [facility] Comment on above: Performed By: #### L 100.0100, L101.9900, L500.4050, L501.6710 #### [facility] [address] [place], [address] Eosinophils/100 WBC (Bld) 3.9 % Normal 0-5 [facility] Comment on above: Performed By: #### L 100.0100, L101.9900, L500.4050, L501.6710 #### [facility] [address] [place], [address] Erythrocyte distribution width (RBC) [Ratio] 13.0 % Normal 11.6-14.6 [facility] Comment on above: Performed By: #### L 100.0100, L101.9900, L500.4050, L501.6710 #### [facility] [address] [place], [address] Hematocrit (Bld) [Volume fraction] 44.4 % Normal 37-47 [facility] Comment on above: Performed By: #### L 100.0100, L101.9900, L500.4050, L501.6710 #### [facility] [address] [place], [address] Hemoglobin (Bld) [Mass/Vol] 14.1 g/dL Normal 12.0-15.0 [facility] Comment on above: Performed By: #### L 100.0100, L101.9900, L500.4050, L501.6710 #### [facility] [address] [place], [address] IG% 0.300 Normal 0.0-0.9 [facility] Comment on above: Result Comment: IG% - Immature Granulocytes (promyelocytes, myelocytes and metamyelocytes) > 1% indicates that a LEFT SHIFT is Present. Performed By: #### L 100.0100, L101.9900, L500.4050, L501.6710 #### [facility] [address] [place], [address] Lymphocytes/100 WBC (Bld) 11.1 % Low 19-41 [facility] Comment on above: Performed By: #### L 100.0100, L101.9900, L500.4050, L501.6710 #### [facility] [address] [place], [address] MCH (RBC) [Entitic mass] 30.1 pg Normal 27.0-32.0 [facility] Comment on above: Performed By: #### L 100.0100, L101.9900, L500.4050, L501.6710 #### [facility] [address] [place], [address] MCHC (RBC) [Mass/Vol] 31.8 g/dL Low 32-36 [facility] Comment on above: Performed By: #### L 100.0100, L101.9900, L500.4050, L501.6710 #### [facility] [address] [place], [address] MCV (RBC) [Entitic vol] 94.9 fL Normal 81-99 [facility] Comment on above: Performed By: #### L 100.0100, L101.9900, L500.4050, L501.6710 #### [facility] [address] [place], [address] Monocytes/100 WBC (Bld) 10.7 % High 0-10 [facility] Comment on above: Performed By: #### L 100.0100, L101.9900, L500.4050, L501.6710 #### [facility] [address] [place], [address] Neutrophils/100 WBC (Bld) 73.6 % High 47-70 [facility] Comment on above: Performed By: #### L 100.0100, L101.9900, L500.4050, L501.6710 #### [facility] [address] [place], [address] Nucleated RBC (Bld) [#/Vol] 0 10*3/uL Normal 0-5 [facility] Comment on above: Performed By: #### L 100.0100, L101.9900, L500.4050, L501.6710 #### [facility] [address] [place], [address] Platelet mean volume (Bld) [Entitic vol] 9.2 fL Normal 6.2-12.0 [facility] Comment on above: Performed By: #### L 100.0100, L101.9900, L500.4050, L501.6710 #### [facility] [address] [place], [address] Platelets (Bld) [#/Vol] 240 10*3/uL Normal 150-450 [facility] Comment on above: Performed By: #### L 100.0100, L101.9900, L500.4050, L501.6710 #### [facility] [address] [place], [address] RBC (Bld) [#/Vol] 4.68 10*6/uL Normal 4.2-5.4 [facility] Comment on above: Performed By: #### L 100.0100, L101.9900, L500.4050, L501.6710 #### [facility] [address] [place], [address] RDW SD 45.3 fl High 35.1-43.9 [facility] Comment on above: Performed By: #### L 100.0100, L101.9900, L500.4050, L501.6710 #### [facility] [address] [place], [address] WBC (Bld) [#/Vol] 7.3 10*3/uL Normal 4.4-11.0 [facility] Comment on above: Performed By: #### L 100.0100, L101.9900, L500.4050, L501.6710 #### [facility] [address] [place], [address] CRPon 04-11-2024 C-REACTIVE PROT 24.20 mg/L High 0.0-3.0 [facility] Comment on above: Result Comment: C-Re active Protein (CRP) provides useful information for the diagnosis, therapy and monitoring of inflammatory processes and associated diseases. For the evaluation of Relative Risk for Cardiovascular Disease, a High Sensitivity CRP (HSCRP) should be ordered. Performed By: #### L 100.0100, L101.9900, L500.4050, L501.6710 #### [facility] [address] [place], [address] Carbon dioxide measurementOr dered By: Daniel Guzman on 04-11-2024 CO2 [Moles/Vol] 26.0 mmol/L 21.0-32.0 [facility] Chest PA and Lateralon 04-[address] [facility] Imaging Services [address] [place] [address] Chest PA and Lateral MR#: [id number] Acct: [id number] Name: CELI BUCK Rep #: [id number] : 1950 F 74 From: Kaiden bonilla MD PCP: ZAK Miller Status: REG CLI Study: Chest PA and Lateral Date of Exam: 04/11/24 Exam# [id number] Ordering Dr: Daniel Guzman PROCEDURE: CHEST PA [...] No acute abnormality is seen. Reading Location: [place] [address] CC: ZAK Guzman Inside Sales Coordinator: Signed Normal [facility] Chloride measurementOrdered By: Daniel Guzman on 04-11-2024 Chloride [Moles/Vol] 106 mmol/L 98-107 [facility] Comprehensive Metabolic Prof ilon 04-11-2024 Albumin [Mass/Vol] 3.8 g/dL Normal 3.2-5.0 [facility] Comment on above: Performed By: #### L 100.0100, L101.9900, L500.4050, L501.6710 #### [facility] [address] [place], [address] Albumin/Globulin [Mass ratio] 0.9 {ratio} Normal 0.9-2.4 [facility] Comment on above: Performed By: #### L 100.0100, L101.9900, L500.4050, L501.6710 #### [facility] [address] [place], [address] ALK P 119 U/L High 45-117 [facility] Comment on above: Performed By: #### L 100.0100, L101.9900, L500.4050, L501.6710 #### [facility] [address] [place], [address] ALT [Catalytic activity/Vol] 33 U/L Normal 13-56 [facility] Comment on above: Performed By: #### L 100.0100, L101.9900, L500.4050, L501.6710 #### [facility] [address] [place], [address] AST [Catalytic activity/Vol] 23 U/L Normal 15-37 [facility] Comment on above: Performed By: #### L 100.0100, L101.9900, L500.4050, L501.6710 #### [facility] [address] [place], [address] Bilirubin [Mass/Vol] 0.60 mg/dL Normal 0.20-1.00 [facility] Comment on above: Result Comment: For patients on eltrombopag therapy, use of Dimension [place] TBIL is not recommended. Performed By: #### L 100.0100, L101.9900, L500.4050, L501.6710 #### [facility] [address] [place], [address] BUN/CRE 7.6 RATIO Low 10-20 [facility] Comment on above: Performed By: #### L 100.0100, L101.9900, L500.4050, L501.6710 #### [facility] [address] [place], [address] CA,Total 9.5 mg/dL Normal 8.5-10.1 [facility] Comment on above: Performed By: #### L 100.0100, L101.9900, L500.4050, L501.6710 #### [facility] [address] [place], [address] Chloride [Moles/Vol] 106 mmol/L Normal 98-107 [facility] Comment on above: Performed By: #### L 100.0100, L101.9900, L500.4050, L501.6710 #### [facility] [address] [place], [address] CO2 [Moles/Vol] 26.0 mmol/L Normal 21.0-32.0 [facility] Comment on above: Performed By: #### L 100.0100, L101.9900, L500.4050, L501.6710 #### [facility] [address] [place], [address] Creatinine [Mass/Vol] 1.05 mg/dL High 0.55-1.02 [facility] Comment on above: Result Comment: The validity of the calculated GFR GFRAA in patients over 70 years has not been determined. Clinical correlation is essential. Performed By: #### L 100.0100, L101.9900, L500.4050, L501.6710 #### [facility] [address] [place], [address] EST GFR - AA 66 mL/min Normal >60 [facility] Comment on above: Result Comment: Afri can [place] GFR Calc Performed By: #### L 100.0100, L101.9900, L500.4050, L501.6710 #### [facility] [address] [place], [address] GAP 7 Normal 5-15 [facility] Comment on above: Performed By: #### L 100.0100, L101.9900, L500.4050, L501.6710 #### [facility] [address] [place], [address] GFR/1.73 sq M.predicted among non-blacks MDRD (S/P/Bld) [Vol rate/Area] 55 mL/min/{1.73_m2} Low >60 [facility] Comment on above: Result Comment: Non- GFR Calc Performed By: #### L 100.0100, L101.9900, L500.4050, L501.6710 #### [facility] [address] [place], [address] Globulin (S) [Mass/Vol] 4.2 g/dL Normal 2.2-4.2 [facility] Comment on above: Performed By: #### L 100.0100, L101.9900, L500.4050, L501.6710 #### [facility] [address] [place], [address] Glucose [Mass/Vol] 88 mg/dL Normal 74-106 [facility] Comment on above: Performed By: #### L 100.0100, L101.9900, L500.4050, L501.6710 #### [facility] [address] [place], [address] Potassium [Moles/Vol] 3.8 mmol/L Normal 3.5-5.1 [facility] Comment on above: Performed By: #### L 100.0100, L101.9900, L500.4050, L501.6710 #### [facility] [address] [place], [address] Sodium [Moles/Vol] 139 mmol/L Normal 136-145 [facility] Comment on above: Performed By: #### L 100.0100, L101.9900, L500.4050, L501.6710 #### [facility] [address] [place], [address] T PROT 8.0 g/dL Normal 6.4-8.2 [facility] Comment on above: Performed By: #### L 100.0100, L101.9900, L500.4050, L501.6710 #### [facility] [address] [place], [address] Urea nitrogen [Mass/Vol] 8 mg/dL Normal 7-18 [facility] Comment on above: Performed By: #### L 100.0100, L101.9900, L500.4050, L501.6710 #### [facility] [address] [place], [address] Eosinophil percentageOrdered By: Daniel Guzman on 04-11-2024 Eosinophils/100 WBC (Bld) 3.9 % 0-5 [facility] Erythrocyte Sed Rateon 04-11 SED RATE 6 mm/hr Normal 0-30 [facility] Comment on above: Performed By: #### L 100.0100, L101.9900, L500.4050, L501.6710 #### [facility] [place], [address] Erythrocyte distribution wid th ratioOrdered By: Daniel Guzman on 04-11-2024 Erythrocyte distribution width (RBC) [Ratio] 13.0 % 11.6-14.6 [facility] Erythrocyte distribution wid th standard deviationOrdered By: Daniel Guzman on 04-11-2024 Erythrocyte distribution width (RBC) [Entitic vol] 45.3 fL High 35.1-43.9 [facility] Erythrocyte sedimentation ra teOrdered By: Daniel Guzman on 04-11-2024 ESR (Bld) [Velocity] 6 mm/h 0-30 [facility] Estimated glomerular filtrat ion rate (GFR) AmericanOrdered By: Daniel Guzman on 04-11-2024 Estimated GFR (MDRD) Amer 66 mL/min >60 [facility] Comment on above: GFR Calc Glomerular filtration rate ( GFR) estimationOrdered By: Daniel Guzman on 04-11-2024 Estimated GFR (MDRD) Non-Af Amer 55 mL/min Low >60 [facility] Comment on above: Non- GFR Calc Glucose measurementOrdered B y: Daniel Guzman on 04-11-2024 Glucose [Mass/Vol] 88 mg/dL 74-106 [facility] Hematocrit Auto (Bld) [Volum e fraction]Ordered By: Daniel Guzman on 04-11-2024 Hematocrit (Bld) [Volume fraction] 44.4 % 37-47 [facility] Hemoglobin measurementOrdere d By: Daniel Guzman on 04-11-2024 Hemoglobin (Bld) [Mass/Vol] 14.1 g/dL 12.0-15.0 [facility] Immature granulocytes/100 WB C Auto (Bld)Ordered By: Daniel Guzman on 04-11-2024 Immature granulocytes/100 WBC (Bld) 0.300 % 0.0-0.9 [facility] Comment on above: IG% - Immature Granu locytes (promyelocytes, myelocytes and metamyelocytes) > 1% indicates that a LEFT SHIFT is Present. Laboratory - Chemistry and C hemistry - challengeOrdered By: Daniel Guzman on 04-11-2024 AST [Catalytic activity/Vol] 23 U/L 15-37 [facility] Lymphocytes Auto (Unsp spec) [#/Vol]Ordered By: Daniel Guzman on 04-11-2024 Lymphocytes (Bld) [#/Vol] 0.81 10*3/uL Low 0.83-4.51 [facility] Lymphocytes/100 WBC Auto (Un sp spec)Ordered By: Daniel Guzman on 04-11-2024 Lymphocytes/100 WBC (Bld) 11.1 % Low 19-41 [facility] MCV (mean corpuscular volume ) determinationOrdered By: Daniel Guzman on 04-11-2024 MCV (RBC) [Entitic vol] 94.9 fL 81-99 [facility] Mean corpuscular hemoglobin (MCH) determinationOrdered By: Daniel Guzman on 04-11-2024 MCH (RBC) [Entitic mass] 30.1 pg 27.0-32.0 [facility] Mean corpuscular hemoglobin concentration (MCHC) determinationOrdered By: Daniel Guzman on 04-11-2024 MCHC (RBC) [Mass/Vol] 31.8 g/dL Low 32-36 [facility] Mean platelet volume determi nationOrdered By: Daniel Guzman on 04-11-2024 Platelet mean volume (Bld) [Entitic vol] 9.2 fL 6.2-12.0 [facility] Monocyte percentageOrdered B y: Daniel Guzman on 04-11-2024 Monocytes/100 WBC (Bld) 10.7 % High 0-10 [facility] Neutrophil percentageOrdered By: Daniel Guzman on 04-11-2024 Neutrophils/100 WBC (Bld) 73.6 % High 47-70 [facility] Nucleated red blood cell per centageOrdered By: Daniel Guzman on 04-11-2024 Nucleated RBC/100 WBC (Bld) [Ratio] 0 % 0-5 [facility] Platelet countOrdered By: Sallie Guzman on 04-11-2024 Platelets (Bld) [#/Vol] 240 10*3/uL 150-450 [facility] Potassium measurementOrdered By: Daniel Guzman on 04-11-2024 Potassium [Moles/Vol] 3.8 mmol/L 3.5-5.1 [facility] RBC Auto (Bld) [#/Vol]Ordere d By: Daniel Guzman on 04-11-2024 RBC (Bld) [#/Vol] 4.68 10*6/uL 4.2-5.4 [facility] Serum anion gap measurementO rdered By: Daniel Guzman on 04-11-2024 Anion gap [Moles/Vol] 7 mmol/L 5-15 [facility] Serum globulin measurementOr dered By: Daniel Guzman on 04-11-2024 Globulin (S) [Mass/Vol] 4.2 g/dL 2.2-4.2 [facility] Serum or plasma alanine deluna otransferase (ALT) measurementOrdered By: Daniel Guzman on 04-11-2024 ALT [Catalytic activity/Vol] 33 U/L 13-56 [facility] Serum or plasma albumin liana urement (mass/volume)Ordered By: Daniel Guzman on 04-11-2024 Albumin [Mass/Vol] 3.8 g/dL 3.2-5.0 [facility] Serum or plasma alkaline gerhard sphatase measurementOrdered By: Daniel Guzman on 04-11-2024 ALP [Catalytic activity/Vol] 119 U/L High 45-117 [facility] Serum or plasma calcium liana urement (mass/volume)Ordered By: Daniel Guzman on 04-11-2024 Calcium [Mass/Vol] 9.5 mg/dL 8.5-10.1 [facility] Serum or plasma creatinine m easurement (mass/volume)Ordered By: Daniel Guzman on 04-11-2024 Creatinine [Mass/Vol] 1.05 mg/dL High 0.55-1.02 [facility] Comment on above: The validity of the calculated GFR & GFRAA in patients over 70 years has not been determined. Clinical correlation is essential. Serum or plasma urea nitroge n measurement (mass/volume)Ordered By: Daniel Guzman on 04-11-2024 Urea nitrogen [Mass/Vol] 8 mg/dL 7-18 [facility] Sodium levelOrdered By: Jess Guzman on 04-11-2024 Sodium [Moles/Vol] 139 mmol/L 136-145 [facility] Total proteinOrdered By: Luis Guzman on 04-11-2024 Protein [Mass/Vol] 8.0 g/dL 6.4-8.2 [facility] White blood cell (WBC) count Ordered By: Daniel Guzman on 04-11-2024 WBC (Bld) [#/Vol] 7.3 10*3/uL 4.4-11.0 [facility] ALLIED HEALTHon 01-30-2024 ALLIED HEALTH HNO ID: [id number] Author: LONA LOZADA RT(R) Service: Radiology Author Type: Integration Architect Type: Allied Health Filed: 01/30/2024 12:39 Note [...] PATIENT PRESENTS WITH AN IMPLANTABLE OR ATTACHED FORDER OPERATOR: No ALLERGIES: Reviewed and unchanged CONTRAST ALLERGY: [...] January 30, 2024 TIME: 12:39 PM Normal [facility] CBC W Auto Differential pane l (Bld)on 01-30-2024 Basophils (Bld) [#/Vol] 10*3/uL Normal <0.11 [facility] Comment on above: Order Comment: Speci men Type: BLOOD SPECIMEN [facility] Facility[facility] Address: [address] [place] [address] Performed By: #### 5 7021-8 #### [facility] CLIA [id number] [address] [place] [address] [place] Basophils/100 WBC (Bld) 0.2 % Normal [facility] Comment on above: Order Comment: Crystal ellis Type: BLOOD SPECIMEN [facility]ing Facility[facility] Address: [address] [place] [address] Performed By: #### 5 7021-8 #### [facility] CLIA [id number] [address] [place] [address] [place] Differential cell count method Nom (Bld) Auto Normal [facility] Comment on above: Order Comment: Speci men Type: BLOOD SPECIMEN [facility] Facility[facility] Address: [address] [place] [address] Performed By: #### 5 7021-8 #### [facility] CLIA [id number] [address] [place] [id number] [place] Eosinophils (Bld) [#/Vol] 0.10 10*3/uL Normal <0.46 [facility] Comment on above: Order Comment: Speci men Type: BLOOD SPECIMEN [facility]ing Facility[facility] Address: [address] [place] [address] Performed By: #### 5 7021-8 #### [facility] CLIA [id number] [address] [place] [address] [place] Eosinophils/100 WBC (Bld) 1.6 % Normal [facility] Comment on above: Order Comment: Speci men Type: BLOOD SPECIMEN [facility] Facility[facility] Address: [address] [place] [address] Performed By: #### 5 7021-8 #### [facility] CLIA [id number] [address] [place] [address] [place] Erythrocyte distribution width (RBC) [Ratio] 13.8 % Normal 11.5-15.0 [facility] Comment on above: Order Comment: Speci men Type: BLOOD SPECIMEN [facility] Facility[facility] Address: [address] [place] [address] Performed By: #### 5 7021-8 #### [facility] CLIA [id number] [address] [place] [address] [place] Hematocrit (Bld) [Volume fraction] 40.1 % Normal 36.0-46.0 [facility] Comment on above: Order Comment: Speci men Type: BLOOD SPECIMEN [facility] Facility[facility] Address: [address] [place] [address] Performed By: #### 5 7021-8 #### [facility] CLIA [id number] [address] [place] [address] [place] Hemoglobin (Bld) [Mass/Vol] 12.8 g/dL Normal 11.5-15.5 [facility] Comment on above: Order Comment: Speci men Type: BLOOD SPECIMEN [facility] Facility[facility] Address: [address] [place] [address] Performed By: #### 5 7021-8 #### [facility] CLIA [id number] [address] [place] [address] [place] Immature granulocytes (Bld) [#/Vol] 10*3/uL Normal <0.10 [facility] Comment on above: Order Comment: Speci men Type: BLOOD SPECIMEN [facility] Facility[facility] Address: [address] [place] [address] Performed By: #### 5 7021-8 #### [facility] CLIA [id number] [address] [place] [address] [place] Immature granulocytes/100 WBC (Bld) 0.2 % Normal [facility] Comment on above: Order Comment: Speci men Type: BLOOD SPECIMEN [facility] Facility[facility] Address: [address] [place] [address] Performed By: #### 5 7021-8 #### [facility] CLIA [id number] [address] [place], [place] [address] [place] [address] [place] Lymphocytes (Bld) [#/Vol] 0.23 10*3/uL Low 1.00-4.00 [facility] Comment on above: Order Comment: Speci men Type: BLOOD SPECIMEN [facility] Facility[facility] Address: [address] [place] [address] Performed By: #### 5 7021-8 #### [facility] CLIA [id number] [address] STATES OF [facility] Lymphocytes/100 WBC (Bld) 3.6 % Normal [facility] Comment on above: Order Comment: Speci men Type: BLOOD SPECIMEN [facility] Facility[facility] Address: [address] [place] [address] Performed By: #### 5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 ADMINISTRATIVE COURT JUSTICE since she is so recent after a procedure Patient calling back and states that she did speak with her ADMINISTRATIVE COURT JUSTICE and they told her it was not related to her D/C and to contact her GI doctor. Tried to schedule and appt and pt insistent that she needs an appt sooner than November. She was last seen 2019. HI Amanda, can do labs and stool ordered and put on cancellation list. would try a probiotic, align or [employer] health. silvano Sent to for review: SHANIQUE DARBY PA-C Called pt. Pt on CX list. Pt will do blood/stool test. Per pt request lab orders emailed to [email or web address] Normal [facility] Basophil percentageon 2021 Chloride [Moles/Vol] 109 mmol/L 98-107 [facility] Work Phone: Glucose [Mass/Vol] 100 mg/dL 74-106 [facility] Work Phone: Comment on above: Fasting Glucose resu lt from 100 to 125 mg/dL suggests IMPAIRED HOMEOSTASIS per A.D.A. criteria. Potassium [Moles/Vol] 4.1 mmol/L 3.5-5.1 [facility] Work Phone: Sodium [Moles/Vol] 142 mmol/L 136-145 [facility] Work Phone: WBC (Bld) [#/Vol] 4.6 10*3/uL 4.4-11.0 [facility] Work Phone: Blood erythrocytes count (nu mber/volume)on 09-29-2021 RBC (Bld) [#/Vol] 4.34 10*6/uL 4.2-5.4 [facility] Work Phone: Blood hemoglobin measurement (mass/volume)on 09-29-2021 Hemoglobin (Bld) [Mass/Vol] 13.6 g/dL 12.0-15.0 [facility] Work Phone: Blood platelet mean volumeon 09-29-2021 Platelet mean volume (Bld) [Entitic vol] 9.1 fL 6.2-12.0 [facility] Work Phone: Determination of erythrocyte mean corpuscular volume (MCV)on 09-29-2021 MCV (RBC) [Entitic vol] 94.9 fL 81-99 [facility] Work Phone: Hematocrit Auto (Bld) [Volum e fraction]on 09-29-2021 Hematocrit (Bld) [Volume fraction] 41.2 % 37-47 [facility] Work Phone: Laboratory - Chemistry and C hemistry - challengeon 09-29-2021 CO2 [Moles/Vol] 30.0 mmol/L 21.0-32.0 [facility] Work Phone: Urea nitrogen/Creatinine [Mass ratio] 16.4 mg/mg 10-20 [facility] Work Phone: Laboratory - Hematology and Cell countson 09-29-2021 Erythrocyte distribution width (RBC) [Entitic vol] 49.4 fL 35.1-43.9 [facility] Work Phone: Erythrocyte distribution width (RBC) [Ratio] 14.1 % 11.6-14.6 [facility] Work Phone: MCH (RBC) [Entitic mass] 31.3 pg 27.0-32.0 [facility] Work Phone: MCHC Auto (RBC) [Mass/Vol]on 09-29-2021 MCHC (RBC) [Mass/Vol] 33.0 g/dL 32-36 [facility] Work Phone: No Panel Informationon 09-29 Estimated Creatinine Clearance Calc 34.18 ml/min [facility] Work Phone: Estimated GFR (MDRD) Amer 63 mL/min >60 [facility] Work Phone: Comment on above: GFR Calc Estimated GFR (MDRD) Non-Af Amer 52 mL/min >60 [facility] Work Phone: Comment on above: Non- GFR Calc Platelets bldon 09-29-2021 Platelets (Bld) [#/Vol] 209 10*3/uL 150-450 [facility] Work Phone: Serum or plasma calcium liana urement (mass/volume)on 09-29-2021 Calcium [Mass/Vol] 9.5 mg/dL 8.5-10.1 [facility] Work Phone: Serum or plasma creatinine m easurement (mass/volume)on 09-29-2021 Creatinine [Mass/Vol] 1.10 mg/dL 0.55-1.02 [facility] Work Phone: Comment on above: The validity of the calculated GFR & GFRAA in patients over 70 years has not been determined. Clinical correlation is essential. Serum or plasma urea nitroge n measurement (mass/volume)on 09-29-2021 Urea nitrogen [Mass/Vol] 18 mg/dL 7-18 [facility] Work Phone: Thin prep Papanicolaou smear with manual screeningon 09-29-2021 Thin prep Papanicolaou smear with manual screening 3 5-15 [facility] Work Phone: CT CHEST WO IVCONon 09-24-[address] CHEST WO IVCON * * *Final Report* * * DATE OF EXAM: Sep 23 2020 1:18PM [facility] [place] - CT CHEST WO IVCON / [...] upper abdominal organs are unremarkable in appearance. Service Writer Advisor (topogram) images: No additional findings. IMPRESSION: Stable pulmonary nodularity. Vascular disease. Additional findings noted above. Inside Sales Coordinator: [facility] Transcribe Date/Time: Sep 24 2020 8:43A Dictated by : DANIELA MERCHANT MD This examination was interpreted and the report reviewed and electronically signed by: DANIELA MERCHANT MD on Sep 24 2020 8:50AM EST [id number] CN [facility] DIGITAL DIAGNOSTIC BILATERALOrdered By: Iris Clements on 08-19-2020 Patient Name: CELI BUCK Mammography ACCESSION EXAM DATE/TIME PROCEDURE ORDERING PROVIDER [id number] 08/19/2020 13:20 EDT MG Breast Tomosynthesis DO CLEMENTS CHRISTINE BI CPT code 52320 85126 Reason For Exam (MG Breast Tomosynthesis BI) [...] MG breast tomosynthesis bl scr performed at [facility]. May 26, 2015, bilateral MG breast tomosynthesis bl scr performed at [facility]. TISSUE DENSITY: BIRADS B - There [...] images: BB's = Nipples; skin lesions Open tolowa dee-ni' = Palpable Mammography Report Line = Scar 2D digital mammography and tomosynthesis imaging were performed and reviewed with CAD. ASSESSMENT: Category 1 Negative RECOMMENDATION: Routine screening mammogram of both breasts in 1 year. . Report Dictated on --- Final --- Signed Date and Time: 08/19/2020 2:49 pm Signed by: MD SAMUEL, GAY Bajwa [facility] Work Phone: [facility] Incoming Radiology Results From [facility] - 08/19/2020 3:54 PM EDT [facility]: [id number] Mammography ACCESSION EXAM DATE/TIME PROCEDURE ORDERING PROVIDER [id number] 08/19/2020 13:20 EDT MG Breast Tomosynthesis DO CLEMENTS CHRISTINE BI CPT code 93598 05700 Reason For Exam (MG Breast Tomosynthesis BI) [...] MG breast tomosynthesis bl scr performed at [facility]. May 26, 2015, bilateral MG breast tomosynthesis bl scr performed at [facility]. TISSUE DENSITY: BIRADS B - There [...] images: BB's = Nipples; skin lesions Open tolowa dee-ni' = Palpable Mammography Report Line = Scar 2D digital mammography and tomosynthesis imaging were performed and reviewed with CAD. ASSESSMENT: Category 1 Negative RECOMMENDATION: Routine screening mammogram of both breasts in 1 year. . Report Dictated on --- Final --- Signed Date and Time: 08/19/2020 2:49 pm Signed by: MD BAKER KERISTEN L [facility] Work Phone: [facility] Work Phone: MG Breast Tomosynthesis Diag nostic BIon 08-19-2020 MG Breast Tomosynthesis Diagnostic BI Patient Name: CELI BUCK Mammography ACCESSION EXAM DATE/TIME PROCEDURE ORDERING PROVIDER [id number] 08/19/2020 13:20 EDT MG Breast Tomosynthesis DO CLEMENTS CHRISTINE BI CPT code 60112 08192 Reason For Exam (MG Breast Tomosynthesis BI) [...] MG breast tomosynthesis bl scr performed at [facility]. May 26, 2015, bilateral MG breast tomosynthesis bl scr performed at [facility]. TISSUE DENSITY: BIRADS B - There [...] images: BB's = Nipples; skin lesions Open tolowa dee-ni' = Palpable Mammography Report Line = Scar 2D digital mammography and tomosynthesis imaging were performed and reviewed with CAD. ASSESSMENT: Category 1 Negative RECOMMENDATION: Routine screening mammogram of both breasts in 1 year. . Report Dictated on Final Signed Date and Time: 08/19/2020 2:49 pm Signed by: MD BAKER KERISTEN L [facility] Cancer Risk Surveyon 07-0 MG Cancer Risk Survey Patient Name: CELI BUCK Mammography ACCESSION EXAM DATE/TIME PROCEDURE ORDERING PROVIDER [id number] 08/19/2020 13:20 EDT MG Cancer Risk Survey DO CLEMENTS CHRISTINE Reason For Exam (MG Cancer Risk Survey) [facility]ump in [facility] R22.32 Report Cancer Risk Assessment: This [...] 2:54 pm Signed by: DO LANDAVERDE RACHEL [facility] MG Cancer Risk SurveyOrdered By: Iris Clements on 08-19-2020 Patient Name: CELI BUCK Mammography ACCESSION EXAM DATE/TIME PROCEDURE ORDERING PROVIDER [id number] 08/19/2020 13:20 EDT MG Cancer Risk Survey DO CLEMENTS CHRISTINE Reason For Exam (MG Cancer Risk Survey) Lump in [facility] R22.32 Report Cancer Risk Assessment: This [...] Phone: Lucy Angela Incoming Rad[facility] - 08/19/2020 2:55 PM EDT Patient Name: CELI BUCK Mammography ACCESSION EXAM DATE/TIME PROCEDURE ORDERING PROVIDER [id number] 08/19/2020 13:20 EDT MG Cancer Risk Survey [...] Ultrasound ACCESSION EXAM DATE/TIME PROCEDURE ORDERING PROVIDER [id number] 08/19/2020 14:07 EDT US Breast Limited Left DO CLEMENTS CHRISTINE CPT code 15439 Reason For Exam (US Breast Limited Left) Palp Lt axillary lump Report This report was read in conjunction with Breast Nate Bl Final Signed Date and Time: 08/23/2020 1:52 pm Signed by: SECURITY OPERATIONS ANALYST, SYSTEM Transcribed Date and Time: 08/23/2020 1:52 Transcribed By:LUCRECIA [facility] CT CHEST WO IVCONon 02-26-19 21 Radiology Result ACTIONABLE [facility] Low Dose Lung Diagnostico n 12-30-2019 CT Low Dose Lung Diagnostic Patient Name: CELI BUCK CT Exam Date/Time 12/29/2019 13:20:[address] Low Dose Thorax w/o Cont Ordering Physician DARRION ISLAS Accession Number [id number] CPT4 Codes 57856 (CT Low Dose Thorax w/o Cont) Reason [...] Transcribed Date and Time: 12/30/2019 3:40 Normal [facility] XR CHEST 1V FRONTALon 2019 XR CHEST [...] acute cardiopulmonary process. Findings suggestive of COPD. Inside Sales Coordinator: ROBERT Transcribe Date/Time: Nov 28 2019 7:10P Dictated by : WILLIAM DANIELSON MD This examination was interpreted and the report reviewed and electronically signed by: WILLIAM DANIELSON MD on Nov 28 2019 7:12PM EST Normal [facility] CULTURE URINEon 07-17-2019 CULTURE URINE CULTURE URINE --> Status: F No growth (<1,000 CFU/ml). Normal [facility] Comment on above: Performed By: #### H EPC, HBSAG, RPR, C/UR #### [facility] [address], [place] Hep B Surface Agon 0 Hep B Surface Ag NOT DETECTED Normal Not-Detecte d [facility] Comment on above: Performed By: #### H EPC, HBSAG, RPR, C/UR #### [place] [address], [place] Hep C Antibodyon 07-16-2019 Hep C Antibody NOT DETECTED Normal Not-Detecte d [facility] Comment on above: Result Comment: Arielle ents with DETECTED Hepatitis C Ab results should have a new specimen submitted for supplemental testing with a Hepatitis C Quantitative RNA assay (viral load), if clinically indicated. Performed By: #### H EPC, HBSAG, RPR, C/UR #### [place] [address], [place] RPR, Qualon 07-16-2019 RPR, Qual NONREACTIVE Normal Non-Reactiv e [facility] Comment on above: Performed By: #### H EPC, HBSAG, RPR, C/UR #### [place] [address], [place] US RETROPERITONEAL LIMITEDOr dered By: Gisell Espinoza on 01-31-2019 Patient Name: CELI BUCK ---Ultrasound--- Exam Date/Time 01/31/2019 14:11:41 EST Exam US Retroperitoneal Limited Ordering Physician GISELL ESPINOZA Accession Number [id number] CPT4 Codes 57758 () Reason For Exam Renal Report RENAL [...] 0.4 cm calculus. Report Dictated on Workstation: [employer] --- Final --- Dictated: 01/31/2019 2:20 pm Dictating Physician: MD BA BRIAN Signed Date and Time: 01/31/2019 2:22 pm Signed by: MD BA BRIAN Transcribed Date and Time: 01/31/2019 2:20 [facility] Work Phone: Julio C[facility]ar, [facility] Incoming Radiology Results From [facility] - 01/31/2019 2:32 PM EST Patient Name: CELI BUCK ---Ultrasound--- Exam Date/Time 01/31/2019 14:11:41 EST Exam US Retroperitoneal Limited Ordering Physician GISELL ESPINOZA Accession Number [id number] CPT4 Codes 65253 () Reason For Exam Renal Report RENAL [...] 0.4 cm calculus. Report Dictated on Workstation: [facility] --- Final --- Dictated: 01/31/2019 2:20 pm [...] Physician MD DALTON SCOTT E. Accession Number [id number] CPT4 Codes 08347 (CT Abdomen/Pelvis w/ IV Contrast (IV Onl) [...] RUSSELL Transcribed Date and Time: 12/23/2018 9:35 [facility], [place] Julio César, [facility] Incoming Radiology Results From [facility] - 12/23/2018 9:49 PM EST Patient Name: CELI BUCK ---CT--- Exam Date/Time 12/23/2018 21:25:[address] Abdomen/Pelvis w/ IV Contrast (IV Onl Ordering Physician MD DALTON SCOTT E. Accession Number [id number] CPT4 Codes 04371 (CT Abdomen/Pelvis w/ IV Contrast (IV Onl) [...] RUSSELL Transcribed Date and Time: 12/23/2018 9:35 [place], [place] Comprehensive Metabolic Pane bud 12-23-2018 Albumin [Mass/Vol] 4.9 g/dL 3.5 - 5 g/dL [place] ALP [Catalytic activity/Vol] 98 U/L 38 - 126 U/L [place] ALT [Catalytic activity/Vol] 28 U/L 13 - 69 U/L [place] Anion gap [Moles/Vol] 12 mmol/L [place], [place] AST [Catalytic activity/Vol] 32 U/L 15 - 46 U/L [place] Bilirubin Ql (U) 0.6 mg/dL 0.2 - 1.3 mg/dL [place] Calcium [Mass/Vol] 9.6 mg/dL 8.4 - 10. 4 mg/dL [place] Chloride [Moles/Vol] 107 mmol/L 98 - 10 7 mmol/L [place] CO2 [Moles/Vol] 24 mmol/L 22 - 30 mmol/L [place] Creatinine [Mass/Vol] 1 mg/dL 0.52 - 1.25 mg/dL [place] EGFR IF NonAfrican Croatian 55.2 mL/min >60 [place] Comment on above: Source- MDRD equatio n with creatinine calibration to IDMS(NKDEP) eGFR not recommended for drug dose adjustment GFR/1.73 sq M predicted among blacks MDRD (S/P/Bld) [Vol rate/Area] mL/min/{1.73_m2} >60 mL/min [place] Glucose [Mass/Vol] 95 mg/dL 70 - 100 mg/dL [place] Interpretation and review of laboratory results Abnormal [place] Potassium [Moles/Vol] 3.6 mmol/L 3.5 - 5.1 mmol/L [place] Protein [Mass/Vol] 8.3 g/dL High 6.3 - 8.2 g/dL [place] Sodium [Moles/Vol] 143 mmol/L 135 - 145 mmol/L [place] Urea nitrogen [Mass/Vol] 21 mg/dL High 7 - 20 mg/dL [place] Hemogram (CBC)on 12-23-2018 Erythrocyte distribution width (RBC) [Ratio] 12.8 % 11.5 - 14.5 % [place] Hematocrit (Bld) [Volume fraction] 41.8 % 35 - 47 % [place] Hemoglobin (Bld) [Mass/Vol] 14.4 g/dL 11.7 - 16 g/dL [place] Interpretation and review of laboratory results Abnormal [place] MCH (RBC) [Entitic mass] 31.3 pg 26 - 34 pg [place] MCHC (RBC) [Mass/Vol] 34.5 % 32 - 36 % [place], [place] MCV (RBC) [Entitic vol] 90.9 fL 79 - 98 fL [place], [place] Platelet mean volume (Bld) [Entitic vol] 7.2 fL Low 7.4 - 10.4 fL [place] Platelets (Bld) [#/Vol] 244 10*3/uL 140 - 440 10*3/uL [place] RBC (Bld) [#/Vol] 4.61 10*6/uL 3.8 - 5.2 10*6/uL [place] WBC (Bld) [#/Vol] 5.2 10*3/uL 3.6 - 10.7 10*3/uL [place] Test Performed by [facility], [address] [place] [id number] [place] [address] Lipaseon 12-23-2018 Lipase [Catalytic activity/Vol] 111 U/L 23 - 300 U/L [place] Otheron 12-23-2018 Test Performed by [facility], [address] [place] [address] Troponin x1on 12-23-2018 Troponin I.cardiac [Mass/Vol] ng/mL 0 - 0.034 ng/mL [place], [place] Comment on above: . Test Performed by [facility], [address] [place] [address] Urinalysison 12-23-2018 Appearance (U) Cloudy Clear NA [place], [place] Bacteria, UA Many (51-100) Negative /[HPF] [place] Bilirubin Urine Negative Negative mg/dL [place] Color (U) YELLOW Lt. Yellow NA [place] Glucose, Ur Normal Normal (<70) mg/dL [place] Ketones Ql (U) Negative Negative mg/dL [place] LEUKOCYTES, UA 250 Negative Es/uL [place] Nitrite, Urine Negative Negative NA [place], [place] Non-Squamous Epithelial 0-2 Nega tive /[HPF] [place] Occult Blood,Urine Negative Negative mg/dL [place] pH (U) 5.0 [pH] [place] Protein (U) [Mass/Vol] Negative Negat everardo mg/dL [place] RBC (U) [#/Vol] 0-2 0 - 2 /[HPF] [place] Specific [place], Urine 1.025 M [employer], [place] Squam Epithel, UA 26-50 3 - 5 /[HPF] [place] Urobilinogen, Urine Normal Normal (0-1) mg/dL [place] WBC, UA 11-25 0 - 5 /[HPF] [place] Test Performed by [facility], [address] [place] [id number] [place] [address], [place] CR Hip w/ Pelvis Bilateral 5 + Viewson 08-30-2018 CR Hip w/ Pelvis Bilateral 5+ Views Patient Name: CELI BUCK Diagnostic Radiology Exam Date/Time 08/30/2018 12:45:00 EDT Exam CR Hip w/ Pelvis Bilateral 5+ View Ordering Physician KELSI GOLDMAN D.O. Accession Number [id number] CPT4 Codes 89046 () Reason For Exam Bilateral hip pain [...] Transcribed Date and Time: 08/30/2018 5:52 Normal [facility] CR Shoulder 2+ Views Righton 08-30-2018 CR Shoulder 2+ Views Right Patient Name: CELI BUCK Diagnostic Radiology Exam Date/Time 08/30/2018 12:45:00 EDT Exam CR Shoulder 2+ Views Right Ordering Physician KELSI GOLDMAN D.O. Accession Number [id number] CPT4 Codes 01524 () Reason For Exam Pain in right [...] Transcribed Date and Time: 08/30/2018 5:54 Normal [facility] CR Wrist Complete 3 Views Le ophelia 08-30-2018 CR Wrist Complete 3 Views Left Patient Name: CELI BUCK Diagnostic Radiology Exam Date/Time 08/30/2018 12:45:00 EDT Exam CR Wrist Complete 3 Views Left Ordering Physician KELSI GOLDMAN D.O. Accession Number [id number] CPT4 Codes 75797 () Reason For Exam BILATERAL WRIST PAIN [...] Transcribed Date and Time: 08/30/2018 5:52 Normal [facility] CR Wrist Complete 3 Views Dhiraj griffith 08-30-2018 CR Wrist Complete 3 Views Right Patient Name: CELI BUCK Diagnostic Radiology Exam Date/Time 08/30/2018 12:45:00 EDT Exam CR Wrist Complete 3 Views Right Ordering Physician KELSI GOLDMAN D.O. Accession Number [id number] CPT4 Codes 49439 () Reason For Exam Pain in right [...] Transcribed Date and Time: 08/30/2018 5:53 Normal [facility] Clinical Summary: HMSPatient IDon 07-05-2017 OOP Invalid Interpretation Code [facility] Work Phone: Office Visit: New/Est - 1st visit with physician, Rm: [id number] NEGATED: Highlighted rowDocumentation of current medications (procedure) Done Invalid Interpretation Code [facility] Work Phone: Vital Signs Date Time Vital Sign Value Performing Clinician Facility 08-04-2023 13:30-0400 Body mass index (BMI) [Ratio] 24.48 kg/m2 Danilo Santa APRN.SAMI Work Phone: [facility] 08-04-2023 13:30-0400 Body temperature 97.2 [degF] Danilo Santa APRN.[employer] Work Phone: [facility] 08-04-2023 13:30-0400 Body weight 56.1 kg Danilo Santa APRN.[employer] Work Phone: [facility] 08-04-2023 13:30-0400 Diastolic blood pressure 72 mm[Hg] Danilo Santa APRN.[employer] Work Phone: [facility] 08-04-2023 13:30-0400 Heart rate 81 /min Danilo Santa APRN.[employer] Work Phone: [facility] 08-04-2023 13:30-0400 Respiratory rate 18 /min Danilo Santa APRN.[employer] Work Phone: [facility] 08-04-2023 13:30-0400 SaO2% (BldA) [Mass fraction] 98 % Danilo Santa APRN.[employer] Work Phone: [facility] 08-04-2023 13:30-0400 Systolic blood pressure 153 mm[Hg] Danilo Santa APRN.[employer] Work Phone: [facility] 05-18-2022 15:41-0400 Body temperature 98.71 [degF] Con Lynn MD Work Phone: [facility] 05-18-2022 15:41-0400 Body weight 57.2 kg Con Lynn MD Work Phone: [facility] 05-18-2022 15:41-0400 Diastolic blood pressure 73 mm[Hg] Con Lynn MD Work Phone: [facility] 05-18-2022 15:41-0400 Heart rate 78 /min Con Lynn MD Work Phone: [facility] 05-18-2022 15:41-0400 Respiratory rate 18 /min Con Lynn MD Work Phone: [facility] 05-18-2022 15:41-0400 SaO2% (BldA) [Mass fraction] 97 % Con Lynn MD Work Phone: [facility] 05-18-2022 15:41-0400 Systolic blood pressure 109 mm[Hg] Con Lynn MD Work Phone: [facility] 04-24-2022 11:46-0500 Body height 152.4 cm Nancy [...] 11:46-0500 Body temperature 97.7 [degF] Nancy Slarb REGIONAL FACILITIES MANAGER [facility] Work Phone: Comment on above: Method: Temporal 04-24-2022 11:46-0500 Body weight 58.51 kg Nancy Slarb REGIONAL FACILITIES MANAGER [facility]; [facility] Work Phone: 04-24-2022 11:46-0500 Diastolic blood pressure 80 mm[Hg] Nancy Slarb REGIONAL FACILITIES MANAGER [facility]; [facility] Work Phone: Comment on above: Patient Position: Si tting; Cuff Location: Left Arm; Cuff Size: Standard 04-24-2022 11:46-0500 Heart rate 82 /min Nancy Slarb REGIONAL FACILITIES MANAGER [facility]; [facility] Work Phone: Comment on above: Pattern: Regular 04-24-2022 11:46-0500 Respiratory rate 17 /min Nancy Slarb REGIONAL FACILITIES MANAGER [facility]; [facility] Work Phone: Comment on above: Pattern: Unlabored 04-24-2022 11:46-0500 SaO2% (BldA) [Mass fraction] 97 % Nancy Slarb REGIONAL FACILITIES MANAGER [facility]; [facility] Work Phone: Comment on above: Room air 04-24-2022 11:46-0500 Systolic blood pressure 124 mm[Hg] Nancy Slarb REGIONAL FACILITIES MANAGER [facility]; [facility] Work Phone: Comment on above: Patient Position: Si tting; Cuff Location: Left Arm; Cuff Size: Standard 04-17-2022 14:50-0500 Body height 152.4 cm Nancy Slarb REGIONAL FACILITIES MANAGER [facility]; [facility] Work Phone: 04-17-2022 14:50-0500 Body mass index (BMI) [Ratio] 25.19 kg/m2 Nancy Slarb REGIONAL FACILITIES MANAGER [facility]; [facility] Work Phone: 04-17-2022 14:50-0500 Body surface area Derived from formula 1.55 m2 Nancy Slarb REGIONAL FACILITIES MANAGER [facility]; [facility] Work Phone: 04-17-2022 14:50-0500 Body temperature 97.3 [degF] Nancy Martinezrb REGIONAL FACILITIES MANAGER [facility]; [facility] Work Phone: Comment on above: Method: Temporal 04-17-2022 14:50-0500 Body weight 58.51 kg Nancy Martinezrb REGIONAL FACILITIES MANAGER [facility]; [facility] Work Phone: 04-17-2022 14:50-0500 Diastolic blood pressure 82 mm[Hg] Nancy Juanrb REGIONAL FACILITIES MANAGER [facility]; [facility] Work Phone: Comment on above: Patient Position: Si tting; Cuff Location: Left Arm; Cuff Size: Standard 04-17-2022 14:50-0500 Heart rate 72 /min Nancy Juanrb REGIONAL FACILITIES MANAGER [facility]; [facility] Work Phone: Comment on above: Pattern: Regular 04-17-2022 14:50-0500 Respiratory rate 16 /min Nancy Juanrb REGIONAL FACILITIES MANAGER [facility]; [facility] Work Phone: Comment on above: Pattern: Unlabored 04-17-2022 14:50-0500 SaO2% (BldA) [Mass fraction] 98 % Nancy Slarb REGIONAL FACILITIES MANAGER [facility]; [facility] Work Phone: Comment on above: Room air 04-17-2022 14:50-0500 Systolic blood pressure 140 mm[Hg] Nancy Martinezrb REGIONAL FACILITIES MANAGER [facility]; [facility] Work Phone: Comment on above: Patient Position: Si tting; Cuff Location: Left Arm; Cuff Size: Standard 01-27-2022 11:20-0500 Body height 152.4 cm [facility] Work Phone: 01-27-2022 11:20-0500 Body mass index (BMI) [Ratio] 25.19 kg/m2 [facility] Work Phone: 01-27-2022 11:20-0500 Body surface area Derived from formula 1.55 m2 [facility] Work Phone: 01-27-2022 11:20-0500 Body temperature 97.4 [degF] Miguel Delgado [facility] Work Phone: 01-27-2022 11:20-0500 Body weight 58.51 kg Miguel Delgado [facility] Work Phone: 01-27-2022 11:20-0500 Diastolic blood pressure 78 mm[Hg] Miguel Delgado [facility]; [facility] Work Phone: Comment on above: Patient Position: Si tting; Cuff Location: Left Arm; Cuff Size: Standard 01-27-2022 11:20-0500 Heart rate 71 /min [facility] Work Phone: Comment on above: Pattern: Regular 01-27-2022 11:20-0500 Respiratory rate 16 /min [facility] Work Phone: Comment on above: Pattern: Unlabored 01-27-2022 11:20-0500 SaO2% (BldA) [Mass fraction] 98 % [facility] Work Phone: Comment on above: Room air 01-27-2022 11:20-0500 Systolic blood pressure 120 mm[Hg] [facility] Work Phone: Comment on above: Patient Position: Si tting; Cuff Location: Left Arm; Cuff Size: Standard 12-28-2021 14:31-0500 Body height 152.4 cm Nancy Slarb [facility] Work Phone: 12-28-2021 14:31-0500 Body mass index (BMI) [Ratio] 24.41 kg/m2 Nancy Slarb REGIONAL FACILITIES MANAGER [facility]; [facility] Work Phone: 12-28-2021 14:31-0500 Body surface area Derived from formula 1.53 m2 Nancy Slarb REGIONAL FACILITIES MANAGER [facility]; [facility] Work Phone: 12-28-2021 14:31-0500 Body temperature 98.6 [degF] Nancy Quintanilla REGIONAL FACILITIES MANAGER [facility]; [facility] Work Phone: 12-28-2021 14:31-0500 Body weight 56.7 kg Nancy Quintanilla REGIONAL FACILITIES MANAGER [facility]; [facility] Work Phone: 12-28-2021 14:31-0500 Diastolic blood pressure 76 mm[Hg] Nancy Quintanilla REGIONAL FACILITIES MANAGER [facility]; [facility] Work Phone: Comment on above: Patient Position: Si tting; Cuff Location: Left Arm; Cuff Size: Standard 12-28-2021 14:31-0500 Heart rate 86 /min Nancy Quintanilla REGIONAL FACILITIES MANAGER [facility]; [facility] Work Phone: Comment on above: Pattern: Regular 12-28-2021 14:31-0500 Respiratory rate 17 /min Nancy Quintanilla REGIONAL FACILITIES MANAGER [facility]; [facility] Work Phone: Comment on above: Pattern: Unlabored 12-28-2021 14:31-0500 SaO2% (BldA) [Mass fraction] 98 % Nancy Quintanilla REGIONAL FACILITIES MANAGER [facility]; [facility] Work Phone: Comment on above: Room air 12-28-2021 14:31-0500 Systolic blood pressure 132 mm[Hg] Nancy Quintanilla REGIONAL FACILITIES MANAGER [facility]; [facility] Work Phone: Comment on above: Patient Position: Si tting; Cuff Location: Left Arm; Cuff Size: Standard 12-22-2021 11:58-0400 Body weight 57.15 kg Afsaneh Combss EARLY CHILDHOOD ASSOCIATE.BIOSTATISTICS MANAGER Work Phone: [facility] 12-22-2021 11:58-0400 Diastolic blood pressure 62 mm[Hg] Afsaneh Mac EARLY CHILDHOOD ASSOCIATE.BIOSTATISTICS MANAGER Work Phone: [facility] 12-22-2021 11:58-0400 Heart rate 88 /min Afsaneh Mac EARLY CHILDHOOD ASSOCIATE.BIOSTATISTICS MANAGER Work Phone: [facility] 12-22-2021 11:58-0400 Respiratory rate 16 /min Afsaneh Combss EARLY CHILDHOOD ASSOCIATE.BIOSTATISTICS MANAGER Work Phone: [facility] 12-22-2021 11:58-0400 SaO2% (BldA) [Mass fraction] 99 % Afsaneh Mac EARLY CHILDHOOD ASSOCIATE.BIOSTATISTICS MANAGER Work Phone: [facility] 12-22-2021 11:58-0400 Systolic blood pressure 104 mm[Hg] Afsanehmonique Mac EARLY CHILDHOOD ASSOCIATE.BIOSTATISTICS MANAGER Work Phone: [facility] 11-10-2021 11:32-0400 Body weight 56.25 kg Argelia Douglas MD Work Phone: [facility] 11-10-2021 11:32-0400 Diastolic blood pressure 68 mm[Hg] Argelia Douglas MD Work Phone: [facility] 11-10-2021 11:32-0400 Systolic blood pressure 110 mm[Hg] Argelia Douglas MD Work Phone: [facility] 11-04-2021 09:23-0400 Body weight 56.06 kg Brandi Pagan EARLY CHILDHOOD ASSOCIATE.CNM Work Phone: [facility] 11-04-2021 09:23-0400 Diastolic blood pressure 78 mm[Hg] Brandi Pagan EARLY CHILDHOOD ASSOCIATE.CNM Work Phone: [facility] 11-04-2021 09:23-0400 Systolic blood pressure 110 mm[Hg] Brandi Pagan EARLY CHILDHOOD ASSOCIATE.CNM Work Phone: [facility] 10-12-2021 16:10-0400 Body height 151.4 cm Samy Avila MD Work Phone: [facility] 10-12-2021 16:10-0400 Body temperature 97.9 [degF] Samy Avila MD Work Phone: [facility] 10-12-2021 16:10-0400 Body weight 55.34 kg Samy Avila MD Work Phone: [facility] 10-12-2021 16:10-0400 Diastolic blood pressure 76 mm[Hg] Samy Avila MD Work Phone: [facility] 10-12-2021 16:10-0400 Heart rate 88 /min Samy Avila MD Work Phone: [facility] 10-12-2021 16:10-0400 Respiratory rate 16 /min Samy Avila MD Work Phone: [facility] 10-12-2021 16:10-0400 Systolic blood pressure 130 mm[Hg] Samy Avila MD Work Phone: [facility] 09-29-2021 16:22-0400 Body temperature 97.5 [degF] [facility] Work Phone: 09-29-2021 16:22-0400 Diastolic blood pressure 64 mm[Hg] [facility] Work Phone: 09-29-2021 16:22-0400 Heart rate 71 /min [facility] Work Phone: 09-29-2021 16:22-0400 Respiratory rate 16 /min [facility] Work Phone: 09-29-2021 16:22-0400 SaO2% (BldA) [Mass fraction] 100 % [facility] Work Phone: 09-29-2021 16:22-0400 Systolic blood pressure 125 mm[Hg] [facility] Work Phone: 09-29-2021 13:24-0400 Body height 152.4 cm [facility] Work Phone: 09-29-2021 13:24-0400 Body mass index (BMI) [Ratio] 23.8 kg/m2 [facility] Work Phone: 09-29-2021 13:24-0400 Body weight 55.33 kg [facility] Work Phone: 09-26-2021 13:10-0400 Body height 152.4 cm Vinita Tony MD Work Phone: [facility] 09-26-2021 13:10-0400 Body weight 56.25 kg Vinita Tony MD Work Phone: [facility] 09-26-2021 13:10-0400 Diastolic blood pressure 76 mm[Hg] Vinita Tony MD Work Phone: [facility] 09-26-2021 13:10-0400 Heart rate 80 /min Vinita Tony MD Work Phone: [facility] 09-26-2021 13:10-0400 Respiratory rate 16 /min Vinita Tony MD Work Phone: [facility] 09-26-2021 13:10-0400 Systolic blood pressure 104 mm[Hg] Vinita Tony MD Work Phone: [facility] 09-16-2021 10:49-0400 Body weight 56.25 kg Ynes Cesar APRN.[employer] Work Phone: [facility] 09-16-2021 10:49-0400 Diastolic blood pressure 80 mm[Hg] Ynes Cesar APRN.[employer] Work Phone: [facility] 09-16-2021 10:49-0400 Systolic blood pressure 142 mm[Hg] Ynes Cesar APRN.[employer] Work Phone: [facility] 09-14-2021 11:38-0400 Body weight 56.25 kg Ynes Cesar APRN.[employer] Work Phone: [facility] 09-14-2021 11:38-0400 Diastolic blood pressure 82 mm[Hg] Ynes Cesar APRN.[employer] Work Phone: [facility] 09-14-2021 11:38-0400 Systolic blood pressure 124 mm[Hg] Ynes Cesar APRN.[employer] Work Phone: [facility] 12-23-2018 21:46-0500 BP Diastolic 72 mm[Hg] [place], [place] 12-23-2018 21:46-0500 BP Systolic 142 mm[Hg] Justin Huber [facility] [place] 12-23-2018 21:46-0500 Pulse (Heart Rate) 72 /min Justin Huber [facility] [place] 12-23-2018 21:46-0500 Pulse Oximetry 98 % Justin Huber [facility] [place] 12-23-2018 21:46-0500 Respiratory Rate 20 /min Justin Huber [facility] [place] 12-23-2018 19:54-0500 BMI (Body Mass Index) 24.22 kg/m2 Justin Huber [facility], [place] 12-23-2018 19:54-0500 Body Temperature 98.29 [degF] Justin Huber [facility], [place] 12-23-2018 19:54-0500 Body weight 56.25 kg Justin Huber [facility] , [place] 12-23-2018 19:54-0500 Height 152.4 cm Justin Huber [place], [place] NEGATED: Highlighted [id number] 14:25-0400 BMI (Body Mass Index) 23.91 kg/m2 Sun Mcdermott [facility] Work Phone: NEGATED: Highlighted [id number] 14:25-0400 BP Diastolic 70 mm[Hg] Sunjackson Mcdermott [facility] Work Phone: NEGATED: Highlighted [id number] 14:25-0400 BP Systolic 113 mm[Hg] Sun Mcdermott [facility] Work Phone: NEGATED: Highlighted [id number] 14:25-0400 Height 152 cm Sun Sharron [facility] Work Phone: NEGATED: Highlighted [id number] 14:25-0400 Height 152.4 cm Sunjackson Mcdermott [facility] Work Phone: NEGATED: Highlighted [id number] 14:25-0400 Pulse (Heart Rate) 69 /min Sunjackson Mcdermott [facility] Work Phone: NEGATED: Highlighted [id number] 14:25-0400 Weight 55 kg Sun Mcdermott LPN [facility] Work Phone: NEGATED: Highlighted [id number] 14:25-0400 Weight 55.34 kg Sun Mcdermott LPN [facility] Work Phone: Encounters Encounter Date Encounter Type Care Provider Facility Start: 08-11-2024 End: 08-11-2024 ambulatory Daniel Guzman APRON CLEANER-C Work Phone: -Ultrasound [facility] Start: 08-11-2024 End: 08-11-2024 Patient encounter procedure Daniel VINCENTC -Ultrasound [facility] Work Phone: Start: 08-11-2024 End: 08-11-2024 ambulatory Daniel Guzman Facility:[facility] Start: 07-24-2024 End: 07-24-2024 Subsequent hospital visit by physician Perry Greenwood [address] [place] [address] Comment on above: Hyperlipidemia, unsp ecified Start: 07-24-2024 End: 07-24-2024 ambulatory DANIEL Lucas [facility] Start: 06-25-2024 End: 06-25-2024 Orders Only Meg Ospina APRN.[employer] Work Phone: [facility] Comment on above: Abnormal finding of diagnostic imaging (Primary Dx) Start: 04-12-2024 End: 04-12-2024 Letter encounter Diana Lundberg MD Work Phone: [facility] Start: 04-11-2024 End: 04-11-2024 ambulatory Daniel uGzman NP-C Work Phone: [facility] Work Phone: Start: 04-11-2024 End: 04-11-2024 Patient encounter procedure Daniel VINCENTC -Radiology, [place] Work Phone: Start: 04-11-2024 End: 04-11-2024 ambulatory Daniel Guzman Facility:[facility] Start: 01-30-2024 End: 01-30-2024 Emergency department patient visit DANIEL GUZMAN Facility:[facility] Start: 01-06-2024 End: 01-06-2024 Emergency department patient visit BRICE SALMERON Facility:[facility] Start: 12-24-2023 End: 12-24-2023 ambulatory Daniel Thomas Facility:[facility] Start: 12-19-2023 End: 12-20-2023 Office outpatient visit 15 minutes Diana Lundberg MD Work Phone: [facility] Comment on above: Osteoarthritis of ca rpometacarpal (CMC) joints of both thumbs, unspecified osteoarthritis type (Primary Dx) Start: 12-19-2023 End: 12-24-2023 ambulatory UNKNOWN PROVIDER Facility:[facility] Start: 11-16-2023 End: 11-16-2023 ambulatory Daniel Guzman Facility:[facility] Start: 08-04-2023 End: 08-04-2023 ambulatory GUSTABO DENG Facility:[facility] Start: 08-04-2023 End: 08-04-2023 Patient encounter procedure Danilo Santa APRN.[employer] Work Phone: [facility] Comment on above: Sore throat (Primary Dx); Bacterial sinusitis Start: 06-06-2023 End: 06-07-2023 Office outpatient visit 25 minutes Diana Lundberg MD Work Phone: [facility] Comment on above: Osteoarthritis of ca rpometacarpal (CMC) joints of both thumbs, unspecified osteoarthritis type (Primary Dx); Trigger finger, unspecified finger, unspecified laterality Start: 06-06-2023 End: 06-07-2023 ambulatory UNKNOWN PROVIDER Facility:[facility] Start: 01-03-2023 ambulatory Gustabo vick MD Work Phone: [facility] [place] Start: 12-12-2022 End: 12-12-2022 Lab Order Daniel Guzman [employer] Work Phone: [facility] Start: 07-19-2022 End: 07-19-2022 Office outpatient visit 25 minutes Diana Lundberg MD Work Phone: [facility] Comment on above: Pain in both hands ( Primary Dx); Trigger finger, unspecified finger, unspecified laterality Start: 05-18-2022 End: 05-18-2022 ambulatory SHANIQUE CARMEN [facility] Start: 05-18-2022 End: 05-18-2022 Office outpatient new 45 minutes Con Lynn MD Work Phone: [facility] Comment on above: Laryngopharyngeal re flux (LPR) (Primary Dx); Xerostomia; Swollen uvula Start: 05-11-2022 Transcribe Orders Constance Velasquez MA [facility] [place] Comment on above: Swollen uvula (Prima ry [...] 04-20-2022 Letter encounter Diana Sinclair Work Phone: [facility] Start: 04-17-2022 End: 04-17-2022 Office outpatient visit 15 minutes Daniel Guzman CNP Work Phone: [facility] Start: 04-11-2022 End: 04-11-2022 Prescription Refill Daniel Guzman SAMI Work Phone: [facility] Start: 01-31-2022 End: 01-31-2022 ambulatory [facility] Work Phone: Start: 01-31-2022 End: 01-31-2022 Patient encounter procedure [facility] Start: 01-27-2022 End: 02-02-2022 Office outpatient visit 25 minutes Daniel Guzman SAMI Work Phone: [facility] Start: 01-27-2022 Review Daniel Thomas CNP Work Phone: [facility] Start: 01-11-2022 End: 01-11-2022 Prescription Refill Daniel Guzman SAMI Work Phone: [facility] Start: 01-10-2022 Letter encounter Diana Sinclair Work Phone: [facility] Start: 12-28-2021 End: 12-28-2021 Office outpatient new 30 minutes Daniel Jaimesracquel GALLARDO Work Phone: [facility] Start: 12-23-2021 End: 12-23-2021 Subsequent hospital visit by physician Xr [facility] Dandre Work Phone: Radiology Comment on above: Mass of chest wall, right [R22.2] Dyspnea on exertion [R06.09] Start: 12-22-2021 End: 12-22-2021 Patient encounter procedure Afsaneh Mac BIOSTATISTICS MANAGER Work Phone: [facility] [place] Comment on above: Other fatigue (Prima ry Dx); Encounter for immunization; Need for shingles vaccine; Screening for colon cancer; Screening for osteoporosis; Asymptomatic menopause; History of COVID-19; Mass of chest wall, right; Family history of thyroid disease Start: 12-18-2021 End: 12-18-2021 ambulatory SHANIQUE DARBY PA-C Facility:[facility] Start: 11-11-2021 Telephone encounter Argelia Douglas [...] Samy Avila MD Work Phone: [facility] [place] Comment on above: Near syncope (Primar y Dx); Herpes simplex infection of genitourinary system; Anxiety; Thickened endometrium; Irritable bowel syndrome with both constipation and diarrhea; Dyspnea on exertion; Palpitations; Encounter for screening mammogram for malignant neoplasm of breast; Hypercholesterolemia Start: 10-06-2021 Telephone encounter No Pcp [facility] Comment on above: Patient Question Start: 09-29-2021 ambulatory Vinita echeverria MD Work Phone: OB/Gynecology Comment on above: PMB (postmenopausal bleeding) (Primary Dx); Thickened endometrium; Endometrial polyp Start: 09-29-2021 Patient encounter procedure Fely Tony MD Work Phone: [facility] Start: 09-29-2021 End: 09-29-2021 Admission to same day surgery center [facility] Start: 09-26-2021 End: 09-26-2021 Patient encounter procedure Vinita Tony MD Work Phone: OB/Gynecology Comment on above: PMB (postmenopausal bleeding) (Primary Dx); Symptomatic menopausal or female climacteric states Start: 09-21-2021 Orders Only Ynes Cesar APRN.[facility] [employer] [facility] Work Phone: OB/Gynecology Comment on above: Ovarian cyst, right (Primary Dx); Postmenopausal Start: 09-19-2021 Telephone encounter Vinita Tony MD Work Phone: OB/Gynecology Comment on above: Appointment Start: 09-16-2021 End: 09-16-2021 Patient encounter procedure Ynes Cesar APRN.[facility] [facility] Work Phone: OB/Gynecology Comment on above: Postmenopausal bleed ing (Primary Dx) PMB (postmenopausal bleeding) (Primary Dx) Start: 09-14-2021 End: 09-14-2021 Patient encounter procedure Ynes Cesar APRN.[facility] [employer] [facility] Work Phone: OB/Gynecology Comment on above: PMB (postmenopausal bleeding) (Primary Dx) Start: 08-24-2021 End: 08-24-2021 Office outpatient new 45 minutes Diana Lundberg MD Work Phone: [facility] Plastic Surgery Comment on above: Pain in both hands ( Primary Dx); Osteoarthritis of carpometacarpal (CMC) joints of both thumbs, unspecified osteoarthritis type; Trigger finger, unspecified finger, unspecified laterality Start: 08-24-2021 Letter encounter [facility] Plastic Surgery Start: 09-24-2020 Orders Only Michael Merrill MD Work Phone: Pulmonary Medicine Comment on above: Lung nodules Start: 08-30-2020 E-mail encounter juan manuel leonard caregiver [facility] Provider [facility] Start: 08-30-2020 Patient encounter procedure [facility] Prov ider MRI J Comment on above: Schedule Imaging Sharla ointment Start: 08-19-2020 End: 08-19-2020 Subsequent hospital visit by physician Iris Clements DO Work Phone: [facility] Comment on above: Lump [...] 02-27-2020 Subsequent hospital visit by physician Ct [facility] Israel (I-Stat) Work Phone: CT Scan Comment on above: Multiple lung nodule s on CT [R91.8] Start: 12-29-2019 End: 12-29-2019 Subsequent hospital visit by physician Darrion Islas Work Phone: [facility] Comment on above: Lung nodules Start: 07-15-2019 End: 07-15-2019 Subsequent hospital visit by physician Margarita Kessler Work Phone: [facility] Laboratory Comment on above: Screening for STDs ( sexually transmitted diseases); Encounter for screening for other viral diseases ; Periodic health assessment, general screening, adult Start: 01-31-2019 End: 01-31-2019 Subsequent hospital visit by physician Gisell Espinoza MD Work Phone: [facility] Comment on above: Leukocytes in urine Start: 12-23-2018 End: 12-23-2018 Emergency department patient visit Justin Dalton Work Phone: [facility] Comment on above: Right upper quadrant abdominal pain (Primary Dx) Start: 02-13-2018 Emergency department patient visit Waldo Waldron [facility] Start: 01-18-2018 Patient encounter procedure Sherri Novoa [facility] Start: 01-15-2018 Emergency department patient visit Petr Broussard [facility] Start: 08-07-2017 Patient encounter procedure Yuliarip fuentes [facility] Start: 07-13-2017 Patient encounter procedure Yulia Hor ne [facility] Start: 07-05-2017 End: 07-05-2017 Patient encounter procedure Rashaad Chan MD Work Phone: [facility] Work Phone: Start: 05-22-2017 Patient encounter procedure Yulia Baires [facility] Procedures Date Procedure Procedure Detail Performing Clinician Start: 08-11-2024 US scan of thyroid Jess Guzman APRON CLEANER-C Work Phone: Start: 04-11-2024 X-ray of chest, PA a nd lateral views Daniel Guzman APRON CLEANER-C Work Phone: Start: 12-19-2023 Arthrocentesis aspir &/inj small jt/bursa w/o us Diana Lundberg MD Work Phone: Start: 08-04-2023 STREP A MOLECULAR (POC) Danilo Santa APRN.[employer] [facility] Work Phone: Start: 06-07-2023 Injection 1 tendon [...] 02-01-2022 Thyroid Procedure Note: See Note; NOTES: [facility] Imaging Services [address] [place] [address] Thyroid MR#: [id number] Acct: [id number] Name: CELI BUCK Rep #: [id number] : [id number] F 71 From: Varghese Casarez MD PCP: ZAK Miller Status: REG CLI Study: Thyroid Date of Exam: 01/31/22 Exam# [id number] Ordering Dr: Daniel Guzman INDICATION: ENLARGEMENT-RT EXAMINATION: [...] MD at 8:15 EST , CC: ZAK Guzman Inside Sales Coordinator: Signed Daniel Guzman [facility] Work Phone: Start: 01-31-2022 US scan of thyroid Start: 12-23-2021 Radex clavicle complete Afsaneh Mac EARLY CHILDHOOD ASSOCIATE.BIOSTATISTICS MANAGER Work Phone: Start: 12-23-2021 Radiologic exam ches t 2 views Samy Avila MD Work Phone: Start: 11-30-2021 Mammography Afsaneh Alexyo ks EARLY CHILDHOOD ASSOCIATE.BIOSTATISTICS MANAGER Work Phone: Start: 11-04-2021 Lipid 1996 panel [...] Chan MD Work Phone: section Daniel lugo [facility] Work Phone: section Kayela Radf ord FILM OR TAPE LIBRARIAN section Nancy Slar b REGIONAL FACILITIES MANAGER Dilation and curetta ge of uterus Nancy Slarb REGIONAL FACILITIES MANAGER Comment on above: 2021 Dilation and curetta ge of uterus Nancy Slarb REGIONAL FACILITIES MANAGER Comment on above: 2021 Ligation of fallopia n tube Nancy Slarb REGIONAL FACILITIES MANAGER Ligation of fallopia n tube Nancy Slarb REGIONAL FACILITIES MANAGER Mammography Nancy Slarb LP N Comment on above: 11/2021 Mammography Nancy Slarb LP N Comment on above: 11/2021 Plan of Treatment Date Care Activity Detail Author Start: 01-29-2027 Diabetes Screening Diabetes Screening [facility] Start: 11-04-2026 Cholesterol [Mass/volume] in Serum or Plasma Cholesterol [facility] Start: 11-04-2026 Lipid 1996 panel - Serum or Plasma Lipid Screening [facility] Start: 11-04-2026 Lipid panel [facility] Start: 11-04-2026 LIPID SCREEN LIPID SCREEN [facility] Start: 2026 RSV High Risk: (Elderly (60+) or Population) (1 - 1-dose 75+ series) RSV High Risk: (Elderly (60+) or Population) (1 - 1-dose 75+ series) [facility] Start: 2026 RSV Vaccine (1 - 1-dose 75+ series) RSV Vaccine (1 - 1-dose 75+ series) [facility] Start: 2026 RSV vaccine (adult) (1 - 1-dose 75+ series) RSV vaccine (adult) (1 - 1-dose 75+ series) [facility] Start: 06-24-2025 Lipid panel Lipid screen [facility] Work Phone: Start: 11-19-2024 Influenza vaccination Influenza Vaccine (#1) [facility] Start: 11-04-2024 DIABETES SCREEN DIABETES SCREEN [facility] Start: 11-04-2024 Diabetes Screening Diabetes Screening [facility] Start: 10-20-2024 Influenza vaccination Influenza Vaccine (Season Ended) [facility] Start: 10-01-2024 End: 10-01-2024 Patient encounter procedure 10/01/2024 2:45 PM EDT Office Visit [facility] Plastic Surgery [address] [place] [id number] Diana Lundberg MD [address] [place], [place] [id number] [facility] Start: 02-20-2024 Advance Directive Discussion Advance Directive Discussion [facility] Start: 10-21-2023 COVID-19 Vaccine ( season) COVID-19 Vaccine ( season) [facility] Start: 10-21-2023 Covid-19 Vaccine ( season) Covid-19 Vaccine ( season) [facility] Start: 10-21-2023 COVID-19 Vaccine ( season) COVID-19 Vaccine ( season) [facility] Start: 10-21-2023 Influenza vaccination [facility] Start: 07-22-2023 Colon cancer screen colonoscopy Colon cancer screen colonoscopy [place] Start: 07-22-2023 Screening for malignant neoplasm of colon Colon cancer screen colonoscopy [place] Start: 06-25-2023 DIABETES SCREEN DIABETES SCREEN [facility] Start: 03-26-2023 Lipid panel Lipid screen [place] Start: 03-26-2023 Lipid screen Lipid [place] Start: 02-19-2023 Advance Directive Discussion Advance Directive Discussion [facility] Start: 02-19-2023 Behavioral Health Screening Behavioral Health Screening [facility] Start: 11-30-2022 Mammography [facility] Start: 11-30-2022 Screening for malignant neoplasm of breast [facility] Start: 10-20-2022 Covid-19 Vaccine () Covid-19 Vaccine () [facility] Start: 10-20-2022 Influenza vaccination Influenza Vaccine (#1) [facility] Start: 08-19-2022 Screening for malignant neoplasm of breast Breast cancer screen [facility] Work Phone: Start: 08-08-2022 End: 08-08-2022 Patient encounter procedure 08/08/2022 2:30 PM EDT Office Visit [facility] [address] [place] [address] Con Lynn MD [address] [facility] [address] [place] [id number] [facility] Start: 05-18-2022 End: 05-18-2022 Patient encounter procedure 05/18/2022 Office Visit Otolaryngology Con Lynn MD [address] [facility] [address] [place] [id number] [facility] Start: 04-25-2022 Assay of thyroid stimulating hormone tsh TSH (THYROID STIMULATING HORMONE) (10289) [facility]; [facility] Work Phone: Start: 04-25-2022 Assay of triiodothyronine t3 free FREE TRIIDOTHYRONINE (T3) (50896) [facility]; [facility] Work Phone: Start: 04-25-2022 Lipid panel LIPID PANEL (03423) [facility]; [facility] Work Phone: Start: 04-24-2022 Assay of free thyroxine T4, FREE (THYROXINE) (82809) [facility]; [facility] Work Phone: Start: 04-24-2022 Assay of thyroid stimulating hormone tsh TSH (THYROID STIMULATING HORMONE) (75998) [facility]; [facility] Work Phone: Start: 04-24-2022 Blood count complete auto&auto difrntl wbc CBC, PLATELETS & AUT DIFF (71762) [facility]; [facility] Work Phone: Start: 04-24-2022 C-reactive protein C-REACTIVE PROTEIN (56304) [facility]; [facility] Work Phone: Start: 04-24-2022 Comprehensive metabolic panel METABOLIC PANEL, COMPREHENSIVE (72132) [facility]; [facility] Work Phone: Start: 04-24-2022 Heterophile antibodies screen MONOSPOT TEST (74468) [facility]; [facility] Work Phone: Start: 04-24-2022 Procedure Education Eprescribed prescriptions (G8553) [facility]; [facility] Work Phone: Start: 04-24-2022 Sedimentation rate rbc automated Sedimentation Rate-ESR (55971) [facility]; [facility] Work Phone: Start: 04-17-2022 Procedure Education Eprescribed prescriptions (G8553) [facility]; [facility] Work Phone: Start: 04-17-2022 Provider Instructions for Treatment Follow up in 4 weeks [facility]; [facility] Work Phone: Start: 04-17-2022 Throat culture THROAT CULTURE (18691) [facility]; [facility] Work Phone: Start: 02-19-2022 Advance Directive Discussion Advance Directive Discussion [facility] Start: 02-19-2022 Depression Assessment Depression Assessment [facility] Start: 01-27-2022 Lipid panel LIPID PANEL (60191) [facility]; [facility] Work Phone: Comment on above: in 3 months Start: 01-27-2022 Procedure Education Eprescribed prescriptions (G8553) [facility]; [facility] Work Phone: Start: 01-27-2022 Provider Instructions for Treatment Follow up in 4 months [facility]; [facility] Work Phone: Start: 12-28-2021 Throat culture THROAT CULTURE (75692) [facility]; [facility] Work Phone: Start: 12-28-2021 Procedure Education Eprescribed prescriptions (G8553) [facility]; [facility] Work Phone: Start: 12-28-2021 Provider Instructions for Treatment Follow up [facility]; [facility] Work Phone: Start: 12-22-2021 End: 02-21-2022 Thyrotropin [Units/volume] in Serum or Plasma TSH BLD Lab Routine Family history of thyroid disease Expected: 12/22/2021, Expires: 02/21/2022 [facility] Work Phone: Comment on above: Expected: 12/22/2021, Expires: 3 Start: 11-04-2021 End: 12-04-2022 Us breast uni real time with image limited US BREAST LTD RT Radiology Routine Mass of upper inner quadrant of right breast Expected: 11/04/2021, Expires: 12/04/2022 [facility] Work Phone: Comment on above: Expected: 11/04/2021, Expires: 3 Start: 10-20-2021 Influenza vaccination INFLUENZA (#1) [facility] Start: 10-13-2021 End: 12-13-2021 CBC panel - Blood by Automated count CBC Lab Routine Near syncope Expected: 10/13/2021, Expires: 12/13/2021 [facility] Work Phone: Comment on above: Expected: 10/13/2021, Expires: 2 Start: 10-13-2021 End: 12-13-2021 Comprehensive metabolic 2000 panel - Serum or Plasma COMP METABOLIC PANEL Lab Routine Hypercholesterolemia Expected: 10/13/2021, Expires: 12/13/2021 [facility] Work Phone: Comment on above: Expected: 10/13/2021, Expires: 2 Start: 10-13-2021 End: 12-13-2021 Fibrin D-dimer FEU [Mass/volume] in Platelet poor plasma D-DIMER Lab Routine Dyspnea on exertion Expected: 10/13/2021, Expires: 12/13/2021 [facility] Work Phone: Comment on above: Expected: 10/13/2021, Expires: 2 Start: 10-13-2021 End: 12-13-2021 Lipid 1996 panel - Serum or Plasma LIPID PANEL BASIC Lab Routine Hypercholesterolemia Expected: 10/13/2021, Expires: 12/13/2021 [facility] Work Phone: Comment on above: Expected: 10/13/2021, Expires: 2 Start: 09-29-2021 Ambulation without limitation [facility] Work Phone: Start: 09-29-2021 Medical regimen orders management [facility] Work Phone: Start: 09-29-2021 Medication education [facility] Work Phone: Start: 09-29-2021 Patient discharge [facility] Work Phone: Start: 09-29-2021 Taking patient vital signs [facility] Work Phone: Start: 09-29-2021 Vital signs measurements [facility] Work Phone: Start: 09-29-2021 [facility] Work Phone: Start: 09-19-2021 Influenza vaccination Influenza Vaccine (#1) [facility] Start: 09-08-2021 End: 09-08-2021 Telemedicine consultation with patient 09/08/2021 Telemedicine Plastic Surgery Diana Lundberg MD [address] [place] [id number] [facility] Start: 08-24-2021 End: 08-24-2022 XR Hand - left 3 Views [facility] Work Phone: Comment on above: Expected: 08/24/2021, Expires: 3 Start: 08-24-2021 End: 08-24-2022 XR Hand - right 3 Views [facility] Comment on above: Expected: 08/24/2021, Expires: 3 Start: 04-24-2021 COVID-19 Vaccine (3 - Booster for Pfizer series) COVID-19 Vaccine (3 - Booster for Pfizer series) [facility] Start: 02-19-2021 ADVANCE DIRECTIVE DISCUSSION ADVANCE DIRECTIVE DISCUSSION [facility] Start: 01-19-2021 COVID-19 Vaccine (2 - Pfizer series) COVID-19 Vaccine (2 - Pfizer series) [facility] Start: 01-19-2021 COVID-19 VACCINE (3 - Booster for Pfizer series) COVID-19 VACCINE (3 - Booster for Pfizer series) [facility] Start: 12-18-2020 Annual Wellness Visit (AWV) Annual Wellness Visit (AWV) [place] Start: 12-17-2020 History and physical examination, annual for health maintenance Wellness Visit [facility] Start: 11-19-2020 Annual Wellness Visit (G0439) Annual Wellness Visit (G0439) [facility] Start: 10-20-2020 Influenza vaccination Flu vaccine (#1) [facility] Work Phone: Start: 10-17-2020 Pneumococcal 65+ years Vaccine (2 of 2 - PPSV23) Pneumococcal 65+ years Vaccine (2 of 2 - PPSV23) [place] Start: 04-20-2020 COVID-19 Vaccine (2 - Pfizer 2-dose series) COVID-19 Vaccine (2 - Pfizer 2-dose series) [employer] Work Phone: Start: 04-20-2020 COVID-19 Vaccine (2 - Pfizer series) COVID-19 Vaccine (2 - Pfizer series) [facility] Start: 01-05-2020 End: 01-05-2020 Appointment 01/05/2020 Appointment Radiology [facility] Start: 12-01-2019 End: 12-01-2019 Office Visit 12/01/2019 Office Visit Family Medicine Iris Clements, DO [address] [place] [address] [phone] [facility] Start: 11-25-2019 End: 11-25-2019 Office Visit 11/25/2019 Office Visit Obstetrics and Gynecology Jodi Epps APRN - CNM [address] [place] [address] [phone] [facility] ATTRACTIONS ASSOCIATE Start: 10-21-2019 Influenza vaccination [place] Start: 08-01-2019 End: 08-01-2019 Office Visit 08/01/2019 Office Visit Family Medicine Gisell Espinoza MD [address] [address] [phone] [facility] Start: 07-28-2019 End: 07-28-2019 Virtual Visit 07/28/2019 Virtual Visit Obstetrics and Gynecology Karmen Bolden MD [address] [address] [phone] [facility] ATTRACTIONS ASSOCIATE Start: 07-24-2019 End: 07-24-2019 Procedure visit 07/24/2019 Procedure visit Obstetrics and Gynecology [facility] ATTRACTIONS ASSOCIATE Start: 03-21-2019 Breast cancer screen Breast cancer screen [place] Start: 03-21-2019 Screening for malignant neoplasm of breast Breast cancer screen [place] Start: 02-06-2019 End: 02-06-2019 Patient encounter procedure 02/06/2019 Office Visit Obstetrics and Gynecology Jodi Epps APRN - CNM [address] [place] [address] [phone] [facility] ATTRACTIONS ASSOCIATE Start: 11-18-2018 LIPID SCREEN LIPID SCREEN [facility] Start: 10-20-2018 Influenza vaccination Flu vaccine (#1) [place] Start: 08-08-2018 Annual Wellness Visit (AWV) Annual Wellness Visit (AWV) [place] Start: 07-05-2017 End: 07-05-2017 Appointment Appointment [facility] Work Phone: Start: 07-05-2017 End: 07-05-2017 X-ray exam of foot [facility] Work Phone: Start: 2016 BONE DENSITY BONE DENSITY [facility] Start: 2016 Bone Density Screening Bone Density Screening [facility] Start: 2016 Fall risk assessment Falls Risk Assessment [facility] Start: 2016 Pneumococcal 65+ years Vaccine (1 of 1 - PPSV23) Pneumococcal 65+ years Vaccine (1 of 1 - PPSV23) [place] Start: 2016 Pneumococcal vaccination [facility] Start: 2016 PNEUMOCOCCAL: 65+ (1 - PCV) PNEUMOCOCCAL: 65+ (1 - PCV) [facility] Start: 2016 Screening for osteoporosis [facility] Start: 08-18-2015 COLORECTAL CANCER SCREENING COLORECTAL CANCER SCREENING [facility] Start: 08-18-2015 FECAL OCCULT BLOOD FECAL OCCULT BLOOD [facility] Start: 08-18-2015 Screening for malignant neoplasm of colon [facility] Start: 07-21-2015 Annual wellness visit Annual Wellness Visit (G0438) [facility] Start: 2011 Hepatitis B (HBV) Vaccine (optional start 60+ years) Hepatitis B (HBV) Vaccine (optional start 60+ years) [facility] Start: 2011 RSV Vaccine (1 - 1-dose 60+ series) RSV Vaccine (1 - 1-dose 60+ series) [facility] Start: 2011 RSV Vaccine (1 - Risk 60-74 years 1-dose series) RSV Vaccine (1 - Risk 60-74 years 1-dose series) [facility] Start: 2011 RSV vaccine (optional 60+ years) RSV vaccine (optional 60+ years) [facility] Start: 2001 Administration of herpes zoster vaccine Zoster Vaccines (1 of 2) [facility] Start: 2001 Measurement of occult blood in single stool specimen FIT [facility] Start: 2001 Pneumococcal vaccination Pneumococcal Vaccine(s) (50+ yrs) (2 of 2 - PCV) [facility] Start: 2001 Screening for malignant neoplasm of breast Mammography [facility] Start: 2001 Screening for malignant neoplasm of colon [facility] Start: 2001 Shingles (RZV) Vaccine (1 of 2) Shingles (RZV) Vaccine (1 of 2) [facility] Start: 2001 Shingles Vaccine (1 of 2) Shingles Vaccine (1 of 2) [place] Start: 2001 SHINGRIX VACCINE (1 of 2) SHINGRIX VACCINE (1 of 2) [facility] Start: 2001 Zoster Vaccines (1 of 2) Zoster Vaccines (1 of 2) [facility] Start: 04-28-2000 Pneumococcal vaccination Pneumococcal Vaccine(s) (65+ yrs) (2 - PCV) [facility] Start: 04-30-1999 DTaP/Tdap/Td vaccine (1 - Tdap) DTaP/Tdap/Td vaccine (1 - Tdap) [place] Start: 04-30-1999 DTaP/Tdap/Td Vaccines (1 - Tdap) DTaP/Tdap/Td Vaccines (1 - Tdap) [facility] Start: 04-30-1999 Urine microalbumin profile [facility] Start: 1996 Cholesterol [Mass/volume] in Serum or Plasma Cholesterol [facility] Start: 1996 COLOGUARD (FIT-DNA) COLOGUARD (FIT-DNA) [facility] Start: 1996 Colonoscopy COLONOSCOPY [facility] Start: [address] COLONOGRAPHY [facility] Start: 1996 Screening for malignant neoplasm of colon [facility] Start: 1996 SIGMOIDOSCOPY SIGMOIDOSCOPY [facility] Start: 1991 Mammography MAMMOGRAM [facility] Start: 1991 Screening for malignant neoplasm of breast [facility] Start: 1970 DTaP/Tdap/Td vaccine (1 - Tdap) DTaP/Tdap/Td vaccine (1 - Tdap) [place] Start: 1970 Hepatitis A (HAV) Vaccine (optional start 19+ years) Hepatitis A (HAV) Vaccine (optional start 19+ years) [facility] Start: 1970 Urine microalbumin profile DTAP,TDAP,TD (1 - Tdap) [facility] Start: 1969 Depression Screening Depression Screening [facility] Start: 1969 Hepatitis C screening [facility] [facility] Start: [facility] HEPATITIS C SCREENING HEPATITIS C SCREENING [facility] Start: 1969 Tetanus + diphtheria + acellular pertussis vaccine (product) Tdap Booster [facility] Start: 1963 Adult depression screening assessment [facility] Start: 1962 DTaP/Tdap/Td vaccine (1 - Tdap) DTaP/Tdap/Td vaccine (1 - Tdap) [facility] Work Phone: Start: 1950 Annual wellness visit Welcome to Medicare Visit [facility] Start: 1950 Hepatitis C screen Hepatitis C screen [place], [place] Start: 1950 Hepatitis C screening Hepatitis C screen [place] Start: 1950 Lipid panel Lipid Panel [facility] Start: 1950 Screening for malignant neoplasm of colon [facility] Start: 1950 Screening for osteoporosis Dexa Scan [facility] Start: 1950 Tetanus vaccination Tetanus: Every 10yrs [facility] BACTERIAL VAGINOSIS AMPLIFICATION BACTERIAL VAGINOSIS AMPLIFICATION Lab Routine Vaginal discharge Vaginal burning Ordered: 11/10/2021 [facility] Work Phone: Comment on above: Ordered: 11/10/2021 VERONICA / TRICHOMONA S AMPLIFICATION VERONICA / TRICHOMONAS AMPLIFICATION Microbiology Routine Vaginal discharge Vaginal burning Ordered: 11/10/2021 [facility] Work Phone: Comment on above: Ordered: 11/10/2021 Chlamydia trachomatis+Neisseria gonorrhoeae DNA [Presence] in Unspecified specimen by MAGO with probe detection GC/CHLAMYDIA DNA DET Lab Routine Vaginal discharge Vaginal burning Screen for STD (sexually transmitted disease) Ordered: 11/10/2021 [facility] Work Phone: Comment on above: Ordered: 11/10/2021 COLOGUARD COLOGUARD Lab Ro utine Screening for colon cancer Ordered: 12/22/2021 [facility] Work Phone: Comment on above: Ordered: 12/22/2021 End: 12-29-[address] L[address] DO[address] CT CHEST LOW DOSE Imaging Routine Once for 1 Occurrences starting 12/29/2019 until 12/29/2019 [facility] Comment on above: Once for 1 Occurrences starting 12/29/19 20 until 12/29/[address] CHEST LOW DOSE CT CHEST LOW D OSE Imaging Routine 12/29/2019 1:08 PM EST [employer] End: 07-24-2024 CT for calcium scoring WO contrast and CTA W contrast IV Heart and coronary arteries [facility] Service Area Work Phone: Comment on above: Once for 1 Occurrences starting 07/25/19 25 until 07/24/2024 End: 07-15-2019 Culture, Urine Culture, Urine Microbiology Routine Once for 1 Occurrences starting 07/15/2019 until 07/15/2019 [facility] Comment on above: Once for 1 Occurrences starting 07/15/19 20 until 07/15/2019 Culture, Urine Culture, Urine M icrobiology Routine 07/15/2019 1:43 PM EDT [employer] End: 01-17-2025 DBT Breast - bilateral screening LOVE SCREENING W NATE Radiology Routine Encounter for screening mammogram for breast cancer 1 Occurrences starting 12/19/2023 until 01/17/2025 [facility] Work Phone: Comment on above: 1 Occurrences starting 12/19/2023 until 01/17/2025 End: 12-04-2022 Diagnostic mammography computer-aided detcj bi LOVE DIAGNOSTIC BILAT Radiology Routine Mass of upper inner quadrant of right breast 1 Occurrences starting 11/04/2021 until 12/04/2022 [facility] Work Phone: Comment on above: 1 Occurrences starting 11/04/2021 until 12/04/2022 EKG 12 Lead - Chest Pain EKG 12 Lead - Chest Pain ECG STAT 12/23/2018 8:10 PM EST [place] Endometrial bx w/wo endocervix bx w/o dilat spx ENDOMETRIAL BIOPSY Procedures Routine PMB (postmenopausal bleeding) Ordered: 09/14/2021 [facility] Work Phone: Comment on above: Ordered: 09/14/2021 Endometrial bx w/wo endocervix bx w/o dilat spx ENDOMETRIAL BIOPSY Procedures Routine Postmenopausal bleeding Ordered: 09/16/2021 [facility] Work Phone: Comment on above: Ordered: 09/16/2021 End: 07-15-2019 Hepatitis B Surface Antigen Hepatitis B Surface Antigen Lab Routine Encounter for screening for other viral diseases Screening for STDs (sexually transmitted diseases) 1 Occurrences starting 07/15/2019 until 07/15/2019 [place] Comment on above: 1 Occurrences starting 07/15/2019 until 07/15/2019 Hepatitis B Surface Antigen Hepatitis B Surface Antigen Lab Routine Encounter for screening for other viral diseases Screening for STDs (sexually transmitted diseases) 07/15/2019 2:30 PM EDT [place] End: 07-15-2019 Hepatitis C Antibody Hepatitis C Antibody Lab Routine Screening for STDs (sexually transmitted diseases) 1 Occurrences starting 07/15/2019 until 07/15/2019 [place] Comment on above: 1 Occurrences starting 07/15/2019 until 07/15/2019 Hepatitis C Antibody Hepatitis C Antibody Lab Routine Screening for STDs (sexually transmitted diseases) 07/15/2019 2:30 PM EDT [place] End: 08-19-2020 LOVE DIGITAL DIAGNOSTIC W [...] cancer 1 Occurrences starting 01/03/2023 until 02/02/2024 [facility] Work Phone: Comment on above: 1 Occurrences starting 01/03/2023 until 02/02/2024 Patient referral [facility] Work Phone: PELVIC US WHI PELVIC US WHI An c Imaging Routine PMB (postmenopausal bleeding) Ordered: 09/14/2021 [facility] Work Phone: Comment on above: Ordered: 09/14/2021 PELVIC US WHI PELVIC US WHI An c Imaging Routine Ovarian cyst, right Postmenopausal Ordered: 09/21/2021 [facility] Work Phone: Comment on above: Ordered: 09/21/2021 [employer] COVID-19 BIVALENT BOOSTER VACCINE, AGE 12+ YR [employer] COVID-19 BIVALENT BOOSTER VACCINE, AGE 12+ YR Immunization/Injection Routine Encounter for immunization 1 Occurrences starting 12/22/2021 [facility] Work Phone: Comment on above: 1 Occurrences starting 12/22/2021 End: 11-11-2022 Radiologic exam chest 2 views XR CHEST 2V FRONTAL/LAT Radiology Routine Dyspnea on exertion 1 Occurrences starting 10/12/2021 until 11/11/2022 [facility] Work Phone: Comment on above: 1 Occurrences starting 10/12/2021 until 11/11/2022 End: 07-15-2019 RPR with FTA Relex RPR with FTA Relex Lab Routine Screening for STDs (sexually transmitted diseases) 1 Occurrences starting 07/15/2019 until 07/15/2019 [facility] [employer] Comment on above: 1 Occurrences starting 07/15/2019 until 07/15/2019 RPR with FTA Relex RPR with FTA Relex Lab Routine Screening for STDs (sexually transmitted diseases) 07/15/2019 2:30 PM EDT [employer] End: 11-11-2022 Screening mammography bi 2-view breast inc cad LOVE SCREENING Radiology Routine Encounter for screening mammogram for malignant neoplasm of breast 1 Occurrences starting 10/12/2021 until 11/11/2022 [facility] Work Phone: Comment on above: 1 Occurrences starting 10/12/2021 until 11/11/2022 End: 08-19-2020 US Breast Bilateral US Breast Bilateral Imaging Routine Lump in armpit, left Localized enlarged lymph nodes 1 Occurrences starting 08/19/2020 until 08/19/2020 [employer] Work Phone: Comment on above: 1 Occurrences starting 08/19/2020 until 08/19/2020 End: 08-19-2020 US BREAST LIMITED LEFT US BREAST LIMITED LEFT Imaging Routine Once for 1 Occurrences starting 08/19/2020 until 08/19/2020 [employer] Work Phone: Comment on above: Once for 1 Occurrences starting 08/20/19 21 until 08/19/2020 US BREAST LIMITED LEFT US BREAST LIMITED LEFT Imaging Routine 08/19/2020 1:54 PM EDT [employer] Work Phone: End: 01-21-2023 Us soft tissue head & neck real time imge docm US THYROID/PARATHYROID Radiology Routine Family history of thyroid disease 1 Occurrences starting 12/22/2021 until 01/21/2023 [facility] Work Phone: Comment on above: 1 Occurrences starting 12/22/2021 until 01/21/2023 End: 01-21-2023 XR CLAVICLE 2V RIGHT XR CLAVICLE 2V RIGHT Radiology Routine Mass of chest wall, right 1 Occurrences starting 12/22/2021 until 01/21/2023 [facility] Work Phone: Comment on above: 1 Occurrences starting 12/22/2021 until 01/21/2023 [facility] Work Phone: [facility] Work Phone: Immunizations Immunization Date Immunization Notes Care Provider [facility] 12-18-2021 influenza, seasonal, injectable Daniel Guzman [employer] Work Phone: [facility] Work Phone: 12-18-2021 influenza virus vaccine, unspecified formulation Danilo Santa APRN.[employer] Work Phone: [facility] 12-14-2021 Influenza, injectabl e, Madin Akanksha Canine Kidney, preservative free, quadrivalent Diana Lundberg MD Work Phone: [facility] 12-14-2021 influenza virus vaccine, unspecified formulation Ct (I-Stat) Work Phone: [facility] 11-24-2020 Pfizer Monovalent (1 2+ yrs) SARS-COV-2 (COVID-19) vaccine, mRNA, spike protein, LNP, pres. free, 30 mcg/0.3mL dose (NUA=333) Diana Lundberg MD Work Phone: [facility] 03-30-2020 COVID-19, Pfizer, PF , 30mcg/0.3mL Iris Regan DO Work Phone: [facility] Work Phone: 01-30-2020 influenza virus vaccine, unspecified formulation Iris [place] DO Work Phone: [facility] Work Phone: 01-30-2020 influenza, injectabl e, quadrivalent, contains preservative [facility] 10-18-2019 pneumococcal conjuga te vaccine, 13 valent Darrion Islas [facility] Work Phone: 10-16-2019 pneumococcal polysaccharide vaccine, 23 valent Iris Clements DO Work Phone: [facility] Work Phone: 12-13-2015 Influenza Vaccine, unspecified formulation [facility] , [place] 12-13-2015 influenza, seasonal, injectable, preservative free [facility] 11-19-2013 influenza, injectabl e, quadrivalent, contains preservative [facility] Work Phone: 11-19-2013 influenza, seasonal, injectable [facility] 12-06-2012 influenza virus vaccine, unspecified formulation [facility], [place] 12-06-2012 influenza, seasonal, injectable [facility] 04-29-1999 pneumococcal polysaccharide vaccine, 23 valent [facility], [place] 04-29-1999 TD(adult) unspecifie d formulation [facility] 04-29-1999 Td, unspecified formulation [facility] [place], [place] No information available. Sun Mcdermott LPN [facility] Work Phone: Payers Date Payer Category Payer Medicare (Managed Care) [facility] MEDICARE [id number] 2024 Medicare [id number] 2023 Self-pay [id number] 2015 Unknown [id number] 2014 Commercial Indemnity COMMERCIAL INSURANCE - OTHER [id number] 2014 Medicare MEDICARE MEDICAR E PART A AND B [id number] 2014-Present [phone] [address] [address] [place] [address] xxxxxxxxxxx [id number] 2014 Medicare MEDICARE MEDICAR E A AND B [id number] 2014-Present [phone] [place] [address] Medicare [id number] 2014 Medicare FFS MEDICARE [id number] 2014 Miscellaneous or Other HOSPITAL/ MEDICAL GENERIC [id number] 2014 Unknown 2014 Unknown HOSPITAL/MEDICAL GENERIC MEDICAL GENERIC [id number] 2014-Present [phone] [address] [place] [address] Indemnity [id number] 2014 Medicare [id number] [id number] .[id number] 2014 Unknown [id number] [id number] .[id number] 2008 Medicare 1950 Unknown [id number] 2.16.840.1.168147.3.579.2 .668 1950 Unknown [id number] 2.16.840.1.582311.3.579.2 .668 1951 Unknown [id number] 2.16.840.1.071229.3.579.2 .668 1951 Unknown [id number] 2.16.840.1.946558.3.579.2 .668 1951 Unknown [id number] 2.16840.1.927335.3.579.2 .668 1951 Unknown [id number] 2.16840.1.533916.3.579.2 .8 1951 Unknown [id number] 2.16.840.1.251284.3.579.2 .159 1951 Unknown [id number] 2.16840.1.294199.3.579.2 .716 1951 Unknown [id number] 2.16840.1.030188.3.579.2 .903 1951 Unknown [id number] 2.16840.1.155988.3.579.2 .732 1951 Unknown [id number] 2.16.840.1.521069.3.579.2 .732 1950 Unknown [id number] 2.16840.1.542227.3.579.2 .1243 Medicare SELF PAY INSURANCE [id number] Unknown [id number] Unknown [id number] [id number] .462 Unknown [id number] 2.16.840.1.377619.3.579.2 .462 Unknown [id number] 2.16.840.1.484004.3.579.2 .462 Unknown [id number] 2.16.840.1.296632.3.579.2 .462 Social History Date Type Detail Facility Start: 09-23-2021 End: 09-23-2021 Assertion Unknown if ever smoked [facility] Work Phone: Start: 07-15-2019 End: 09-23-2021 Tobacco smoking status NHIS Never smoker [facility] Work Phone: Start: 07-15-2019 End: 01-30-2024 Alcohol intake Current drinker of alcohol (finding) [facility] Work Phone: Start: 08-20-2015 Alcohol Comment 1-2 times a week [place], [place] Start: 1950 Sex Assigned At Not on file [place] Start: 12-18-2019 End: 10-12-2021 Tobacco use and exposure Never used [place] Start: 12-18-2019 History SDOH Alcohol Frequency 4 [place] Start: 12-18-2019 History SDOH Alcohol Std Drinks 1 [place] Start: 12-18-2019 History SDOH Physical Activity DPW 2 [place] Start: 12-18-2019 End: 10-12-2021 History SDOH Physical Activity MPS 6 [place] Start: 12-18-2019 History SDOH Financial 5 [place] Start: 12-23-2018 End: 01-26-2020 Alcohol intake Yes [facility] Work Phone: Start: 01-26-2020 End: 07-16-2020 Alcohol intake [facility] Work Phone: Comment on above: Nanny 2 cups coffee daily Start: 08-20-2015 Alcohol Comment 1-2 times a week [facility] Work Phone: Start: 01-28-2020 End: 07-24-2024 Exposure to SARS-CoV-2 (event) Not sure [facility] Start: 1950 Sex Assigned At Female [facility] Start: 10-12-2021 History SDOH Physical Activity DPW 3 [facility] Alcohol Use: Alcohol Use: Comprehensive [facility] [...] Phone: Start: 05-18-2022 Alcohol intake Ex-drinker (finding) [facility] National Score (1-100), lower number is lower risk Not on file [facility] Work Phone: Start: 05-02-2016 End: 04-24-2024 Sex Female (finding) [facility] NEGATED: Highlighted rowStart: NINF History of tobacco use Passive smoker [facility] Goals Date Patient Goal Desired Activity /State Mental Status Date Assessment Result Facility 09-29-2021 Cognitive function Voice/Name [facility] Work Phone: Clinical Notes 02-27-2020 to 08-11-2024 Diana Lundberg MD - 12/19/2023 3:14 PM Danilo Briones APRN.[facility] - 08/04/2023 1:31 PM Diana Chavez MD - 06/07/2023 9:02 AM Diana Chavez MD - 07/19/2022 3:47 PM EDT Note Date & Type Note Facility 08-11-2024 Radiology Diagnostic study note [facility] Imaging Services [address] [place], [place] [address] Thyroid MR#: [id number] Acct: [id number] Name: CELI BUCK Rep #: [id number] : 1950 F 74 From: Lilia Shafer MD PCP: ZAK Miller Status: REG C DESI Study:Thyroid Date of Exam: 08/11/24 Exam# [id number] Ordering Dr: Gabo Guzman PROCEDURE: THYROID 08/11/2024 REASON FOR EXAM: THYROID ULTRASOUND ([id number]) : REASSESS NODULE/MICROCALCIFICATION U TECHNIQUE: THYROID COMPARISON: [...] FNA per ACR TI-RADS guidelines. Reading Location: [id number] CC: ZAK Guzman ~ Inside Sales Coordinator: Signed [facility] 04-11-2024 Radiology Diagnostic study note [facility] Imaging Services [address] [place] [id number] Chest PA and Lateral MR#: [id number] Acct: [id number] Name: CELI BUCK Rep #: [id number] : 1950 F 74 From: Noble Baxter MD PCP: ZAK Miller Status: REG C DESI Study:Chest PA and Lateral Date of Exam: 04/11/24 Exam# [id number] Ordering Dr: Gabo Guzman PROCEDURE: CHEST PA [...] No acute abnormality is seen. Reading Location: [facility] CC: ZAK Guzman ~ Inside Sales Coordinator: Signed [facility] 01-06-2024 Note SARS-COV-2 (AGENT OF COVID-19) RNA: Not detected INFLUENZA A RNA: Not detected INFLUENZA B RNA: Not detected RESPIRATORY SYNCYTIAL VIRUS (RSV) RNA: Not detected [facility] Comment on above: Performed By: #### 9 [id number] #### [facility] CLIA [id number] [address] [place] [address] OF [facility] 12-19-2023 History of Present illness Narrative 73-year-old [...] Sterile dressing applied. documented in this encounter [facility] 12-19-2023 Note Patient Outreach (IN TMMN) -------- CELI BUCK ([id number]) 1950 José Miguel GONZÁLES Date Time Provider [...] breast cancer [Z12.31] Order(s):LOVE SCREENING W NATE [[id number]] Order #: [id number] FUTURE Prescriptions as of 12/24/2023 - acyclovir [...] Encounter Status:Closed by EPIC, PRODUSER on 12/24/23 [facility] 08-04-2023 Note HNO ID: [id number] Author: DANILO SANTA APRN.[facility] Service: ? Author Type: Nurse Practitioner Type: Progress Notes Filed: 08/04/2023 13:58 Note Text: This note was created using [employer]. Subjective Celi Buck is a 73 year [...] if symptoms persist or worsen. Danilo Santa APRN.[employer] [facility] 06-15-2024 History of Present illness Narrative This note was created using [employer]. Subjective Celi Buck is a 73 year [...] if symptoms persist or worsen. Danilo Santa APRN.[employer] documented in this encounter [facility] 06-07-2023 History of Present illness Narrative [...] Sterile dressing applied. documented in this encounter [facility] 07-19-2022 History of Present illness Narrative [...] no skin change from previous corticosteroid injections [employer] to palpation over the CMC joint, palpable [...] Sterile dressing applied. documented in this encounter [facility] 05-18-2022 Instructions Con Lynn MD - [...] systems such as NeilMed SINUS RINSE , [place] Saline Nasal Rinse, or Neti Pot are [...] 3. Baking soda (not baking powder) 4. [place] syrup (optional, for additional moisturizing effect) 5. [...] IN THIS DOCUMENT documented in this encounter [facility] 05-18-2022 History of Present illness Narrative [facility] [address] [facility] [address] MED[address] OFFICE [facility] [address] Dept: [phone] Loc: [phone] Con Lynn MD Celi Buck 72 y.o. [...] of submandibular glands, clear salivary flow from Arcola's ducts, no stones of Maximus's ducts Temporomandibular [...] normal mood, normal affect FIBEROPTIC NASOPHARYNOGLARYNGOSCOPY NOTE ([id number]) PROCEDURE PERFORMED BY: Con Lynn MD PROCEDURE [...] We have discussed that the safety of watcher automat long goods use of certain agents is uncertain and that should nursing home therapy be needed that loss of bone density, decreased absorption of some vitamins and minerals, and injury to internal organs has been reported. Weaning off of these medications when able may have [employer]cher [employer] goods benefits in reducing these risks. The patient [...] Negative. Hematological: Negative. documented in this encounter [facility] 12-22-2021 History of Present illness Narrative SUBJECTIVE: [...] Both Constipation and Diarrhea Former patient Iris [facility], last seen 06/2020. Seen by Dr Avila 09/2021 for near syncope, chronic suppression HS, IBS C&D helped with venlafaxine, GREEN, HLP. S/P procedue for PMB Dr Tony. [facility] cardiology visit 09/29/2021. Has seen ACTIVITIES DIRECTOR Dr Douglas since last seen IM. Lung nodules stable on CT compared to previous. Presents today to establish care with Gustabo Deng MD Outside records: care everywhere Notes continues to work. Notes some fatigue, tires early in the day. Present for a couple of months. Notes mother and sister had thyroid disease. No swallowing difficulties reported. No recent illness or fever reported. Reports [email or web address] infection June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 Patient Instructions Indication:BMI 25.0-25.9,adult Start:27-Jan-2022 Instruction Type:Provider Instructions for Treatment How to Access Health Informa tion Online using Patient Portal and 3rd Libertarian Apps Indication:BMI 25.0-25.9,adult Start:27-Jan-2022 Instruction Type:Patient Education Patient Instructions Indication:Nonsmoker Start:28-Dec-2021 Instruction Type:Provider Instructions for Treatment How to Access Health Informa tion Online using Patient Portal and 3rd Libertarian Apps Indication:Nonsmoker Start:28-Dec-2021 Instruction Type:Patient Education [facility] Medicine; [facility] Work Phone: instructions* Name Dates Details Patient Instructions Indication:Nonsmoker Start:24-Apr-2022 Instruction Type:Provider Instructions for Treatment How to Access Health Informa tion Online using Patient Portal and 3rd Libertarian Apps Indication:Nonsmoker Start:24-Apr-2022 Instruction Type:Patient Education Patient Instructions Indication:Nonsmoker Start:17-Apr-2022 Instruction Type:Provider Instructions for Treatment How to Access Health Informa tion Online using Patient Portal and 3rd Libertarian Apps Indication:Nonsmoker Start:17-Apr-2022 Instruction Type:Patient Education Patient Instructions Indication:BMI 25.0-25.9,adult Start:27-Jan-2022 Instruction Type:Provider Instructions for Treatment How to Access Health Informa tion Online using Patient Portal and 3rd Libertarian Apps Indication:BMI 25.0-25.9,adult Start:27-Jan-2022 Instruction Type:Patient Education Patient Instructions Indication:Nonsmoker Start:28-Dec-2021 Instruction Type:Provider Instructions for Treatment How to Access Health Informa tion Online using Patient Portal and 3rd Libertarian Apps Indication:Nonsmoker Start:28-Dec-2021 Instruction Type:Patient Education [facility]; [facility] Work Phone: Instructions* Name Dates Details Patient Instructions Indication:Nonsmoker Start:24-Apr-2022 Instruction Type:Provider Instructions for Treatment How to Access Health Informa tion Online using Patient Portal and 3rd Libertarian Apps Indication:Nonsmoker Start:24-Apr-2022 Instruction Type:Patient Education Patient Instructions Indication:Nonsmoker Start:17-Apr-2022 Instruction Type:Provider Instructions for Treatment How to Access Health Informa tion Online using Patient Portal and 3rd Libertarian Apps Indication:Nonsmoker Start:17-Apr-2022 Instruction Type:Patient Education Patient Instructions Indication:BMI 25.0-25.9,adult Start:27-Jan-2022 Instruction Type:Provider Instructions for Treatment How to Access Health Informa tion Online using Patient Portal and 3rd Libertarian Apps Indication:BMI 25.0-25.9,adult Start:27-Jan-2022 Instruction Type:Patient Education Patient Instructions Indication:Nonsmoker Start:28-Dec-2021 Instruction Type:Provider Instructions for Treatment How to Access Health Informa tion Online using Patient Portal and 3rd Libertarian Apps Indication:Nonsmoker Start:28-Dec-2021 Instruction Type:Patient Education [facility]; [facility] Work Phone: reason for referral (narrative)* Outpatient Procedure (Routine) - Pending Review Specialty Diagnoses / Procedures Referred By Spencer galeas Referred To Contact [facility] Diagnoses PMB (postmenopausal bleeding) Procedures ENDOMETRIAL BIOPSY ENDOMETRIAL BX W/WO ENDOCERVIX BX W/O DILAT SPX Ynes Cesar APRN.[employer] [address] [place] [address] [address] Referral ID Status Reason Start Date Expiration Date Visits Requested Visits Authorized [id number] Pending Review Auto-Generat ed Referral 09/14/2021 09/14/2022 1 1 * Diagnostic Procedure Only (Routine) - Authorized Specialty Diagnoses / Procedures Referred By Contac t Referred To Contact [facility] Diagnoses PMB (postmenopausal bleeding) Procedures PELVIC US [facility] US PELVIC NONOBSTETRIC REAL-TIME IMAGE COMPLETE Ynes Cesar APRN.[employer] [address] [place] [address] [address] Referral ID Status Reason Start Date Expiration Date Visits Requested Visits Authorized [id number] Authorized Auto-Generat ed Referral 09/14/2021 09/14/2022 1 1 [facility] for referral (narrative)* Outpatient Procedure (Routine) - Pending Review Specialty Diagnoses / Procedures Referred By Contac t Referred To Contact [facility] Diagnoses Postmenopausal bleeding Procedures ENDOMETRIAL BIOPSY ENDOMETRIAL BX W/WO ENDOCERVIX BX W/O DILAT SPX Ynes Cesar APRN.CNP [address] [place] [address] [address] Referral ID Status Reason Start Date Expiration Date Visits Requested Visits Authorized [id number] Pending Review Auto-Generat ed Referral 09/16/2021 09/16/2022 1 1 [facility] for referral (narrative)* Diagnostic Procedure Only (Routine) - Pending Review Specialty Diagnoses / Procedures [facility] Referred To Contact [facility] Diagnoses Ovarian cyst, right Postmenopausal Procedures PELVIC US [facility] US PELVIC NONOBSTETRIC REAL-TIME IMAGE COMPLETE Ynes Cesar APRN.CNP [address] [place] [address] [facility] [address] [place] [address] Referral ID Status Reason Start Date Expiration Date Visits Requested Visits Authorized [id number] Pending Review Auto-Generat ed Referral 09/21/2021 09/21/2022 1 1 [facility] for referral (narrative)* Outpatient Procedure (Routine) - Closed Specialty Diagnoses / Procedures [facility] Referred To Contact [facility] Diagnoses Palpitations Procedures ECG COMPLETE ECG ROUTINE ECG W/LEAST 12 LDS W/I&R Samy Avila MD [address] [place] [address] [facility] [address] [place] [id number] Referral ID Status Reason Start Date Expiration Date V isits Requested Visits Authorized [id number] Closed Auto-Generate d Referral 10/12/2021 10/12/2022 1 1 * Diagnostic Procedure Only (Routine) - Pending Review Specialty Diagnoses / Procedures [facility] Referred To Contact [facility] Diagnoses Encounter for screening mammogram for malignant neoplasm of breast Procedures LOVE SCREENING SCREENING MAMMOGRAPHY BI 2-VIEW BREAST INC CAD Samy Avila MD [address] [place] [address] [facility] [address] [place] [address] Referral ID Status Reason Start Date Expiration Date Visits Requested Visits Authorized [id number] Pending Review Auto-Generat ed Referral 10/12/2021 11/11/2022 1 1 [facility] for referral (narrative)* Diagnostic Procedure Only (Routine) - Pending Review Specialty Diagnoses / Procedures Referred By Spencer t Referred To Contact [facility] Diagnoses Mass of upper inner quadrant of right breast Procedures US BREAST LTD RT US BREAST UNI REAL TIME WITH IMAGE LIMITED Brandi Pagan APRN.CNM [address] [place] [address] [facility] [address] [place] [address] Referral ID Status Reason Start Date Expiration Date Visits Requested Visits Authorized [id number] Pending Review Auto-Generat ed Referral 11/04/2021 12/04/2022 1 1 * Diagnostic Procedure Only (Routine) - Authorized Specialty Diagnoses / Procedures Referred By Spencer galeas Referred To Contact [facility] Diagnoses Mass of upper inner quadrant of right breast Procedures LOVE DIAGNOSTIC BILAT DIAGNOSTIC MAMMOGRAPHY COMPUTER-AIDED DETCJ BI Brandi Pagan APRN.CNM [address] [place] [address] [facility] [address] [place] [phone] Referral ID Status Reason Start Date Expiration Date Visits Requested Visits Authorized [id number] Authorized Auto-Generat ed Referral 11/04/2021 12/04/2022 1 1 [facility] for referral (narrative)* Diagnostic Procedure Only (Routine) - Pending Review Specialty Diagnoses / Procedures Referred By Spencer t Referred To Contact [facility] Diagnoses Family history of thyroid disease Procedures US THYROID/PARATHYROID US SOFT TISSUE HEAD & NECK REAL TIME IMGE Afsaneh Esparza, BIOSTATISTICS MANAGER [address] [place] [address] [facility] Referral ID Status Reason Start Date Expiration Date Visits Requested Visits Authorized [id number] Pending Review Auto-Generat ed Referral 12/22/2021 01/21/2023 1 1 * Diagnostic Procedure Only (Routine) - Pending Review Specialty Diagnoses / Procedures Referred By Contac t Referred To Contact [facility] Diagnoses Mass of chest wall, right Procedures XR CLAVICLE 2V RIGHT RADEX CLAVICLE COMPLETE Afsaneh Mac APRN.CNS [address] [place] [address] X[facility] Referral ID Status Reason Start Date Expiration Date Visits Requested Visits Authorized [id number] Pending Review Auto-Generat ed Referral 12/22/2021 01/21/2023 1 1 [facility] for referral (narrative)* Diagnostic Procedure Only (Routine) - Pending Review Specialty Diagnoses / Procedures Referred By Contac t Referred To Contact [facility] Diagnoses Encounter for screening mammogram for breast cancer Procedures LOVE SCREENING W NATE SCREENING DIGITAL BREAST TOMOSYNTHESIS BI SCREENING MAMMOGRAPHY BI 2-VIEW BREAST INC Gustabo Ross MD [address] [place] [address] [facility] [address] [place] [address] Referral ID Status Reason Start Date Expiration Date Visits Requested Visits Authorized [id number] Pending Review Auto-Generat ed Referral 02/02/2024 1 1 [facility] for referral (narrative)* Diagnostic Procedure Only (Routine) - New Request Specialty Diagnoses / Procedures Referred By Contac t Referred To Contact [facility] Diagnoses Encounter for screening mammogram for breast cancer Procedures LOVE SCREENING W NATE SCREENING DIGITAL BREAST TOMOSYNTHESIS BI SCREENING MAMMOGRAPHY BI 2-VIEW BREAST INC Gustabo Ross MD [address] [place] [address] [facility] [address] [place] [address] Referral ID Status Reason Start Date Expiration Date Visits Requested Visits Authorized [id number] New Request Auto-Generat ed Referral 4 01/17/2025 1 1 [facility] for referral (narrative)No reason for referral [facility] Work Phone: Reason for visit Narrative* Diagnostic Procedure Only (Routine) - Closed Specialty Diagnoses / Procedures Referred By Contac t Referred To Contact [facility] Diagnoses Mass of chest wall, right Procedures XR CLAVICLE 2V RIGHT RADEX CLAVICLE COMPLETE Afsaneh Mac, EARLY CHILDHOOD ASSOCIATE.BIOSTATISTICS MANAGER [address] [place] [address] [place] [address] Referral ID Status Reason Start Date Expiration Date V isits Requested Visits Authorized [id number] Closed Auto-Generate d Referral 12/22/2021 01/21/2023 1 1 [facility] for visit Narrative* Imaging (Routine) - Pending Review Specialty Diagnoses / Procedures Referred By Contzunilda t Referred To Contact Radiology Diagnoses Hyperlipidemia, unspecified Procedures CT cardiac scoring wo IV contrast Daniel Guzman, EARLY CHILDHOOD ASSOCIATE-[employer] [address] [facility] [address] [place] [address] Phone: tel: fax: Referral ID Status Reason Start Date Expiration Date Visits Requested Visits Authorized [id number] Pending Review Perform Procedure 06/25/2024 06/25/2025 1 1 [facility] Work Phone: Advance Directives Documents on File Type Date Recorded Patient Outpatient Psychiatrist Expl anation Advance 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 Living Will Power of Media Librarian Documents on File Type Date Recorded Patient Outpatient Psychiatrist Expl anation ACP-Advance Directive ACP-Power of Media Librarian Documents on File Type Date Recorded Patient Outpatient Psychiatrist Expl anation ACP-Advance Directive ACP-Power of Media Librarian Documents on File Type Date Recorded Patient Outpatient Psychiatrist Expl anation Advance 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 Living Will Power of Media Librarian Documents on File Type Date Recorded Patient Outpatient Psychiatrist Expl anation Advance Directive(s) 11/28/2019 5:38 PM Documents on File Type Date Recorded Patient Outpatient Psychiatrist Expl anation Advance Directive(s) 11/28/2019 5:38 PM Advance Directive Response Recorded Date/ Time Living Will No September 23, 2021 2:19pm Power of Media Librarian No September 23 2:19pm Advance Directive Response Recorded Date/ Time Living Will No September 23, 2021 1:19pm Power of Media Librarian No September 23 1:19pm Assessments Diagnosis Screening [...] sent through Care Everywhere. * Abdominal Pain (Kyrgyz) documented in this encounter Reason for Referral Status Reason Specialty Diagnoses / Procedures Referre d By Contact Referred To Contact Closed Radiology Diagnoses Lump in armpit, left Localized enlarged lymph nodes Procedures US Breast Bilateral Iris Clements, DO [address] [place] [address] Status Reason Specialty Diagnoses / Procedures Referre d By Contact Referred To Contact Closed Radiology Diagnoses Lump in armpit, left Localized enlarged lymph nodes Procedures LOVE DIGITAL DIAGNOSTIC W OR WO CAD BILATERAL Iris Clements, DO [address] [place] [address] Status Reason Specialty Diagnoses / Procedures Re ferred By Contact Referred To Contact [facility] Diagnoses Leukocytes in urine Procedures US Retroperitoneal Limited Gisell Espinoza MD [address] [facility] [address] [place] [address] Specialty Diagnoses / Procedures Referred By Contac t Referred To Contact Radiology Diagnoses Pain in both hands Procedures XR HAND RIGHT 3 VIEWS Diana Lundberg MD [address] [place] [address] [facility]IOLOGY [address] [place] [address] [place] [address] Referral ID Status Reason Start Date Expiration Date Visits Re quested Visits Authorized [id number] Closed 08/24/2021 08/24/2022 1 1 Specialty Diagnoses / Procedures Referred By Contac t Referred To Contact Radiology Diagnoses Pain in both hands Procedures XR HAND LEFT 3 VIEWS Diana Lundberg MD [address] [place] [address] [facility]IOLOGY [address] [place] [address] [place] [address] Referral ID Status Reason Start Date Expiration Date Visits Re quested Visits Authorized [id number] Closed 08/24/2021 08/24/2022 1 1 Specialty Diagnoses / Procedures Referred By Contac t Referred To Contact CT IMAGING Diagnoses Lung nodules Procedures CT CHEST WO IVCON CAT SCAN OF CHEST Michael Merrill MD [address] [place] [address] Ct Imaging Referral ID Status Reason Start Date Expiration Date V isits Requested Visits Authorized [id number] Closed Auto-Generate d Referral 09/24/2021 10/24/2021 1 1 Specialty Diagnoses / Procedures Referred By Contac t Referred To Contact Otolaryngology Diagnoses Swollen uvula Osei, Shanique Andrew, DO [address] [facility] [address] [place] [address] Con Lynn MD [facility] [address] [address] Referral ID Status Reason Start Date Expiration Date V isits Requested Visits Authorized [id number] Authorized 05/11/2022 05/11/2023 1 1 Chief Complaint and Reason for Visit Chief Complaint hyster d&C symphion Reason for Visit Endometrial thickeni ng on ultrasound PMB (postmenopausal bleeding) Chief Complaint R SIDE ENLARGEMENT Chief Complaint Admit Date THYROID NODULE August 11, 2024 1:00 pm Additional Source Comments INFORMATION SOURCE (unrecogn ized section and content) DATE CREATED AUTHOR 03/25/2018 [facility] DATE CREATED AUTHOR AUTHOR'S ORGANIZ ATION 07/25/2019 [facility] DATE CREATED AUTHOR AUTHOR'S ORGANIZ ATION [facility]/29/2019 [facility] DATE CREATED AUTHOR AUTHOR'S ORGANIZ ATION 08/23/2020 [facility] DATE CREATED AUTHOR AUTHOR'S ORGANIZ ATION 09/24/2020 [facility] DATE CREATED AUTHOR AUTHOR'S ORGANIZ ATION 12/18/2021 [facility] DATE CREATED AUTHOR AUTHOR'S ORGANIZ ATION 04/26/2022 [facility] DATE CREATED AUTHOR AUTHOR'S ORGANIZ ATION 05/23/2022 [facility] DATE CREATED AUTHOR AUTHOR'S ORGANIZ ATION 12/21/2023 [facility] DATE CREATED AUTHOR AUTHOR'S ORGANIZ ATION 02/02/2024 [facility] DATE CREATED AUTHOR AUTHOR'S ORGANIZ ATION 07/16/2024 [facility] DATE CREATED AUTHOR AUTHOR'S ORGANIZ ATION 08/01/2024 [facility] DATE CREATED AUTHOR AUTHOR'S ORGANIZ ATION 08/16/2024 [facility] Reason for Visit (unrecogniz ed section and content) Reason Comments Abdominal Pain Shoulder Pain R Status Reason Specialty Diagnoses / Procedures Referre d By Contact Referred To Contact Closed Radiology Diagnoses Lump in armpit, left Localized enlarged lymph nodes Procedures LOVE DIGITAL DIAGNOSTIC W OR WO CAD BILATERAL Iris Clements R, DO [address] [place] [address] Reason Comments New patient, to establish relationship [...] CAT SCAN OF CHEST Michael Merrill MD [address] [place] [address] Ct Imaging Referral ID Status Reason Start Date Expiration Date V isits Requested Visits Authorized [id number] Closed Auto-Generate d Referral 09/24/2021 10/24/2021 1 1 Reason Comments Breast Mass Up by collar bone Reason Comments Results Reason Comments sore throat New pt Swollen uvula Specialty Diagnoses / Procedures Referred By Contac t Referred To Contact Otolaryngology Diagnoses Swollen uvula Shanique Carmen DO [address] [facility] [address] [place] [address] Con Lynn MD [address] [address] Referral ID Status Reason Start Date Expiration Date Visits Re quested Visits Authorized [id number] Closed 05/11/2022 05/11/2023 1 1 Reason Comments [...] or prosecute any alcohol or drug abuse patient.[facility] the event this information is protected by the Federal Confidentiality of Alcohol and Drug Abuse Patient Records regulations: The Federal rules restrict any use of the information to criminally investigate or prosecute any alcohol or drug abuse patient.[facility] HospitalIn the event this information is protected by the Federal Confidentiality of Alcohol and Drug Abuse Patient Records regulations: The Federal rules restrict any use of the information to criminally investigate or prosecute any alcohol or drug abuse patient.[facility] HospitalIn the event this information is protected by the Federal Confidentiality of Alcohol and Drug Abuse Patient Records regulations: The Federal rules restrict any use of the information to criminally investigate or prosecute any alcohol or drug abuse patient.[facility] HospitalIn the event this information is protected by the Federal Confidentiality of Alcohol and Drug Abuse Patient Records regulations: The Federal rules restrict any use of the information to criminally investigate or prosecute any alcohol or drug abuse patient.[facility] HospitalIn the event this information is protected by the Federal Confidentiality of Alcohol and Drug Abuse Patient Records regulations: The Federal rules restrict any use of the information to criminally investigate or prosecute any alcohol or drug abuse patient.[facility] HospitalIn the event this information is protected by the Federal Confidentiality of Alcohol and Drug Abuse Patient Records regulations: The Federal rules restrict any use of the information to criminally investigate or prosecute any alcohol or drug abuse patient.[facility] HospitalIn the event this information is protected by the Federal Confidentiality of Alcohol and Drug Abuse Patient Records regulations: The Federal rules restrict any use of the information to criminally investigate or prosecute any alcohol or drug abuse patient.[facility] HospitalIn the event this information is protected by the Federal Confidentiality of Alcohol and Drug Abuse Patient Records regulations: The Federal rules restrict any use of the information to criminally investigate or prosecute any alcohol or drug abuse patient.[facility] HospitalIn the event this information is protected by the Federal Confidentiality of Alcohol and Drug Abuse Patient Records regulations: The Federal rules restrict any use of the information to criminally investigate or prosecute any alcohol or drug abuse patient.[facility] HospitalIn the event this information is protected by the Federal Confidentiality of Alcohol and Drug Abuse Patient Records regulations: The Federal rules restrict any use of the information to criminally investigate or prosecute any alcohol or drug abuse patient.[facility] HospitalIn the event this information is protected by the Federal Confidentiality of Alcohol and Drug Abuse Patient Records regulations: The Federal rules restrict any use of the information to criminally investigate or prosecute any alcohol or drug abuse patient.[facility] HospitalIn the event this information is protected by the Federal Confidentiality of Alcohol and Drug Abuse Patient Records regulations: The Federal rules restrict any use of the information to criminally investigate or prosecute any alcohol or drug abuse patient.[facility] HospitalIn the event this information is protected by the Federal Confidentiality of Alcohol and Drug Abuse Patient Records regulations: The Federal rules restrict any use of the information to criminally investigate or prosecute any alcohol or drug abuse patient.[facility] HospitalIn the event this information is protected by the Federal Confidentiality of Alcohol and Drug Abuse Patient Records regulations: The Federal rules restrict any use of the information to criminally investigate or prosecute any alcohol or drug abuse patient.[facility] HospitalIn the event this information is protected by the Federal Confidentiality of Alcohol and Drug Abuse Patient Records regulations: The Federal rules restrict any use of the information to criminally investigate or prosecute any alcohol or drug abuse patient.[facility] HospitalIn the event this information is protected by the Federal Confidentiality of Alcohol and Drug Abuse Patient Records regulations: The Federal rules restrict any use of the information to criminally investigate or prosecute any alcohol or drug abuse patient.[facility] HospitalIn the event this information is protected by the Federal Confidentiality of Alcohol and Drug Abuse Patient Records regulations: The Federal rules restrict any use of the information to criminally investigate or prosecute any alcohol or drug abuse patient.[facility] HospitalIn the event this information is protected by the Federal Confidentiality of Alcohol and Drug Abuse Patient Records regulations: The Federal rules restrict any use of the information to criminally investigate or prosecute any alcohol or drug abuse patient.[facility] HospitalIn the event this information is protected by the Federal Confidentiality of Alcohol and Drug Abuse Patient Records regulations: The Federal rules restrict any use of the information to criminally investigate or prosecute any alcohol or drug abuse patient.[facility] HospitalIn the event this information is protected by the Federal Confidentiality of Alcohol and Drug Abuse Patient Records regulations: The Federal rules restrict any use of the information to criminally investigate or prosecute any alcohol or drug abuse patient.[facility] HospitalIn the event this information is protected by the Federal Confidentiality of Alcohol and Drug Abuse Patient Records regulations: The Federal rules restrict any use of the information to criminally investigate or prosecute any alcohol or drug abuse patient.[facility] the event this information is protected by the Federal Confidentiality of Alcohol and Drug Abuse Patient Records regulations: The Federal rules restrict any use of the information to criminally investigate or prosecute any alcohol or drug abuse patient.[facility] HospitalIn the event this information is protected by the Federal Confidentiality of Alcohol and Drug Abuse Patient Records regulations: The Federal rules restrict any use of the information to criminally investigate or prosecute any alcohol or drug abuse patient.[facility] HospitalIn the event this information is protected [...] or prosecute any alcohol or drug abuse patient.[facility] HospitalIn the event this information is protected by the Federal Confidentiality of Alcohol and Drug Abuse Patient Records regulations: The Federal rules restrict any use of the information to criminally investigate or prosecute any alcohol or drug abuse patient.[facility] Care Teams (unrecognized sec tion and content) Harness Preparer Relationship Specialty Start Date End Date Iris Clements PCP - General Family Practice 11/28/19 Harness Preparer Relationship Specialty Start Date End Date Almaz Turner DO [address] [place] [address] PCP - General Family Practice 09/16/21 Harness Preparer Relationship Specialty Start Date End Date Almaz Turner DO [address] [place] [address] PCP - General Family Practice 09/16/21 Harness Preparer Relationship Specialty Start Date End Date Almaz Turner DO [address] [place] [address] PCP - General Family Practice 09/16/21 Harness Preparer Relationship Specialty Start Date End Date Almaz Turner, DO [address] [place] [address] PCP - General Family Practice 09/16/21 Harness Preparer Relationship Specialty Start Date End Date Iris Clements PCP - General Family Practice 11/28/19 09/15/21 Almaz Turner, DO [address] [place] [address] PCP - General Family Practice 09/16/21 Harness Preparer Relationship Specialty Start Date End Date Almaz Turner DO [address] [place] [address] PCP - General Family Practice 09/16/21 Harness Preparer Relationship Specialty Start Date End Date Iris Clements Latia PCP - General Family Practice 11/28/19 09/15/21 Almaz Turner, DO [address] [place] [address] PCP - General Family Practice 09/16/21 Harness Preparer Relationship Specialty Start Date End Date Almaz Turner DO [address] [place] [address] PCP - General Family Practice 09/16/21 Harness Preparer Relationship Specialty Start Date End Date Almaz Turner DO [address] [place] [address] PCP - General Family Practice 09/16/21 Harness Preparer Relationship Specialty Start Date End Date Almaz Turner DO [address] [place] [address] PCP - General Family Practice 09/16/21 Harness Preparer Relationship Specialty Start Date End Date Almaz Turner DO [address] [place] [address] PCP - General Family Practice 09/16/21 Harness Preparer Relationship Specialty Start Date End Date Gustabo Deng MD [address] [place] [address] PCP - General Internal Medicine 12/22/21 Harness Preparer Relationship Specialty Start Date End Date Diana Lundberg MD [address] [place] [id number] Physician Plastic Surgery 09/24/21 Harness Preparer Relationship Specialty Start Date End Date Diana Lundberg MD [address] [place] [id number] Physician Plastic Surgery 09/24/21 Harness Preparer Relationship Specialty Start Date End Date Shanique Carmen DO [facility] [address] [address] PCP - General Internal Medicine 05/11/22 Harness Preparer Relationship Specialty Start Date End Date Shanique Carmen DO [facility] [address] [address] PCP - General Internal Medicine 05/11/22 Harness Preparer Relationship Specialty Start Date End Date Diana Lundberg MD [address] [place] [address] Physician Plastic Surgery 09/24/21 Harness Preparer Relationship Specialty Start Date End Date Iris Clements PCP - General Family Medicine 11/28/19 09/15/21 Harness Preparer Relationship Specialty Start Date End Date Gustabo Deng MD [address] [place] [address] PCP - General Internal Medicine 12/22/21 Harness Preparer Relationship Specialty Start Date End Date Diana Lundberg MD [address] [place] [id number] Physician Plastic Surgery 09/24/21 Harness Preparer Relationship Specialty Start Date End Date Gustabo Deng MD [address] [place] [address] PCP - General Internal Medicine 12/22/21 Harness Preparer Relationship Specialty [place] [address] [place] [id number] PCP - General Internal Medicine 12/22/21 Harness Preparer Relationship Specialty Start Date End Date Diana Lundberg MD [address] [place] [address] Physician Plastic Surgery 09/24/21 Harness Preparer Relationship Specialty Start [place] [address] [place] [id number] PCP - General Internal Medicine 12/22/21 Team [...] April 11, 2024 End: April 11, 2024 Harness Preparer Relationship Specialty Start Date End Date Daniel Guzman CNP [address] [address] PCP - General Family Medicine 01/06/24 Harness Preparer Relationship Specialty Start Date End Date Daniel Guzman APRN-CNP [address] [address] PCP - General Family Medicine 07/24/24 Team [...] August 11, 2024 End: August 11, 2024 Harness Preparer Relationship Specialty Start Date End Date Diana Lundberg MD [address] [place] [id number] Physician Plastic Surgery 09/24/21 Goals (unrecognized section [...] BE BASED ON THE PRIMARY CLINICAL RECORDS. [employer] provides no warranty or guarantee of the accuracy or completeness of information in this document.
== END | disposition home or self-care (01) ==
LOC: US 16:11
PROVIDERS: PCP Nurse Practitioner Family; Referring Provider Internal Medicine; Visit Provider Internal Medicine
DX: R93.5 Abnormal findings on diagnostic imaging of other abdominal regions, including retroperitoneum (principal)
CPT/HCPCS: 76830; 76856

== ENCOUNTER → 2024-10-28 | Outpatient (CLI) | payer MEDICARE, SELFPAY ==
[2024-10-28 16:38] LABS: Mucous, Urine 0 SEEN /hpf (<or=2+)
[2024-10-28 17:35] LABS: Hematocrit 42.0 % (37-47); Hemoglobin 14.0 g/dL (12.0-15.0); Immature Granulocytes Count 0.020 X10^3/uL (0.0-0.0); Mean Corp Hgb Conc 33.3 g/dL (32-36); Mean Corpuscular Volume 92.5 fL (81-99); Mean Platelet Vol. 9.2 fl (6.2-12.0); NRBC Flagged by Analyzer 0 % (0-5); Platelet Count 235 K/mm3 (150-450); RBC Distribution Width CV 13.3 % (11.6-14.6); RBC Distribution Width SD 45.4 fl (35.1-43.9); Red Blood Count 4.54 M/mm3 (4.2-5.4); White Blood Count 6.7 K/mm3 (4.4-11.0)
[2024-10-28 17:38] LABS: Color, Urine Yellow (Yellow); Glucose, Dipstick Normal (Normal); Ketone-Dipstick 5 mg/dl (Negative); Leukocyte Esterase-Dipstick 25 /ul (Negative); Nitrite-Dipstick Negative (Negative); Occult Blood-Urine Negative /ul (Negative); Protein-Dipstick 30 mg/dl (Negative); Specific Gravity, Urine 1.025 (1.002-1.030); Urine Bilirubin Dipstick Negative (Negative)
[2024-10-28 18:48] LABS: AST(SGOT) 24 U/L (<=31); Alanine Aminotransfer ALT/SGPT 30 U/L (<=34); Albumin, Serum 4.2 g/dL (3.4-4.8); Alkaline Phosphatase 102 U/L (35-104); Anion Gap 12 (5-15); BUN 14 mg/dL (4-19); BUN/Creat Ratio 14.6 RATIO (10-20); Calcium,Total 9.4 mg/dL (7.6-11.0); Carbon Dioxide 21.7 mmol/L (21.0-32.0); Chloride 106 mmol/L (98-108); Globulin 3.2 g/dL (2.2-4.2); Glucose 94 mg/dL (70-99); Potassium 4.3 mmol/L (3.3-5.1); Troponin T High Sensitivity 6 ng/L (<=14)
[2024-10-28 19:27] LABS: Amylase 130 U/L (28-100); Lipase 36 U/L (13-75)
[2024-10-28 21:30] LABS: Squamous Epithelial Cells - UA 10-25 SEEN /hpf (5-10)
[2024-10-28 21:31] LABS: Red Blood Cells-Urine 0-5 SEEN /hpf (0-5)
[2024-10-30 04:07] LABS: CRP, High Sensitivity 3.63 mg/L (0.00-3.00)
== END | disposition home or self-care (01) ==
PROVIDERS: PCP Nurse Practitioner Family; Referring Provider Nurse Practitioner Family; Visit Provider Nurse Practitioner Family
DX: R00.0 Tachycardia, unspecified (principal); K21.9 Gastro-esophageal reflux disease without esophagitis; R10.9 Unspecified abdominal pain; R93.5 Abnormal findings on diagnostic imaging of other abdominal regions, including retroperitoneum
CPT/HCPCS: 36415; 80053; 81001; 82150; 83690; 84439; 84443; 84484; 85025; 85652; 86141; 87086